=== PATIENT | female | born 1965 | race Caucasian/White ===

== ENCOUNTER → 2017-10-03 | Day surgery (SDC) | payer OTHER ==
[2017-09-27 10:57] VITALS: Ht 180.3 cm; Wt 118.2 kg
[~2017-10-03] VITALS: Ht 180.3 cm; Wt 118.2 kg
[~2017-10-03] MED LIST: ASTN; BUSP15TA70 PO; CALC1TAB9 PO; CHOL100010 PO; CLR10 PO; FERR28TA PO; FLUO40CA8 PO; FLUT0.15; HYDR12.55 PO; KETAMINE HCL INJ 50 MG/ML 10 ML VIAL ONE; LEVO175T PO; LIDOCAINE HCL 2% 2 ML VIAL (20MG/ML) ONE; LORA-741 PO; MTR600X PO; PROPOFOL IV EMULSION 10 MG/ML 20 ML VIAL IV ONE; ROPI0.5T15 PO; SODIUM CHLORIDE 0.9% 500ML 500 ML IV ONE; VITACAP26 PO
--- NOTE | 2017-10-03 11:33 | Endo History and Physical ---
History & Physical Date of Service: Oct 03, 2017. Chief Complaint: Screening Referring Physician: Dr. Holger Alamo History of Present Illness screening Past Medical History Anxiety, Sleep Apnea, Hypertension, Thyroid Disease, Depression Past Surgical History Hx Cardiac Surgery: No Hx Internal Defibrillator: No Hx Pacemaker: No Hx Abdominal Surgery: Yes (LILIBETH) Hx of Implantable Prosthesis: No Hx Post-Op Nausea and Vomiting: No Hx Cancer Surgery: No Hx Thoracic Surgery: No Hx Orthopedic: Yes (RT ACHILLES TENDON,AURELIO TRIGGER THUMBS,RT SHOULDER SCOPE X 2 ,RT RADIAL HEAD ) Hx Urinary Tract Surgery: No Family History None Social History Smoking Status: Never Smoker Hx Substance Use: No Hx Alcohol Use: No Allergies Coded Allergies: Amoxicillin (Verified Allergy, Intermediate, HIVES. ITCHING, 09/27/17) Clavulanic Acid (Verified Allergy, Intermediate, HIVES, ITCHING, 09/27/17) Adhesives (Verified Allergy, Unknown, TAPE-REDNESS, 09/27/17) Celecoxib (Verified Allergy, Unknown, HIVES, 10/03/17) Cetirizine (Verified Allergy, Unknown, PSYCHIATRIC REACTION, 10/03/17) Guaifenesin (Verified Allergy, Unknown, PSYCHIATRIC REACTION, 10/03/17) Hydrocodone (Verified Allergy, Unknown, HIVES, 09/27/17) Lactose (Verified Allergy, Unknown, LACTOSE INTOLERANCE, 09/27/17) Levofloxacin (Verified Allergy, Unknown, HIVES, 10/03/17) Moxifloxacin (Verified Allergy, Unknown, HIVES, 10/03/17) Oxycodone (Verified Allergy, Unknown, HIVES, 10/03/17) Paroxetine (Verified Allergy, Unknown, HIVES, 10/03/17) Penicillins (Verified Allergy, Unknown, ALLERGIC PER TESTING, 09/27/17) Pseudoephedrine (Verified Allergy, Unknown, PSYCHIATRIC REACTION, 10/03/17) Sulfa Antibiotics (Verified Allergy, Unknown, EDEMA,BLISTERS, 09/27/17) Acetaminophen (Verified Adverse Reaction, Unknown, Facial flushing, 10/03/17 ) Patient reports she has tolerated po Tylenol in the past Current Medications Reported Home Medications Medications Dose Route/Sig Max Daily Dose Days Date Category Requip (Ropinirole HCl) 0.5 Mg Tab 1-3 Mg PO HS 09/27/17 Reported Ativan (Lorazepam) 0.5 Mg Tab 0.5 Mg PO TID PRN 09/27/17 Reported Claritin (Loratadine) 10 Mg Tab 10 Mg PO QAM 09/27/17 Reported Astelin Nasal [place] (Azelastine Hcl) 200 Sprays/30 Ml [place] 1-2 Sprays NA BID 09/27/17 Reported Iron (Ferrous Gluconate) 256 Mg Tab 256 Mg PO QPM 09/27/17 Reported Flonase Allergy Relief (Fluticasone Propionate (Nasal)) 50 Mcg/Act Spr 2 Sprays NA BID 09/27/17 Reported Vitamin D (Cholecalciferol) 1,000 Unit Tab 1,000 Units PO QPM 09/27/17 Reported Synthroid (Levothyroxine Sodium) 175 Mcg Tab 175 Mcg PO QAM 09/27/17 Reported Prozac (Fluoxetine HCl) 40 Mg Cap 40 Mg PO QAM 09/27/17 Reported Ibuprofen 600 Mg Tab 600 Mg PO Q6H PRN 06/22/14 Rx Vitamin C (Vitamins C & E) 1 Cap Cap 1 Cap PO DAILY 06/19/14 Reported Citracal + D3 Maximum (Calcium Citrate-Vitamin D) 1 Tab Tab 500 Mg PO DAILY 06/02/14 Reported Buspar (Buspirone Hcl) 15 Mg Tab 15 Mg PO QAM 06/02/14 Reported Hydrochlorothiazide 12.5 Mg Tab 12.5 Mg PO QAM 06/02/14 Reported Vital Signs Weight (Kilograms): 118.18 Height (Feet): 5 Height (Inches): 11 Date Time Temp Pulse Resp B/P (MAP) Pulse Ox O2 Delivery O2 Flow Rate FiO2 10/03/17 11:14 37.2 78 18 148/95 (112) 95 Room Air Physical Exam General Appearance: no apparent distress Respiratory/Chest: Auscultation: breath sounds normal Cardiovascular: Heart Auscultation: RRR Assessment and Plan Screening cscopy
--- NOTE | 2017-10-03 12:31 | Discharge Instructions ---
Endoscopy Patient Instructions Date / Procedure(s) Performed Oct 03, 2017. Colonoscopy Allergy Information Coded Allergies: Amoxicillin (Verified Allergy, Intermediate, HIVES. ITCHING, 09/27/17) Clavulanic Acid (Verified Allergy, Intermediate, HIVES, ITCHING, 09/27/17) Adhesives (Verified Allergy, Unknown, TAPE-REDNESS, 09/27/17) Celecoxib (Verified Allergy, Unknown, HIVES, 10/03/17) Cetirizine (Verified Allergy, Unknown, PSYCHIATRIC REACTION, 10/03/17) Guaifenesin (Verified Allergy, Unknown, PSYCHIATRIC REACTION, 10/03/17) Hydrocodone (Verified Allergy, Unknown, HIVES, 09/27/17) Lactose (Verified Allergy, Unknown, LACTOSE INTOLERANCE, 09/27/17) Levofloxacin (Verified Allergy, Unknown, HIVES, 10/03/17) Moxifloxacin (Verified Allergy, Unknown, HIVES, 10/03/17) Oxycodone (Verified Allergy, Unknown, HIVES, 10/03/17) Paroxetine (Verified Allergy, Unknown, HIVES, 10/03/17) Penicillins (Verified Allergy, Unknown, ALLERGIC PER TESTING, 09/27/17) Pseudoephedrine (Verified Allergy, Unknown, PSYCHIATRIC REACTION, 10/03/17) Sulfa Antibiotics (Verified Allergy, Unknown, EDEMA,BLISTERS, 09/27/17) Acetaminophen (Verified Adverse Reaction, Unknown, Facial flushing, 10/03/17 ) Patient reports she has tolerated po Tylenol in the past Discharge Date / Findings Oct 03, 2017. Diverticulosis, fair prep Provider Instructions Activity Restrictions - No exercising or heavy lifting for 24 hours. - Do not drink alcohol the day of the procedure. - Do not drive a car or operate machinery until the day after the procedure. - Do not make any important decisions or sign important papers in 24 hours after the procedure. Following Day: - Return to full activity which may include returning to work/school. Diet Start your diet with liquids and light foods (jello, soup, juice, toast). Then eat your usual diet if not nauseated. Treatment For Common After Affects For mild abdominal pain, bloating, or excessive gas: - Rest - Eat lightly - Lie on right side Follow-Up Information Follow-up with Dr. Holger Alamo as scheduled Anesthesia Information What You Should Know You have had a procedure that required some medicine to reduce anxiety and discomfort. This treatment is called moderate sedation. After receiving the treatment, you may be sleepy, but you will be able to breathe on your own. The effects of the treatment may last for several hours. Follow these instructions along with Activity/Diet recommendations noted above: * Do NOT do anything where dizziness or clumsiness would be dangerous. * Rest quietly at home today, then you can be up and about tomorrow. * Have a responsible person stay with you the rest of today. * You may have had an I.V. today. If so, you may take the dressing off later today. Recommendations Call your doctor if: * Trouble breathing * Continuous vomiting for more than 24 hours * Temperature above 101 degrees * Severe abdominal pain or bloating * Pain not relieved by pain medicine ordered * There is increased drainage or redness from any incision * A large amount of rectal bleeding greater than 2-3 tablespoons. (If you had a polyp/s removed or have hemorrhoids, a small amount of blood - from the rectum is to be expected.) * You have any unanswered questions or concerns. IN THE EVENT OF A SERIOUS EMERGENCY, GO TO THE NEAREST EMERGENCY ROOM Your discharge instructions were prepared by provider Nerissa Schmidt. Patient Instructions Signature Page Mara Sanchez Patient (or Guardian) Signature/Date: I have read and understand the instructions given to me by my caregivers. Caregiver/RN/Doctor Signature/Date: The above-named patient and/or guardian has received patient instructions on this date. + Original Patient Signature Page (only) stays with chart. Please make copy for patient.
--- NOTE | 2017-10-03 12:33 | GI REPORT ---
Procedure Date: 10/03/2017 11:36 AM Procedure: Colonoscopy Indications: Screening for colorectal malignant neoplasm Medicines: See the Anesthesia note for documentation of the administered medications Complications: No immediate complications. Estimated Blood Loss: Estimated blood loss: none. Procedure: Pre-Anesthesia Assessment: - ASA Grade Assessment: III - A patient with severe systemic disease. After I obtained informed consent, the scope was passed under direct vision. Throughout the procedure, the patient's blood pressure, pulse, and oxygen saturations were monitored continuously. The scope was introduced through the anus and advanced to the cecum, identified by appendiceal orifice and ileocecal valve. The quality of the bowel preparation was fair. The colonoscopy was performed with moderate difficulty due to the patient's poor cooperation. The patient tolerated the procedure. Findings: The perianal and digital rectal examinations were normal. A few small-mouthed diverticula were found in the sigmoid colon. The exam was otherwise without abnormality. Impression: - Diverticulosis in the sigmoid colon. - The examination was otherwise normal. - No specimens collected. Recommendation: - Discharge patient to home. Repeat exam in 3 years due to prep quality. Nerissa Camp M.D. Nerissa Camp MD 10/03/2017 12:33:13 PM This report has been signed electronically. Note Initiated On: 10/03/2017 11:36 AM I attest to the content of the Intraoperative Record and orders documented therein, exceptions below
[2017-10-03 12:51] VITALS: BP 143/99; PULSE 84; O2SAT 96
--- NOTE | 2017-10-03 13:53 | Anesthesiology Progress Note ---
Anesthesia Post Op Note Date & Time Oct 03, 2017 at 13:53 Vital Signs Pain Intensity: 0 Vital Signs Past 12 Hours Date Time Temp Pulse Resp B/P (MAP) Pulse Ox O2 Delivery O2 Flow Rate FiO2 10/03/17 12:51 84 20 143/99 (114) 96 Room Air 10/03/17 12:36 88 20 149/93 (111) 96 Room Air 10/03/17 12:21 36.7 106 16 141/91 (108) 96 Room Air 10/03/17 11:14 37.2 78 18 148/95 (112) 95 Room Air Notes Mental Status: alert / awake / arousable, participated in evaluation Pt Amnestic to Procedure: Yes Nausea / Vomiting: adequately controlled Pain: adequately controlled Airway Patency, RR, SpO2: stable & adequate BP & HR: stable & adequate Hydration State: stable & adequate Anesthetic Complications: no major complications apparent
== END | disposition home or self-care (01) ==
LOC: C.GI 10:41
PROVIDERS: ATTEND Internal Medicine Gastroenterology
DX: Z12.11 Encounter for screening for malignant neoplasm of colon (principal); K57.30 Diverticulosis of large intestine without perforation or abscess without bleeding; F41.9 Anxiety disorder, unspecified; G47.33 Obstructive sleep apnea (adult) (pediatric); E03.9 Hypothyroidism, unspecified; G25.81 Restless legs syndrome; I10 Essential (primary) hypertension; E66.9 Obesity, unspecified; F32.9 Major depressive disorder, single episode, unspecified; Z90.710 Acquired absence of both cervix and uterus; Z88.1 Allergy status to other antibiotic agents; Z88.5 Allergy status to narcotic agent; Z88.0 Allergy status to penicillin; Z88.6 Allergy status to analgesic agent; Z88.2 Allergy status to sulfonamides

== ENCOUNTER 2024-02-03 07:22 | Inpatient (IN) ==
--- OUTSIDE RECORDS SUMMARY | 2024-02-03 07:28 | External Medical Summary | Summary of Care ---
Author Name Unknown Organization [facility] Address [address] [place] [address] Phone [phone] Care Team Providers Care Flexo Press Operator Name Role Phone Yamini Alamo MD Primary Care Provider [phone] Reason for Visit * Reason Comments eRx-Medication Refill Encounter Details Date Type Department Care Team (Late st Contact Info) Description 12/24/2023 Refill General Internal Medicine [facility] [address] [facility] [address] Yamini Alamo MD [address] [place] [address] Allergies Active Allergy Reactions Criticality Noted Date Comments Amoxicillin-Pot Clavulanate Itching Medium 07/16/2014 Mild skin redness on back Pos allergy skin testing 08/08/17 Moxifloxacin Hcl In Nacl Itching 02/04/2010 Skin redness on back Celecoxib Hives 02/04/2010 Guaifenesin Psych complications 02/04/2010 Hydrocodone Rash 03/19/2017 Hydrocodone-Acetaminoph en Hives 02/04/2010 Levofloxacin Itching 02/04/2010 Mild redness on back Moxifloxacin Hives 02/27/2011 Oxycodone Hcl Hives 02/04/2010 Paroxetine Hydrochloride Hives 02/04/2010 Penicillins Other (Please comment) 08/24/2017 Positive on allergy testing Sulfa Antibiotics Rash High 04/07/2014 Edema, mouth blisters Cetirizine Hcl Psych complications 02/04/2010 documented as of this encounter (statuses as of 12/25/2023) Medications Medication Sig Dispensed Refills Start Date End Date Status Potassium 75 MG Oral Tablet Take 1 Tablet by mouth in the morning. As needed for leg cramps . Active Magnesium 100 MG Oral Capsule Take 1 Capsule by mouth in the morning. As needed for leg cramps . Active rOPINIRole HCl 0.5 MG Oral Tablet (Requip)Indication s:RLS (restless legs syndrome) TAKE 1 TABLET AT 5 P.M. AND TAKE 1 TABLET AT 9 P.M. CAN DOSE 1 ADDITIONAL TABLET NEEDED FOR RESTLESS LEG SYNDROME 270 Tablet 3 3 Active Benzonatate 100 MG Oral Capsule (Tessalon Perles)Indications :Acute cough Take 1-2 capsules up to 3 times a day Do not cut, crush, or chew. 50 Capsule 1 3 Active FLUoxetine HCl 20 MG Oral Capsule (PROzac)Indication s:Major depressive disorder, recurrent episode, mild (HCC),Generalized anxiety disorder Take 1 Capsule by mouth in the morning. Take with 40 mg capsule for a total of 60 mg daily.. 90 Capsule 3 3 Active rOPINIRole HCl 0.5 MG Oral Tablet (Requip)Indication s:RLS (restless legs syndrome) TAKE 1 TABLET AT 5 P.M. AND TAKE 1 TABLET AT 9 P.M. CAN DOSE 1 ADDITIONAL TABLET NEEDED FOR RESTLESS LEG SYNDROME 30 Tablet 3 Active Fexofenadine HCl 180 MG Oral Tablet (Anabel Allergy) Take 1 Tablet by mouth in the morning. 90 Tablet 3 3 Active Levothyroxine Sodium 150 MCG Oral Tablet (Synthroid) Take 1 Tablet by mouth in the morning. (at least 30 min prior to breakfast or other meds) brand name Synthroid. 90 Tablet 3 4 Active Montelukast Sodium 10 MG Oral Tablet (Singulair) Take 1 Tablet by mouth in the morning. 90 Tablet 3 4 Active Gabapentin 800 MG Oral Tablet (Neurontin)Indicat ions:RLS (restless legs syndrome) Take 1 tablet by mouth at 5pm for RLS 90 Tablet 4 Active hydroCHLOROthiazid e 12.5 MG Oral Capsule (Hydrodiuril)Indic ations:Essential hypertension with goal blood pressure less than 140/90 TAKE 1 CAPSULE IN THE MORNING 90 Capsule 3 4 Active Atomoxetine HCl 40 MG Oral Capsule (Strattera)Indicat ions:Attention deficit hyperactivity disorder (ADHD), combined type Take 1 Capsule by mouth in the morning. 30 Capsule 4 Active FLUoxetine HCl 40 MG Oral Capsule (PROzac)Indication s:Adjustment disorder with depressed mood TAKE 1 CAPSULE DAILY IN THE MORNING IN ADDITION TO THE 20 MG CAPSULE FOR A TOTAL OF 60 MG 90 Capsule 2 4 Active Fluticasone Propionate 50 MCG/ACT Nasal Suspension (Flonase) USE 2 SPRAYS IN EACH NOSTRIL TWICE A DAY. PLEASE CALL TO SCHEDULE AN APPOINTMENT FOR ALLERGY VISIT. 32 g 5 4 Active Azelastine HCl 0.1 % Nasal Solution (Astelin)Indicatio ns:Dysfunction of both eustachian tubes USE 2 SPRAYS IN EACH NOSTRIL TWICE DAILY 120 mL 3 4 Active Albuterol Sulfate HFA 108 (90 Base) MCG/ACT Inhalation Aerosol Solution Inhale 2 Puffs by mouth every 4 hours as needed for Wheezing. 6.7 g 3 4 Active Omeprazole 20 MG Oral Capsule Delayed Release (PriLOSEC) take One capsule by mouth 30 minutes prior to breakfast. 90 Capsule 3 4 Active Vitamin D3 1.25 MG (82938 UT) Oral CapsuleIndications :Vitamin D deficiency Take 1 Capsule by mouth once a week. 12 Capsule 4 03/16/20 24 Active Calcium 500 MG Oral TabletIndications: Vitamin D deficiency Take 1 Tablet by mouth in the morning and 1 Tablet before bedtime. With food.. 4 Active Vitamin B-12 1000 MCG Oral Tablet (Cyanocobalamin)In dications:Vitamin B12 deficiency Take 1 Tablet by mouth in the morning. 4 Active LORazepam 0.5 MG Oral Tablet (Ativan)Indication s:KAMALA (generalized anxiety disorder) Take 1 Tablet by mouth daily as needed for Anxiety. 20 Tablet 4 Active Lisinopril 5 MG Oral Tablet (Prinivil) TAKE 1 TABLET DAILY 90 Tablet 3 4 Active Lisinopril 5 MG Oral Tablet (Prinivil) TAKE 1 TABLET DAILY 90 Tablet 1 3 12/25/19 24 Discontinued documented as of this encounter (statuses as of 12/25/2023) Active Problems Problem Noted Date Diagnosed Date Major depressive disorder, recurrent episode, mi ld 03/23/2023 Attention deficit hyperactiv ity disorder (ADHD), combined type 03/23/2023 Prediabetes 01/08/2023 Overview: Per Prediabetes protocol Moderate episode of recurrent major depressive d isorder 09/09/2020 KAMALA (generalized anxiety disorder) 08/05/2019 Ganglion cyst of left foot 05/14/2017 Tailor's bunion of left foot 05/14/2017 Chronic nonseasonal allergic rhinitis due to justin jese 02/05/2017 Allergic conjunctivitis of both eyes 02/05/2017 ETD (eustachian tube dysfunction) 02/05/2017 Oral allergy syndrome 02/05/2017 Overview: mouth itching with melons (honeydew/cantalope), pineapple Laryngospasm 02/05/2017 Chronic pansinusitis 11/09/2016 Hypertrophy of both inferior nasal turbinates RLS (restless legs syndrome) 10/23/2014 Sleep related leg cramps 10/23/2014 Moderate obstructive sleep apnea 05/26/2014 Overview: CPAP 7 cwp (based on initial download) 06/2014 PSG -- CPAP 6 cwp PSG 04/2014 -- AHI 19/hr AHP Acquired hypothyroidism Essential hypertension with goal blood pressure less than 140/90 Mixed dyslipidemia documented as of this encounter (statuses as of 12/25/2023) Resolved Problems Problem Noted Date Diagnosed Date Resolved Date Closed fracture of fifth met atarsal bone of left foot, sequela 05/14/2017 05/14/2017 documented as of this encounter (statuses as of 12/25/2023) Immunizations Name Administration Dates Next Due COVID-19 mRNA, LNP-s, No Pre serve, 2-Dose Series (Moderna) 11/01/2020,10/04/2020 COVID-19, MRNA-LNP, 23-24, P F, 30 MCG/0.3 mL, 12 YRS AND ABOVE, IM (Cortexa-Comirnaty) 06/22/2023 COVID-19, mRNA, LNP-s, PF, B ooster, 100mcg/0.5mg (Moderna) 01/16/2022,06/02/2021 Covid-19, Mrna, Lnp-s, Pf, B ivalent, 30 Mcg, IM, 12 yrs and above (Pfizer) 05/05/2022 Hepatitis B, 20+ yrs 05/17/2023,01/02/2023,11/09 Pneumococcal Conjugate Vacci ne, 20-valent ([id number]) 12/17/2023 Seasonal Influenza, PF, 6 M & above, IM , (FluLaval or Fluzone) 05/04/2023,05/05/2022,04/21/2021,2019,04/24/2019,06/03/2018,05/01/2017 Seasonal Influenza, Quadriva lent, No Preserve, IM 07/11/2016,06/01/2015 Seasonal Influenza, Split, I IV3, With Preserve, Inj 04/08/2014,07/14/2013,05/02/2012,2010,06/09/2010 TDAP (age 10 and older)(Boostrix) 06/01/2015 TDAP (age 11 and older)(Adacel) 05/08/2005 Zoster Vaccine Recombinant (Shingrix) 06/03/2020 ,04/01/2020 documented as of this encounter Social History Tobacco Use Types Packs/Day Years Used Date Smoking Tobacco: Never Smokeless Tobacco: Never Alcohol Use Standard Drinks/Week Comments No 0 (1 standard drink = 0.6 oz pur e alcohol) PHQ-2 Answer Date Recorded PHQ Adult Total Score 13 10/06/2021 Hunger Vital Sign Answer Date Recorded Within the past 12 months, y ou worried that your food would run out before you got the money to buy more. Never true 10/07/19 22 Within the past 12 months, t he food you bought just didn't last and you didn't have money to get more. Never true 10/06/2021 Sex and Gender Information Value Date Recorded Sex Assigned at Female 04/28/2019 2:03 PM EDT Gender Identity Female 04/28/2019 2:03 PM EDT Sexual Orientation Straight 04/28/2019 2: 03 PM EDT Job Start Date Occupation Industry Not on file Not on file Not on file documented as of this encounter Miscellaneous Notes * Telephone Encounter - Jakub Patton RPh - 12/25/2023 4:25 PM EDTSigned Prescriptions: Disp Refills Lisinopril 5 MG Oral Tablet (Prinivil) 90 Tab*3 Sig: TAKE 1 TABLET DAILYAuthorizing Provider: Katya ALAMO User: JAKUB PATTON documented in this encounter Plan of Treatment Upcoming Encounters Date Type Department Care Team (Late st Contact Info) Description 06/17/2024 10:30 AM EST Office Visit Allergy/Immunology [facility] [address] [place] [address] Cee Umanzor PA-C [address] [place] [address] 06/24/2024 10:20 AM EST Office Visit General Internal Medicine [facility] [address] [place] [address] Yamini Alamo MD [address] [place] [address] 03/02/2025 10:15 AM EDT Office Visit Ophthalmology, [facility] [address] [address] Oleksandr Price DO [address] [address] Scheduled Procedures Name Priority Associated Diagnoses Date/Ti me COLONOSCOPY FLEXIBLE PROXIMAL DIAGNOSTIC Recall History of colon polyps Health Maintenance Due Date Last Done Comments Cologuard 2010 Sigmoidoscopy 2010 Fecal Occult Blood Test 06/09/2011 06/09/2010 Depression, Most Recent Score >= 10 (will fire each visit until score < 10) 10/07/2021 10/06/2021 Colonoscopy 03/07/2024 03/07/2021, 03/0 01/2018, 12/05/2016, Additional history exists Colorectal Cancer Screening 03/07/2024 Mammogram 05/29/2024 05/29/2023, 100 10/2021, 04/25/2021, Additional history exists GFR 12/10/2024 12/11/2023, 06/0 12/2022, 06/08/2022, Additional history exists HbA1c 12/10/2024 12/11/2023, 06/0 12/2022, 06/02/2015 TSH 12/10/2024 12/11/2023, 06/0 12/2022, 06/08/2022, Additional history exists DTaP,Tdap,and Td Vaccines (3 - Td or Tdap) 06/01/2025 06/01/2015, 05/08/2005 Albumin/Creatinine Ratio 01/02/2026 01/02/2023 Lipid Panel 12/10/2028 12/11/2023, 06/0 12/2022, 06/08/2022, Additional history exists Zoster Vaccines Completed 06/03/2020, 04/01/2020 Influenza Vaccine (FLU shot) Completed 12/2022, 05/05/2022, 04/21/2021, Additional history exists Hepatitis B Completed 05/17/2023, 06/0 12/2022, 11/09/2022 COVID-19 Vaccine Completed 06/22/2023, 01/2022, 01/16/2022, Additional history exists Pneumococcal Vaccine: Pediatrics (0 to 5 Years) and At-Risk Patients (6 to 64 Years) Completed 12/17/2023 GARDASIL-HPV IMMUNIZATION SERIES Aged Out No longer eligible based on patient's age to complete this topic MENINGOCOCCAL (MENACTRA/MENVEO) Aged Out No longer eligible based on patient's age to complete this topic documented as of this encounter Medical Devices Not on filedocumented as of this encounter Care Teams Flexo Press Operator Relationship Specialty Start Date End Date Yamini Alamo MD [address] [facility] [place], [place] [address] PCP - General 02/04/10 documented as of this encounter
--- OUTSIDE RECORDS SUMMARY | 2024-02-03 07:28 | External Medical Summary | Summary of Care ---
Author Name Unknown Organization [facility] Address [address] [place] [address] Phone [phone] Care Team Providers Care Grain Operations Manager Name Role Phone Yamini Alamo MD Primary Care Provider [phone] Reason for Visit * Reason Onset Date Comments Health Maintenance 01/16/2024 Encounter Details Date Type Department Care Team (Late st Contact Info) Description 01/16/2024 Telephone General Internal Medicine [facility] [place] [facility] [address] Yamini [facility]amo MD 200 [facility] [place] [address] Health Maintenance Allergies Active Allergy Reactions Criticality Noted Date [...] as of this encounter (statuses as of 01/16/2024) Medications Medication Sig Dispensed Refills Start Date End Date Status Potassium 75 MG Oral Tablet Take 1 Tablet by mouth in the morning. As needed for leg cramps . Active Magnesium 100 MG Oral Capsule Take 1 Capsule by mouth in the morning. As needed for leg cramps . Active Benzonatate 100 MG Oral Capsule (Tessaltati Perlned)Indications: Acute cough Take 1-2 capsules up to 3 times a day Do not cut, crush, or chew. 50 Capsule 1 03/15/2023 Active FLUoxetine HCl 20 MG Oral Capsule (PROzac)Indications :Major depressive disorder, recurrent episode, mild (HCC),Generalized anxiety disorder Take 1 Capsule by mouth in the morning. Take with 40 mg capsule for a total of 60 mg daily.. 90 Capsule 3 03/23/2023 Active Fexofenadine HCl 180 MG Oral Tablet (Anabel Allergy) Take 1 Tablet by mouth in the morning. 90 Tablet 3 06/12/2023 Active Levothyroxine Sodium 150 MCG Oral Tablet (Synthroid) Take 1 Tablet by mouth in the morning. (at least 30 min prior to breakfast or other meds) brand name Synthroid. 90 Tablet 3 08/14/2023 Active Montelukast Sodium 10 MG Oral Tablet (Singulair) Take 1 Tablet by mouth in the morning. 90 Tablet 3 08/14/2023 Active Gabapentin 800 MG Oral Tablet (Neurontin)Indicati ons:RLS (restless legs syndrome) Take 1 tablet by mouth at 5pm for RLS 90 Tablet 08/17/2023 Active hydroCHLOROthiazide 12.5 MG Oral Capsule (Hydrodiuril)Indica tions:Essential hypertension with goal blood pressure less than 140/90 TAKE 1 CAPSULE IN THE MORNING 90 Capsule 3 09/24/2023 Active Atomoxetine HCl 40 MG Oral Capsule (Strattera)Indicati ons:Attention deficit hyperactivity disorder (ADHD), combined type Take 1 Capsule by mouth in the morning. 30 Capsule 09/26/2023 Active FLUoxetine HCl 40 MG Oral Capsule (PROzac)Indications :Adjustment disorder with depressed mood TAKE 1 CAPSULE DAILY IN THE MORNING IN ADDITION TO THE 20 MG CAPSULE FOR A TOTAL OF 60 MG 90 Capsule 2 10/18/2023 Active Fluticasone Propionate 50 MCG/ACT Nasal Suspension (Flonase) USE 2 SPRAYS IN EACH NOSTRIL TWICE A DAY. PLEASE CALL TO SCHEDULE AN APPOINTMENT FOR ALLERGY VISIT. 32 g 5 12/11/2023 Active Azelastine HCl 0.1 % Nasal Solution (Astelin)Indication s:Dysfunction of both eustachian tubes USE 2 SPRAYS IN EACH NOSTRIL TWICE DAILY 120 mL 3 12/11/2023 Active Albuterol Sulfate HFA 108 (90 Base) MCG/ACT Inhalation Aerosol Solution Inhale 2 Puffs by mouth every 4 hours as needed for Wheezing. 6.7 g 3 12/11/2023 Active Omeprazole 20 MG Oral Capsule Delayed Release (PriLOSEC) take One capsule by mouth 30 minutes prior to breakfast. 90 Capsule 3 12/11/2023 Active Vitamin D3 1.25 MG (30843 UT) Oral CapsuleIndications: Vitamin D deficiency Take 1 Capsule by mouth once a week. 12 Capsule 12/17/2023 03/16/2024 Active Calcium 500 MG Oral TabletIndications:V itamin D deficiency Take 1 Tablet by mouth in the morning and 1 Tablet before bedtime. With food.. 12/17/2023 Active Vitamin B-12 1000 MCG Oral Tablet (Cyanocobalamin)Ind ications:Vitamin B12 deficiency Take 1 Tablet by mouth in the morning. 12/17/2023 Active LORazepam 0.5 MG Oral Tablet (Ativan)Indications :KAMALA (generalized anxiety disorder) Take 1 Tablet by mouth daily as needed for Anxiety. 20 Tablet 12/17/2023 Active Lisinopril 5 MG Oral Tablet (Prinivil) TAKE 1 TABLET DAILY 90 Tablet 3 12/25/2023 Active rOPINIRole HCl 0.5 MG Oral Tablet (Requip)Indications :RLS (restless legs syndrome) TAKE 1 TABLET AT 5 P.M. AND TAKE 1 TABLET AT 9 P.M. CAN DOSE 1 ADDITIONAL TABLET NEEDED FOR RESTLESS LEG SYNDROME 270 Tablet 3 12/26/2023 Active documented as of this encounter (statuses as of 01/16/2024) Active Problems Problem Noted Date Diagnosed Date [...] as of this encounter (statuses as of 01/16/2024) Resolved Problems Problem Noted Date Diagnosed Date Resolved Date Closed fracture of fifth met atarsal bone of left foot, sequela 05/14/2017 05/14/2017 documented as of this encounter (statuses as of 01/16/2024) Immunizations Name Administration Dates Next Due COVID-19 mRNA, LNP-s, No Pre serve, 2-Dose Series (Moderna) 11/01/2020,10/04/2020 COVID-19, MRNA-LNP, 23-24, P F, 30 MCG/0.3 mL, 12 YRS AND ABOVE, IM (PFIZER-Comirnaty) 06/22/2023 COVID-19, mRNA, LNP-s, PF, B ooster, 100mcg/0.5mg (Moderna) 01/16/2022,06/02/2021 Covid-19, Mrna, Lnp-s, Pf, B ivalent, 30 Mcg, IM, 12 yrs and above (Pfizer) 05/05/2022 Hepatitis B, 20+ yrs 05/17/2023,01/02/2023,11/09 Pneumococcal Conjugate Vacci ne, 20-valent ([id number]) 12/17/2023 Seasonal Influenza, PF, 6 M & above, IM , (FluLaval or Fluzone) 05/04/2023,05/05/2022,04/21/2021,2019,04/24/2019,06/03/2018,05/01/2017 Seasonal Influenza, Quadriva lent, No Preserve, IM 07/11/2016,06/01/2015 Seasonal Influenza, Split, I IV3, With Preserve, Inj 04/08/2014,07/14/2013,05/02/2012,2010,06/09/2010 TDAP (age 10 and older)(Boostrix) 06/01/2015 TDAP, Age 7 and older, IM (Adacel) 05/08/2005 Zoster Vaccine Recombinant (Shingrix) 06/03/2020 ,04/01/2020 [...] encounter Miscellaneous Notes * Telephone Encounter - Belle StrattonSHANNEN - 01/16/2024 10:19 AM EDT Care Gaps Comprehensive Care Outreach Last Office/Telemedicine Visit: 12/17/2023 (in office), 07/11/2021 (telemedicine) Next Office Visit: 06/24/2024 Hemoglobin AIC Results: Lab Results Component Value Date/Time HEMOGLOBIN A1C - [facility] 5.6 12/11/2023 10:02 AM HEMOGLOBIN A1C - [facility] 5.9 (H) 01/02/2023 11:38 AM HEMOGLOBIN A1C - [facility] 5.4 06/02/2015 09:43 AM BP Readings from Last 1 Encounters: 12/17/23 124/80 Reviewed Health Maintenance below: Health Maintenance Topic Date Due Depression Monitoring 10/06/2022 Colorectal Cancer Screening 03/07/2024 Mammogram 05/29/2024 Colon aug already scheduled Mamm may 29 Care Gap Outreach Action Taken: Left message documented in this encounter Plan of Treatment Upcoming Encounters Date Type Department Care Team (Late st Contact Info) Description 06/17/2024 10:30 AM EST Office Visit Allergy/Immunology [employer] [address] [facility] [place] [address] Cee Umanzor PA-C 200 [facility] [place] [address] 06/17/2024 1:30 PM EST Hospital Encounter ENDO [facility], Endoscopy Room [facility] [address] [place] [phone] Nerissa Camp MD [address] [place] [address] 06/17/2024 1:30 PM EST - 06/17/2024 2:00 PM EST Surgery ENDO [facility], Endoscopy Room [facility] [address] [place] [address] [phone] Nerissa Camp MD [address] [place] [address] COLONOSCOPY FLEXIBLE PROXIMAL DIAGNOSTIC 06/24/2024 10:20 AM EST Office Visit General Internal [place] [facility] [address] [place] [address] Yamini Alamo MD [address] [place] [address] 03/02/2025 10:15 AM EDT [facility] [place] [address] [place] [address] Oleksandr Price, DO [address] [place] [address] Scheduled Procedures Name Priority Associated Diagnoses Date/Ti me COLONOSCOPY FLEXIBLE PROXIMAL DIAGNOSTIC Recall History of colon polyps 06/17/2024 1:30 PM EST Health Maintenance Due Date Last Done Comments Cologuard 2010 Sigmoidoscopy 2010 Fecal Occult Blood Test 06/09/2011 06/09/2010 Depression Monitoring 10/06/2022 10/06/2021 Colonoscopy 03/07/2024 03/07/2021, 0 01/2018, 12/05/2016, Additional history exists Colorectal Cancer Screening 03/07/2024 Mammogram 05/29/2024 05/29/2023, 0 10/2021, 04/25/2021, Additional history exists GFR 12/10/2024 12/11/2023, 060 12/2022, 06/08/2022, Additional history exists HbA1c 12/10/2024 [...] filedocumented as of this encounter Care Teams Grain Operations Manager Relationship Specialty Start Date End Date Yamini Alamo MD [address] [place] [address] PCP - General 02/04/10 documented as of this encounter
--- OUTSIDE RECORDS SUMMARY | 2024-02-03 07:28 | External Medical Summary | Summary of Care ---
Author Name Unknown Organization [facility] Address [address] [place] [address] Phone [phone] Care Team Providers Care Engraver Steel Plate Name Role Phone Yamini Alamo MD Primary Care Provider [phone] Reason for Visit * Reason Comments Allergy Return Encounter Details Date Type Department Care Team (Latest Contact Info) Description 12/11/2023 9:00 AM EDT Office Visit Allergy/Immunology [facility] [place] [address] [facility] [place] [address] Cee Umanzor PA-C [address] [facility] [place] [address] Seasonal allergic rhinitis due to pollen*; Dysfunction of both eustachian tubes; Allergic rhinitis due to dust mite; Pollen-food allergy, initial encounter; Intermittent asthma with reliever use up to twice per week, uncomplicated Allergies Active Allergy Reactions Criticality Noted Date [...] as of this encounter (statuses as of 12/11/2023) Medications Medication Sig Dispensed Refills Start Date End Date Status Potassium 75 MG Oral Tablet Take 1 Tablet by mouth in the morning. As needed for leg cramps . 0 Active Magnesium 100 MG Oral Capsule Take 1 Capsule by mouth in the morning. As needed for leg cramps . 0 Active rOPINIRole HCl 0.5 MG Oral Tablet (Requip)Indicatio ns:RLS (restless legs syndrome) TAKE 1 TABLET AT 5 P.M. AND TAKE 1 TABLET AT 9 P.M. CAN DOSE 1 ADDITIONAL TABLET NEEDED FOR RESTLESS LEG SYNDROME 270 Tablet 3 3 Active LORazepam 0.5 MG Oral Tablet (Ativan) Take 1 Tablet by mouth daily as needed for Anxiety. 20 Tablet 0 3 Active Benzonatate 100 MG Oral Capsule (Tessalon Perles)Indication s:Acute cough Take 1-2 capsules up to 3 times a day Do not cut, crush, or chew. 50 Capsule 1 3 Active FLUoxetine HCl 20 MG Oral Capsule (PROzac)Indicatio ns:Major depressive disorder, recurrent episode, mild (HCC),Generalized anxiety disorder Take 1 Capsule by mouth in the morning. Take with 40 mg capsule for a total of 60 mg daily.. 90 Capsule 3 3 Active rOPINIRole HCl 0.5 MG Oral Tablet (Requip)Indicatio ns:RLS (restless legs syndrome) TAKE 1 TABLET AT 5 P.M. AND TAKE 1 TABLET AT 9 P.M. CAN DOSE 1 ADDITIONAL TABLET NEEDED FOR RESTLESS LEG SYNDROME 30 Tablet 0 3 Active Fexofenadine HCl 180 MG Oral Tablet (Anabel Allergy) Take 1 Tablet by mouth in the morning. 90 Tablet 3 3 Active Lisinopril 5 MG Oral Tablet (Prinivil) TAKE 1 TABLET DAILY 90 Tablet 1 3 Active Levothyroxine Sodium 150 MCG Oral Tablet (Synthroid) Take 1 Tablet by mouth in the morning. (at least 30 min prior to breakfast or other meds) brand name Synthroid. 90 Tablet 3 4 Active Montelukast Sodium 10 MG Oral Tablet (Singulair) Take 1 Tablet by mouth in the morning. 90 Tablet 3 4 Active Gabapentin 800 MG Oral Tablet (Neurontin)Indica tions:RLS (restless legs syndrome) Take 1 tablet by mouth at 5pm for RLS 90 Tablet 0 4 Active hydroCHLOROthiazi de 12.5 MG Oral Capsule (Hydrodiuril)Marla cations:Essential hypertension with goal blood pressure less than 140/90 TAKE 1 CAPSULE IN THE MORNING 90 Capsule 3 4 Active Atomoxetine HCl 40 MG Oral Capsule (Strattera)Indica tions:Attention deficit hyperactivity disorder (ADHD), combined type Take 1 Capsule by mouth in the morning. 30 Capsule 0 4 Active FLUoxetine HCl 40 MG Oral Capsule (PROzac)Indicatio ns:Adjustment disorder with depressed mood TAKE 1 CAPSULE [...] Active Azelastine HCl 0.1 % Nasal Solution (Astelin)Indicati ons:Dysfunction of both eustachian tubes USE 2 SPRAYS [...] to breakfast. 90 Capsule 3 4 Active Fluticasone Propionate 50 MCG/ACT Nasal Suspension (FLONASE)Indicati ons:Acute recurrent sinusitis, unspecified location USE 2 SPRAYS IN EACH NOSTRIL TWICE A DAY. PLEASE CALL TO SCHEDULE AN APPOINTMENT FOR ALLERGY VISIT. 32 g 5 0 12/11/19 24 Discontinued(Re fill) Azelastine HCl 0.1 % Nasal Solution (Astelin)Indicati ons:Dysfunction of both eustachian tubes USE 2 SPRAYS IN EACH NOSTRIL TWICE DAILY 120 mL 3 2 12/11/19 24 Discontinued(Re fill) Albuterol Sulfate HFA 108 (90 Base) MCG/ACT Inhalation Aerosol SolutionIndicatio ns:Bronchitis, complicated Inhale 2 Puffs by mouth every 4 hours as needed for Wheezing. 54 g 1 3 12/11/19 24 Discontinued(Re fill) Omeprazole 20 MG Oral Capsule Delayed Release (PriLOSEC) take One capsule by mouth 30 minutes prior to breakfast. 90 Capsule 3 3 12/11/19 24 Discontinued documented as of this encounter (statuses as of 12/11/2023) Active Problems Problem Noted Date Diagnosed Date [...] as of this encounter (statuses as of 12/11/2023) Resolved Problems Problem Noted Date Diagnosed Date Resolved Date Closed fracture of fifth met atarsal bone of left foot, sequela 05/14/2017 05/14/2017 documented as of this encounter (statuses as of 12/11/2023) Immunizations Name Administration Dates Next Due COVID-19 mRNA, LNP-s, No Pre serve, 2-Dose Series (Moderna) 11/01/2020,10/04/2020 COVID-19, MRNA-LNP, 23-24, P F, 30 MCG/0.3 mL, 12 YRS AND ABOVE, IM ([facility]) 06/22/2023 COVID-19, mRNA, LNP-s, PF, B ooster, 100mcg/0.5mg (Moderna) 01/16/2022,06/02/2021 Covid-19, Mrna, Lnp-s, Pf, B ivalent, 30 Mcg, IM, 12 yrs and above (NGI) 05/05/2022 Hepatitis B, 20+ yrs 05/17/2023,01/02/2023,11/09 Seasonal Influenza, PF, 6 M & above, [...] Date Smoking Tobacco: Never Smokeless Tobacco: Never Tobacco Cessation:Counseling Given: Not Answered Alcohol Use Standard Drinks/Week Comments No 0 [...] on file documented as of this encounter Last Filed Vital Signs Vital Sign Reading Time Taken Comments Blood Pressure 120/70 12/11/2023 9:16 AM EDT Pulse 73 12/11/2023 9:16 AM EDT Temperature 36.7 C (98.1 F) 12/11/2023 9:16 AM ED T Respiratory Rate 16 12/11/2023 9:16 AM EDT Oxygen Saturation - - Inhaled Oxygen Concentration - - Weight - - Height - - Body Mass Index - - documented in this encounter Progress Notes * Zheng Frost MD - 12/11/2023 10:34 AM EDT I have reviewed the advanced practitioner's documentation on the date of service referenced in note, and I agree with, and take responsibility for the plan of care. Zheng Frost MD * Cee Umanzor PA-C - 12/11/2023 9:19 AM EDT REASON FOR VISIT: Chief Complaint Patient presents with Allergy Return HPI: Dyana is a pleasant 58-year-old female who presents to our office for follow up of asthma, chronic allergic rhinitis, and oral allergy syndrome. Overall she's doing well. After her last office visit 6 months ago, she started taking Anabel 180 mg once daily which has been helpful at controlling her allergic rhinitis symptoms. She did state using Flonase and Astelin daily, however she got a sinus infection in September and discontinued them secondary to nasal irritation. She has not restarted them yet. She endorses more aural fullness and itching/pressure since stopping the sprays. Her asthma is well controlled. She notes cold temperatures and URI's are triggers. She denies current nocturnal symptoms. Last albuterol use was in September when she was sick. Albuterol does help symptoms. She denies recent ER or Urgent Care visits from an asthma standpoint. She denies coughing, wheezing or shortness of breath. Reflux symptoms are controlled with omeprazole 20 mg once daily. The patient does have a history of oral allergy syndrome primarily to pineapples. She was able to pineapples in the cooked form. With oral allergy syndrome she feels numbness and tingling of her lipsand inside her mouth. She tends to avoid pineapples in the fresh form. She can tolerate all other fruits and vegetables without any adverse reaction. She did have issues with melons in the past. 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 HAND/FINGER SURGERY NEC 2007, trigger HYSTEROSCOPY W/BIOPSY AND/OR POLYPECTOMY W/WO D&C 11/2010 polypectomy, d/c, ablation NASAL ENDOSCOPY, PARTIAL ETHMOIDECTOMY 2002; nasal turbinate reduction surgery OTHER (INFORMATION) ACT 112 SIGNED ,DR. PRICE (09-21-21) PARTIAL HYSTERECTOMY 2014 ovaries intact PARTIAL RADIAL HEAD/NECK REMOVAL 2001 PLANTER FASCITIS EDU. 12/2015 PUNCTURE DRAINAGE BREAST CYST Left 03/31/2010 REPAIR OF NASAL SEPTUM 2002 REPAIR RUPTURED ACHILLES TENDON 1976 REPAIR RUPTURED ROTATOR CUFF, ACUTE 04/09, 08/[address] Gonsalves RETINA TREATMENT, PHOTOCOAGULATION Left 09/13/2022 Laser treatment OS, Dr. Price Current Outpatient Medications Medication Sig Dispense Refill Potassium 75 MG Oral Tablet Take 1 Tablet by mouth in the morning. As needed for leg cramps . Magnesium 100 MG Oral Capsule Take 1 Capsule by mouth in the morning. As needed for leg cramps . rOPINIRole HCl 0.5 MG Oral Tablet (Requip) TAKE 1 TABLET AT 5 P.M. AND TAKE 1 TABLET AT 9 P.M. CAN DOSE 1 ADDITIONAL TABLET NEEDED FOR RESTLESS LEG SYNDROME 270 Tablet 3 LORazepam 0.5 MG Oral Tablet (Ativan) Take 1 Tablet by mouth daily as needed for Anxiety. 20 Tablet0 Benzonatate 100 MG Oral Capsule (Tessalon Perles) Take 1-2 capsules up to 3 times a day Do not cut,crush, or chew. 50 Capsule 1 FLUoxetine HCl 20 MG Oral Capsule (PROzac) Take 1 Capsule by mouth in the morning. Take with 40 mg capsule for a total of 60 mg daily.. 90 Capsule 3 Fexofenadine HCl 180 MG Oral Tablet (Anabel Allergy) Take 1 Tablet by mouth in the morning. 90 Tablet 3 Lisinopril 5 MG Oral Tablet (Prinivil) TAKE 1 TABLET DAILY 90 Tablet 1 Levothyroxine Sodium 150 MCG Oral Tablet (Synthroid) Take 1 Tablet by mouth in the morning. (at least 30 min prior to breakfast or other meds) brand name Synthroid. 90 Tablet 3 Montelukast Sodium 10 MG Oral Tablet (Singulair) Take 1 Tablet by mouth in the morning. 90 Tablet 3 Gabapentin 800 MG Oral Tablet (Neurontin) Take 1 tablet by mouth at 5pm for RLS 90 Tablet 0 hydroCHLOROthiazide 12.5 MG Oral Capsule (Hydrodiuril) TAKE 1 CAPSULE IN THE MORNING 90 Capsule 3 Atomoxetine HCl 40 MG Oral Capsule (Strattera) Take 1 Capsule by mouth in the morning. 30 Capsule 0 FLUoxetine HCl 40 MG Oral Capsule (PROzac) TAKE 1 CAPSULE DAILY IN THE MORNING IN ADDITION TO THE 20 MG CAPSULE FOR A TOTAL OF 60 MG 90 Capsule 2 Fluticasone Propionate 50 MCG/ACT Nasal Suspension (Flonase) USE 2 SPRAYS IN EACH NOSTRIL TWICE A DAY. PLEASE CALL TO SCHEDULE AN APPOINTMENT FOR ALLERGY VISIT. 32 g 5 Azelastine HCl 0.1 % Nasal Solution (Astelin) USE 2 SPRAYS IN EACH NOSTRIL TWICE DAILY 120 mL 3 Albuterol Sulfate HFA 108 (90 Base) MCG/ACT Inhalation Aerosol Solution Inhale 2 Puffs by mouth every 4 hours as needed for Wheezing. 6.7 g 3 Omeprazole 20 MG Oral Capsule Delayed Release (PriLOSEC) take One capsule by mouth 30 minutes priorto breakfast. 90 Capsule 3 rOPINIRole HCl 0.5 MG Oral Tablet (Requip) TAKE 1 TABLET AT 5 P.M. AND TAKE 1 TABLET AT 9 P.M. CAN DOSE 1 ADDITIONAL TABLET NEEDED FOR RESTLESS LEG SYNDROME 30 Tablet 0 COVID-19 mRNA Vaccine 12 years and above Pfizer 30 MCG/0.3 ML IM SUSP Inject into a large muscle. 0.3 mL 0 No current facility-administered medications for this visit. Allergies as of 12/11/2023 - Reviewed 12/11/2023 Allergen Reaction Noted Sulfa antibiotics Rash 04/07/2014 Augmentin [amoxicillin-pot clavulanate] Itching 07/16/2014 Avelox [moxifloxacin hcl in nacl] Itching 02/04/2010 Celebrex [celecoxib] Hives 02/04/2010 Guaifenesin Psych complications 02/04/2010 Hydrocodone Rash 03/19/2017 Hydrocodone-acetaminophen Hives 02/04/2010 Levofloxacin Itching 02/04/2010 Moxifloxacin Hives 02/27/2011 Oxycodone hcl [oxycodone hcl] Hives 02/04/2010 Paxil [paroxetine hydrochloride] Hives 02/04/2010 Penicillins Other (Please comment) 08/24/2017 Zyrtec [cetirizine hcl] Psych complications 02/04/2010 Family History Adopted: Yes Problem Relation Age of Onset Breast Cancer No significant family history Social History Socioeconomic History Marital status: Single Spouse name: Not on file Number of children: Not on file Years of education: Not on file Highest education level: Not on file Occupational History 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 [employer], History Social Determinants of Health Financial Resource Strain: Not on file Food Insecurity: No Food Insecurity (10/06/2021) Hunger Vital Sign Worried About Running Out of Food in the Last Year: Never true Ran Out of Food in the Last Year: Never true Transportation Needs: Not on file Physical Activity: Not on file Stress: Not on file Social Connections: Not on file Intimate Partner Violence: Not on file Housing Stability: Not on file Social history: The patient currently lives in a two-story home that has an electric and forced airheating system in addition to central air conditioning. The home has a basement that is unfinished.The home has no issues with cockroaches. She does not use any scented products in the home. There are no pets within the home. 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 BP 120/70 | Pulse 73 | Temp 36.7 C (98.1 F) | Resp 16 PHYSICAL EXAM: GENERAL: No acute distress. EYES: Conjunctiva- normal; Eyelids - normal EARS: TM's - clear NOSE:Pale mucosa; moderate Inferior turbinate edema; no nasal polyps or mucopus; Septum - normal OROPHARYNX: Teeth and gums - normal; Mild erythema, mild cobblestoning; No lesions, exudates NECK: Supple; No thyroid enlargment or cervical adenopathy RESPIRATORY: Clear to A and P; No wheezes; Good air movement bilaterally; No intercostal retractions or accessory muscle use CARDIOVASCULAR: RRR; No gallops, rubs, clicks, or murmurs. LYMPHATIC: No significant adenopathy noted SKIN: No significant rashes or lesions seen, no urticarial, vesicular or eczematous lesions noted OBJECTIVE DATA: 01/09/2023: Formal spirometry: SPIROGRAM: Shows pre bronchodilator FEV1 to be 99% of predicted, FVC is 97% of predicted. FEV1/FVC ratio is Normal. Post bronchodilator FEV1 is normal. There is no bronchodilator responseSMALL AIRWAYS: The flow of air at 25 - 75% of vital capacity is normalLUNG VOLUMES: Lung volumes when measured by body plethysmography shows the TLC, FRC and SVC are within normal limits, the RV is increased.DIFFUSION CAPACITY: The diffusing capacity is normal. RESISTANCE: The airway resistance is normal. CONCLUSION: The results are within normal limits. Skin prick and ID testing on 08/08/2017 to Pre-Pen, Penicillin G and Ampicillin were positive. Allergy skin testing 02/05/17 revealed significant positive reactions to tree, grass, ragweed and mixed weed pollens, and dust mites. Food skin test to cantaloupe and pineapple were negative. ASSESSMENT AND PLAN: ICD-10-CM 1. Seasonal allergic rhinitis due to pollen J30.1 2. Dysfunction of both eustachian tubes H69.93 3. Allergic rhinitis due to dust mite J30.89 4. Pollen-food allergy, initial encounter T78.1XXA 5. Intermittent asthma with reliever use up to twice per week, uncomplicated J45.20 In summary, Dyana carries a diagnosis of chronic allergic rhinitis with primary triggers of pollen,dust mites, and possibly animal dander in addition to mild intermittent asthma and oral allergy syndrome. Pollen avoidance measures and dust mite avoidance measures were reviewed with her today. In regards to her chronic allergic rhinitis, we do recommend that she restart her Flonase 2 sprays each nostril daily and be consistent with her Astelin 2 sprays each nostril twice daily. Proper technique of a nasal spray which shown to her today. In addition we do recommend that she continue Anabel/fexofenadine 180 mg on a daily basis. In the past she has tried normal saline sinus rinses but did not tolerate them. Should there be any dryness or irritation from use of Flonase, she may add on anormal saline nasal spray. 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 Hence we will hold off on allergen immunotherapy in his patient. In regards to the patient's mild intermittent asthma, this appears to be fairly well-controlled typically. Generally, her primary trigger tends to be upper respiratory infections. At the earliest onset of an upper respiratory infection, she will then utilize her albuterol more frequently every 4-6 hours as needed for any cough, wheezing, or shortness of breath. Consideration towards an inhaled corticosteroid temporarily may also be necessary with an upper respiratory infection and she will contact us if she feels that this is necessary. Should there be increased frequency of albuterol use, she will contact our office for further measures. Finally Kourtney has a history of oral allergy syndrome primarily to pineapples. This is due to the resemblance of the proteins in some fresh fruits, vegetables, and nuts with tree/weed pollens to whichcaleb is highly allergic. Symptoms are almost always localized to the mouth and throat area and rarely become systemic. These foods should be avoided in their fresh/raw state, but are often tolerated cooked or processed. Treatment of choice is oral benadryl at onset of the mouth/throat itching. For now she plans to avoid pineapples in the raw form. Cee Umanzor PA-C Allergy and Immunology [facility] Supervising Physician: Zheng Frost MD Type of Supervision: Direct I spent a total of 30-39 minutes (exact time 30 mins) on the date of service in preparation, delivery, and documentation of the care provided to Mara Sanchez excluding any time spent in the performance of separately billed services. (This note was completed using the dictation program Fluency Direct. As such, there may be misspellings, word substitutions, or other variations that should not change the essence of the clinical content of this encounter note.If there is need for further clarification, please direct questions to the provider listed above.) PCP: [place] [address] [phone] documented in this encounter Nursing Notes * Mónica Rothman LPN - 12/11/2023 9:16 AM EDT The pt has been properly identified by confirmation of name and date of . Pt presents for allergy return. Pt denies any problems at this time. documented in this encounter Plan of Treatment Upcoming Encounters Date Type Department Care Team (Late st Contact Info) Description 12/17/2023 10:20 AM EDT Office Visit General Internal Medicine [facility] [address] [facility] [place] [address] Yamini Alamo MD [address] [facility] [place] [address] 12/19/2023 10:30 AM EDT Office Visit Ophthalmology, [facility] [address] [place] [address] Oleksandr Price DO [address] [place] [address] 06/17/2024 10:30 AM EST Office Visit Allergy/Immunology [facility] [place] [address] [facility] [place] [address] Cee Umanzor PA-C [address] [facility] [place] [address] Scheduled Procedures Name Priority Associated Diagnoses Date/Ti me COLONOSCOPY FLEXIBLE PROXIMAL DIAGNOSTIC Recall History of colon polyps Health Maintenance Due Date Last Done Comments Pneumococcal Vaccine: Pediatrics (0 to 5 Years) and At-Risk Patients (6 to 64 Years) (1 of 2 - PCV) 10/03/1971 Cologuard 2010 Sigmoidoscopy 2010 Fecal Occult Blood Test 06/09/2011 06/09/2010 Depression, Most Recent Score >= 10 (will fire each visit until score < 10) 10/07/2021 10/06/2021 GFR 01/03/2024 01/02/2023, 05/30, 11/25/2021, Additional history exists HbA1c 01/03/2024 01/02/2023, 06/02/2015 TSH 01/03/2024 01/02/2023, 05/30, 11/25/2021, Additional history exists Colonoscopy 03/07/2024 03/07/2021, 01/2018, 12/05/2016, Additional history exists Colorectal Cancer Screening 03/07/2024 Mammogram 05/29/2024 05/29/2023, 10/2021, 04/25/2021, Additional history exists DTaP,Tdap,and Td Vaccines (3 - Td or Tdap) 06/01/2025 06/01/2015, 05/08/2005 Albumin/Creatinine Ratio 01/02/2026 01/02/2023 Lipid Panel 01/03/2028 01/02/2023, 05/30, 02/21/2021, Additional history exists Zoster Vaccines Completed 06/03/2020, 04/01/2020 Influenza Vaccine (FLU shot) Completed 12/2022, 05/05/2022, 04/21/2021, Additional history exists Hepatitis B Completed 05/17/2023, 12/2022, 11/09/2022 COVID-19 Vaccine Completed 06/22/2023, 01/2022, 01/16/2022, Additional history exists GARDASIL-HPV IMMUNIZATION SERIES Aged Out No longer eligible based on patient's age to complete this topic MENINGOCOCCAL (MENACTRA/MENVEO) Aged Out No longer eligible based on patient's age to complete this topic documented as of this encounter Medical Devices Not on filedocumented as of this encounter Visit Diagnoses Diagnosis Seasonal allergic rhinitis due to pollen- Primary Dysfunction of both eustachian tubes Dysfunction of Eustachian tube Allergic rhinitis due to dust mite Pollen-food allergy, initial encounter Intermittent asthma with reliever use up to twice per week, uncomplicated documented in this encounter Care Teams Engraver Steel Plate Relationship Specialty Start Date End Date Yamini Alamo MD [address] [place] [address] PCP - General 02/04/10 documented as of this encounter"
--- OUTSIDE RECORDS SUMMARY | 2024-02-03 07:28 | External Medical Summary | Summary of Care ---
Author Name Unknown Organization [facility] Address [address] [place] [address] Phone [phone] Care Team Providers Care Timber Incisor Operator Name Role Phone Yamini Alamo MD Primary Care Provider [phone] Reason for Visit * Reason Comments Follow Up Encounter Details Date Type Department Care Team (Late st Contact Info) Description 12/19/2023 10:30 AM EDT Office Visit Ophthalmology, [facility] [address] [facility] [place] [address] Oleksandr Price, [address] [place] [address] Bilateral retinal lattice degeneration*; Right retinal detachment Allergies Active Allergy Reactions Criticality Noted Date [...] as of this encounter (statuses as of 12/19/2023) Medications Medication Sig Dispensed Refills Start Date [...] FOR RESTLESS LEG SYNDROME 270 Tablet 3 12/28/2022 Active Benzonatate 100 MG Oral Capsule (Tessalon Perles)Indications: Acute cough Take 1-2 capsules up to 3 times a day Do not cut, crush, or chew. 50 Capsule 1 03/15/2023 Active FLUoxetine HCl 20 MG Oral Capsule (PROzac)Indications :Major depressive disorder, recurrent episode, mild (HCC),Generalized anxiety disorder Take 1 Capsule by mouth in the morning. Take with 40 mg capsule for a total of 60 mg daily.. 90 Capsule 3 03/23/2023 Active rOPINIRole HCl 0.5 MG Oral Tablet (Requip)Indications :RLS (restless legs syndrome) TAKE 1 TABLET AT 5 P.M. AND TAKE 1 TABLET AT 9 P.M. CAN DOSE 1 ADDITIONAL TABLET NEEDED FOR RESTLESS LEG SYNDROME 30 Tablet 04/04/2023 Active Fexofenadine HCl 180 MG Oral Tablet (Anabel Allergy) Take 1 Tablet by mouth in the morning. 90 Tablet 3 06/12/2023 Active Lisinopril 5 MG Oral Tablet (Prinivil) TAKE 1 TABLET DAILY 90 Tablet 1 06/26/2023 Active Levothyroxine Sodium 150 MCG Oral Tablet [...] 3 12/11/2023 Active Vitamin D3 1.25 MG (87516 UT) Oral CapsuleIndications: Vitamin D deficiency Take [...] needed for Anxiety. 20 Tablet 12/17/2023 Active documented as of this encounter (statuses as of 12/19/2023) Active Problems Problem Noted Date Diagnosed Date [...] as of this encounter (statuses as of 12/19/2023) Resolved Problems Problem Noted Date Diagnosed Date Resolved Date Closed fracture of fifth met atarsal bone of left foot, sequela 05/14/2017 05/14/2017 documented as of this encounter (statuses as of 12/19/2023) Immunizations Name Administration Dates Next Due COVID-19 mRNA, LNP-s, No Pre serve, 2-Dose Series (Moderna) 11/01/2020,10/04/2020 COVID-19, MRNA-LNP, 23-24, P F, 30 MCG/0.3 mL, 12 YRS AND ABOVE, IM [facility] 06/22/2023 COVID-19, mRNA, LNP-s, PF, B ooster, 100mcg/0.5mg (Moderna) 01/16/2022,06/02/2021 Covid-19, Mrna, Lnp-s, Pf, B ivalent, 30 Mcg, IM, 12 yrs and above (Pfizer) 05/05/2022 Hepatitis B, 20+ yrs 05/17/2023,01/02/2023,11/09 Pneumococcal Conjugate Vacci ne, 20-valent ([id number]) 12/17/2023 Seasonal Influenza, PF, 6 M & [...] on file documented as of this encounter Progress Notes * Oleksandr Price DO - 12/19/2023 10:30 AM EDT [facility] [place] Nursing notes reviewed. Eye vitals reviewed. Mood and Affect: normal HPI: Mara Sanchez is a 58 year old female who presents for evaluation of retinas No other eye complaints. Denies significant pain. Base Eye Exam Visual Acuity (Snellen - Linear) Right Left Dist cc 20/20 -1 20/20 Tonometry (Tonopen, 10:40 AM) Right Left Pressure 13 15 Pupils Pupils APD Right PERRL None Left PERRL Visual Dubois (Counting fingers) Right Left Full Full Extraocular Movement Right Left Full, Ortho Full, Ortho Neuro/Psych Oriented x3: Yes Dilation Both eyes: 0.5% Proparacaine @ 10:39 AM Dilation #2 Both eyes: 1.0% Mydriacyl, 2.5% Phenylephrine @ 10:39 AM Dilation #3 Both eyes: 1.0% Mydriacyl, 2.5% Phenylephrine @ 10:41 AM Dilation Comments Patient cautioned that effects of dilation may last 2-7 hours dependant upon individual reaction. It was discussed that driving while dilated is not recommended. EXTERNAL: The ocular adnexae are unremarkable. SLE: Lids/Lashes: wnl OU Conjunctiva/Sclera: quiet OU Cornea: clear OU Anterior Chamber: deep and quiet OU Iris: normal OU; no NVI OU Lens: trace NSC OU Dilated fundus exam OD: 06/01/22 vitreous: clear optic nerve: 0.1, no edema/pallor/NVD macula: wnl vessels: wnl Periphery: scattered lattice, +medium hole in lattice w/ srfluid (subclinical RD) extending 10-12 o'clock w/ good laser barrier; lattice 1 o'clock w/ traction w/ good laser barrier, does not extend posterior past equator, no RT/RD Dilated fundus exam OS: 09/21/21 vitreous: clear optic nerve: 0.1, no edema/pallor/NVD macula: wnl vessels: wnl periphery: scattered lattice w/ small round holes, no RT/RD OCT Interpretation: OD: wnl, no cme/srfluid , no pvd--stable OS: wnl, no cme/srfluid , no pvd--stable A/P: 1. Lattice w/ hole and subclinical retinal detachment OD lattice w/ hole and significant srfluid, no pvd, high myopia, unknown family h/o as pt adopted laser 09/30/21 stable 2. Lattice OS w/ small round holes w/ fluid OS, no pvd given asymptomatic subclinical RD OD pt wanted to proceed w/ prophylactic laser laser OS 09/13/22 stable 3. High myopia OU (-6D) no retinopathy F/u w/ me 12 months, dilate OU x 2; OCT OU Oleksandr Price DO CC: Peace Bates, RADHA documented in this encounter Nursing Notes * Justina Atkinson LPN - 12/19/2023 10:28 AM EDT Mara Sanchez is a 58 year old year old female who presents for lattice with hole and subclinical RD OD. Last Office Visit: 10/31/2022 (in office), Visit date not found (telemedicine) Patient currently states no change in vision. Are you diabetic? No Do you drive? yes OCT image(s) of both eyes acquired and filed/scanned into chart. documented in this encounter Plan of Treatment Upcoming Encounters Date Type Department Care Team (Late st Contact Info) Description 06/17/2024 10:30 AM EST Office Visit Allergy/Immunology [facility] [address] [facility] [place] [address] Cee Umanzor PA-C [address] [facility] [place] [address] 06/24/2024 10:20 AM EST Office Visit General Internal Medicine [facility] [address] [facility] [place] [address] Yamini Alamo MD [address] [facility] [place] [address] 03/02/2025 10:15 AM EDT Office Visit Ophthalmology, [facility] [address] [facility] [place] [address] Oleksandr Price DO [address] [place] [address] Scheduled Orders Name Type Priority Associated Diagnoses Orde r Schedule RETINA SCAN DIAGNOSTIC IMAGE, POSTERIOR Procedures Routine Bilateral retinal lattice degeneration Ordered: 12/19/2023 Scheduled Procedures Name Priority Associated Diagnoses Date/Ti me COLONOSCOPY FLEXIBLE PROXIMAL DIAGNOSTIC Recall History of colon polyps Health Maintenance Due Date Last Done Comments Cologuard 2010 Sigmoidoscopy 2010 Fecal Occult Blood Test 06/09/2011 06/09/2010 Depression, Most Recent Score >= 10 (will fire each visit until score < 10) 10/07/2021 10/06/2021 Colonoscopy 03/07/2024 03/07/2021, 01/2018, 12/05/2016, Additional history exists Colorectal Cancer Screening 03/07/2024 Mammogram 05/29/2024 05/29/2023, 10/2021, 04/25/2021, Additional history exists GFR 12/10/2024 [...] as of this encounter Visit Diagnoses Diagnosis Bilateral retinal lattice degeneration- Primary Lattice degeneration of peripheral retina Right retinal detachment Unspecified retinal detachment documented in this encounter Care Teams Timber Incisor Operator Relationship Specialty Start Date End Date Yamini Alamo MD [address] [place] [address], [place] [address] PCP - General 02/04/10 documented as of this encounter
--- OUTSIDE RECORDS SUMMARY | 2024-02-03 07:28 | External Medical Summary | Summary of Care ---
Author Name Unknown Organization [facility] Address [address] [place] [address] Phone [phone] Care Team Providers Care Music Composer Name Role Phone Yamini Alamo MD Primary Care Provider Reason for Referral * Ancillary Services (Within 30 days (routine)) - Pending Review Specialty Diagnoses / Procedures Referred By Katie ognzalez Referred To Contact Gastroenterology Diagnoses Adenomatous polyp of colon, unspecified part of colon Yamini Alamo MD [address] [place] [address] Referral ID Status Reason Start Date Expiration Date Visits Requested Visits Authorized [id number] Pending Review Ancillary Services Required 12/17/[phone] Question Answer Referral Priority Within 30 days (routine) Where should this appointment be scheduled? [facility] Comments ALERT: Do not order for pediatric patients (18 years or younger). Cancel off screen and order PEDS GASTROENTEROLOGY CONSULT (Type: 1 visit only-Evaluate and Treat) The following Pt. Instructions are available: - Gastro Colonoscopy Prep Instructions [[id number]] - Gastro Colonoscopy Prep Instructions (Icelandic Version) [[id number]] Go to the Pt. Instructions section within the Visit Navigator to access. Colonoscopy ASGE Guidelines: Postadenoma resection: 3-10 adenomas or adenoma with villous features, greater than or equal 1 cm, or with high-grade dysplasia (3 yr intervals) ADDITIONAL INFORMATION 1. Is the patient on Coumadin? No 2. Is the patient on Pradaxa? No * Medication Prior Authorization - Pending Review Specialty Diagnoses / Procedures Referred By Katie gonzalez Referred To Contact Diagnoses Vitamin D deficiency Yamini Alamo MD [address] [place] [address] Referral ID Status Reason Start Date Expiration Date V isits Requested Visits Authorized [id number] Pending Review [phone] Reason for Visit * Reason Comments Follow Up Encounter Details Date Type Department Care Team (Latest Contact Info) Description 12/17/2023 10:20 AM EDT Office Visit General Internal Medicine [facility] [address] [place] [address] Yamini Alamo MD [address] [place] [address] Need for pneumococcal vaccination*; KAMALA (generalized anxiety disorder); Ganglion cyst of left foot; Major depressive disorder, recurrent episode, mild (HCC); Laryngospasm; Hypertrophy of both inferior nasal turbinates; Moderate episode of recurrent major depressive disorder (HCC); Pollen-food allergy, sequela; Acquired hypothyroidism; Moderate obstructive sleep apnea; Prediabetes; RLS (restless legs syndrome); Sleep related leg cramps; Mixed dyslipidemia; Dysfunction of both eustachian tubes; Essential hypertension with goal blood pressure less than 140/90; Chronic pansinusitis; Chronic nonseasonal allergic rhinitis due to pollen; Attention deficit hyperactivity disorder (ADHD), combined type; Allergic conjunctivitis of both eyes; Vitamin D deficiency; Vitamin B12 deficiency; Adenomatous polyp of colon, unspecified part of colon Allergies Active Allergy Reactions Criticality Noted Date [...] as of this encounter (statuses as of 12/17/2023) Medications Medication Sig Dispensed Refills Start Date [...] 12/28/2022 Active Benzonatate 100 MG Oral Capsule (Tesmónica Perlned)Indications :Acute cough Take 1-2 capsules up to [...] 08/14/2023 Active Gabapentin 800 MG Oral Tablet (Neurontin)Indicat ions:RLS (restless legs syndrome) Take 1 tablet by mouth at 5pm for RLS 90 Tablet 08/17/2023 Active hydroCHLOROthiazid e 12.5 MG Oral Capsule [...] 3 12/11/2023 Active Vitamin D3 1.25 MG (12446 UT) Oral CapsuleIndications :Vitamin D deficiency Take 1 Capsule by mouth once a week. 12 Capsule 12/17/2023 Active Calcium 500 MG Oral TabletIndications: Vitamin D deficiency Take 1 Tablet by mouth in the morning and 1 Tablet before bedtime. With food.. 12/17/2023 Active Vitamin B-12 1000 MCG Oral Tablet (Cyanocobalamin)In dications:Vitamin B12 deficiency Take 1 Tablet by mouth in the morning. 12/17/2023 Active LORazepam 0.5 MG Oral Tablet (Ativan)Indication s:KAMALA (generalized anxiety disorder) Take 1 Tablet by mouth daily as needed for Anxiety. 20 Tablet 12/17/2023 Active LORazepam 0.5 MG Oral Tablet (Ativan) Take 1 Tablet by mouth daily as needed for Anxiety. 20 Tablet 01/19/2023 Discontinue d(Refill) documented as of this encounter (statuses as of 12/17/2023) Active Problems Problem Noted Date Diagnosed Date [...] as of this encounter (statuses as of 12/17/2023) Resolved Problems Problem Noted Date Diagnosed Date Resolved Date Closed fracture of fifth met atarsal bone of left foot, sequela 05/14/2017 05/14/2017 documented as of this encounter (statuses as of 12/17/2023) Immunizations Name Administration Dates Next Due COVID-19 [...] yrs 05/17/2023,01/02/2023,11/09 Pneumococcal Conjugate Vacci ne, 20-valent ([id number]) 12/17/2023 Seasonal Influenza, PF, 6 M & [...] Sign Reading Time Taken Comments Blood Pressure 124/80 12/17/2023 10:27 AM EDT Pulse 89 12/17/2023 10:27 AM EDT Temperature 36.3 C (97.3 F) 12/17/2023 10:27 AM E DT Respiratory Rate 16 12/17/2023 10:27 AM EDT Oxygen Saturation 99% 12/17/2023 10:27 AM EDT Inhaled Oxygen Concentration - - Weight - - Height - - Body Mass Index - - documented in this encounter Patient Instructions * Patient Instructions* Sharda Kim LPN - 12/17/2023 10:53 AM EDT ~~PATIENT INSTRUCTIONS FOR PNEUMOCOCCAL VACCINE~~ Possible side effects of pneumococcal vaccine, (pneumonia shot), are usually mild and can include: 1. Soreness or redness at injection site 2. Low grade fever 3. Body aches You may use Tylenol/Acetaminophen as needed for these symptoms. LET YOUR DOCTOR KNOW IMMEDIATELY IF YOU HAVE DIFFICULTY BREATHING OR SWALLOWING, EXPERIENCE ITCHINGOF FEET OR HANDS, HAVE SWELLING OF EYES, FACE OR INSIDE OF NOSE. documented in this encounter Progress Notes * Sharda Kim LPN - 12/17/2023 10:53 AM EDT Immunization Administration Documentation Time Out Procedure Performed: Yes Patient Identified (Ask Name/Date of ): Yes Does the patient have a fever greater than 101 degrees today? No Patient allergic to latex? No VFC Stock: No Immunization(s) verified: Yes, Immunization Name: Prevnar 20 (PCV20), VIS Sheet(s) given: Yes Verified Side and Site: Yes Verified Shot(s) with Parent(s)/Patient: Yes * Yamini Alamo MD - 12/17/2023 10:31 AM EDT Images from the original note were not included. History of Present Illness Dyana Sanchez is a 58 year old female that presents for Follow Up 58 YO adopted female with PMH of HTN, Hyperlipidemia, depression w/anxiety, hypothyroidism presentshere for recheck. Acute concern :- -She wanted to go over her blood work and see if any medications need to be changed. -She also would like to get a prescription for lorazepam. Under stress as her best friend been diagnosed with cancer and mom is in the hospital with a working diagnosis of lymphoma /leukemia Interimmedical history : seen by Sleep Medicine, psychiatrist and doing well with Strattera Watching diet and exercise : good except lately Routine labs : Labs reviewed with patient. Cholesterol much better and rest stable except low vitamin-D. Vitamin B12 is in the low side of normal Routine HM : agreeable to catch up Chronic medical problem: reviewed and stable Physical Exam Vitals: 12/17/23 1027 Temp: 36.3 C (97.3 F) Pulse: 89 Resp: 16 SpO2: 99% BP: 124/80 Physical Exam Vitals and nursing note reviewed. Constitutional: General: She is not in acute distress. Appearance: She is obese. HENT: Head: Normocephalic. Cardiovascular: Rate and Rhythm: Normal rate and regular rhythm. Pulmonary: Effort: Pulmonary effort is normal. No respiratory distress. Breath sounds: No wheezing. Abdominal: General: Bowel sounds are normal. There is no distension. Palpations: Abdomen is soft. There is no mass. Musculoskeletal: General: No swelling, tenderness or signs of injury. Cervical back: Neck supple. No rigidity. Skin: General: Skin is warm. Findings: No lesion or rash. Neurological: Mental Status: She is alert. Psychiatric: Mood and Affect: Mood normal. I have reviewed the following results: CMP, Lipid Panel, Hemoglobin A1C, TSH, CBC, B12, and 25-Hydroxy Vit D Assessment and Plan Need for pneumococcal vaccination - PNEUMOCOCCAL VACC, PCV20, IM ([id number]) KAMALA (generalized anxiety disorder) I have reviewed the patients controlled substance dispensing history in the Prescription Drug Monitoring Program in compliance with the [facility] regulations before prescribing a controlled substance. - LORazepam 0.5 MG Oral Tablet (Ativan); Take 1 Tablet by mouth daily as needed for Anxiety. Ganglion cyst of left foot Major depressive disorder, recurrent episode, mild (HCC) Stable Continue current treatment as directed Laryngospasm Hypertrophy of both inferior nasal turbinates Moderate episode of recurrent major depressive disorder (HCC) Pollen-food allergy, sequela Acquired hypothyroidism Stable Continue current treatment as directed - TSH; Future Moderate obstructive sleep apnea Tolerating and using c-pap Prediabetes - HEMOGLOBIN A1C; Future RLS (restless legs syndrome) Sleep related leg cramps Mixed dyslipidemia Dysfunction of both eustachian tubes Essential hypertension with goal blood pressure less than 140/90 Stable Continue current treatment as directed - BASIC METABOLIC PANEL; Future - COMPREHENSIVE METABOLIC PANEL; Future Chronic pansinusitis Chronic nonseasonal allergic rhinitis due to pollen Attention deficit hyperactivity disorder (ADHD), combined type Allergic conjunctivitis of both eyes Vitamin D deficiency - Vitamin D3 1.25 MG (71395 UT) Oral Capsule; Take 1 Capsule by mouth once a week. - 25-HYDROXY VITAMIN D; Future Vitamin B12 deficiency - VITAMIN B12; Future Adenomatous polyp of colon, unspecified part of colon - COLONOSCOPY, GI REFERRAL OP Wrap-Up Time: I spent a total of 40-54 minutes (exact time 44 mins) on the date of service in preparation, delivery, and documentation of the care provided to Mara Sanchez excluding any time spent in the performance of separately billed services. documented in this encounter Nursing Notes * Sharda Kim LPN - 12/17/2023 10:26 AM EDT Patient presents today for a follow up. She wanted to go over her blood work and see if any medications need to be changed. She also would like to get a prescription for lorazepam. documented in this encounter Plan of Treatment Upcoming Encounters Date Type Department Care Team (Late st Contact Info) Description 12/19/2023 10:30 AM EDT Office Visit Ophthalmology, [facility] [address] [place] [address] Oleksandr Price DO [address] [place] [address] 06/17/2024 10:30 AM EST Office Visit Allergy/Immunology [facility] [address] [facility] [place] [address] Cee Umanzor PA-C [address] [facility] [place] [address] 06/24/2024 10:20 AM EST Office Visit General Internal Medicine [facility] [address] [facility] [place] [address] Yamini Alamo MD [address] [facility] [place] [address] Scheduled Orders Name Type Priority Associated Diagnoses Orde r Schedule 25-HYDROXY VITAMIN D Lab Routine Vitamin D deficiency Expected: 03/18/2024, Expires: 12/16/2024 BASIC METABOLIC PANEL Lab Routine Essential hypertension with goal blood pressure less than 140/90 Expected: 03/18/2024, Expires: 12/16/2024 VITAMIN B12 Lab Routine Vitamin B12 deficiency Expected: 03/18/2024 (Approximate), Expires: 12/16/2024 COMPREHENSIVE METABOLIC PANEL Lab Routine Essential hypertension with goal blood pressure less than 140/90 Expected: 06/18/2024, Expires: 12/16/2024 HEMOGLOBIN A1C Lab Routine Prediabetes Expected: 06/18/2024, Expires: 12/16/2024 TSH Lab Routine Acquired hypothyroidism Expected: 06/18/2024, Expires: 12/16/2024 Scheduled Procedures Name Priority Associated Diagnoses Date/Ti me COLONOSCOPY FLEXIBLE PROXIMAL DIAGNOSTIC Recall History of colon polyps Scheduled Referrals Name Type Priority Associated Diagnoses Orde r Schedule COLONOSCOPY, GI REFERRAL OP Referral Within 30 days (routine) Adenomatous polyp of colon, unspecified part of colon Ordered: 12/17/2023 Health Maintenance Due Date Last Done Comments [...] 06/08/2022, Additional history exists HbA1c 12/10/2024 12/11/2023, 060 12/2022, 06/02/2015 TSH 12/10/2024 12/11/2023, 060 12/2022, 06/08/2022, Additional history exists DTaP,Tdap,and Td Vaccines (3 - Td or Tdap) 06/01/2025 06/01/2015, 05/08/2005 Albumin/Creatinine Ratio 01/02/2026 01/02/2023 Lipid Panel 12/10/2028 12/11/2023, 06/0 12/2022, 06/08/2022, Additional history exists Zoster Vaccines Completed 06/03/2020, 04/01/2020 Influenza Vaccine (FLU shot) Completed 12/2022, 05/05/2022, 04/21/2021, Additional history exists Hepatitis B Completed 05/17/2023, 0 12/2022, 11/09/2022 COVID-19 Vaccine Completed 06/22/2023, 01/2022, [...] as of this encounter Visit Diagnoses Diagnosis Need for pneumococcal vaccination- Primary Need for prophylactic vaccination against streptococcus pneumoniae (pneumococcus) KAMALA (generalized anxiety disorder) Generalized anxiety disorder Ganglion cyst of left foot Major depressive disorder, recurrent episode, mild (HCC) Major depressive disorder, recurrent episode, mild Laryngospasm Laryngeal spasm Hypertrophy of both inferior nasal turbinates Hypertrophy of nasal turbinates Moderate episode of recurrent major depressive disorder (HCC) Pollen-food allergy, sequela Acquired hypothyroidism Unspecified hypothyroidism Moderate obstructive sleep apnea Obstructive sleep apnea (adult) (pediatric) Prediabetes Other abnormal glucose RLS (restless legs syndrome) Restless legs syndrome (RLS) Sleep related leg cramps Mixed dyslipidemia Mixed hyperlipidemia Dysfunction of both eustachian tubes Dysfunction of Eustachian tube Essential hypertension with goal blood pressure less than 140/90 Chronic pansinusitis Other chronic sinusitis Chronic nonseasonal allergic rhinitis due to pollen Attention deficit hyperactivity disorder (ADHD), combined type Allergic conjunctivitis of both eyes Other chronic allergic conjunctivitis Vitamin D deficiency Unspecified vitamin D deficiency Vitamin B12 deficiency Other B-complex deficiencies Adenomatous polyp of colon, unspecified part of colon documented in this encounter Care Teams Music Composer Relationship Specialty Start Date End Date Yamini Alamo MD [address] [place] [address] [place] [address] PCP - General 02/04/10 documented as of this encounter
--- OUTSIDE RECORDS SUMMARY | 2024-02-03 07:28 | External Medical Summary | Summary of Care ---
Author Name Unknown Organization [facility] Address [address] [place] [address] Phone [phone] Care Team Providers Care Christian Counselor Name Role Phone Yamini Alamo MD Primary Care Provider [phone] Reason for Visit * Reason Comments Outpatient Testing Encounter Details Date Type Department Care Team (Late st Contact Info) Description 12/11/2023 10:00 AM EDT Laboratory Laboratory [facility] [place] [address] [place] [phone] [facility] Scen[facility] 200 [facility] [place] [address] Essential hypertension with goal blood pressure less than 140/90; Prediabetes; Acquired hypothyroidism; RLS (restless legs syndrome); Encounter for long-term (current) use of medications; Vitamin D deficiency; Hyperlipidemia with target LDL less than 100 Allergies Active Allergy Reactions Criticality Noted Date [...] Active rOPINIRole HCl 0.5 MG Oral Tablet (Requip)Indications: RLS (restless legs syndrome) TAKE 1 TABLET AT 5 P.M. AND TAKE 1 TABLET AT 9 P.M. CAN DOSE 1 ADDITIONAL TABLET NEEDED FOR RESTLESS LEG SYNDROME 270 Tablet 3 12/28/2022 Active LORazepam 0.5 MG Oral Tablet (Ativan) Take 1 Tablet by mouth daily as needed for Anxiety. 20 Tablet 0 01/19/2023 Active Benzonatate 100 MG Oral Capsule (Tessalon Perles)Indications:A cute cough Take 1-2 capsules up to 3 times a day Do not cut, crush, or chew. 50 Capsule 1 03/15/2023 Active FLUoxetine HCl 20 MG Oral Capsule (PROzac)Indications: Major depressive disorder, recurrent episode, mild (HCC),Generalized anxiety disorder Take 1 Capsule by mouth in the morning. Take with 40 mg capsule for a total of 60 mg daily.. 90 Capsule 3 03/23/2023 Active rOPINIRole HCl 0.5 MG Oral Tablet (Requip)Indications: RLS (restless legs syndrome) TAKE 1 TABLET AT 5 P.M. AND TAKE 1 TABLET AT 9 P.M. CAN DOSE 1 ADDITIONAL TABLET NEEDED FOR RESTLESS LEG SYNDROME 30 Tablet 0 04/04/2023 Active Fexofenadine HCl 180 MG Oral [...] 08/14/2023 Active Gabapentin 800 MG Oral Tablet (Neurontin)Indicatio ns:RLS (restless legs syndrome) Take 1 tablet by mouth at 5pm for RLS 90 Tablet 0 08/17/2023 Active hydroCHLOROthiazide 12.5 MG Oral Capsule (Hydrodiuril)Indicat ions:Essential hypertension with goal blood pressure less than 140/90 TAKE 1 CAPSULE IN THE MORNING 90 Capsule 3 09/24/2023 Active Atomoxetine HCl 40 MG Oral Capsule (Strattera)Indicatio ns:Attention deficit hyperactivity disorder (ADHD), combined type Take 1 Capsule by mouth in the morning. 30 Capsule 0 09/26/2023 Active FLUoxetine HCl 40 MG Oral Capsule (PROzac)Indications: Adjustment disorder with depressed mood TAKE 1 CAPSULE [...] Active Azelastine HCl 0.1 % Nasal Solution (Astelin)Indications :Dysfunction of both eustachian tubes USE 2 SPRAYS [...] to breakfast. 90 Capsule 3 12/11/2023 Active documented as of this encounter (statuses [...] (Pfizer) 05/05/2022 Hepatitis B, 20+ yrs 05/17/2023,01/02/2023,11/09 Seasonal [...] on file documented as of this encounter Plan of Treatment Upcoming Encounters Date Type Department Care Team (Late st Contact Info) Description 12/17/2023 10:20 AM EDT Office Visit General Internal Medicine [facility] [address] [place] [address] Yamini Alamo MD [address] [place] [address] [address] 12/19/2023 10:30 AM EDT Office Visit Ophthalmology, [facility] [address] [place] [address] Oleksandr Price DO [address] [place] [address] 06/17/2024 10:30 AM EST Office Visit Allergy/Immunology [facility] [place] [address] [place] [address] Cee Umanzor PA-C [address] [place] [address] Pending Results Name Type Priority Associated Diagnoses Date /Time COMPREHENSIVE METABOLIC PANEL Lab Routine Essential hypertension with goal blood pressure less than 140/90 12/11/2023 10:02 AM EDT HEMOGLOBIN A1C Lab Routine Prediabetes 12/11/2023 10:02 AM EDT TSH Lab Routine Acquired hypothyroidism 12/11/2023 10:02 AM EDT IRON SCREEN, INCLUDING TIBC Lab Routine RLS (restless legs syndrome) 12/11/2023 10:02 AM EDT FERRITIN Lab Routine RLS (restless legs syndrome) 12/11/2023 10:02 AM EDT VITAMIN B12 Lab Routine Encounter for long-term (current) use of medications 12/11/2023 10:02 AM EDT 25-HYDROXY VITAMIN D Lab Routine Vitamin D deficiency 12/11/2023 10:02 AM EDT LIPID PANEL WITH DIRECT LDL IF TG IS HIGH Lab Routine Hyperlipidemia with target LDL less than 100 12/11/2023 10:02 AM EDT Scheduled Procedures Name Priority Associated Diagnoses Date/Ti [...] as of this encounter Visit Diagnoses Diagnosis Essential hypertension with goal blood pressure less than 140/90 Prediabetes Other abnormal glucose Acquired hypothyroidism Unspecified hypothyroidism RLS (restless legs syndrome) Restless legs syndrome (RLS) Encounter for long-term (current) use of medications Encounter for long-term (current) use of other medications Vitamin D deficiency Unspecified vitamin D deficiency Hyperlipidemia with target LDL less than 100 Other and unspecified hyperlipidemia documented in this encounter Care Teams Christian Counselor Relationship Specialty Start Date End Date Yamini Alamo MD 200 [facility] [place] [address] PCP - General 02/04/10 documented as of this encounter
--- OUTSIDE RECORDS SUMMARY | 2024-02-03 07:28 | External Medical Summary | Summary of Care ---
Author Name Unknown Organization [facility] Address [address] [place] [address] Phone [phone] Care Team Providers Care Personal Care Worker Name Role Phone Yamini Alamo MD Primary Care Provider [phone] Reason for Visit * Reason Onset Date Comments Appointment 12/17/2023 Encounter Details Date Type Department Care Team (Late st Contact Info) Description 12/17/2023 Telephone General Internal Medicine [facility] [address] [facility] [place] [address] Yamini Alamo MD [address] [place] [address] Appointment Allergies Active Allergy Reactions Criticality Noted Date [...] 3 12/11/2023 Active Vitamin D3 1.25 MG (71393 UT) Oral CapsuleIndications: Vitamin D deficiency Take [...] Chronic nonseasonal allergic rhinitis due to justin ejse 02/05/2017 Allergic conjunctivitis of both eyes 02/05/2017 [...] MCG/0.3 mL, 12 YRS AND ABOVE, IM ([facility]) 06/22/2023 COVID-19, mRNA, LNP-s, PF, B [...] encounter Miscellaneous Notes * Telephone Encounter - Gurdeep Grimaldo OSA - 12/17/2023 12:10 PM EDT Pt needs to be scheduled for COLONOSCOPY Associated Diagnoses Adenomatous polyp of colon, unspecified part of colon [D12.6] Please contact patient to schedule appointment. Thanks documented in this encounter Plan of Treatment Upcoming Encounters Date Type Department Care Team (Late st Contact Info) Description 12/19/2023 10:30 AM EDT Office Visit Ophthalmology, [facility] [address] [place] [address] Oleksandr Price DO [address] [place] [address] 06/17/2024 10:30 AM EST Office Visit Allergy/Immunology [facility] [place] 200 [facility] [place] [address] Cee Umanzor PA-C 200 [facility] [place] [address] 06/24/2024 10:20 AM EST Office Visit General Internal Medicine [facility] [place] 200 [facility] [place] [address] Yamini Alamo MD 200 [facility] [place] [address] Scheduled Procedures Name Priority Associated Diagnoses Date/Ti [...] < 10) 10/07/2021 10/06/2021 Colonoscopy 03/07/2024 03/07/2021, 03/01/2018, 12/05/2016, Additional history exists Colorectal Cancer Screening 03/07/2024 Mammogram 05/29/2024 05/29/2023, 100 10/2021, 04/25/2021, Additional history exists GFR 12/10/2024 12/11/2023, 060 12/2022, 06/08/2022, Additional history exists HbA1c 12/10/2024 12/11/2023, 06/0 12/2022, 06/02/2015 TSH 12/10/2024 12/11/2023, 06/0 12/2022, 06/08/2022, Additional history exists DTaP,Tdap,and Td Vaccines (3 - Td or Tdap) 06/01/2025 06/01/2015, 05/08/2005 Albumin/Creatinine Ratio 01/02/2026 01/02/2023 Lipid Panel 12/10/2028 12/11/2023, 060 12/2022, 06/08/2022, Additional history exists Zoster Vaccines [...] filedocumented as of this encounter Care Teams Personal Care Worker Relationship Specialty Start Date End Date Yamini Alamo MD 200 [place] [address] PCP - General 02/04/10 documented as of this encounter
--- OUTSIDE RECORDS SUMMARY | 2024-02-03 07:28 | External Medical Summary | Summary of Care ---
Author Name Unknown Organization [facility] Address [address] [place] [address] Phone [phone] Care Team Providers Care Software Security Architect Name Role Phone Yamini Alamo MD Primary Care Provider [phone] Reason for Visit * Reason Comments eRx-Medication Refill Encounter Details Date Type Department Care Team (Late st Contact Info) Description 01/22/2024 Refill Pulmonary Medicine, [facility] [address] [facility] [place] [address] Domo Allen CRNP [facility] [address] RLS (restless legs syndrome) Allergies Active Allergy Reactions Criticality Noted Date [...] as of this encounter (statuses as of 01/23/2024) Medications Medication Sig Dispensed Refills Start Date End Date Status Potassium 75 MG Oral Tablet Take 1 Tablet by mouth in the morning. As needed for leg cramps . Active Magnesium 100 MG Oral Capsule Take 1 Capsule by mouth in the morning. As needed for leg cramps . Active Benzonatate 100 MG Oral Capsule (Tessalon Perlned)Indications :Acute cough Take 1-2 capsules up [...] mg daily.. 90 Capsule 3 3 Active Fexofenadine HCl 180 MG Oral [...] the morning. 90 Tablet 3 4 Active hydroCHLOROthiazid e 12.5 MG Oral [...] 3 4 Active Vitamin D3 1.25 MG (40593 UT) Oral CapsuleIndications :Vitamin D deficiency Take 1 Capsule by mouth once a week. 12 Capsule 4 04/14/20 24 Active Calcium 500 MG Oral TabletIndications: [...] TABLET DAILY 90 Tablet 3 4 Active rOPINIRole HCl 0.5 MG Oral Tablet (Requip)Indication s:RLS (restless legs syndrome) TAKE 1 TABLET AT 5 P.M. AND TAKE 1 TABLET AT 9 P.M. CAN DOSE 1 ADDITIONAL TABLET NEEDED FOR RESTLESS LEG SYNDROME 270 Tablet 3 4 Active Gabapentin 800 MG Oral Tablet (Neurontin)Indicat ions:RLS (restless legs syndrome) TAKE 1 TABLET AT 5 P.M. FOR RESTLESS LEG SYNDROME 90 Tablet 3 4 Active Gabapentin 800 MG Oral Tablet (Neurontin)Indicat ions:RLS (restless legs syndrome) Take 1 tablet by mouth at 5pm for RLS 90 Tablet 4 01/23/20 24 Discontinued documented as of this encounter (statuses as of 01/23/2024) Active Problems Problem Noted Date Diagnosed Date [...] as of this encounter (statuses as of 01/23/2024) Resolved Problems Problem Noted Date Diagnosed Date Resolved Date Closed fracture of fifth met atarsal bone of left foot, sequela 05/14/2017 05/14/2017 documented as of this encounter (statuses as of 01/23/2024) Immunizations Name Administration Dates Next Due COVID-19 mRNA, LNP-s, No Pre serve, 2-Dose Series (Moderna) 11/01/2020,10/04/2020 COVID-19, MRNA-LNP, 23-24, P F, 30 MCG/0.3 mL, 12 YRS AND ABOVE, IM [facility] 06/22/2023 COVID-19, mRNA, LNP-s, PF, B ooster, 100mcg/0.5mg (Moderna) 01/16/2022,06/02/2021 Covid-19, Mrna, Lnp-s, Pf, B ivalent, 30 Mcg, IM, 12 yrs and above (Pfizer) 05/05/2022 Hepatitis B, 20+ yrs 05/17/2023,01/02/2023,11/09 Pneumococcal Conjugate Vacci ne, 20-valent ([id number]) 12/17/2023 Seasonal Influenza, PF, 6 M & [...] encounter Miscellaneous Notes * Telephone Encounter - Domo Allen CRNP - 01/23/2024 4:50 PM EDT Signed Prescriptions: Disp Refills Gabapentin 800 MG Oral Tablet (Neurontin) 90 Tab*3 Sig: TAKE 1 TABLET AT 5 P.M. FOR RESTLESS LEG SYNDROME Authorizing Provider: DOMO ALLEN * Telephone Encounter - Josee Morocho LPN - 01/22/2024 10:20 AM EDTPending Prescriptions: Disp Refills Gabapentin 800 MG Oral Tablet [Pharmacy Me*90 Tab*3 Sig: TAKE 1TABLET AT 5 P.M. FOR RESTLESS LEG SYNDROME documented in this encounter Plan of Treatment Upcoming Encounters Date Type Department Care Team (Late st Contact Info) Description 06/17/2024 10:30 AM EST Office Visit Allergy/Immunology [facility] [place] [address] [place] [address] Cee Umanzor PA-C [address] [place] [address] 06/17/2024 1:30 PM EST Hospital Encounter ENDO [facility], Endoscopy Room [facility] [address] [phone] Nerissa Camp MD [address] [place] [address] 06/17/2024 1:30 PM EST - 06/17/2024 2:00 PM EST Surgery ENDO [facility], Endoscopy Room [facility] [address] [place] [phone] Nerissa Camp MD [address] [place] [address] COLONOSCOPY FLEXIBLE PROXIMAL DIAGNOSTIC 06/24/2024 10:20 AM EST Office Visit General Internal Medicine [facility] [address] [place] [address] Yamini Alamo MD 200 [facility] [place] [address] 03/02/2025 10:15 AM EDT Office Visit Ophthalmology, [facility] [address] [place] [address] Oleksandr Price DO [address] [place] [address] Scheduled Procedures Name Priority Associated Diagnoses Date/Ti me COLONOSCOPY FLEXIBLE PROXIMAL DIAGNOSTIC Recall History of colon polyps 06/17/2024 1:30 PM EST Health Maintenance Due Date Last Done Comments Cologuard 2010 Sigmoidoscopy 2010 Fecal Occult Blood Test 06/09/2011 06/09/2010 Depression Monitoring 10/06/2022 10/06/2021 Colonoscopy 03/07/2024 03/07/2021, 01/2018, 12/05/2016, Additional history exists Colorectal Cancer Screening 03/07/2024 Mammogram 05/29/2024 05/29/2023, 10/2021, 04/25/2021, Additional history exists GFR 12/10/2024 12/11/2023, 0 12/2022, 06/08/2022, Additional history exists HbA1c 12/10/2024 12/11/2023, 0 12/2022, 06/02/2015 TSH 12/10/2024 12/11/2023, 12/2022, 06/08/2022, Additional history exists DTaP,Tdap,and Td Vaccines (3 - Td or Tdap) 06/01/2025 06/01/2015, 05/08/2005 Albumin/Creatinine Ratio 01/02/2026 01/02/2023 Lipid Panel 12/10/2028 12/11/2023, 12/2022, 06/08/2022, Additional history exists Zoster Vaccines [...] as of this encounter Visit Diagnoses Diagnosis RLS (restless legs syndrome) Restless legs syndrome (RLS) History of colon polyps Personal history of colonic polyps documented in this encounter Care Teams Software Security Architect Relationship Specialty Start Date End Date Yamini Alamo MD [address] [place] [address] PCP - General 02/04/10 documented as of this encounter
--- OUTSIDE RECORDS SUMMARY | 2024-02-03 07:28 | External Medical Summary | Summary of Care ---
Author Name Unknown Organization [facility] Address [address] [place] [address] Phone [phone] Care Team Providers Care Tong Carrier Name Role Phone Yamini Alamo MD Primary Care Provider Reason for Visit * Reason Comments Acute Encounter Details Date Type Department Care Team (Late st Contact Info) Description 02/02/2024 11:00 AM EDT Office Visit Family Practice [facility] 132 [facility] [place] [address] Jones Ramirez [address] [place] [address] RUQ pain* Allergies Active Allergy Reactions Criticality Noted Date [...] as of this encounter (statuses as of 02/02/2024) Medications Medication Sig Dispensed Refills Start Date End Date Status Potassium 75 MG Oral Tablet Take 1 Tablet by mouth in the morning. As needed for leg cramps . Active Magnesium 100 MG Oral Capsule Take 1 Capsule by mouth in the morning. As needed for leg cramps . Active FLUoxetine HCl 20 MG Oral Capsule [...] the morning. 90 Tablet 3 08/14/2023 Active hydroCHLOROthiazid e 12.5 MG Oral Capsule [...] 3 12/11/2023 Active Vitamin D3 1.25 MG (07071 UT) Oral CapsuleIndications :Vitamin D deficiency Take [...] LEG SYNDROME 270 Tablet 3 12/26/2023 Active Gabapentin 800 MG Oral Tablet (Neurontin)Indicat ions:RLS (restless legs syndrome) TAKE 1 TABLET AT 5 P.M. FOR RESTLESS LEG SYNDROME 90 Tablet 3 01/23/2024 Active Benzonatate 100 MG Oral Capsule (Tessalon Perles)Indications :Acute cough Take 1-2 capsules up to 3 times a day Do not cut, crush, or chew. 50 Capsule 1 03/15/2023 4 Discontinue d(Patient preference/ discontinua tion) documented as of this encounter (statuses as of 02/02/2024) Active Problems Problem Noted Date Diagnosed Date [...] as of this encounter (statuses as of 02/02/2024) Resolved Problems Problem Noted Date Diagnosed Date Resolved Date Closed fracture of fifth met atarsal bone of left foot, sequela 05/14/2017 05/14/2017 documented as of this encounter (statuses as of 02/02/2024) Immunizations Name Administration Dates Next Due COVID-19 mRNA, LNP-s, No Pre serve, 2-Dose Series (Moderna) 11/01/2020,10/04/2020 COVID-19, MRNA-LNP, 23-24, P F, 30 MCG/0.3 mL, 12 YRS AND ABOVE, IM ([facility]) 06/22/2023 COVID-19, mRNA, LNP-s, PF, B ooster, 100mcg/0.5mg (Moderna) 01/16/2022,06/02/2021 Covid-19, Mrna, Lnp-s, Pf, B ivalent, 30 Mcg, IM, 12 yrs and above (Pfizer) 05/05/2022 Hepatitis B, 20+ yrs 05/17/2023,01/02/2023,11/09 Pneumococcal Conjugate Vacci ne, 20-valent ([id number]) 12/17/2023 Seasonal Influenza, PF, 6 M & [...] file Not on file Not on file Travel History Travel Start Travel End [place] 01/20/2024 01/30/2024 [place] 01/07/2024 01/20/2024 documented as of this encounter Last Filed Vital Signs Vital Sign Reading Time Taken Comments Blood Pressure 134/78 02/02/2024 10:55 AM EDT Pulse 71 02/02/2024 10:55 AM EDT Temperature 37.3 C (99.2 F) 02/02/2024 10:55 AM E DT Respiratory Rate 16 02/02/2024 10:55 AM EDT Oxygen Saturation 97% 02/02/2024 10:55 AM EDT Inhaled Oxygen Concentration - - Weight 116.1 kg (256 lb) 02/02/2024 10:55 AM EDT Height - - Body Mass Index 35.7 08/21/2023 3:34 PM EST documented in this encounter Nursing Notes * Randi Cline RN - 02/02/2024 11:00 AM EDT [place] was in [place] got back on Sun. Pt went to [place] to visit a sick friend, she got a severe pain in upper abdomen, she stayed in hotel for 24 hours, she had dry heaves, but no vomiting. Pt is lactose intolerant, and did have something with lactose, she took lactade. She said the pain lasted about 2-3 days. She got another attack last night, concerned it may be gallbladder documented in this encounter Plan of Treatment Upcoming Encounters Date Type Department Care Team (Late st Contact Info) Description 02/04/2024 8:15 AM EDT Imaging Radiology [facility] [address] [place] [address] 06/17/2024 10:30 AM EST Office Visit Allergy/Immunology [facility] [place] [address] [place] [address] Cee Umanzor PA-C [address] [place] [address] 06/17/2024 1:30 PM EST Hospital Encounter ENDO [facility], Endoscopy Room [facility] [address] [address] [phone] Nerissa Camp MD [address] [place] [address] 06/17/2024 1:30 PM EST - 06/17/2024 2:00 PM EST Surgery ENDO [facility], Endoscopy Room [facility] [address] [place] [phone] Nerissa Camp MD [address] [place] [address] COLONOSCOPY FLEXIBLE PROXIMAL DIAGNOSTIC 06/24/2024 10:20 AM EST Office Visit General Internal Medicine [facility] 200 [facility] [place] [address] Yamini Alamo MD [address] [place] [address] 03/02/2025 10:15 AM EDT Office Visit Ophthalmology, [facility] [address] [place] [address] Oleksandr Price DO [address] [place] [address] Scheduled Orders Name Type Priority Associated Diagnoses Orde r Schedule US ABDOMEN LIMITED Medical Imaging STAT RUQ pain Ordered: 02/02/2024 CBC WITH WBC DIFFERENTIAL Lab Routine RUQ pain Expected: 02/02/2024 (Approximate), Expires: 02/01/2025 COMPREHENSIVE METABOLIC PANEL Lab Routine RUQ pain Expected: 02/02/2024 (Approximate), Expires: 02/01/2025 Scheduled Procedures Name Priority Associated Diagnoses Date/Ti me COLONOSCOPY FLEXIBLE PROXIMAL DIAGNOSTIC Recall History of colon polyps 06/17/2024 1:30 PM EST Health Maintenance Due Date Last Done Comments Cologuard 2010 Sigmoidoscopy 2010 Fecal Occult Blood Test 06/09/2011 06/09/2010 Depression Monitoring 10/06/2022 10/06/2021 Colonoscopy 03/07/2024 03/07/2021, 03/0 01/2018, 12/05/2016, Additional history exists Colorectal Cancer Screening 03/07/2024 Influenza Vaccine (FLU shot) (#1) 2024 05/04/2023, 05/05/2022, 04/21/2021, Additional history exists Mammogram 05/29/2024 05/29/2023, 100 10/2021, 04/25/2021, Additional history exists GFR 12/10/2024 12/11/2023, 06/0 12/2022, 06/08/2022, Additional history exists HbA1c 12/10/2024 12/11/2023, 06/0 12/2022, 06/02/2015 TSH 12/10/2024 12/11/2023, 06/0 12/2022, 06/08/2022, Additional history exists DTaP,Tdap,and Td Vaccines (3 - Td or Tdap) 06/01/2025 06/01/2015, 05/08/2005 Albumin/Creatinine Ratio 01/02/2026 01/02/2023 Lipid Panel 12/10/2028 12/11/2023, 06/0 12/2022, 06/08/2022, Additional history exists Zoster Vaccines Completed 06/03/2020, 04/01/2020 Hepatitis B Vaccine Completed 05/17/2023, 01/02/2023, 11/09/2022 COVID-19 Vaccine Completed 06/22/2023, 01/2022, 01/16/2022, Additional history exists Pneumococcal Vaccine: Pediatrics (0 to 5 Years) and At-Risk Patients (6 to 64 Years) Completed 12/17/2023 HPV (Gardasil) Vaccine Aged Out No lo nger eligible based on patient's age to complete this topic MENINGOCOCCAL (MENACTRA/MENVEO) Aged Out No longer eligible based on patient's age to complete this topic documented as of this encounter Medical Devices Not on filedocumented as of this encounter Visit Diagnoses Diagnosis RUQ pain- Primary Abdominal pain, right upper quadrant History of colon polyps Personal history of colonic polyps documented in this encounter Care Teams Tong Carrier Relationship Specialty Start Date End Date Yamini Alamo MD 200 [place] [address] PCP - General 02/04/10 documented as of this encounter
--- OUTSIDE RECORDS SUMMARY | 2024-02-03 07:28 | External Medical Summary | Summary of Care ---
Author Name Unknown Organization [facility] Address [address] [place] [address] Phone [phone] Care Team Providers Care Chief Passenger Ship Steward/Stewardess Name Role Phone Yamini Alamo MD Primary Care Provider [phone] Reason for Visit * Reason Onset Date Comments Appointment 12/17/2023 Encounter Details Date Type Department Care Team (Late st Contact Info) Description 12/17/2023 Telephone General Internal Medicine [facility] [address] [facility] [place] [address] Yamini Alamo MD [address] [place] [address] Appointment Allergies Active Allergy Reactions Criticality Noted [...] 3 12/11/2023 Active Vitamin D3 1.25 MG (89112 UT) Oral CapsuleIndications: Vitamin D deficiency Take [...] MCG/0.3 mL, 12 YRS AND ABOVE, [facility] 06/22/2023 COVID-19, mRNA, LNP-s, PF, [...] encounter Miscellaneous Notes * Telephone Encounter - Brooke Fischer OSA - 12/17/2023 1:24 PM EDT Spoke to pt, states she is going to go outside of [facility] as she wants procedure at [facility]. * Telephone Encounter - Gurdeep Grimaldo OSA - 12/17/2023 12:10 PM EDT Pt needs to be scheduled for COLONOSCOPY Associated Diagnoses Adenomatous polyp of colon, unspecified part of colon [D12.6] Please contact patient to schedule appointment. Thanks documented in this encounter Plan of Treatment Upcoming Encounters Date Type Department Care Team (Late st Contact Info) Description 12/19/2023 10:30 AM EDT Office Visit Ophthalmology, [facility] [address] [place] [address] Oleksandr Price DO [address] [place] [address] 06/17/2024 10:30 AM EST Office Visit Allergy/Immunology [facility] [address] [place] [place] [address] Cee Umanzor PA-C [address] [place] [address] [place] [address] 06/24/2024 10:20 AM EST Office Visit General Internal Medicine [facility] [place] 200 [facility] [place] [address] Yamini Alamo MD 200 [facility] [place] [address] Scheduled Procedures Name Priority Associated Diagnoses Date/Ti [...] < 10) 10/07/2021 10/06/2021 Colonoscopy 03/07/2024 03/07/2021, 0 01/2018, 12/05/2016, [...] filedocumented as of this encounter Care Teams Chief Passenger Ship Steward/Stewardess Relationship Specialty Start Date End Date Yamini Alamo MD [address] [place] [address], [place] [address] PCP - General 02/04/10 documented as of this encounter
--- OUTSIDE RECORDS SUMMARY | 2024-02-03 07:29 | External Medical Summary ---
Author Name Unknown Address Unknown Organization K01:LABORATORY [facility] - [address] [place] [address] Laboratory Report Ordering Provider Test Date Status EDUARDO NUNN 12/11/2023 10:02:26 Final Observation Date Value Abnormality Reference (Units ) Status Iron 12/11/2023 10:02:26 85 33-151 (ug /dL) Final Iron-binding capacity 12/11/2023 10:02:26 287 250-425 (ug/dL) Final Transferrin Sat % 12/11/2023 10:02:26 30 15 -55 (%) Final Performing Location LABORATORY C - [address] [place] [address]
--- OUTSIDE RECORDS SUMMARY | 2024-02-03 07:29 | External Medical Summary | Summary of Care ---
Author Name Unknown Organization [facility] Address [address] [place] [address] Phone [phone] Care Team Providers Care Sr. Social Media & Mobile Manager Name Role Phone Yamini Clark MD Primary Care Provider [phone] Reason for Visit * Reason Comments Allergy Return Encounter Details Date Type Department Care Team (Latest Contact Info) Description 12/11/2023 9:00 AM EDT Office Visit Allergy/Immunology [facility] [place] 200 [facility] [place] [address] Cee Umanzor PA-C 200 [facility] [place] [address] Seasonal allergic rhinitis due to pollen*; Dysfunction [...] MCG/0.3 mL, 12 YRS AND ABOVE, IM ([email or web address]) 06/22/2023 COVID-19, mRNA, LNP-s, PF, B ooster, 100mcg/0.5mg (Moderna) 01/16/2022,06/02/2021 Covid-19, Mrna, Lnp-s, Pf, B ivalent, 30 Mcg, IM, 12 yrs and above ([employer]) 05/05/2022 Hepatitis B, 20+ yrs 05/17/2023,01/02/2023,11/09 Seasonal [...] documented in this encounter Progress Notes * Cee Umanzor PA-C - 12/11/2023 9:19 [...] performed by Hector Hardy MD at ENDOSCOPY [facility] COLONOSCOPY, DIAGNOSTIC (RECTUM) 10/03/2017 diverticulosis, fair prep, repeat 3 yrs/[facility] DENTAL SURGERY PROCEDURE NEC 1986 GASTROCNEMIUS RECESSION Right 06/14/2018 GASTROCNEMIUS RECESSION performed by Vangie Roman DPM at OR [facility] HAND/FINGER SURGERY NEC 2007, trigger HYSTEROSCOPY W/BIOPSY [...] on file 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 BP 120/70 | Pulse 73 | Temp [...] and Ampicillin were positive. 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 Symptoms are almost always localized to the mouth and throat area and rarely become systemic. These foods should be avoided in their fresh/raw state, but are often tolerated cooked or processed. Treatment of choice is oral benadryl at onset of the mouth/throat itching. For now she plans to avoid pineapples in the raw form. Cee Umanzor PA-C Allergy and Immunology [facility] Supervising Physician: Zheng Frost MD Type [...] to the provider listed above.) PCP: YAMINI CLARK [address] [place] [address] [address] [address] [phone] documented in this encounter Nursing Notes * [...] AM EDT Office Visit General Internal Medicine [facility] [place] [address] [place] [address] Yamini Clark MD 200 [facility] [place] [address] 12/19/2023 10:30 AM EDT Office Visit Ophthalmology, [facility] [address] [place] [address] Oleksandr Price DO [address] [place] [address] 06/17/2024 10:30 AM EST Office Visit Allergy/Immunology [facility] [place] 200 [facility] [place] [address] Cee Umanzor PA-C 200 [facility] [place] [address] Scheduled Procedures Name Priority Associated Diagnoses Date/Ti [...] uncomplicated documented in this encounter Care Teams Sr. Social Media & Mobile Manager Relationship Specialty Start Date End Date Yamini Clark MD [address] [place] [address] PCP - General 02/04/10 documented as of this encounter"
--- OUTSIDE RECORDS SUMMARY | 2024-02-03 07:29 | External Medical Summary | Summary of Care ---
Author Name Unknown Organization [facility] Address [address] [place] [address] Phone [phone] Care Team Providers Care Supervisor Production Name Role Phone Yamini Alamo MD Primary Care Provider Reason for Visit * Reason Comments eRx-Medication Refill Encounter Details Date Type Department Care Team (Late st Contact Info) Description 10/17/2023 Refill General Internal Medicine [facility] 200 [place] [address] Yamini Alamo MD 200 [facility] [place] [address] Adjustment disorder with depressed mood Allergies Active Allergy Reactions Criticality Noted Date [...] as of this encounter (statuses as of 10/18/2023) Medications Medication Sig Dispensed Refills Start Date End Date Status Fluticasone Propionate 50 MCG/ACT Nasal Suspension (FLONASE)Indicatio ns:Acute recurrent sinusitis, unspecified location USE 2 SPRAYS IN EACH NOSTRIL TWICE A DAY. PLEASE CALL TO SCHEDULE AN APPOINTMENT FOR ALLERGY VISIT. 32 g 5 0 Active Potassium 75 MG Oral Tablet Take 1 Tablet by mouth in the morning. As needed for leg cramps . 0 Active Magnesium 100 MG Oral Capsule Take 1 Capsule by mouth in the morning. As needed for leg cramps . 0 Active Azelastine HCl 0.1 % Nasal Solution (Astelin)Indicatio ns:Dysfunction of both eustachian tubes USE 2 SPRAYS IN EACH NOSTRIL TWICE DAILY 120 mL 3 2 Active Albuterol Sulfate HFA 108 (90 Base) MCG/ACT Inhalation Aerosol SolutionIndication s:Bronchitis, complicated Inhale 2 Puffs by mouth every 4 hours as needed for Wheezing. 54 g 1 3 Active rOPINIRole HCl 0.5 MG Oral [...] LEG SYNDROME 30 Tablet 0 3 Active Omeprazole 20 MG Oral Capsule Delayed Release (PriLOSEC) take One capsule by mouth 30 minutes prior to breakfast. 90 Capsule 3 3 Active Fexofenadine HCl [...] for RLS 90 Tablet 0 4 Active hydroCHLOROthiazid e 12.5 MG Oral [...] 60 MG 90 Capsule 2 4 Active FLUoxetine HCl 40 MG Oral Capsule (PROzac)Indication s:Adjustment disorder with depressed mood TAKE 1 CAPSULE DAILY IN THEMORNING IN ADDITION TO THE 20MG CAPSULE FOR A TOTAL OF60MG 90 Capsule 3 3 10/18/19 24 Discontinued Hospital, Clinic, or Other Facility Administered Medication Ordered Dose Route Frequency Start Date End Date Status Albuterol Sulfate (Proventil) (2.5 MG/3ML) 0.083% inhalation solution 2.5 mgIndications:Wheezing 2.5 mg NEBULIZER PRN 11/09/2022 11/09/2023 Ac tive albuterol (VENTOLIN HFA/PROVENTIL HFA) inhalerIndications:Whee zing 3 Puff IN PRN 11/09/2022 11/09/2023 Active documented as of this encounter (statuses as of 10/18/2023) Active Problems Problem Noted Date Diagnosed Date [...] as of this encounter (statuses as of 10/18/2023) Resolved Problems Problem Noted Date Diagnosed Date Resolved Date Closed fracture of fifth met atarsal bone of left foot, sequela 05/14/2017 05/14/2017 documented as of this encounter (statuses as of 10/18/2023) Immunizations Name Administration Dates Next Due COVID-19 [...] encounter Miscellaneous Notes * Telephone Encounter - Taurus Lindo alyssa - 10/18/2023 11:15 AM EDT Signed Prescriptions: Disp Refills FLUoxetine HCl 40 MG Oral Capsule (PROzac) 90 Cap*2 Sig: TAKE 1 CAPSULE DAILY IN THE MORNING IN ADDITION TO THE 20 MG CAPSULE FOR A TOTAL OF 60 MGAuthorizing Provider: Katya ALAMO User: TAURUS LINDO documented in this encounter Plan of Treatment Upcoming Encounters Date Type Department Care Team (Late st Contact Info) Description 11/19/2023 11:45 AM EDT Office Visit Ophthalmology, [facility] 132 [facility] [place] [address] Oleksandr Price DO [address] [place] [address] 12/11/2023 9:00 AM EDT Office Visit Allergy/Immunology [facility] [address] [place] [address] Cee Umanzor PA-C [address] [place] [address] 01/16/2024 9:20 AM EDT Office Visit General Internal Medicine [facility] [address] [place] [address] Yamini Alamo MD [address] [facility] [place] [address] 02/13/2024 10:20 AM EDT Office Visit Nutrition & Weight Management, [facility] [address] [place] [address] Mirella Wright PA-C [address] [place] [address] Scheduled Procedures Name Priority Associated Diagnoses Date/Ti me COLONOSCOPY FLEXIBLE PROXIMAL DIAGNOSTIC Recall History of colon polyps Health Maintenance Due Date Last Done Comments Pneumococcal Vaccine: Pediatrics (0 to 5 Years) and At-Risk Patients (6 to 64 Years) (1 of 2 - PCV) 10/03/1971 Depression, Most Recent Score >= 10 (will fire each visit until score < 10) 10/07/2021 10/06/2021 GFR 01/03/2024 01/02/2023, 05/30, 11/25/2021, Additional history exists HbA1c 01/03/2024 01/02/2023, 06/02/2015 TSH 01/03/2024 01/02/2023, 05/30, 11/25/2021, Additional history exists COLONOSCOPY-EVERY 3 YRS AGES 18-100 03/07/2024 03/07/2021, 10/03/2017, 12/05/2016, Additional history exists Mammogram 05/29/2024 05/29/2023, 10/2021, 04/25/2021, Additional history [...] as of this encounter Visit Diagnoses Diagnosis Adjustment disorder with depressed mood documented in this encounter Care Teams Supervisor Production Relationship Specialty Start Date End Date Yamini Alamo MD 200 [facility] [place] [address] PCP - General 02/04/10 documented as of this encounter
--- OUTSIDE RECORDS SUMMARY | 2024-02-03 07:29 | External Medical Summary ---
Author Name Unknown Address Unknown Organization K01:LABORATORY [facility] - [address] [place] [address] Laboratory Report Ordering Provider Test Date Status EDOUARDSHELBIELYNN 12/11/2023 10:02:26 Final Deficient: <20 ng/mL
Ins ufficient: 20-29 ng/mL
Recommended/Optimum:30-50 ng/mL

Vitamin D intoxication is rare. If suspicious of Vitamin D toxicity, evaluation of serum Calcium and PTH is recommended. Observation Date Value Abnormality Reference (Units ) Status 25-OH Vitamin D total 12/11/2023 10:02:26 11 Below low normal >19 (ng/mL) Final Performing Location LABORATORY C - [address] [place] [address]
--- OUTSIDE RECORDS SUMMARY | 2024-02-03 07:29 | External Medical Summary | Summary of Care ---
Author Name Unknown Organization [facility] Address [address] [place] [address] Phone [phone] Care Team Providers Care Weir Fisherman Name Role Phone Yamini Alamo MD Primary Care Provider [phone] Reason for Visit * Reason Onset Date Comments Medication Refill 08/13/2023 Encounter Details Date Type Department Care Team (Late st Contact Info) Description 08/13/2023 Refill General Internal Medicine [facility] [address] Yamini Alamo MD 200 [facility] [place] [address] Allergies Active Allergy Reactions Criticality Noted Date [...] as of this encounter (statuses as of 08/14/2023) Medications Medication Sig Dispensed Refills Start Date End Date Status Fluticasone Propionate 50 MCG/ACT Nasal Suspension (FLONASE)Indicatio ns:Acute recurrent sinusitis, unspecified location USE 2 SPRAYS IN EACH NOSTRIL TWICE A DAY. PLEASE CALL TO SCHEDULE AN APPOINTMENT FOR ALLERGY VISIT. 32 g 5 07/29/2020 Active Potassium 75 MG Oral Tablet Take [...] EACH NOSTRIL TWICE DAILY 120 mL 3 07/14/2022 Active Albuterol Sulfate HFA 108 (90 Base) MCG/ACT Inhalation Aerosol SolutionIndication s:Bronchitis, complicated Inhale 2 Puffs by mouth every 4 hours as needed for Wheezing. 54 g 1 10/10/2022 Active FLUoxetine HCl 40 MG Oral Capsule (PROzac)Indication s:Adjustment disorder with depressed mood TAKE 1 CAPSULE DAILY IN THEMORNING IN ADDITION TO THE 20MG CAPSULE FOR A TOTAL OF60MG 90 Capsule 3 10/19/2022 Active hydroCHLOROthiazid e 12.5 MG Oral Capsule (Hydrodiuril)Indic ations:Essential hypertension with goal blood pressure less than 140/90 Take 1 Capsule by mouth in the morning. 90 Capsule 3 10/19/2022 Active rOPINIRole HCl 0.5 MG Oral Tablet [...] LEG SYNDROME 30 Tablet 0 04/04/2023 Active Gabapentin 800 MG Oral Tablet (Neurontin)Indicat ions:RLS (restless legs syndrome) Take 1 tablet by mouth at 5pm for RLS 10 Tablet 0 04/05/2023 Active Omeprazole 20 MG Oral Capsule Delayed Release (PriLOSEC) take One capsule by mouth 30 minutes prior to breakfast. 90 Capsule 3 04/24/2023 Active Fexofenadine HCl 180 MG Oral Tablet (Anabel Allergy) Take 1 Tablet by mouth in the morning. 90 Tablet 3 06/12/2023 Active Atomoxetine HCl 40 MG Oral Capsule (Strattera)Indicat ions:Attention deficit hyperactivity disorder (ADHD), combined type Take 1 Capsule by mouth in the morning. 30 Capsule 2 06/18/2023 Active Lisinopril 5 MG Oral Tablet (Prinivil) [...] the morning. 90 Tablet 3 08/14/2023 Active Montelukast Sodium 10 MG Oral Tablet (Singulair) TAKE 1 TABLET DAILY 90 Tablet 3 05/03/2023 Discontinue d(Refill) Hospital, Clinic, or Other Facility Administered Medication Ordered Dose Route Frequency Start Date End Date Status Albuterol Sulfate (Proventil) (2.5 MG/3ML) 0.083% inhalation solution 2.5 mgIndications:Wheezing 2.5 mg NEBULIZER PRN 11/09/2022 11/09/2023 Ac tive albuterol (VENTOLIN HFA/PROVENTIL HFA) inhalerIndications:Whee zing 3 Puff IN PRN 11/09/2022 11/09/2023 Active documented as of this encounter (statuses as of 08/14/2023) Active Problems Problem Noted Date Diagnosed Date [...] as of this encounter (statuses as of 08/14/2023) Resolved Problems Problem Noted Date Diagnosed Date Resolved Date Closed fracture of fifth met atarsal bone of left foot, sequela 05/14/2017 05/14/2017 documented as of this encounter (statuses as of 08/14/2023) Immunizations Name Administration Dates Next Due COVID-19 [...] encounter Miscellaneous Notes * Telephone Encounter - Wayne Amos [facility] - 08/14/2023 9:53 PM EST Signed Prescriptions: Disp Refills Montelukast Sodium 10 MG Oral Tablet (Sing*90 Tab*3 Sig: Take 1 Tablet by mouth in the morning.Authorizing Provider: Katya ALAMO User: WAYNE AMOS documented in this encounter Plan of Treatment Upcoming Encounters Date Type Department Care Team (Late st Contact Info) Description 10/11/2023 10:00 AM EDT Office Visit Nutrition & Weight Management, [facility] [address] [place] [address] Mirella Wright PA-C [address] [place] [address] 12/11/2023 9:00 AM EDT Office Visit Allergy/Immunology [facility] [address] [place] [address] Cee Umanzor PA-C [address] [place] [address] 01/16/2024 9:20 AM EDT Office Visit General Internal Medicine [facility] [address] [place] [address] Yamini Alamo MD [address] [place] [address] Scheduled Procedures Name Priority Associated Diagnoses Date/Ti me COLONOSCOPY FLEXIBLE PROXIMAL DIAGNOSTIC Recall History of colon polyps Health Maintenance Due Date Last Done Comments Pneumococcal Vaccine: Pediatrics (0 to 5 Years) and At-Risk Patients (6 to 64 Years) (1 - PCV) 10/03/1971 Depression, Most Recent Score [...] filedocumented as of this encounter Care Teams Weir Fisherman Relationship Specialty Start Date End Date Yamini Alamo MD 200 [facility] [address] PCP - General 02/04/10 documented as of this encounter
--- OUTSIDE RECORDS SUMMARY | 2024-02-03 07:29 | External Medical Summary | Summary of Care ---
Author Name Unknown Organization [facility] Address [address] [place] [address] Phone [phone] Care Team Providers Care Runner Man Name Role Phone Yamini Alamo MD Primary Care Provider [phone] Reason for Visit * Reason Onset Date Comments Medication Refill 08/13/2023 Encounter Details Date Type Department Care Team (Late st Contact Info) Description 08/13/2023 Refill General Internal Medicine [facility] [address] Yamini Alamo MD 200 [place] [address] Allergies Active Allergy Reactions Criticality Noted Date [...] 1 TABLET DAILY 90 Tablet 3 05/03/2023 4 Discontinue d(Refill) Levothyroxine Sodium 150 MCG Oral Tablet (Synthroid) Take 1 Tablet by mouth in the morning. (at least 30 min prior to breakfast or other meds) brand name Synthroid. 90 Tablet 0 05/17/2023 4 Discontinue d(Refill) Hospital, Clinic, or Other Facility [...] Notes * Telephone Encounter - Wayne Amos [facility] - 08/14/2023 9:53 PM EST Signed Prescriptions: Disp Refills Levothyroxine Sodium 150 MCG Oral Tablet (*90 Tab*3 Sig: Take 1Tablet by mouth in the morning. (at least 30 min prior to breakfast or other meds) brand name Synthroid.Authorizing Provider: Katya ALAMO User: WAYNE AMOS documented in this encounter Plan of Treatment Upcoming Encounters Date Type Department Care Team (Late st Contact Info) Description 10/11/2023 10:00 AM EDT Office Visit Nutrition & Weight Management, [facility] 132 [facility] [place] [address] Mirella Wright PA-C [address] [place] [address] 12/11/2023 9:00 AM EDT Office Visit Allergy/Immunology [facility] [address] [place] [address] Cee Umanzor PA-C [address] [place] [address] 01/16/2024 9:20 AM EDT Office Visit General Internal Medicine [facility] [address] [place] [address] Yamini Alamo MD 200 [facility] [place] [address] Scheduled Procedures Name Priority Associated Diagnoses Date/Ti [...] filedocumented as of this encounter Care Teams Runner Man Relationship Specialty Start Date End Date Yamini Alamo MD 200 [place] [address] PCP - General 02/04/10 documented as of this encounter
--- OUTSIDE RECORDS SUMMARY | 2024-02-03 07:29 | External Medical Summary ---
Author Name Unknown Address Unknown Organization K01:LABORATORY [facility] - [address] [place] [address] Laboratory Report Ordering Provider Test Date Status EDUARDO NUNN 12/11/2023 10:02:26 Final Observation Date Value Abnormality Reference (Units ) Status TSH 12/11/2023 10:02:26 0.97 0.27-4.20 (uIU/mL) Final Performing Location LABORATORY [facility] - [address] [place] [address]
--- OUTSIDE RECORDS SUMMARY | 2024-02-03 07:29 | External Medical Summary | Summary of Care ---
Author Name Unknown Organization [facility] Address [address] [place] [address] Phone [phone] Care Team Providers Care Toll Ticket Clerk Name Role Phone Yamini Alamo MD Primary Care Provider Reason for Visit * Reason Comments eRx-Medication Refill Encounter Details Date Type Department Care Team (Late st Contact Info) Description 09/24/2023 Refill General Internal Medicine [facility] [address] [place] [address] Yamini Alamo MD [address] [place] [address] Essential hypertension with goal blood pressure less than 140/90 Allergies Active Allergy Reactions Criticality Noted Date [...] as of this encounter (statuses as of 09/24/2023) Medications Medication Sig Dispensed Refills Start Date [...] for Wheezing. 54 g 1 3 Active FLUoxetine HCl 40 MG Oral Capsule (PROzac)Indication s:Adjustment disorder with depressed mood TAKE 1 CAPSULE DAILY IN THEMORNING IN ADDITION TO THE 20MG CAPSULE FOR A TOTAL OF60MG 90 Capsule 3 3 Active rOPINIRole HCl [...] for RLS 90 Tablet 0 4 Active Atomoxetine HCl 40 MG Oral Capsule (Strattera)Indicat ions:Attention deficit hyperactivity disorder (ADHD), combined type Take 1 Capsule by mouth in the morning. 90 Capsule 1 4 Active hydroCHLOROthiazid e 12.5 MG Oral Capsule (Hydrodiuril)Indic ations:Essential hypertension with goal blood pressure less than 140/90 TAKE 1 CAPSULE IN THE MORNING 90 Capsule 3 4 Active hydroCHLOROthiazid e 12.5 MG Oral Capsule (Hydrodiuril)Indic ations:Essential hypertension with goal blood pressure less than 140/90 Take 1 Capsule by mouth in the morning. 90 Capsule 3 3 09/24/19 24 Discontinued Hospital, Clinic, or Other Facility Administered Medication Ordered Dose Route Frequency Start Date End Date Status Albuterol Sulfate (Proventil) (2.5 MG/3ML) 0.083% inhalation solution 2.5 mgIndications:Wheezing 2.5 mg NEBULIZER PRN 11/09/2022 11/09/2023 Ac tive albuterol (VENTOLIN HFA/PROVENTIL HFA) inhalerIndications:Whee zing 3 Puff IN PRN 11/09/2022 11/09/2023 Active documented as of this encounter (statuses as of 09/24/2023) Active Problems Problem Noted Date Diagnosed Date [...] as of this encounter (statuses as of 09/24/2023) Resolved Problems Problem Noted Date Diagnosed Date Resolved Date Closed fracture of fifth met atarsal bone of left foot, sequela 05/14/2017 05/14/2017 documented as of this encounter (statuses as of 09/24/2023) Immunizations Name Administration Dates Next Due COVID-19 [...] encounter Miscellaneous Notes * Telephone Encounter - Oleksandr Amos [facility] - 09/24/2023 4:33 PM EST Signed Prescriptions: Disp Refills hydroCHLOROthiazide 12.5 MG Oral Capsule (*90 Cap*3 Sig: TAKE 1 CAPSULE IN THE MORNINGAuthorizing Provider: Katya ALAMO User: OLEKSANDR AMOS-- documented in this encounter Plan of Treatment Upcoming Encounters Date Type Department Care Team (Late st Contact Info) Description 12/11/2023 9:00 AM EDT Office Visit Allergy/Immunology [facility] [address] [place] [address] Cee Umanzor PA-C [address] [place] [address] 01/16/2024 9:20 AM EDT Office Visit General Internal Medicine [facility] [address] [place] [address] Yamini Alamo MD [address] [place] [address] 02/13/2024 10:20 AM EDT Office Visit Nutrition & Weight Management, [facility] [address] [place] [address] Mirella Wright PA-C [address] [place] [address] Scheduled Procedures Name Priority Associated Diagnoses Date/Ti [...] with goal blood pressure less than 140/90 documented in this encounter Care Teams Toll Ticket Clerk Relationship Specialty Start Date End Date Yamini Alamo MD [address] [place] [address] PCP - General 02/04/10 documented as of this encounter
--- OUTSIDE RECORDS SUMMARY | 2024-02-03 07:29 | External Medical Summary ---
Author Name Unknown Address Unknown Organization [id number]:[facility] [place] [facility] [place] [address] [facility] [address] Laboratory Report Ordering Provider Test Date Status EDUARDO NUNN 12/11/2023 10:02:26 Final Observation Date Value Abnormality Reference (Units ) Status HbA1C 12/11/2023 10:02:26 5.6 4.0-5.6 (% ) Final The use of HbA1c to monitor glycemic status is based on normal hemoglobin and HbA composition. This test should not be used in patients with abnormal hemoglobin that affects the half life of the red blood cell or the in vivo glycation rates. Glucose, estimated average 12/11/2023 10:02:26 114 <126 (mg/dL) Final Performing Location [facility] [place] [address] [facility] [address]
--- OUTSIDE RECORDS SUMMARY | 2024-02-03 07:29 | External Medical Summary ---
Author Name Unknown Address Unknown Organization [id number]:[facility] - [address] [place] [address] Laboratory Report Ordering Provider Test Date Status EDUARDO NUNN 12/11/2023 10:02:26 Final Observation Date Value Abnormality Reference (Units ) Status BUN 12/11/2023 10:02:26 12 6-20 (mg/dL) Final Creatinine 12/11/2023 10:02:26 1.1 Above high normal 0.5-1.0 (mg/dL) Final Glomerular filtration rate/1.73 sq M.predicted [Volume Rate/Area] in Serum, Plasma or Blood by Creatinine-based formula (CKD-EPI) 12/11/2023 10:02:26 60 >=60 (mL/min) Final eGFR is calculated based on the CKD-EPI 2020 equation Sodium 12/11/2023 10:02:26 141 135-146 (m mol/L) Final Potassium 12/11/2023 10:02:26 3.9 3.5-5.1 (m mol/L) Final Cl 12/11/2023 10:02:26 102 98-107 (mm ol/L) Final CO2 12/11/2023 10:02:26 27 22-32 (mmo l/L) Final Anion gap 12/11/2023 10:02:26 12 7-15 (mmol /L) Final Glucose 12/11/2023 10:02:26 109 70-120 (mg /dL) Final Albumin 12/11/2023 10:02:26 4.2 3.8-5.0 (g /dL) Final AST (Aspartate aminotransferase) 12/11/2023 10:02:26 18 10-35 (U/L) Final Alk Phos 12/11/2023 10:02:26 82 35-130 (U/ L) Final Bilirubin, Total 12/11/2023 10:02:26 0.5 <=1 .2 (mg/dL) Final Calcium 12/11/2023 10:02:26 9.8 8.4-10.2 ( mg/dL) Final Protein 12/11/2023 10:02:26 6.9 6.0-8.3 (g /dL) Final ALT (Alanine aminotransferase) 12/11/2023 10:02:26 23 10-35 (U/L) Final Performing Location [facility] [address] [place] [address]
--- OUTSIDE RECORDS SUMMARY | 2024-02-03 07:29 | External Medical Summary | Summary of Care ---
Author Name Unknown Organization [facility] Address [address] [place] [address] Phone [phone] Care Team Providers Care Licensed Staff Mft Name Role Phone Yamini Alamo MD Primary Care Provider [phone] Encounter Details Date Type Department Care Team (Late st Contact Info) Description 08/22/2023 Telephone Pulmonary Medicine, [facility] [address] [facility] [place] [address] Marlena Sue DO [address] [facility] [place] [address] Allergies Active Allergy Reactions Criticality Noted Date [...] as of this encounter (statuses as of 08/22/2023) Medications Medication Sig Dispensed Refills Start Date End Date Status Fluticasone Propionate 50 MCG/ACT Nasal Suspension (FLONASE)Indications :Acute recurrent sinusitis, unspecified location USE 2 SPRAYS [...] HFA 108 (90 Base) MCG/ACT Inhalation Aerosol SolutionIndications: Bronchitis, complicated Inhale 2 Puffs by mouth every 4 hours as needed for Wheezing. 54 g 1 10/10/2022 Active FLUoxetine HCl 40 MG Oral Capsule (PROzac)Indications: Adjustment disorder with depressed mood TAKE 1 CAPSULE DAILY IN THEMORNING IN ADDITION TO THE 20MG CAPSULE FOR A TOTAL OF60MG 90 Capsule 3 10/19/2022 Active hydroCHLOROthiazide 12.5 MG Oral Capsule (Hydrodiuril)Indicat [...] LEG SYNDROME 30 Tablet 0 04/04/2023 Active Omeprazole 20 MG Oral Capsule Delayed [...] for RLS 90 Tablet 0 08/17/2023 Active Hospital, Clinic, or Other Facility Administered Medication Ordered Dose Route Frequency Start Date End Date Status Albuterol Sulfate (Proventil) (2.5 MG/3ML) 0.083% inhalation solution 2.5 mgIndications:Wheezing 2.5 mg NEBULIZER PRN 11/09/2022 11/09/2023 Ac tive albuterol (VENTOLIN HFA/PROVENTIL HFA) inhalerIndications:Whee zing 3 Puff IN PRN 11/09/2022 11/09/2023 Active documented as of this encounter (statuses as of 08/22/2023) Active Problems Problem Noted Date Diagnosed Date [...] as of this encounter (statuses as of 08/22/2023) Resolved Problems Problem Noted Date Diagnosed Date Resolved Date Closed fracture of fifth met atarsal bone of left foot, sequela 05/14/2017 05/14/2017 documented as of this encounter (statuses as of 08/22/2023) Immunizations Name Administration Dates Next Due COVID-19 mRNA, LNP-s, No Pre serve, 2-Dose Series (Moderna) 11/01/2020,10/04/2020 COVID-19, MRNA-LNP, 23-24, P F, 30 MCG/0.3 mL, 12 YRS AND ABOVE, [facility] 06/22/2023 COVID-19, mRNA, LNP-s, PF, B ooster, [...] encounter Miscellaneous Notes * Telephone Encounter - Joaquin Hernandez, [facility] - 08/22/2023 8:39 AM EST Orders in 08/22 [employer] supplies documented in this encounter Plan of Treatment Upcoming Encounters Date Type Department Care Team (Late st Contact Info) Description 10/11/2023 10:00 AM EDT Office Visit Nutrition & Weight Management, [facility] [address] [place] [address] Mirella Wright PA-C [address] [place] [address] 12/11/2023 9:00 AM EDT Office Visit Allergy/Immunology [facility] [address] [facility] [place] [address] Cee Umanzor PA-C [address] [facility] [place] [address] 01/16/2024 9:20 AM EDT Office Visit General Internal Medicine [facility] [address] [facility] [place] [address] Yamini Alamo MD [address] [facility] [place] [address] Scheduled Procedures Name Priority Associated Diagnoses Date/Ti [...] filedocumented as of this encounter Care Teams Licensed Staff Mft Relationship Specialty Start Date End Date Yamini Alamo MD [address] [facility] [place] [place] [address] PCP - General 02/04/10 documented as of this encounter
--- OUTSIDE RECORDS SUMMARY | 2024-02-03 07:29 | External Medical Summary | Summary of Care ---
Author Name Unknown Organization [facility] Address [address] [place] [address] Phone [phone] Care Team Providers Care Tin Tie Machine Operator Automatic Name Role Phone Yamini Alamo MD Primary Care Provider [phone] Reason for Visit * Reason Comments Follow Up Here return. FARHANA. CP AP. No complaints. Encounter Details Date Type Department Care Team (Late st Contact Info) Description 08/21/2023 3:20 PM EST Office Visit [facility] [address] [phone] Marlena Sue DO [address] [facility] [place] [address] Obstructive sleep apnea*; Restless legs syndrome (RLS) Allergies Active Allergy Reactions Criticality Noted Date [...] as of this encounter (statuses as of 08/21/2023) Medications Medication Sig Dispensed Refills Start Date [...] as of this encounter (statuses as of 08/21/2023) Active Problems Problem Noted Date Diagnosed Date [...] as of this encounter (statuses as of 08/21/2023) Resolved Problems Problem Noted Date Diagnosed Date Resolved Date Closed fracture of fifth met atarsal bone of left foot, sequela 05/14/2017 05/14/2017 documented as of this encounter (statuses as of 08/21/2023) Immunizations Name Administration Dates Next Due COVID-19 [...] Sign Reading Time Taken Comments Blood Pressure 120/80 08/21/2023 3:34 PM EST Pulse 82 08/21/2023 3:34 PM EST Temperature 36.9 C (98.4 F) 08/21/2023 3:34 PM ES T Respiratory Rate 16 08/21/2023 3:34 PM EST Oxygen Saturation 99% 08/21/2023 3:34 PM EST Inhaled Oxygen Concentration - - Weight 120.2 kg (265 lb) 08/21/2023 3:34 PM EST Height 180.3 cm (5' 11") 08/21/2023 3:34 PM EST Body Mass Index 36.96 08/21/2023 3:34 PM EST documented in this encounter Progress Notes * Marlena Suearet, DO - 08/21/2023 3:51 PM EST Sleep Medicine Follow-Up HISTORY: Mara Sanchez is a 57 year old female for follow up of FARHANA and RLS. Per Dary's last note: "Sleep History/Testing: - PSG 04/2014 (wt 254): AHI 19.5, 40 min <89%, lorene 84%, PLMI 48 - Titration 06/2014: CPAP 6, PLMI 27.5 - Noct Ox CPAP 7 cwp/RA 11/12/14: no desats - Ferritin 08/17: 380 - Poor tolerance with APAP 8-12 - FFM tried, doesn't breathe through mouth" Replacement CPAP was ordered at last appt with Dary. DME may be [facility], unsure. [employer]Med device. [id number] I was able to link in [employer] to view her updated data. Overall doing well with the new CPAP. 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 She had ongoing chest congestion for a while which limited use; able to use again for about 5 months. Subjective PAP adherence: variable -- sometimes she falls asleep reading before getting the CPAP on, then only has it on for the later part of the night after she awakens part-way through the night. Sleep refreshing on PAP: yes, better with using CPAP for the full night. Snoring on PAP: unsure (lives alone) Daytime sleepiness: sometimes Daytime napping: rare currently Drowsy driving: none Interface: nasal Mask leak: occasional, not usually bothersome (though sometimes the CPAP reports poor seal). Dry nose or dry mouth: not more than usual Use humidifier? No, but debating trying. Rash from mask: no Aerophagia: no (has bloating from IBS) Nasal allergies: yes, always congested due to allergies. Morning headaches: yes, seems sinus-related. 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 RLS: Medication for RLS: ropinirole 0.5 mg 5 pm, 0.5 mg closer to bedtime, can take a 3rd tablet as needed, and gabapentin 800 mg at 5 pm. She is often needing the third dose of the ropinirole, especially if she does not remember to take the first dose on time (better if she takes it around 4 PM). She often does not remember to take it at that time. Has considered but has not tried setting an alarm to remind her of time to take medication. RLS were worse when she ran out of gabapentin. Taking 800 mg. Overall the RLS are pretty well controlled as long as she remembers to take the medication at the right time. Baths at night do help a lot as well. Blackstone Sleepiness Scale: 13 RLS rating scale 26 Blackstone Sleepiness Scale Question 08/20/2023 4:09 PM EST - Filed by Patient What is the chance you will doze off in the following situation? Sitting and reading High chance of dozing Watching TV High chance of dozing Sitting inactive in a public place, such as a theater or meeting Slight chance of dozing As a passenger in a car for an hour without a break Moderate chance of dozing Lying down to rest in the afternoon when circumstances permit High chance of dozing When sitting and talking to someone No chance of dozing When sitting quietly after lunch without alcohol Slight chance of dozing In a car, while stopped for a few minutes in traffic No chance of dozing Score (range: 0 - 24) 13 Restless Leg Syndrome Rating Scale Question 08/20/2023 4:11 PM EST - Filed by Patient Please complete the following questions. In the past week... Overall, how would you rate the RLS discomfort in your legs or arms? Severe Overall, how would you rate the need to move around because of your RLS symptoms? Severe How severe was your sleep disturbance due to your RLS symptoms? Moderate How severe was your tiredness or sleepiness during the day due to your RLS symptoms? Moderate How severe was your RLS as a whole? Moderate Overall, how severe was the impact of your RLS symptoms on your ability to carry out your daily affairs, for example, carrying out a satisfactory family, home, social, school, or work? Moderate How severe was your mood disturbance due to your RLS symptoms, for example, angry, depressed, sad, anxious, or irritable? Moderate In the past week, Overall, how much relief of your RLS arm or leg discomfort did you get from moving around? Mild relief How often did you get RLS symptoms? Very often (6 to 7 days in 1 week) When you had RLS symptoms, how severe were they on average? Severe (3 to 8 hours per 24 hours) Score (range: 1 - 40) 26 (Severe) Travel Screening Question 08/21/2023 3:22 PM EST - Filed by Patient Do you have any of the following new or worsening symptoms? None of these Have you recently been in contact with someone who was sick? No / Unsure CPAP Compliance: Report date: 05/23/23 to 08/20/23 % total days used: 52% % days used > 4 hours: 28% Average hours per day used: 3h 59m Large leak: occasional AHI: 1.0 /hr Median pressure: 7.4 cmH2O 95%ile pressure: 9.9 cmH2O Pressure settin-15 cmH2O Equipment: DME Provider is Alexia Uses a [employer] 11. 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 Recently got hearing aides. Patient Active Problem List Diagnosis Code Acquired hypothyroidism E03.9 Essential hypertension with goal blood pressure less than 140/90 I10 Mixed dyslipidemia E78.2 Moderate obstructive sleep apnea G47.33 RLS (restless legs syndrome) G25.81 Sleep related leg cramps G47.62 Chronic pansinusitis J32.4 Hypertrophy of both inferior nasal turbinates J34.3 Chronic nonseasonal allergic rhinitis due to pollen J30.89 Allergic conjunctivitis of both eyes H10.13 ETD (eustachian tube dysfunction) H69.90 Oral allergy syndrome T78.1XXA Laryngospasm J38.5 Ganglion cyst of left foot M67.472 Tailor's bunion of left foot M21.622 KAMALA (generalized anxiety disorder) F41.1 Moderate episode of recurrent major depressive disorder (HCC) F33.1 Prediabetes R73.03 Major depressive disorder, recurrent episode, mild (HCC) F33.0 Attention deficit hyperactivity disorder (ADHD), combined type F90.2 Outpatient Medications Marked as Taking for the 08/21/23 encounter (Office Visit) with Marlena Sue, DO Medication Sig Gabapentin 800 MG Oral Tablet (Neurontin) Take 1 tablet by mouth at 5pm for RLS Levothyroxine Sodium 150 MCG Oral Tablet (Synthroid) Take 1 Tablet by mouth in the morning. (at least 30 min prior to breakfast or other meds) brand name Synthroid. Montelukast Sodium 10 MG Oral Tablet (Singulair) Take 1 Tablet by mouth in the morning. Lisinopril 5 MG Oral Tablet (Prinivil) TAKE 1 TABLET DAILY COVID-19 mRNA Vaccine 12 years and above [employer] 30 MCG/0.3 ML IM SUSP Inject into a large muscle. Atomoxetine HCl 40 MG Oral Capsule (Strattera) Take 1 Capsule by mouth in the morning. Fexofenadine HCl 180 MG Oral Tablet (Anabel Allergy) Take 1 Tablet by mouth in the morning. Omeprazole 20 MG Oral Capsule Delayed Release (PriLOSEC) take One capsule by mouth 30 minutes priorto breakfast. rOPINIRole HCl 0.5 MG Oral Tablet (Requip) TAKE 1 TABLET AT 5 P.M. AND TAKE 1 TABLET AT 9 P.M. CAN DOSE 1 ADDITIONAL TABLET NEEDED FOR RESTLESS LEG SYNDROME FLUoxetine HCl 20 MG Oral Capsule (PROzac) Take 1 Capsule by mouth in the morning. Take with 40 mg capsule for a total of 60 mg daily.. Benzonatate 100 MG Oral Capsule (Tessalon Perles) Take 1-2 capsules up to 3 times a day Do not cut,crush, or chew. LORazepam 0.5 MG Oral Tablet (Ativan) Take 1 Tablet by mouth daily as needed for Anxiety. rOPINIRole HCl 0.5 MG Oral Tablet (Requip) TAKE 1 TABLET AT 5 P.M. AND TAKE 1 TABLET AT 9 P.M. CAN DOSE 1 ADDITIONAL TABLET NEEDED FOR RESTLESS LEG SYNDROME FLUoxetine HCl 40 MG Oral Capsule (PROzac) TAKE 1 CAPSULE DAILY IN THEMORNING IN ADDITION TO THE 20MG CAPSULE FOR A TOTAL OF60MG hydroCHLOROthiazide 12.5 MG Oral Capsule (Hydrodiuril) Take 1 Capsule by mouth in the morning. Albuterol Sulfate HFA 108 (90 Base) MCG/ACT Inhalation Aerosol Solution Inhale 2 Puffs by mouth every 4 hours as needed for Wheezing. Azelastine HCl 0.1 % Nasal Solution (Astelin) USE 2 SPRAYS IN EACH NOSTRIL TWICE DAILY Magnesium 100 MG Oral Capsule Take 1 Capsule by mouth in the morning. As needed for leg cramps . Potassium 75 MG Oral Tablet Take 1 Tablet by mouth in the morning. As needed for leg cramps . Fluticasone Propionate 50 MCG/ACT Nasal Suspension (FLONASE) USE 2 SPRAYS IN EACH NOSTRIL TWICE A DAY. PLEASE CALL TO SCHEDULE AN APPOINTMENT FOR ALLERGY VISIT. Current Facility-Administered Medications for the 08/21/23 encounter (Office Visit) with Marlena Sue, DO Medication albuterol (VENTOLIN HFA/PROVENTIL HFA) inhaler Albuterol Sulfate (Proventil) (2.5 MG/3ML) 0.083% inhalation solution 2.5 mg PHYSICAL EXAM: Filed Vitals: 08/21/23 1534 BP: 120/80 Pulse: 82 Resp: 16 Temp: 36.9 C (98.4 F) TempSrc: Tympanic SpO2: 99% Weight: 120.2 kg (265 lb) Height: 1.803 m (5' 11") Body mass index is 36.96 kg/m. General: alert, no acute distress Head: NC/AT Lungs: normal respiratory effort Neuro: speech clear and appropriate ASSESSMENT/PLAN: Obstructive sleep apnea - suboptimal adherence; encourage increased use of CPAP with all sleep. Discussed strategies to improve usage. As she may fall asleep reading before getting CPAP on -- consider reading upright and only laying down when putting CPAP on at night, consider a nighttime alarm to let her know it is time to get CPAP on and go to sleep (to awaken her sooner if she has fallen asleep before getting CPAP on) - good efficacy of therapy; continue PAP at current setting 5-15 cmH2O - she is considering a travel CPAP; if this is feasible for her, let me know so we can send her a prescription to use to order. - adjust humidity setting to comfort - DME: [employer] - Routine cleaning and change of supplies as needed. - Continue to avoid driving when feeling sleepy/drowsy. RLS - generally controlled with current medications. Continue ropinirole 0.5 mg 2-3 times per day and gabapentin 800 mg every evening. Consider setting alarm for 4 pm dosing time as a reminder for when to take medication for best effect. - continue non-pharmacologic measures, including evening bath, leg stretching. Discussed regular physical activity. Avoid sedating antihistamines (as able), as these often worsen RLS sxs. Regular tx of sleep apnea as discussed above. Follow-up with Sleep Medicine in 1 year. Approximately 45-50 minutes dedicated to today's appointment, over half [id number], plus chart review and documentation. Marlena Sue DO documented in this encounter Nursing Notes * Fe Elizondo LPN - 08/21/2023 3:35 PM EST Chief Complaint Patient presents with Follow Up Here return. FARHANA. CPAP. No complaints. DME:: patient unsure. Blackstone Sleepiness Scale Question 08/20/2023 4:09 PM EST - Filed by Patient What is the chance you will doze off in the following situation? Sitting and reading High chance of dozing Watching TV High chance of dozing Sitting inactive in a public place, such as a theater or meeting Slight chance of dozing As a passenger in a car for an hour without a break Moderate chance of dozing Lying down to rest in the afternoon when circumstances permit High chance of dozing When sitting and talking to someone No chance of dozing When sitting quietly after lunch without alcohol Slight chance of dozing In a car, while stopped for a few minutes in traffic No chance of dozing Score (range: 0 - 24) 13 Restless Leg Syndrome Rating Scale Question 08/20/2023 4:11 PM EST - Filed by Patient Please complete the following questions. In the past week... Overall, how would you rate the RLS discomfort in your legs or arms? Severe Overall, how would you rate the need to move around because of your RLS symptoms? Severe How severe was your sleep disturbance due to your RLS symptoms? Moderate How severe was your tiredness or sleepiness during the day due to your RLS symptoms? Moderate How severe was your RLS as a whole? Moderate Overall, how severe was the impact of your RLS symptoms on your ability to carry out your daily affairs, for example, carrying out a satisfactory family, home, social, school, or work? Moderate How severe was your mood disturbance due to your RLS symptoms, for example, angry, depressed, sad, anxious, or irritable? Moderate In the past week, Overall, how much relief of your RLS arm or leg discomfort did you get from moving around? Mild relief How often did you get RLS symptoms? Very often (6 to 7 days in 1 week) When you had RLS symptoms, how severe were they on average? Severe (3 to 8 hours per 24 hours) Score (range: 1 - 40) 26 (Severe) Travel Screening Question 08/21/2023 3:22 PM EST - Filed by Patient Do you have any of the following new or worsening symptoms? None of these Have you recently been in contact with someone who was sick? No / Unsure documented in this encounter Plan of Treatment Upcoming Encounters Date Type Department Care Team (Late st Contact Info) Description 10/11/2023 10:00 AM EDT Office Visit Nutrition & Weight Management, [facility] [address] [place] [address] Mirella Wright PA-C [address] [place] [address] 12/11/2023 9:00 AM EDT Office Visit Allergy/Immunology [facility] [address] [place] [address] Cee Umanzor PA-C [address] [place] [address] [address] 01/16/2024 9:20 AM EDT Office Visit General Internal Medicine [facility] [address] [place] [address] [address] Yamini Alamo MD [address] [place] [address] Scheduled Procedures Name Priority Associated Diagnoses Date/Ti [...] as of this encounter Visit Diagnoses Diagnosis Obstructive sleep apnea- Primary Obstructive sleep apnea (adult) (pediatric) Restless legs syndrome (RLS) documented in this encounter Care Teams Tin Tie Machine Operator Automatic Relationship Specialty Start Date End Date Yamini Alamo MD [address] [place] [address] PCP - General 02/04/10 documented as of this encounter
--- OUTSIDE RECORDS SUMMARY | 2024-02-03 07:29 | External Medical Summary | Summary of Care ---
Author Name Unknown Organization [facility] Address [address] [place] [address] Phone [phone] Care Team Providers Care Disposal Operator Name Role Phone Yamini Alamo MD Primary Care Provider [phone] Reason for Visit * Reason Onset Date Comments Medication Refill 08/13/2023 Encounter Details Date Type Department Care Team (Late st Contact Info) Description 08/13/2023 Refill General Internal Medicine [facility] [address] [facility] [address] Yamini Alamo MD 200 [place] [address] Allergies Active Allergy Reactions Criticality Noted Date [...] as of this encounter (statuses as of 08/15/2023) Medications Medication Sig Dispensed Refills Start Date [...] 04/04/2023 Active Gabapentin 800 MG Oral Tablet (Neurontin)Indicatio [...] the morning. 90 Tablet 3 08/14/2023 Active Hospital, Clinic, or Other Facility Administered Medication Ordered Dose Route Frequency Start Date End Date Status Albuterol Sulfate (Proventil) (2.5 MG/3ML) 0.083% inhalation solution 2.5 mgIndications:Wheezing 2.5 mg NEBULIZER PRN 11/09/2022 11/09/2023 Ac tive albuterol (VENTOLIN HFA/PROVENTIL HFA) inhalerIndications:Whee zing 3 Puff IN PRN 11/09/2022 11/09/2023 Active documented as of this encounter (statuses as of 08/15/2023) Active Problems Problem Noted Date Diagnosed Date [...] as of this encounter (statuses as of 08/15/2023) Resolved Problems Problem Noted Date Diagnosed Date Resolved Date Closed fracture of fifth met atarsal bone of left foot, sequela 05/14/2017 05/14/2017 documented as of this encounter (statuses as of 08/15/2023) Immunizations Name Administration Dates Next Due COVID-19 mRNA, LNP-s, No Pre serve, 2-Dose Series (Moderna) 11/01/2020,10/04/2020 COVID-19, MRNA-LNP, 23-24, P F, 30 MCG/0.3 mL, 12 YRS AND ABOVE, IM [facility] 06/22/2023 COVID-19, mRNA, LNP-s, PF, B [...] encounter Miscellaneous Notes * Telephone Encounter - Luisa Jefferson [facility] - 08/15/2023 8:42 AM ESTRefused Prescriptions: Disp Refills Lisinopril 5 MG Oral Tablet (Prinivil) 90 Tab*1 Sig: Take 1 Tablet by mouth in the morning.Refused By: LUISA JEFFERSON MReason for Refusal: Too soon documented in this encounter Plan of Treatment Upcoming Encounters Date Type Department Care Team (Late st Contact Info) Description 10/11/2023 10:00 AM EDT Office Visit Nutrition & Weight Management, [facility] [address] [place] [address] Mirella Wright PA-C [address] [place] [address] 12/11/2023 9:00 AM EDT Office Visit Allergy/Immunology [facility] [address] [place] [address] Cee Umanzor PA-C 200 [facility] [place] [address] 01/16/2024 9:20 AM EDT Office Visit General Internal Medicine [facility] [address] [place] [address] Yamini Alamo MD [address] [place] [address] Scheduled Procedures Name Priority Associated Diagnoses Date/Ti [...] filedocumented as of this encounter Care Teams Disposal Operator Relationship Specialty Start Date End Date Yamini Alamo MD [address] [place] [address] PCP - General 02/04/10 documented as of this encounter
--- OUTSIDE RECORDS SUMMARY | 2024-02-03 07:29 | External Medical Summary | Summary of Care ---
Author Name Unknown Organization [facility] Address [address] [place] [address] Phone [phone] Care Team Providers Care Gift Shop Manager Name Role Phone Yamini Alamo MD Primary Care Provider [phone] Reason for Visit * Reason Comments Medication Refill Encounter Details Date Type Department Care Team (Late st Contact Info) Description 09/17/2023 [facility] [place] [address] [facility] [place] [address] Genet Roberson CRNP 200 [facility] [place] [address] Attention deficit hyperactivity disorder (ADHD), combined type Allergies Active Allergy Reactions Criticality Noted Date [...] as of this encounter (statuses as of 09/18/2023) Medications Medication Sig Dispensed Refills Start Date [...] for RLS 90 Tablet 0 08/17/2023 Active Atomoxetine HCl 40 MG Oral Capsule (Strattera)Indicat ions:Attention deficit hyperactivity disorder (ADHD), combined type Take 1 Capsule by mouth in the morning. 90 Capsule 1 09/18/2023 Active Atomoxetine HCl 40 MG Oral Capsule (Strattera)Indicat ions:Attention deficit hyperactivity disorder (ADHD), combined type Take 1 Capsule by mouth in the morning. 30 Capsule 2 06/18/2023 4 Discontinue d(Refill) Atomoxetine HCl 40 MG Oral Capsule (Strattera)Indicat ions:Attention deficit hyperactivity disorder (ADHD), combined type Take 1 Capsule by mouth in the morning. 30 Capsule 0 09/18/2023 4 Discontinue d(Refill) Hospital, Clinic, or Other Facility Administered Medication Ordered Dose Route Frequency Start Date End Date Status Albuterol Sulfate (Proventil) (2.5 MG/3ML) 0.083% inhalation solution 2.5 mgIndications:Wheezing 2.5 mg NEBULIZER PRN 11/09/2022 11/09/2023 Ac tive albuterol (VENTOLIN HFA/PROVENTIL HFA) inhalerIndications:Whee zing 3 Puff IN PRN 11/09/2022 11/09/2023 Active documented as of this encounter (statuses as of 09/18/2023) Active Problems Problem Noted Date Diagnosed Date [...] as of this encounter (statuses as of 09/18/2023) Resolved Problems Problem Noted Date Diagnosed Date Resolved Date Closed fracture of fifth met atarsal bone of left foot, sequela 05/14/2017 05/14/2017 documented as of this encounter (statuses as of 09/18/2023) Immunizations Name Administration Dates Next Due COVID-19 [...] encounter Miscellaneous Notes * Telephone Encounter - Genet Roberson CRNP - 09/18/2023 9:21 AM ESTSigned Prescriptions: Disp Refills Atomoxetine HCl 40 MG Oral Capsule (Stratt*30 Cap*0 Sig: Take 1 Capsule by mouth in the morning.Authorizing Provider: GENET ROBERSON documented in this encounter Plan of Treatment Upcoming Encounters Date Type Department Care Team (Late st Contact Info) Description 10/11/2023 10:00 AM EDT Office Visit Nutrition & Weight Management, [facility] [address] [address] Mirella Wright PA-C [address] [place] [address] 12/11/2023 9:00 AM EDT Office Visit Allergy/Immunology [facility] [place] [address] [place] [address] Cee Umanzor PA-C [address] [place] [address] 01/16/2024 9:20 AM EDT Office Visit General Internal Medicine [facility] [address] [place] [address] [address] Yamini Alamo MD 200 [facility] [place] [address] Scheduled Procedures Name Priority Associated Diagnoses Date/Ti [...] as of this encounter Visit Diagnoses Diagnosis Attention deficit hyperactivity disorder (ADHD), combined type documented in this encounter Care Teams Gift Shop Manager Relationship Specialty Start Date End Date Yamini Alamo MD 200 [facility] [place] [address] PCP - General 02/04/10 documented as of this encounter
--- OUTSIDE RECORDS SUMMARY | 2024-02-03 07:29 | External Medical Summary | Summary of Care ---
Author Name Unknown Organization [facility] Address [address] [place] [address] Phone [phone] Care Team Providers Care Catalog Specialist Name Role Phone Yamini Alamo MD Primary Care Provider [phone] Reason for Visit * Reason Onset Date Comments Medication Refill 08/13/2023 Encounter Details Date Type Department Care Team (Late st Contact Info) Description 08/13/2023 Refill Pulmonary Medicine, [facility] [address] [place] [address] Domo Allen CRNP [address] [place] [address] RLS (restless legs syndrome) Allergies Active Allergy [...] as of this encounter (statuses as of 08/17/2023) Medications Medication Sig Dispensed Refills Start Date [...] for RLS 90 Tablet 0 08/17/2023 Active Gabapentin 800 MG Oral Tablet (Neurontin)Indicat ions:RLS (restless legs syndrome) Take 1 tablet by mouth at 5pm for RLS 10 Tablet 0 04/05/2023 4 Discontinue d(Refill) Hospital, Clinic, or Other Facility Administered Medication Ordered Dose Route Frequency Start Date End Date Status Albuterol Sulfate (Proventil) (2.5 MG/3ML) 0.083% inhalation solution 2.5 mgIndications:Wheezing 2.5 mg NEBULIZER PRN 11/09/2022 11/09/2023 Ac tive albuterol (VENTOLIN HFA/PROVENTIL HFA) inhalerIndications:Whee zing 3 Puff IN PRN 11/09/2022 11/09/2023 Active documented as of this encounter (statuses as of 08/17/2023) Active Problems Problem Noted Date Diagnosed Date [...] as of this encounter (statuses as of 08/17/2023) Resolved Problems Problem Noted Date Diagnosed Date Resolved Date Closed fracture of fifth met atarsal bone of left foot, sequela 05/14/2017 05/14/2017 documented as of this encounter (statuses as of 08/17/2023) Immunizations Name Administration Dates Next Due COVID-19 [...] Telephone Encounter - Domo Allen CRNP - 08/17/2023 5:54 PM EST Signed Prescriptions: Disp Refills Gabapentin 800 MG Oral Tablet (Neurontin) 90 Tab*0 Sig: Take 1 tablet by mouth at 5pm for RLSAuthorizing Provider: DOMO ALLEN * Telephone Encounter - Chelsy Moody OSA - 08/16/2023 9:44 AM EST Letter sent * Telephone Encounter - Chelsy Moody OSA - 08/16/2023 9:41 AM EST LMOM x2 * Telephone Encounter - Chelsy Moody OSA - 08/14/2023 9:56 AM EST Lmom to schedule. Myg was sent on 05/21 to schedule appt. Myg was unread. * Telephone Encounter - Josee Valdez LPN - 08/14/2023 9:01 AM ESTPending Prescriptions: Disp Refills Gabapentin 800 MG Oral Tablet (Neurontin) 10 Tab*0 Sig: Take 1 tablet by mouth at 5pm for RLS * Telephone Encounter - Josee Valdez LPN - 08/14/2023 9:01 AM EST Pt will need an appt. Last office visit was 05/18/22 documented in this encounter Plan of Treatment Upcoming Encounters Date Type Department Care Team (Late st Contact Info) Description 08/21/2023 3:20 PM EST Office Visit Sleep Disorders [facility] [address] [place] [id number] Marlena Sue DO [address] [place] [address] 10/11/2023 10:00 AM EDT Office Visit Nutrition & Weight Management, [facility] [address] [place] [address] Mirella Wright PA-C [address] [place] [address] 12/11/2023 9:00 AM EDT Office Visit Allergy/Immunology [facility] [place] [address] [place] [address] Cee Umanzor PA-C [address] [place] [address] 01/16/2024 9:20 AM EDT Office Visit General Internal Medicine [facility] [address] [place] [address] Yamini Alamo MD [address] [place] [address] Scheduled Procedures Name Priority Associated Diagnoses Date/Ti [...] (restless legs syndrome) Restless legs syndrome (RLS) documented in this encounter Care Teams Catalog Specialist Relationship Specialty Start Date End Date Yamini Alamo MD [address] [facility] [place] [address] PCP - General 02/04/10 documented as of this encounter
--- OUTSIDE RECORDS SUMMARY | 2024-02-03 07:29 | External Medical Summary | Summary of Care ---
Author Name Unknown Organization [facility] Address [address] [place] [address] Phone [phone] Care Team Providers Care Director Of Premium [employer] Name Role Phone Yamini Alamo MD Primary Care Provider [phone] Reason for Visit * Reason Onset Date Comments Order Request 05/08/2023 Encounter Details Date Type Department Care Team (Late st Contact Info) Description 05/08/2023 Telephone General Internal Medicine [facility] [address] [place] [address] Yamini Alamo MD [address] [place] [address] Order Request Allergies Active Allergy Reactions Criticality Noted Date [...] as of this encounter (statuses as of 08/07/2023) Medications Medication Sig Dispensed Refills Start Date End Date Status Fluticasone Propionate 50 MCG/ACT Nasal Suspension (FLONASE)Indicati [...] TOTAL OF60MG 90 Capsule 3 3 Active hydroCHLOROthiazi de 12.5 MG Oral Capsule (Hydrodiuril)Marla cations:Essential hypertension with goal blood pressure less than 140/90 Take 1 Capsule by mouth in the morning. 90 Capsule 3 3 Active rOPINIRole HCl [...] Active Benzonatate 100 MG Oral Capsule (Tessalon Britton)Indication s:Acute cough Take 1-2 capsules up to [...] LEG SYNDROME 30 Tablet 0 3 Active Gabapentin 800 MG Oral Tablet (Neurontin)Indica tions:RLS (restless legs syndrome) Take 1 tablet by mouth at 5pm for RLS 10 Tablet 0 3 Active Omeprazole 20 MG Oral Capsule Delayed Release (PriLOSEC) take One capsule by mouth 30 minutes prior to breakfast. 90 Capsule 3 3 Active Montelukast Sodium 10 MG Oral Tablet (Singulair) TAKE 1 TABLET DAILY 90 Tablet 3 3 Active Lisinopril 5 MG Oral Tablet (Prinivil) TAKE 1 TABLET DAILY 90 Tablet 1 3 06/26/20 23 Discontinued Synthroid 175 MCG Oral Tablet TAKE 1 TABLET DAILY 6 DAYS A WEEK AT LEAST 30 MINUTES PRIOR TO BREAKFAST OR OTHER MEDS. 90 Tablet 3 3 05/17/20 23 Discontinued(Me dication/Dose Changed) Atomoxetine HCl 25 MG Oral Capsule (Strattera)Indica tions:Attention deficit hyperactivity disorder (ADHD), combined type Take 1 Capsule by mouth in the morning. 90 Capsule 2 3 06/18/20 23 Discontinued(Me dication/Dose Changed) Hospital, Clinic, or Other Facility Administered Medication Ordered Dose Route Frequency Start Date End Date Status Albuterol Sulfate (Proventil) (2.5 MG/3ML) 0.083% inhalation solution 2.5 mgIndications:Wheezing 2.5 mg NEBULIZER PRN 11/09/2022 11/09/2023 Ac tive albuterol (VENTOLIN HFA/PROVENTIL HFA) inhalerIndications:Whee zing 3 Puff IN PRN 11/09/2022 11/09/2023 Active documented as of this encounter (statuses as of 08/07/2023) Active Problems Problem Noted Date Diagnosed Date [...] as of this encounter (statuses as of 08/07/2023) Resolved Problems Problem Noted Date Diagnosed Date Resolved Date Closed fracture of fifth met atarsal bone of left foot, sequela 05/14/2017 05/14/2017 documented as of this encounter (statuses as of 08/07/2023) Immunizations Name Administration Dates Next Due COVID-19 mRNA, LNP-s, No Pre serve, 2-Dose Series (Moderna) 11/01/2020,10/04/2020 COVID-19, mRNA, LNP-s, PF, B ooster, 100mcg/0.5mg (Moderna) 01/16/2022,06/02/2021 Covid-19, Mrna, Lnp-s, Pf, B ivalent, 30 Mcg, IM, 12 yrs and above (Pfizer) 05/05/2022 Hepatitis B, 20+ yrs 01/02/2023,11/09/2022 Seasonal Influenza, PF, 6 M & above, [...] encounter Miscellaneous Notes * Telephone Encounter - Yamini Alamo MD - 05/09/2023 9:49 AM EDT Done * Telephone Encounter - Mica Tyler OSA - 05/08/2023 4:59 PM EDT May we please have an order placed for a screening mammogram at your earliest convenience. Pt reports no issues. Thank you documented in this encounter Plan of Treatment Upcoming Encounters Date Type Department Care Team (Late st Contact Info) Description 08/20/2023 10:00 AM EST Office Visit Psychiatry, [facility] [address] [place] [address] Genet Roberson CRNP [address] [place] [address] [address] 10/11/2023 10:00 AM EDT Office Visit Nutrition & Weight Management, [facility] [address] [place] [address] Mirella Wright PA-C [address] [place] [address] 12/11/2023 9:00 AM EDT Office Visit Allergy/Immunology [facility] [address] [place] [address] [address] Cee Umanzor PA-C 200 [facility] [place] [address] 01/16/2024 9:20 AM EDT Office Visit General Internal Medicine [facility] [address] [place] [address] [address] Yamini Alamo MD [address] [place] [address] [address] Scheduled Procedures Name Priority Associated Diagnoses Date/Ti [...] Not on filedocumented as of this encounter Results * MAMMOGRAM SCREENING BELLA BILATERAL (05/29/2023 8:21 AM EDT) Anatomical Region Laterality Modality Breast Bilateral Mammography Narrative 05/30/2023 5:48 PM EDT Result MAMMOGRAM SCREENING BELLA BILATERAL History Encounter for screening mammogram for breast cancer The patient has no documented relevant family history. Films Compared 05/02/2022 MAMMOGRAM SCREENING BELLA BILATERAL, 04/25/2021 MAMMOGRAM SCREENING BELLA BILATERAL, 04/22/2020 MAMMOGRAM SCREENING BELLA BILATERAL, 11/01/2018 MAMMOGRAM DIAGNOSTIC BELLA LEFT, and 10/28/2018 MAMMOGRAM SCREENING BELLA BILATERAL Findings The breasts are heterogeneously dense, which may obscure small masses. There is no evidence of suspicious masses, calcifications, or other abnormal findings. Impression Bilateral No mammographic evidence of malignancy. BI-RADS Category: 1 - Negative. Recommendation Screening mammogram in 1 year is recommended for both breasts. Digital breast tomosynthesis was performed. This digital mammogram has been analyzed with the computer aided detection system. This notice contains the results of your recent mammogram, including information about breast density. If your mammogram shows that your breast tissue is dense, you should know that dense breast tissue is a common finding and is not abnormal. Statistics show many women could have dense or highly dense breasts. Dense breast tissue can make it harder to find cancer on a mammogram and may be associated with an increased risk of cancer. This information about the result of your mammogram is given to you to raise your awareness and to inform your conversations with your physician. Together, you can decide which screening options are right for you, based on your mammogram results, individual risk factors or physical examination. A report of your results was sent to your physician. Your mammographic breast density on today's study is described above. There are four categories of breast density on mammography. Fatty breasts and those with scattered fibroglandular tissue are not considered dense. Heterogeneously dense or extremely dense tissue is considered "dense". Please understand that assessment of breast density may vary from year to year. This examination was performed at [facility], [address] [place] [id number]. Yamini Alamo MD RAD MAMMOGRAPHY documented in this encounter Visit Diagnoses Diagnosis Encounter for screening mammogram for breast cancer- Primary Encounter for screening mammogram for breast cancer documented in this encounter Care Teams Director Of Premium Seat Sales Relationship Specialty Start Date End Date Yamini Alamo MD [address] [place] [address], [place] [address] PCP - General 02/04/10 documented as of this encounter
--- OUTSIDE RECORDS SUMMARY | 2024-02-03 07:29 | External Medical Summary ---
Author Name Unknown Address Unknown Organization [id number]:[facility] [place] [address] [place] [address] Laboratory Report Ordering Provider Test Date Status EDUARDO NUNN 12/11/2023 10:02:26 Final Observation Date Value Abnormality Reference (Units ) Status Ferritin 12/11/2023 10:02:26 284 Above high normal 13 -150 (ng/mL) Final Postmenopausal women have hi gher ferritin levels than pre-menopausal women. The above reference interval is based on pre-menopausal women. Performing Location [facility] - [address] [place] [address]
[2024-02-03 08:18] LABS: Basophils # (auto) 0.05 K/uL (0.00-0.20); Basophils % (auto) 0.6 %; Eosinophils # (auto) 0.57 K/uL (0.00-0.50); Eosinophils % (auto) 6.6 %; Hematocrit (blood only) 39.2 % (37.0-47.0); Hemoglobin 13.2 g/dl (12.0-16.0); Immature Granulocytes # (auto) 0.04 K/uL (0.01-0.20); Immature Granulocytes % (auto) 0.5 %; Lymphocytes # (auto) 1.56 K/uL (1.20-3.40); Lymphocytes % (auto) 18.2 %; Mean Corpuscular Hemoglobin 30.2 pg (25.0-34.0); Mean Corpuscular Hgb Conc 33.7 g/dL (32.0-36.0); Mean Corpuscular Volume 89.7 fL (80.0-100.0); Monocytes % (auto) 8.1 %; Neutrophils # (auto) 5.67 K/uL (1.40-6.50); Platelet Count 267 K/uL (130-400); RDW Coefficient of Variation 11.4 % (11.5-14.5); RDW Standard Deviation 37.4 fL (36.4-46.3); Red Blood Count 4.37 M/uL (4.20-5.40); White Blood Count 8.59 K/ul (4.8-10.8)
[2024-02-03] MEDS: KETOROLAC TROMETHAMINE 15 MG/ML VIAL IV ONE (08:25)
--- NOTE | 2024-02-03 08:26 | Emergency Department Note ---
History of Present Illness General Chief complaint: Abdominal Pain Stated complaint: ABD PAIN INTO BACK Time Seen by Provider: 02/03/24 07:31 History of Present Illness Maximum Pain Intensity: 7 this 58-year-old female presents today for evaluation of right upper abdominal and back pain that has been present for 6 days. The patient states her symptoms initially began while visiting a friend in [place]. She had a meal with high cream and fat content. That evening she developed severe right upper quadrant abdominal pain. She did not seek treatment in [place]. The patient states she has altered her diet and has been eating significantly less over the last 6 days. Her symptoms have persisted but become more intermittent. She saw her PCP yesterday and an ultrasound is ordered for tomorrow. She was instructed to come to the ED if her symptoms became worse. She had significant difficulty sleeping last evening secondary to right upper quadrant abdominal pain and pain around her right shoulder blade. She denies any nausea or vomiting. No other areas of discomfort in her abdomen. She denies any shortness of breath. No prior history of similar symptoms. She denies any abdominal trauma. No fevers or chills. No sweats. No other complaints. Home Medications Medication Instructions Recorded Confirmed Type fluoxetine 20 mg capsule 20 mg PO QAM 04/28/20 02/03/24 History fluoxetine 40 mg capsule 40 mg PO QAM 04/28/20 02/03/24 History fluticasone propionate 50 2 spray intranasal BID 04/28/20 02/03/24 History mcg/actuation nasal spray,suspension lisinopril 5 mg tablet 5 mg PO QAM 04/28/20 02/03/24 History lorazepam 0.5 mg tablet 0.5 mg PO TID PRN Anxiety 04/28/20 02/03/24 History montelukast 10 mg tablet 10 mg PO QAM 04/28/20 02/03/24 History omeprazole 20 mg capsule,delayed 20 mg PO DAILY Acid Reflux 04/28/20 02/03/24 History release ropinirole 0.5 mg tablet See Rx Instructions .Route .COMPLEX 04/28/20 02/03/24 History calcium carb-ergocalciferol (vit 1 tab PO BID 03/02/21 02/03/24 History D2) 600 mg calcium-200 unit tablet magnesium oxide 250 mg PO QAM 03/02/21 02/03/24 History potassium 95 mg tablet 90 mg PO QAM 03/02/21 02/03/24 History albuterol sulfate 90 mcg/actuation 2 puff inhalation Q4H PRN 02/03/24 02/03/24 History aerosol inhaler Shortness Of Breath Or Wheezing atomoxetine 40 mg capsule 40 mg PO DAILY 02/03/24 02/03/24 History azelastine 137 mcg (0.1 %) nasal 2 spray intranasal BID 02/03/24 02/03/24 History spray fexofenadine 180 mg tablet 180 mg PO DAILY 02/03/24 02/03/24 History gabapentin 800 mg tablet 800 mg PO QDD 02/03/24 02/03/24 History hydrochlorothiazide 12.5 mg capsule 12.5 mg PO DAILY 02/03/24 02/03/24 History levothyroxine 150 mcg tablet 150 mcg PO DAILY 02/03/24 02/03/24 History (Synthroid) Allergies Allergy/AdvReac Type Severity Reaction Status Date / Time amoxicillin Allergy Intermediate HIVES. Verified 02/04/24 10:07 ITCHING celecoxib Allergy Intermediate HIVES Verified 02/04/24 10:07 cetirizine Allergy Intermediate PSYCHIATRIC Verified 02/04/24 10:07 REACTION clavulanic acid Allergy Intermediate HIVES, Verified 02/04/24 10:07 ITCHING guaifenesin Allergy Intermediate PSYCHIATRIC Verified 02/04/24 10:07 REACTION levofloxacin Allergy Intermediate HIVES Verified 02/04/24 10:07 moxifloxacin Allergy Intermediate HIVES Verified 02/04/24 10:07 oxycodone Allergy Intermediate HIVES Verified 02/04/24 10:07 paroxetine Allergy Intermediate HIVES Verified 02/04/24 10:07 Sulfa (Sulfonamide Allergy Intermediate EDEMA,BLISTERS Verified 02/04/24 10:07 Antibiotics) in mouth adhesive Allergy Mild TAPE-REDNES Verified 02/04/24 10:07 S hydrocodone Allergy Mild "really Verified 02/04/24 10:07 itchy" lactose Allergy Mild LACTOSE Verified 02/04/24 10:07 INTOLERANCE Penicillins Allergy Unknown ALLERGIC Verified 02/04/24 10:07 PER TESTING pseudoephedrine Allergy Unknown PSYCHIATRIC Verified 02/04/24 10:07 REACTION acetaminophen AdvReac Mild Facial Verified 02/04/24 10:07 flushing Past Med/Surg History Problem List (Updated 02/05/24 @ 21:57 by David Parsons PA-C) Hypokalemia Sleep apnea cpap Hypothyroidism Essential hypertension Acute cholecystitis (Acute) Colon cancer screening Fibroid, uterine (Acute 06/19/14) Medical History Prediabetes Oral allergy syndrome ADHD (attention deficit hyperactivity disorder), combined type KAMALA (generalized anxiety disorder) Dyslipidemia GERD (gastroesophageal reflux disease) IBS (irritable bowel syndrome) 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 Depression Anxiety History of anesthesia reaction during colonoscopy in 2017 at [facility] pt had an esophageal spasm and procedure was aborted, pt had a colonoscopy at [facility] 2017 without any issues Surgical History Hx laparoscopic cholecystectomy (02/04/24) Laparoscopic Cholecystectomy (Not Applicable) - Theo Hernandez DO History of endometrial ablation History of elbow surgery right radial History of foot surgery left--bone spurs History of ankle surgery right release of achilles tendon History of Achilles tendon repair right Status post trigger finger release bilt thumbs History of repair of right rotator cuff x2 History of hysterectomy History of wisdom tooth extraction History of sinus surgery History of colonoscopy Family History Other Family history not known due to adoption Social History Smoking Status: Never smoker Second Hand Exposure: No; Do You Dip or Chew Tobacco: No; Hx Alcohol Use: No Hx Substance Use: No Preferred Language: Nepali Communication Ability: Effective Records Officer Required: No Beliefs That Will Affect Care: None Current Living Situation: Alone Other Information That Helps Us Care for You: No Feels Safe at Home: Yes Safety Concerns: Feels Safe At This Time Assistive Devices: None Review of Systems A total of 10 systems reviewed and were otherwise negative Physical Exam Vital Signs Vital Signs - 24 hr 02/03/24 07:24 Temperature 36.2 C L Temperature Source Temporal Artery Scan Pulse Rate 79 Respiratory Rate 18 Respiratory Effort / Characteristics Non-Labored Spontaneous Respiratory Depth Normal Blood Pressure 156/97 H Blood Pressure Mean 116 Pulse Oximetry 97 Oxygen Delivery Method Room Air Sepsis Recent Fever Within 48 Hours No Sepsis New/Unexplained Change in Mental Status N/A Sepsis Action Taken by Nursing No Action Required General: Well-developed, well-nourished, middle-aged female, in no acute distress. Obvious discomfort. Laying in the bed. Alert and oriented. Moderately obese. Skin: Warm and dry with good turgor. No rashes. No ecchymosis or erythema. Heart: Heart RRR. No MGR. Peripheral pulses are 2+. Lungs: Lungs are clear to auscultation. No crackles rhonchi or wheezing. Good air movement. The patient is able to take a deep breath. Abdomen: Abdomen was inspected, auscultated, and palpated. Obese. Bowel sounds present x 4 but infrequent. Soft, right upper quadrant tenderness to palpation. No hepato-splenomegaly. No masses noted. positive rebound over the right upper quadrant, negative Osborn sign. No pain over McBurney's point. No CVA tenderness. musculoskeletal: Gross motor function of the upper and lower extremities is intact and unremarkable. She has focal discomfort with palpation over the right rhomboid musculature. No pain with palpation over the intercostal muscles posteriorly or rotator cuff musculature over the scapula. She has full motion of the shoulder. Neurologic: Gross sensation is intact across the upper and lower extremities by soft touch. Course Administered Medications Atomoxetine HCl (Atomoxetine Hcl 40 Mg Capsule) 40 mg PO DAILY [facility] Stop: 03/04/24 12:59 Last Admin: 02/05/24 10:09 Dose: 40 mg Documented By: JUAN CARLOS Admin: 02/04/24 16:30 Dose: 40 mg Documented By: Admin: 02/03/24 13:46 Dose: 40 mg Documented By: JALEESA Azelastine HCl (Azelastine Hcl 0.1% Nasal 200 Sprays/27,400 Mcg Btl) 2 sprays NA BID MERAIR Stop: 03/04/24 20:59 Last Admin: 02/05/24 20:31 Dose: 2 sprays Documented By: Admin: 02/05/24 10:12 Dose: 2 sprays Documented By: JUAN CARLOS Admin: 02/04/24 20:44 Dose: 2 sprays Documented By: Admin: 02/04/24 16:25 Dose: Not Given Documented By: Admin: 02/03/24 20:29 Dose: 2 sprays Documented By: SOPHIE Calcium/Vitamin D (Calcium 600mg + Vit D 400 Iu Tab) 1 tab PO BID MERARI Stop: 03/04/24 20:59 Last Admin: 02/05/24 20:31 Dose: 1 tab Documented By: Admin: 02/05/24 10:09 Dose: 1 tab Documented By: JUAN CARLOS Admin: 02/04/24 20:43 Dose: 1 tab Documented By: Admin: 02/04/24 16:25 Dose: Not Given Documented By: Admin: 02/03/24 20:30 Dose: 1 tab Documented By: SOPHIE Fexofenadine HCl (Fexofenadine Hcl 180 Mg Tab) 180 mg PO DAILY [facility] Stop: 03/04/24 13:14 Last Admin: 02/05/24 10:11 Dose: 180 mg Documented By: JUAN CARLOS Admin: 02/04/24 16:30 Dose: 180 mg Documented By: Admin: 02/03/24 13:46 Dose: 180 mg Documented By: JALEESA Fluoxetine HCl (Fluoxetine Hcl 20 Mg Cap) 60 mg PO QAM MERARI Stop: 03/04/24 12:59 Last Admin: 02/05/24 10:10 Dose: 60 mg Documented By: JUAN CARLOS Admin: 02/04/24 16:29 Dose: 60 mg Documented By: Admin: 02/03/24 13:46 Dose: 60 mg Documented By: JALEESA Fluticasone Propionate (Fluticasone Propionate Na Spr 16 Gm Btl) 2 sprays NA BID MERARI Stop: 03/04/24 20:59 Last Admin: 02/05/24 20:31 Dose: 2 sprays Documented By: Admin: 02/05/24 10:11 Dose: 2 sprays Documented By: JUAN CARLOS Admin: 02/04/24 20:44 Dose: 2 sprays Documented By: Admin: 02/04/24 16:25 Dose: Not Given Documented By: Admin: 02/03/24 20:28 Dose: 2 sprays Documented By: SOPHIE Gabapentin (Gabapentin 800 Mg Tab) 800 mg PO DAILY@1700 [facility] Stop: 03/04/24 16:59 Last Admin: 02/05/24 16:38 Dose: 800 mg Documented By: JUAN CARLOS Admin: 02/04/24 16:29 Dose: 800 mg Documented By: Admin: 02/03/24 16:04 Dose: 800 mg Documented By: JALEESA Metronidazole (Flagyl) 500 mg in 100 mls @ 100 mls/hr IV Q8H MERARI; Protocol Stop: 02/13/24 13:29 Last Admin: 02/05/24 20:32 Dose: 100 mls/hr Documented By: Infusion: 02/05/24 15:39 Dose: Infused Documented By: JUAN CARLOS Admin: 02/05/24 14:02 Dose: 100 mls/hr Documented By: JUAN CARLOS Infusion: 02/05/24 06:17 Dose: Infused Documented By: Admin: 02/05/24 05:15 Dose: 100 mls/hr Documented By: Infusion: 02/04/24 22:14 Dose: Infused Documented By: Admin: 02/04/24 20:44 Dose: 100 mls/hr Documented By: Infusion: 02/04/24 16:24 Dose: Infused Documented By: Admin: 02/04/24 15:11 Dose: 100 mls/hr Documented By: Infusion: 02/04/24 07:40 Dose: Infused Documented By: Admin: 02/04/24 06:15 Dose: 100 mls/hr Documented By: Infusion: 02/03/24 21:51 Dose: Infused Documented By: Admin: 02/03/24 20:30 Dose: 100 mls/hr Documented By: Infusion: 02/03/24 15:28 Dose: Infused Documented By: Admin: 02/03/24 14:07 Dose: 100 mls/hr Documented By: JALEESA Cefuroxime Sodium 1,500 mg/ (Dextrose) 100 mls @ 200 mls/hr IV Q8H MERARI Stop: 02/13/24 13:59 Last Infusion: 02/05/24 16:40 Dose: Infused Documented By: JUAN CARLOS Admin: 02/05/24 15:38 Dose: 200 mls/hr Documented By: JUAN CARLOS Infusion: 02/05/24 07:00 Dose: Infused Documented By: JUAN CARLOS Admin: 02/05/24 06:17 Dose: 200 mls/hr Documented By: Infusion: 02/04/24 23:08 Dose: Infused Documented By: Admin: 02/04/24 22:20 Dose: 200 mls/hr Documented By: Infusion: 02/04/24 16:54 Dose: Infused Documented By: Admin: 02/04/24 16:24 Dose: 200 mls/hr Documented By: Infusion: 02/04/24 08:42 Dose: Infused Documented By: Admin: 02/04/24 07:43 Dose: 200 mls/hr Documented By: Infusion: 02/03/24 22:26 Dose: Infused Documented By: Admin: 02/03/24 21:55 Dose: 200 mls/hr Documented By: Infusion: 02/03/24 16:00 Dose: Infused Documented By: Admin: 02/03/24 15:23 Dose: 200 mls/hr Documented By: JALEESA Ketorolac Tromethamine (Ketorolac Tromethamine 15 Mg/Ml Vial) 15 mg IV Q6H PRN PRN Reason: Mod-Sev Pain (Scale 4-10) Stop: 02/08/24 13:04 Last Admin: 02/05/24 11:12 Dose: 15 mg Documented By: JUAN CARLOS Admin: 02/05/24 05:16 Dose: 15 mg Documented By: Admin: 02/04/24 19:34 Dose: 15 mg Documented By: Admin: 02/03/24 16:02 Dose: 15 mg Documented By: JALEESA Levothyroxine Sodium (Levothyroxine Sodium 150 Mcg Tablet) [facility]: 03/05/24 06:29 Last Admin: 02/05/24 06:17 Dose: 150 mcg Documented By: Admin: 02/04/24 06:17 Dose: 150 mcg Documented By: SOPHIE [place]inopril (Lisinopril 5 Mg Tab) [facility] [place]: 03/05/24 08:59 Last Admin: 02/05/24 10:10 Dose: 5 mg Documented By: JUAN CARLOS Admin: 02/04/24 16:29 Dose: 5 mg Documented By: MILENA Magnesium Oxide (Magnesium Oxide 400 Mg Tab) [facility] [place] 03/05/24 08:59 Last Admin: 02/05/24 10:10 Dose: 400 mg Documented By: JUAN CARLOS Admin: 02/04/24 16:30 Dose: 400 mg Documented By: MILENA Montelukast Sodium (Montelukast Sodium 10 Mg Tablet) [facility] [place]: 03/04/24 12:59 Last Admin: 02/05/24 10:11 Dose: 10 mg Documented By: JUAN CARLOS Admin: 02/04/24 16:30 Dose: 10 mg Documented By: Admin: 02/03/24 13:46 Dose: 10 mg Documented By: JALEESA Pantoprazole Sodium (Pantoprazole 40 Mg Tab) 40 mg PO DAILY [facility] Stop: 03/04/24 12:59 Last Admin: 02/05/24 10:09 Dose: 40 mg Documented By: JUAN CARLOS Admin: 02/04/24 16:29 Dose: 40 mg Documented By: Admin: 02/03/24 13:45 Dose: 40 mg Documented By: JALEESA Ropinirole HCl (Ropinirole Hcl 0.25 Mg Tablet) 0.25 mg PO DAILY@1500 [facility] Stop: 03/04/24 14:59 Last Admin: 02/05/24 15:40 Dose: 0.25 mg Documented By: JUAN CARLOS Admin: 02/04/24 16:29 Dose: 0.25 mg Documented By: Admin: 02/03/24 15:23 Dose: 0.25 mg Documented By: JALEESA Ropinirole HCl (Ropinirole Hcl 0.25 Mg Tablet) 0.5 mg PO DAILY@2000 [facility] Stop: 03/04/24 19:59 Last Admin: 02/05/24 19:31 Dose: 0.5 mg Documented By: Admin: 02/04/24 19:35 Dose: 0.5 mg Documented By: Admin: 02/03/24 19:42 Dose: 0.5 mg Documented By: SOPHIE Tramadol HCl (Tramadol Hcl 50 Mg Tablet) 50 mg PO Q4H PRN PRN Reason: Moderate Pain (Scale 4, 5, 6) Stop: 03/05/24 14:51 Last Admin: 02/05/24 16:39 Dose: 50 mg Documented By: JUAN CARLOS Discontinued Medications Bupivacaine HCl/Epinephrine Bitart (Bupivacaine/Epinephrine 0.5% Mpf 1:200,000 30 Ml Vial) Confirm Administered Dose 30 ml .ROUTE .STK-MED ONE Stop: 02/04/24 10:53 Last Admin: 02/04/24 13:23 Dose: 30 ml Documented By: MEHREEN Hydromorphone HCl (Hydromorphone Inj 2 Mg/Ml Syr/Vial) 0.5 mg IV Q5M PRN PRN Reason: PACU Use Only-Pain Stop: 02/04/24 18:40 Last Admin: 02/04/24 14:06 Dose: 0.5 mg Documented By: Admin: 02/04/24 13:57 Dose: 0.5 mg Documented By: Admin: 02/04/24 13:51 Dose: 0.5 mg Documented By: Admin: 02/04/24 13:43 Dose: 0.5 mg Documented By: ANDRZEJ Hydromorphone HCl (Hydromorphone Inj 2 Mg/Ml Syr/Vial) 2 mg IV NOW STA Stop: 02/04/24 14:12 Last Admin: 02/04/24 14:16 Dose: Not Given Documented By: ANDRZEJ Hydromorphone HCl (Hydromorphone Inj 2 Mg/Ml Syr/Vial) Confirm Administered Dose 2 mg .ROUTE .STK-MED ONE Stop: 02/04/24 14:14 Last Increment: 02/04/24 14:19 Dose: 0.5 mg Documented By: ANDRZEJ Increment: 02/04/24 14:14 Dose: 0.5 mg Documented By: ANDRZEJ Sodium Chloride (Nss) 1,000 mls @ 999 mls/hr IV .Q1H1M STA Stop: 02/03/24 08:50 Last Infusion: 02/03/24 12:10 Dose: Infused Documented By: Admin: 02/03/24 08:27 Dose: 999 mls/hr Documented By: JACKIE Sodium Chloride (Nss) 1,000 mls @ 80 mls/hr IV .[id number] MERARI Stop: 02/05/24 02:59 Last Infusion: 02/05/24 03:38 Dose: Infused Documented By: Admin: 02/04/24 15:11 Dose: 80 mls/hr Documented By: Infusion: 02/04/24 12:19 Dose: Infused Documented By: Infusion: 02/04/24 10:35 Dose: 0 mls/hr Documented By: Admin: 02/04/24 02:22 Dose: 80 mls/hr Documented By: Infusion: 02/04/24 02:07 Dose: Infused Documented By: Admin: 02/03/24 13:37 Dose: 80 mls/hr Documented By: JALEESA Magnesium Sulfate/Dextrose (Magnesium Sulfate / D5w) 1 gm in 100 mls @ 50 mls/hr IV ONE ONE Stop: 02/04/24 04:54 Last Infusion: 02/04/24 06:10 Dose: Infused Documented By: Admin: 02/04/24 04:08 Dose: 50 mls/hr Documented By: SOPHIE Lactated Ringer's (Lr) 1,000 mls @ 15 mls/hr IV .Q24H MERARI Stop: 03/05/24 10:44 Last Infusion: 02/04/24 10:57 Dose: Infused Documented By: Admin: 02/04/24 10:35 Dose: 15 mls/hr Documented By: WINTER Ketorolac Tromethamine (Ketorolac Tromethamine 15 Mg/Ml Vial) 10 mg IV NOW ONE Stop: 02/03/24 08:21 Last Admin: 02/03/24 08:25 Dose: 10 mg Documented By: JACKIE Potassium Chloride (Potassium Chloride Crtab 20 Meq Tabcr) 40 meq PO NOW STA Stop: 02/04/24 02:56 Last Admin: 02/04/24 04:08 Dose: 40 meq Documented By: SOPHIE Medical Decision Making Differential Diagnosis Acute cholecystitis, hepatitis, pancreatitis, bowel obstruction, gastritis, lower lobe pneumonia, muscle strain Medical Records Attestation: I reviewed the patient's medical records. Home Medications Current Medication List: was personally reviewed by me Laboratory Data CBC and chemistry panel were obtained today. CBC shows a normal white count of 8.59. Normal H&H. potassium is mildly low at 3.3. Electrolytes are otherwise unremarkable. Renal function is normal. LFTs, bilirubin, and lipase are also normal. 02/05/24 07:07 02/05/24 07:07 Lab Results 02/03/24 Range/Units 07:50 WBC 8.59 (4.8-10.8) K/ul RBC 4.37 (4.20-5.40) M/uL Hgb 13.2 (12.0-16.0) g/dl Hct 39.2 (37.0-47.0) % MCV 89.7 (80.0-100.0) fL MCH 30.2 (25.0-34.0) pg MCHC 33.7 (32.0-36.0) g/dL RDW Std Deviation 37.4 (36.4-46.3) fL RDW Coeff of David 11.4 L (11.5-14.5) % Plt Count 267 (130-400) K/uL MPV 12.0 (9.4-12.4) fL Immature Gran % (Auto) 0.5 % Neut % (Auto) 66.0 % Lymph % (Auto) 18.2 % [place] % (Auto) 8.1 % Eos % (Auto) 6.6 % Baso % (Auto) 0.6 % Neut # (Auto) 5.67 (1.40-6.50) K/uL Lymph # (Auto) 1.56 (1.20-3.40) K/uL [place] # (Auto) 0.70 H (0.11-0.59) K/uL Eos # (Auto) 0.57 H (0.00-0.50) K/uL Baso # (Auto) 0.05 (0.00-0.20) K/uL Immature Gran # (Auto) 0.04 (0.01-0.20) K/uL Sodium 138 (136-145) mmol/L Potassium 3.3 L (3.5-5.1) mmol/L Chloride 100 (98-107) mmol/L Carbon Dioxide 28 (21-32) mmol/L Anion Gap 10 (3-11) BUN 9 (6-23) mg/dl Creatinine 0.95 (0.6-1.2) mg/dl Est Cr Clr Drug Dosing 90.4 ml/min Est GFR ( Amer) 76.5 ml/min Est GFR (Non-Af Amer) 66.0 ml/min BUN/Creatinine Ratio 9.5 L (10-20) Glucose 105 H (70-99(Fasting)) mg/dl Calcium 9.4 (8.6-10.3) mg/dl Total Bilirubin 0.7 (0.2-1.0) mg/dl AST 14 (13-39) U/L ALT 17 (7-52) U/L Alkaline Phosphatase 100 (34-104) U/L Total Protein 7.5 (6.0-8.3) gm/dl Albumin 4.2 (3.4-5.0) gm/dl Globulin 3.3 (2.5-4.0) gm/dl Albumin/Globulin Ratio 1.3 (0.9-2) Lipase 16 (11-82) U/L Imaging Data My Impression: Gallbladder ultrasound obtained today was interpreted by me and read by radiology. It is positive for acute cholecystitis, with cholelithiasis and a sonographic Osborn's sign positive. Blood Pressure Blood Pressure Findings: Elevated blood pressure Blood Pressure Disposition: elevated BP felt to be situational MDM Narrative The patient was evaluated in room C5. Conservative care measures were discussed. IV was established. Labs were obtained. Urine was ordered but not obtained. She was offered pain medication and nausea medication. The patient initially declined. She later stated that she would try some Toradol. She was noted to have an allergy to Celebrex, but this is due to the sulfa component. She was given Toradol 10 mg IV with minimal improvement of her pain. Chest x-ray was obtained today and was interpreted by me and read by radiology. There is no acute process occurring at this time. Limited abdominal ultrasound of the gallbladder was obtained. This was positive for acute cholecystitis. Pericholecystic fluid was present along with a sonographic Osborn sign. She was placed on a quality assurance monitor body and remained in sinus rhythm with a rate in the 70s during her stay. No ectopy was noted. The patient was educated regarding today's findings. Admission was recommended with surgical intervention. The patient is in agreement. Consultation was obtained from Dr. Echevarria. He recommended waiting until the following day to have the procedure performed. Medical consultation was made to the hospitalist team. They admitted the patient in anticipation of surgery tomorrow. Please see that dictation for final management. Care plan was discussed with Dr. Reeves. The patient remained stable while in the ED. Impression & Plan Acute cholecystitis Admission with anticipation of OR intervention tomorrow. Hospitalist service is involved. Discharge Plan Visit Data Chief Complaint: Abdominal Pain Stated Complaint: ABD PAIN INTO BACK ED Provider: Naun Reeves ED Midlevel Provider: David Parsons Discharge Problem: Acute cholecystitis Patient Disposition: Admitted As Inpatient Discharge Instructions Interventions: ED Discharge Assessment Last Done: 02/03/24 12:17
[2024-02-03] MEDS: SODIUM CHLORIDE 0.9% 1,000 ML IV STA (08:27)
[2024-02-03 08:32] LABS: Albumin Globulin Ratio 1.3 (0.9-2); Albumin Level 4.2 gm/dl (3.4-5.0); BUN Creatinine Ratio 9.5 (10-20); Bilirubin,Total 0.7 mg/dl (0.2-1.0); Calcium 9.4 mg/dl (8.6-10.3); Creatinine Clr Calc Pharmacy 90.4 ml/min; Est GFR (African American) 76.5 ml/min; Globulin 3.3 gm/dl (2.5-4.0); Potassium 3.3 mmol/L (3.5-5.1); Total Protein 7.5 gm/dl (6.0-8.3)
--- NOTE | 2024-02-03 09:13 | Ultrasound Report ---
US gallbladder CLINICAL HISTORY: RUQ abd pain TECHNIQUE: Multiple real-time sonographic images of the right upper quadrant were obtained. Comparison: None available at the time of this dictation. FINDINGS: The liver is diffusely echogenic in appearance with poor ultrasound penetration, with normal contour, which is consistent with fatty infiltration. No focal mass lesions are seen. No intrahepatic duct al dilatation is seen. Cholelithiasis is seen. The wall measures 3 mm. Pericholecystic fluid is seen . A sonographic Osborn's sign was elicited by the rollout manager. The common duct measures 0.6 cm in d iameter at the level of the hepatic artery. The visualized portions of the pancreas appear normal. The right kidney shows normal echogenicity, cortical thickness and renal contour. The right kidney sh ows no evidence of hydronephrosis or mass. No ascites or free fluid is seen in Harrison's pouch. IMPRESSION: Findings are compatible with acute cholecystitis. ACT 112: Negative or not required by law. Electronically signed by: Fareed Rivera M.D. 02/03/2024 9:11 AM
--- NOTE | 2024-02-03 09:20 | XRay Report ---
XR chest 2V PA/lateral CLINICAL HISTORY: RUQ abd pain radiates to R scapula TECHNIQUE: 2 views of the chest were obtained. Comparison: None available at the time of this dictation. FINDINGS: No lines and tubes are seen. The cardiomediastinal silhouette is normal. The lungs are clear. No evid ence of pleural effusion or pneumothorax. IMPRESSION: No acute chest disease. ACT 112: Negative or not required by law. Electronically signed by: Fareed Rivera M.D. 02/03/2024 9:18 AM
--- NOTE | 2024-02-03 09:49 | Surgery Consultation ---
Date of Consultation February 03, 2024 Assessment & Plan (1) Acute cholecystitis: Her labs and ultrasound images and results were personally reviewed and interpreted by myself She is without leukocytosis or elevated LFTs, however her physical exam and ultrasound are concerning for acute cholecystitis N.p.o./IV fluids and start IV antibiotics Will plan on a laparoscopic cholecystectomy, possible open tomorrow History of Present Illness Reason for Consultation: Acute cholecystitis History of Present Illness This is a 58-year-old female who presented to the ER this morning with sharp epigastric and right upper quadrant abdominal pain without radiation that has been off and on for the last 9 to 10 days. She was recently in [place] visiting a friend over a week ago and developed this pain previously described. It did improve however came back 3 days ago. There are no alleviating or aggravating factors. She denies any nausea or vomiting. She denies any jaundice, scleral icterus, tea colored urine, acholic stools. She has a previous history of an open total abdominal hysterectomy in 2017. Allergies Allergy/AdvReac Type Severity Reaction Status Date / Time amoxicillin Allergy Intermediate HIVES. Verified 02/03/24 07:51 ITCHING celecoxib Allergy Intermediate HIVES Verified 02/03/24 07:51 cetirizine Allergy Intermediate PSYCHIATRIC Verified 02/03/24 07:51 REACTION clavulanic acid Allergy Intermediate HIVES, Verified 02/03/24 07:51 ITCHING guaifenesin Allergy Intermediate PSYCHIATRIC Verified 02/03/24 07:51 REACTION levofloxacin Allergy Intermediate HIVES Verified 02/03/24 07:51 moxifloxacin Allergy Intermediate HIVES Verified 02/03/24 07:51 oxycodone Allergy Intermediate HIVES Verified 02/03/24 07:51 paroxetine Allergy Intermediate HIVES Verified 02/03/24 07:51 Sulfa (Sulfonamide Allergy Intermediate EDEMA,BLISTERS Verified 02/03/24 07:51 Antibiotics) in mouth adhesive Allergy Mild TAPE-REDNES Verified 02/03/24 07:51 S hydrocodone Allergy Mild "really Verified 02/03/24 07:51 itchy" lactose Allergy Mild LACTOSE Verified 02/03/24 07:51 INTOLERANCE Penicillins Allergy Unknown ALLERGIC Verified 02/03/24 07:51 PER TESTING pseudoephedrine Allergy Unknown PSYCHIATRIC Verified 02/03/24 07:51 REACTION acetaminophen AdvReac Mild Facial Verified 02/03/24 07:51 flushing Home Medications Medication Instructions Recorded Confirmed Type buspirone 10 mg tablet 10 mg PO QAM 04/28/20 03/07/21 History fluoxetine 20 mg capsule 20 mg PO QAM 04/28/20 03/07/21 History fluoxetine 40 mg capsule 40 mg PO QAM 04/28/20 03/07/21 History fluticasone propionate 50 2 spray intranasal QAM 04/28/20 03/07/21 History mcg/actuation nasal spray,suspension levothyroxine 175 mcg tablet 175 mcg PO 6XWK 04/28/20 03/07/21 History (Synthroid) lisinopril 5 mg tablet 5 mg PO QAM 04/28/20 03/07/21 History lorazepam 0.5 mg tablet 0.5 mg PO TID PRN Anxiety 04/28/20 03/02/21 History montelukast 10 mg tablet 10 mg PO QAM 04/28/20 03/02/21 History omeprazole 20 mg capsule,delayed 20 mg PO DAILY PRN Acid Reflux 04/28/20 03/02/21 History release ropinirole 0.5 mg tablet 1 mg PO QPM 04/28/20 03/02/21 History calcium carb-ergocalciferol (vit 1 tab PO QAM 03/02/21 03/07/21 History D2) 600 mg calcium-200 unit tablet levothyroxine 175 mcg tablet 87.5 mcg PO WK 03/02/21 03/07/21 History (Synthroid) magnesium oxide 250 mg PO QAM 03/02/21 03/02/21 History potassium 95 mg tablet 90 mg PO QAM 03/02/21 03/02/21 History Patient History Medical History GERD (gastroesophageal reflux disease) IBS (irritable bowel syndrome) Wes's disease Hypothyroidism Hearing loss of both ears Depression Anxiety History of anesthesia reaction during colonoscopy in 2017 at [facility] pt had an esophageal spasm and procedure was aborted, pt had a colonoscopy at [facility] 2018 without any issues Sleep apnea cpap Surgical History History of endometrial ablation History of elbow surgery right radial History of foot surgery left--bone spurs History of ankle surgery right release of achilles tendon History of Achilles tendon repair right Status post trigger finger release bilt thumbs History of repair of right rotator cuff x2 History of hysterectomy History of wisdom tooth extraction History of sinus surgery History of colonoscopy Family History Other Family history not known due to adoption Social History Smoking Status: Never smoker Second Hand Exposure: No; Do You Dip or Chew Tobacco: No; Hx Alcohol Use: Yes Hx Substance Use: No Preferred Language: Iraqi Communication Ability: Effective 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 Beliefs That Will Affect Care: None Current Living Situation: Alone Feels Safe at Home: Yes Assistive Devices: Contacts, CPAP and Glasses Review of Systems Constitutional: no fever and no chills Eyes: no blind spots and no dry eyes no scleral icterus Ear, Nose, Mouth, Throat: no ear pain and no hearing loss Respiratory: no cough and no dyspnea Cardiovascular: no chest pain and no dyspnea on exertion Gastrointestinal: + abdominal pain; no nausea, no vomiting , no constipation and no diarrhea/loose stools Genitourinary: no dysuria and no difficulty urinating Musculoskeletal: no back pain and no neck pain Integumentary: no acne, no skin ulcer and no erythema Neurologic: no gait abnormality and no headache(s) Psychiatric: no behavioral changes and no depression Hematologic / Lymphatic: no easy bleeding and no easy bruising Physical Exam Constitutional: WD/WN, vitals as above Eyes: PERRL, conjunctivae normal, anicteric sclerae ENMT: external ear and nose normal, oropharynx normal Neck: trachea midline, no thyromegaly Respiratory: normal respiratory effort, lungs clear to auscultation Cardiovascular: RRR, no murmur, no edema Gastrointestinal (Abdomen): Inspection/Auscultation: abdomen normal to inspection; abdomen not distended Percussion/Palpation: + abdomen tender (RUQ), + guarding and abdomen soft; no hernia Positive Osborn's Musculoskeletal: no cyanosis or clubbing, extremities motor strength 5/5 Skin: no rashes, warm and dry Neurologic: PERRL, EOMI, accommodation nl, no face palsy, no dysarthria Psychiatric: A+Ox3, euthymic affect Results & Data Vital Signs (Past 12 Hours) Vital Signs Temp Pulse Pulse Resp BP BP Pulse Ox 02/03/24 09:09 73 18 127/75 98 02/03/24 07:24 36.2 C L 79 18 156/97 H 97 O2 Del Method 02/03/24 09:09 Room Air 02/03/24 07:24 Room Air Diagnostic Findings US gallbladder CLINICAL HISTORY: RUQ abd pain TECHNIQUE: Multiple real-time sonographic images of the right upper quadrant were obtained. Comparison: None available at the time of this dictation. FINDINGS: The liver is diffusely echogenic in appearance with poor ultrasound penetration, with normal contour, which is consistent with fatty infiltration. No focal mass lesions are seen. No intrahepatic ductal dilatation is seen. Cholelithiasis is seen. The wall measures 3 mm. Pericholecystic fluid is seen. A sonographic Osborn's sign was elicited by the weaving professor. The common duct measures 0.6 cm in diameter at the level of the hepatic artery. The visualized portions of the pancreas appear normal. The right kidney shows normal echogenicity, cortical thickness and renal contour. The right kidney shows no evidence of hydronephrosis or mass. No ascites or free fluid is seen in Harrison's pouch. IMPRESSION: Findings are compatible with acute cholecystitis. PG Care Time/CCT Total # of Minutes Spent Total Time Spent with Patient: Total time spent is greater than 50% in coordination of care (as documented) at patient's floor/unit and/or counseling patient: Coding Level of Care Code 53301 OFFICE CONSULT LVL M Diagnoses Acute cholecystitis K81.0
--- NOTE | 2024-02-03 10:23 | History & Physical Report ---
Date of Service February 03, 2024 Assessment & Plan (1) Acute cholecystitis: Plan: This is a 58 y/o female with HTN, FARHANA on CPAP, hypothyroidism, lactose intolerance, depression/anxiety, ADHD and other history as outlined below who presents to the ED with RUQ pain that has been worsening. Symptoms started after a fatty meal nine days ago and have waxed and waned since then, now worsening. Work-up in the ED shows US findings c/w acute cholecystitis, afebrile, no l eukocytosis or elevated LFTs. - Admit to med surg - Surgery consulted by the ED - plan for OR tomorrow - Empiric antibiotic coverage - cefuroxime/metronidazole - NPO except meds for now - Labs in the AM - CBC, BMP, LFTs - Toradol for pain - multiple allergies noted including reactions to acetaminophen, celecoxib, hydrocodone, and oxycodone. Tolerated the Toradol given in the ED. (2) Sleep apnea: Plan: Chronic, stable - intermittently using CPAP CPAP at HS while admitted, settings pulled from review of outpatient sleep medicine note (3) Hypothyroidism: Plan: Chronic, stable Continue Synthroid (4) Essential hypertension: Plan: Chronic, stable Holding HCTZ while NPO, continue lisinopril Plan Pt seen and reviewed with collaborating physician, Dr. Medina. Plan of care discussed and as outlined above. Code Status: Full code DVT Prophylaxis: SCDs in anticipation of OR tomorrow Admit to med surg for OR tomorrow Anupama Sauer PA-C History of Present Illness Chief Complaint: abdominal pain x 6 days Primary Care Provider: Yamini Alamo MD This is a 58 y/o female with HTN, FARHANA on CPAP, hypothyroidism, lactose intolerance, depression/anxiety, ADHD and other history as outlined below who presents to the ED with RUQ pain that has been worsening. This pain started nine days ago when she was in [place]. She had a heavy meal with a cream sauce for lunch, took Lactaid b/c of known lactose intolerance. Initially felt okay but that evening woke from sleep with severe RUQ pain described as "like someone stabbing me" with radiation to right scapula and thoracic area. She had associ ated nausea, chills, sweats. She was not evaluated while in [place]. Since then, the pain has continued to wax and wane, has never gone away completely. She has been taking ibuprofen 400 mg BID to keep the pain tolerable. Yesterday, she again had chill and sweats with temp of 99.6F (on ibuprofen). She denies vomiting or diarrhea. She has some substernal discomfort the first night of pain but since then denies chest pain, palpitations, dyspnea. Pt was seen outpatient for the pain and was scheduled to have a RUQ US tomorrow. However, after the pain kept her up last night, she decided to come to the ED for evaluation. She also notes some intermittent RUQ discomfort for the last several months but always seemed to be mild and resolve without intervention. Allergies Allergy/AdvReac Type Severity Reaction Status Date / Time amoxicillin Allergy Intermediate HIVES. Verified 02/03/24 07:51 ITCHING celecoxib Allergy Intermediate HIVES Verified 02/03/24 07:51 cetirizine Allergy Intermediate PSYCHIATRIC Verified 02/03/24 07:51 REACTION clavulanic acid Allergy Intermediate HIVES, Verified 02/03/24 07:51 ITCHING guaifenesin Allergy Intermediate PSYCHIATRIC Verified 02/03/24 07:51 REACTION levofloxacin Allergy Intermediate HIVES Verified 02/03/24 07:51 moxifloxacin Allergy Intermediate HIVES Verified 02/03/24 07:51 oxycodone Allergy Intermediate HIVES Verified 02/03/24 07:51 paroxetine Allergy Intermediate HIVES Verified 02/03/24 07:51 Sulfa (Sulfonamide Allergy Intermediate EDEMA,BLISTERS Verified 02/03/24 07:51 Antibiotics) in mouth adhesive Allergy Mild TAPE-REDNES Verified 02/03/24 07:51 S hydrocodone Allergy Mild "really Verified 02/03/24 07:51 itchy" lactose Allergy Mild LACTOSE Verified 02/03/24 07:51 INTOLERANCE Penicillins Allergy Unknown ALLERGIC Verified 02/03/24 07:51 PER TESTING pseudoephedrine Allergy Unknown PSYCHIATRIC Verified 02/03/24 07:51 REACTION acetaminophen AdvReac Mild Facial Verified 02/03/24 07:51 flushing Home Medications Medication Instructions Recorded Confirmed Type fluoxetine 20 mg capsule 20 mg PO QAM 04/28/20 02/03/24 History fluoxetine 40 mg capsule 40 mg PO QAM 04/28/20 02/03/24 History fluticasone propionate 50 2 spray intranasal BID 04/28/20 02/03/24 History mcg/actuation nasal spray,suspension lisinopril 5 mg tablet 5 mg PO QAM 04/28/20 02/03/24 History lorazepam 0.5 mg tablet 0.5 mg PO TID PRN Anxiety 04/28/20 02/03/24 History montelukast 10 mg tablet 10 mg PO QAM 04/28/20 02/03/24 History omeprazole 20 mg capsule,delayed 20 mg PO DAILY Acid Reflux 04/28/20 02/03/24 History release ropinirole 0.5 mg tablet See Rx Instructions .Route .COMPLEX 04/28/20 02/03/24 History calcium carb-ergocalciferol (vit 1 tab PO BID 03/02/21 02/03/24 History D2) 600 mg calcium-200 unit tablet magnesium oxide 250 mg PO QAM 03/02/21 02/03/24 History potassium 95 mg tablet 90 mg PO QAM 03/02/21 02/03/24 History albuterol sulfate 90 mcg/actuation 2 puff inhalation Q4H PRN 02/03/24 02/03/24 History aerosol inhaler Shortness Of Breath Or Wheezing atomoxetine 40 mg capsule 40 mg PO DAILY 02/03/24 02/03/24 History azelastine 137 mcg (0.1 %) nasal 2 spray intranasal BID 02/03/24 02/03/24 History spray aerosol fexofenadine 180 mg tablet 180 mg PO DAILY 02/03/24 02/03/24 History gabapentin 800 mg tablet 800 mg PO QDD 02/03/24 02/03/24 History hydrochlorothiazide 12.5 mg capsule 12.5 mg PO DAILY 02/03/24 02/03/24 History levothyroxine 150 mcg tablet 150 mcg PO DAILY 02/03/24 02/03/24 History (Synthroid) Past Med/Surg History Problem List (Updated 02/03/24 @ 13:22 by Shari Sauer PA-C) Sleep apnea cpap Hypothyroidism Essential hypertension Acute cholecystitis Colon cancer screening Fibroid, uterine (Acute 06/19/14) Medical History (Updated 02/03/24 @ 13:22 by Shari Sauer PA-C) Prediabetes Oral allergy syndrome ADHD (attention deficit hyperactivity disorder), combined type KAMALA (generalized anxiety disorder) Dyslipidemia GERD (gastroesophageal reflux disease) IBS (irritable bowel syndrome) 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 pt had an esophageal spasm and procedure was aborted, pt had a colonoscopy at [facility] 2018 without any issues Surgical History History of endometrial ablation History of elbow surgery right radial History of foot surgery left--bone spurs History of ankle surgery right release of achilles tendon History of Achilles tendon repair right Status post trigger finger release bilt thumbs History of repair of right rotator cuff x2 History of hysterectomy History of wisdom tooth extraction History of sinus surgery History of colonoscopy Family History Other Family history not known due to adoption Social History Smoking Status: Never smoker Second Hand Exposure: No; Do You Dip or Chew Tobacco: No; Hx Alcohol Use: No Hx Substance Use: No Preferred Language: Irish Communication Ability: Effective 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 Beliefs That Will Affect Care: None Current Living Situation: Alone Other Information That Helps Us Care for You: No Feels Safe at Home: Yes Safety Concerns: Feels Safe At This Time Assistive Devices: Contacts, CPAP and Glasses Review of Systems Review of Systems: All systems reviewed & are unremarkable except as noted in Subjective Physical Exam Physical Exam: General: awake, alert, NAD HEENT: no scleral icterus, moist oral mucosa Neck: trachea midline Heart: RRR Lungs: CTA bilaterally on the anterior Abdomen: soft, +BS, +RUQ tenderness, no guarding or rebound Extremities: no pedal edema; distal pulses intact and equal Skin: warm, dry, no jaundice Neurologic: Ox3, no confusion, no dysarthria, moving all extremities Results & Data Results & Data Vital Signs (Past 12 Hours) Vital Signs Temp Pulse Pulse Resp BP BP Pulse Ox 02/03/24 09:09 73 18 127/75 98 02/03/24 07:24 36.2 C L 79 18 156/97 H 97 O2 Del Method 02/03/24 09:09 Room Air 02/03/24 07:24 Room Air Laboratory Results Lab Results 02/03/24 Range/Units 07:50 WBC 8.59 (4.8-10.8) K/ul RBC 4.37 (4.20-5.40) M/uL Hgb 13.2 (12.0-16.0) g/dl Hct 39.2 (37.0-47.0) % MCV 89.7 (80.0-100.0) fL MCH 30.2 (25.0-34.0) pg MCHC 33.7 (32.0-36.0) g/dL RDW Std Deviation 37.4 (36.4-46.3) fL RDW Coeff of David 11.4 L (11.5-14.5) % Plt Count 267 (130-400) K/uL MPV 12.0 (9.4-12.4) fL Immature Gran % (Auto) 0.5 % Neut % (Auto) 66.0 % Lymph % (Auto) 18.2 % [place] % (Auto) 8.1 % Eos % (Auto) 6.6 % Baso % (Auto) 0.6 % Neut # (Auto) 5.67 (1.40-6.50) K/uL Lymph # (Auto) 1.56 (1.20-3.40) K/uL [place] # (Auto) 0.70 H (0.11-0.59) K/uL Eos # (Auto) 0.57 H (0.00-0.50) K/uL Baso # (Auto) 0.05 (0.00-0.20) K/uL Immature Gran # (Auto) 0.04 (0.01-0.20) K/uL Sodium 138 (136-145) mmol/L Potassium 3.3 L (3.5-5.1) mmol/L Chloride 100 (98-107) mmol/L Carbon Dioxide 28 (21-32) mmol/L Anion Gap 10 (3-11) BUN 9 (6-23) mg/dl Creatinine 0.95 (0.6-1.2) mg/dl Est Cr Clr Drug Dosing 90.4 ml/min Est GFR ( Amer) 76.5 ml/min Est GFR (Non-Af Amer) 66.0 ml/min BUN/Creatinine Ratio 9.5 L (10-20) Glucose 105 H (70-99(Fasting)) mg/dl Calcium 9.4 (8.6-10.3) mg/dl Total Bilirubin 0.7 (0.2-1.0) mg/dl AST 14 (13-39) U/L ALT 17 (7-52) U/L Alkaline Phosphatase 100 (34-104) U/L Total Protein 7.5 (6.0-8.3) gm/dl Albumin 4.2 (3.4-5.0) gm/dl Globulin 3.3 (2.5-4.0) gm/dl Albumin/Globulin Ratio 1.3 (0.9-2) Lipase 16 (11-82) U/L Diagnostic Findings Chest X-Ray 02/03/24 07:50 XR chest 2V PA/lateral CLINICAL HISTORY: RUQ abd pain radiates to R scapula TECHNIQUE: 2 views of the chest were obtained. Comparison: None available at the time of this dictation. FINDINGS: No lines and tubes are seen. The cardiomediastinal silhouette is normal. The lungs are clear. No evidence of pleural effusion or pneumothorax. IMPRESSION: No acute chest disease. ACT 112: Negative or not required by law. Electronically signed by: Fareed Rivera M.D. 02/03/2024 9:18 AM Gallbladder Ultrasound 02/03/24 07:50 US gallbladder CLINICAL HISTORY: RUQ abd pain TECHNIQUE: Multiple real-time sonographic images of the right upper quadrant were obtained. Comparison: None available at the time of this dictation. FINDINGS: The liver is diffusely echogenic in appearance with poor ultrasound penetration, with normal contour, which is consistent with fatty infiltration. No focal mass lesions are seen. No intrahepatic ductal dilatation is seen. Cholelithiasis is seen. The wall measures 3 mm. Pericholecystic fluid is seen. A sonographic Osborn's sign was elicited by the drapery hanger. The common duct measures 0.6 cm in diameter at the level of the hepatic artery. The visualized portions of the pancreas appear normal. The right kidney shows normal echogenicity, cortical thickness and renal contour. The right kidney shows no evidence of hydronephrosis or mass. No ascites or free fluid is seen in Harrison's pouch. IMPRESSION: Findings are compatible with acute cholecystitis. ACT 112: Negative or not required by law. Electronically signed by: Fareed Rivera M.D. 02/03/2024 9:11 AM Medications Administered Discontinued Medications Sodium Chloride (Nss) 1,000 mls @ 999 mls/hr IV .Q1H1M STA Stop: 02/03/24 08:50 Last Admin: 02/03/24 08:27 Dose: 999 mls/hr Documented By: JACKIE Ketorolac Tromethamine (Ketorolac Tromethamine 15 Mg/Ml Vial) 10 mg IV NOW ONE Stop: 02/03/24 08:21 Last Admin: 02/03/24 08:25 Dose: 10 mg Documented By: JACKIE Code Status & VTE Plan VTE Prophylaxis Plan VTE Prophylaxis will be ordered: Yes Supervising Physician Co-Signing Physician Notes Attending addendum The patient was seen and examined in emergency room She has been complaining of abdominal discomfort and right upper quadrant pain for the last 1 week Pain, nausea and vomiting got worse today Denies any fever and chills Noted to have acute cholecystitis and ultrasound without any evidence of white count and abnormal LFTs On examination Lying in bed without any acute distress Hemodynamically stable and afebrile Chest-clear to auscultate bilaterally Heart-S1, S2 regular Abdomen-mildly distended, tender right upper quadrant, no guarding and no rigidity, Osborn symptoms reported Extremities-trace edema bilaterally 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 after midnight today Agree with and take the full responsibility of the assessment and plan as outlined above by DHARA Lopez Dr (2) Sleep apnea Sleep apnea type: obstructive Qualified Code(s): G47.33 - Obstructive sleep apnea (adult) (pediatric) (3) Hypothyroidism Hypothyroidism type: acquired Qualified Code(s): E03.9 - Hypothyroidism, un specified
[2024-02-03 12:20] LABS: Appearance Urine Clear (Clear); Bilirubin Urine Negative (Negative); Blood Urine Negative (Negative); Color Urine Yellow; Glucose Urine UA Negative (Negative); Ketones Urine Trace (Negative); Leukocyte Esterase Urine Negative (Negative); Nitrite Urine Negative (Negative); Protein Urine Negative (Negative); Specific Gravity Urine 1.013 (1.000-1.030); Urobilinogen Urine Negative (Negative); pH Urine 6.5 (4.5-7.5)
[2024-02-03] MEDS ORDERED: ONDANSETRON INJ 2 MG/ML 2 ML VIAL IV PRN (12:46)
[2024-02-03] MEDS ORDERED: FLUoxetine HCL 20 MG CAP PO SCH (13:00)
[2024-02-03] MEDS: SODIUM CHLORIDE 0.9% 1,000 ML IV SCH (13:37)
[2024-02-03] MEDS: PANTOprazole 40 MG TAB PO SCH (13:45)
[2024-02-03] MEDS: ATOMOXETINE HCL 40 MG CAPSULE PO SCH (13:46)
[2024-02-03] MEDS: FEXOFENADINE HCL 180 MG TAB PO SCH (13:46)
[2024-02-03] MEDS: MONTELUKAST SODIUM 10 MG TABLET PO SCH (13:46)
[2024-02-03] MEDS: FLUoxetine HCL 20 MG CAP PO SCH (13:46)
[2024-02-03] MEDS ORDERED: cefUROXime 1,000 MG in DEXTROSE 5% 50 ML IV SCH (14:00)
[2024-02-03] MEDS: metroNIDAZOLE 500 MG/100 ML BAG IV SCH (14:07)
[2024-02-03] MEDS: CEFUROXIME IV SCH (15:23)
[2024-02-03] MEDS: DEXTROSE 5% IV SCH (15:23)
[2024-02-03] MEDS: MINI B IV SCH (15:23)
[2024-02-03] MEDS: rOPINIRole HCL 0.25 MG TABLET PO SCH ×2 (15:23→19:42)
[2024-02-03] MEDS: KETOROLAC TROMETHAMINE 15 MG/ML VIAL IV PRN (16:02)
[2024-02-03] MEDS: GABAPENTIN 800 MG TAB PO SCH (16:04)
[2024-02-03] MEDS: FLUTICASONE PROPIONATE NA SPR 16 GM BTL SCH (20:28)
[2024-02-03] MEDS: AZELASTINE HCL 0.1% NASAL 200 SPRAYS/27,400 MCG BTL SCH (20:29)
[2024-02-03] MEDS: CALCIUM 600MG + VIT D 400 IU TAB PO SCH (20:30)
[2024-02-04 02:28] LABS: Basophils # (auto) 0.04 K/uL (0.00-0.20); Basophils % (auto) 0.7 %; Eosinophils # (auto) 0.53 K/uL (0.00-0.50); Eosinophils % (auto) 9.1 %; Hematocrit (blood only) 35.5 % (37.0-47.0); Hemoglobin 11.9 g/dl (12.0-16.0); Immature Granulocytes # (auto) 0.03 K/uL (0.01-0.20); Immature Granulocytes % (auto) 0.5 %; Lymphocytes # (auto) 1.47 K/uL (1.20-3.40); Lymphocytes % (auto) 25.2 %; Mean Corpuscular Hemoglobin 30.1 pg (25.0-34.0); Mean Corpuscular Hgb Conc 33.5 g/dL (32.0-36.0); Mean Corpuscular Volume 89.6 fL (80.0-100.0); Mean Platelet Volume 11.5 fL (9.4-12.4); Monocytes # (auto) 0.62 K/uL (0.11-0.59); Monocytes % (auto) 10.6 %; Neutrophils # (auto) 3.14 K/uL (1.40-6.50); Neutrophils % (auto) 53.9 %; Platelet Count 231 K/uL (130-400); RDW Coefficient of Variation 11.3 % (11.5-14.5); Red Blood Count 3.96 M/uL (4.20-5.40); White Blood Count 5.83 K/ul (4.8-10.8)
[2024-02-04 02:46] LABS: Albumin Level 3.6 gm/dl (3.4-5.0); BUN Creatinine Ratio 10.1 (10-20); Bilirubin Direct 0.2 mg/dl (0-0.2); Bilirubin,Total 0.7 mg/dl (0.2-1.0); Calcium 8.6 mg/dl (8.6-10.3); Creatinine Clr Calc Pharmacy 87.1 ml/min; Est GFR (African American) 72.8 ml/min; Est GFR (Non-African American) 62.8 ml/min; Potassium 3.3 mmol/L (3.5-5.1); Total Protein 6.5 gm/dl (6.0-8.3)
[2024-02-04 03:14] LABS: Partial Thromboplastin Time 27 Seconds (21-31)
[2024-02-04] MEDS: POTASSIUM CHLORIDE CRTAB 20 MEQ TABCR PO STA (04:08)
[2024-02-04] MEDS: MAGNESIUM SULFATE / D5W 1 GM/100 ML BAG IV ONE (04:08)
[2024-02-04] MEDS: LEVOTHYROXINE SODIUM 150 MCG TABLET PO SCH (06:17)
--- NOTE | 2024-02-04 08:51 | Hospitalist Progress Note ---
Date of Service February 04, 2024 Assessment & Plan (1) Acute cholecystitis: Plan: Mara Sanchez is a 58 y/o F with PMHx of HTN, FARHANA on CPAP, hypothyroidism, lactose intolerance, depression/anxiety, ADHD and medical problems listed below who presented with worsening RUQ pain and was found to have acute cholecystitis. Pt afebrile, no leukocytosis or elevated LFTS on admission. Gallbladder US in ED was consistent with acute cholecystitis. Pt reporting good pain control today (02/03), will continue w/ PRN IV Toradol. Will continue empiric ABX coverage with IV metronidazole, cefuroxime for now. Pt undergoing laparoscopic (possible open) cholecystectomy today w/ Dr. Hernandez. Pre-Op Hgb 11.9, will repeat CBC tomorrow AM and follow trend; LFTs WNL today (02/03). (2) Hypokalemia: Plan: Potassium 3.3 on admission; received 40mEq of oral potassium today ~4AM (02/03). Will repeat BMP in the AM; monitor and replete potassium PRN. (3) Sleep apnea: Plan: Chronic, stable - intermittently using CPAP. CPAP at HS while admitted, settings pulled from review of outpatient sleep medicine per admitting provider. (4) Hypothyroidism: Plan: Chronic, stable; can continue SOFTWARE SUPPORT ENGINEER levothyroxine. (5) Essential hypertension: Plan: Chronic, stable; holding HCTZ while NPO, continue SOFTWARE SUPPORT ENGINEER lisinopril. DVT Prophylaxis: SCDs - For now Code Status: FULL CODE PCP: Yamini Alamo MD Disposition: Patient undergoing laparoscopic (possible open) cholecystectomy today. Unable to clearly indicate anticipated discharge date at this time; will reassess tomorrow. OF NOTE: Patient reports multiple allergies to pain medication including acetaminophen, celecoxib, hydrocodone, and oxycodone. Patient seen in collaboration with Dr. Ha. Please see addendum. I spent a total of 35 minutes coordinating, documenting, and providing care for this patient excluding time spent in the performance of separately billed services. This included personally reviewing all current laboratories and imaging studies, medical reconciliation, outpatient chart review and discussion with specialists. This chart was completed in part utilizing Speech Voice Recognition Software. Grammatical errors, random word insertions, pronoun errors, and incomplete sentences are an occasional consequence of this system due to software limitations, ambient noise, and hardware issues. Any formal questions or concerns about the content, text, or information contained within the body of this dictation should be directly addressed to the provider for clarification. Admission and Anticipated Discharge Date Admission Date: February 03, 2024 Supervising Physician Co-Signing Physician Notes Patient seen and examined post op S/p Laparoscopic cholecystectomy this morning She reports surgical site pain is well controlled No other complaints at this time RUQ drain insitu. Continue IV cefuroxime and metronidazole Pain control Continue liquid diet for now Monitor electrolytes Agree with findings and plans as detailed by Advanced Provider and take full responsibility Subjective Patient seen and examined in room N388-2. Patient not reporting any pain at this time, comfortable. Mentions she is comfortable, able to move around without issue. Aware of the plan moving forward, agreeable to cholecystectomy today. Denies any fevers, chills, chest pain, SOB or urinary/bowel habit changes. Review of Systems Review of Systems: At least ten systems reviewed and negative, except as noted in the HPI. Physical Exam Physical Exam: General: WD/WN, vitals as above, NAD, sitting up in bed, pleasant, conversing appropriately. A+Ox3, euthymic affect. HEENT: Normocephalic, atraumatic. Conjunctivae normal, anicteric sclerae. External ear and nose normal, oropharynx normal. Respiratory: Normal respiratory effort, lungs clear to auscultation, no wheeze, rales, rhonchi. No accessory muscle use. Cardiovascular: Regular rate, rhythm, no murmur, normal peripheral pulses, no BLE edema. Vessels: No JVD. Abdomen/GI: Normal bowel sounds, soft, mild tenderness to RUQ, no hepatosplenomegaly. Extremities/Musculoskeletal: No cyanosis or clubbing, extremities motor strength intact, moves all extremities. Neurologic: PERRL, EOMI, accommodation nl, no face palsy, no dysarthria, CN's II-XI not formally tested but appear grossly intact bilaterally. Skin: No rashes, normal color, warm/dry. Results & Data Results & Data Vital Signs (Past 12 Hours) Vital Signs Temp Pulse Resp BP Pulse Ox O2 Del Method 02/04/24 06:55 36.6 C 65 16 123/80 97 Room Air Laboratory Results Short CBC 02/04/24 Range/Units 02:05 WBC 5.83 (4.8-10.8) K/ul Hgb 11.9 L (12.0-16.0) g/dl Hct 35.5 L (37.0-47.0) % Plt Count 231 (130-400) K/uL BMP 02/04/24 02:04 Sodium 138 Potassium 3.3 L Chloride 104 Carbon Dioxide 26 BUN 10 Creatinine 0.99 Glucose 103 H Calcium 8.6 Liver Function 02/04/24 Range/Units 02:04 Total Bilirubin 0.7 (0.2-1.0) mg/dl Direct Bilirubin 0.2 (0-0.2) mg/dl AST 13 (13-39) U/L ALT 15 (7-52) U/L Alkaline Phosphatase 86 (34-104) U/L Albumin 3.6 (3.4-5.0) gm/dl Diagnostic Findings Chest X-Ray 02/03/24 07:50 XR chest 2V PA/lateral CLINICAL HISTORY: RUQ abd pain radiates to R scapula TECHNIQUE: 2 views of the chest were obtained. Comparison: None available at the time of this dictation. FINDINGS: No lines and tubes are seen. The cardiomediastinal silhouette is normal. The lungs are clear. No evidence of pleural effusion or pneumothorax. IMPRESSION: No acute chest disease. ACT 112: Negative or not required by law. Electronically signed by: Fareed Rivera M.D. 02/03/2024 9:18 AM Gallbladder Ultrasound 02/03/24 07:50 US gallbladder CLINICAL HISTORY: RUQ abd pain TECHNIQUE: Multiple real-time sonographic images of the right upper quadrant were obtained. Comparison: None available at the time of this dictation. FINDINGS: The liver is diffusely echogenic in appearance with poor ultrasound penetration, with normal contour, which is consistent with fatty infiltration. No focal mass lesions are seen. No intrahepatic ductal dilatation is seen. Cholelithiasis is seen. The wall measures 3 mm. Pericholecystic fluid is seen. A sonographic Osborn's sign was elicited by the atomic physics professor. The common duct measures 0.6 cm in diameter at the level of the hepatic artery. The visualized portions of the pancreas appear normal. The right kidney shows normal echogenicity, cortical thickness and renal contour. The right kidney shows no evidence of hydronephrosis or mass. No ascites or free fluid is seen in Harrison's pouch. IMPRESSION: Findings are compatible with acute cholecystitis. ACT 112: Negative or not required by law. Electronically signed by: Fareed Rivera M.D. 02/03/2024 9:11 AM Medications Administered Atomoxetine HCl (Atomoxetine Hcl 40 Mg Capsule) 40 mg PO DAILY MERARI Stop: 03/04/24 12:59 Last Admin: 02/03/24 13:46 Dose: 40 mg Documented By: JALEESA Azelastine HCl (Azelastine Hcl 0.1% Nasal 200 Sprays/27,400 Mcg Btl) 2 sprays NA BID MERARI Stop: 03/04/24 20:59 Last Admin: 02/03/24 20:29 Dose: 2 sprays Documented By: SOPHIE Calcium/Vitamin D (Calcium 600mg + Vit D 400 Iu Tab) 1 tab PO BID MERARI Stop: 03/04/24 20:59 Last Admin: 02/03/24 20:30 Dose: 1 tab Documented By: SOHPIE Fexofenadine HCl (Fexofenadine Hcl 180 Mg Tab) 180 mg PO DAILY MERARI Stop: 03/04/24 13:14 Last Admin: 02/03/24 13:46 Dose: 180 mg Documented By: JALEESA Fluoxetine HCl (Fluoxetine Hcl 20 Mg Cap) 60 mg PO QAM MERARI Stop: 03/04/24 12:59 Last Admin: 02/03/24 13:46 Dose: 60 mg Documented By: JALEESA Fluticasone Propionate (Fluticasone Propionate Na Spr 16 Gm Btl) 2 sprays NA BID MERARI Stop: 03/04/24 20:59 Last Admin: 02/03/24 20:28 Dose: 2 sprays Documented By: SOPHIE Gabapentin (Gabapentin 800 Mg Tab) 800 mg PO DAILY@1700 MERARI Stop: 03/04/24 16:59 Last Admin: 02/03/24 16:04 Dose: 800 mg Documented By: JALEESA Sodium Chloride (Nss) 1,000 mls @ 80 mls/hr IV .[id number] MERARI Stop: 02/05/24 02:59 Last Infusion: 02/04/24 12:19 Dose: Infused Documented By: Infusion: 02/04/24 10:35 Dose: 0 mls/hr Documented By: Admin: 02/04/24 02:22 Dose: 80 mls/hr Documented By: Infusion: 02/04/24 02:07 Dose: Infused Documented By: Admin: 02/03/24 13:37 Dose: 80 mls/hr Documented By: JALEESA Metronidazole (Flagyl) 500 mg in 100 mls @ 100 mls/hr IV Q8H MERARI; Protocol Stop: 02/13/24 13:29 Last Infusion: 02/04/24 07:40 Dose: Infused Documented By: Admin: 02/04/24 06:15 Dose: 100 mls/hr Documented By: Infusion: 02/03/24 21:51 Dose: Infused Documented By: Admin: 02/03/24 20:30 Dose: 100 mls/hr Documented By: Infusion: 02/03/24 15:28 Dose: Infused Documented By: Admin: 02/03/24 14:07 Dose: 100 mls/hr Documented By: JALEESA Cefuroxime Sodium 1,500 mg/ (Dextrose) 100 mls @ 200 mls/hr IV Q8H MERARI Stop: 02/13/24 13:59 Last Infusion: 02/04/24 08:42 Dose: Infused Documented By: Admin: 02/04/24 07:43 Dose: 200 mls/hr Documented By: Infusion: 02/03/24 22:26 Dose: Infused Documented By: Admin: 02/03/24 21:55 Dose: 200 mls/hr Documented By: Infusion: 02/03/24 16:00 Dose: Infused Documented By: Admin: 02/03/24 15:23 Dose: 200 mls/hr Documented By: JALEESA Lactated Ringer's (Lr) 1,000 mls @ 15 mls/hr IV .Q24H MERARI Stop: 03/05/24 10:44 Last Infusion: 02/04/24 10:57 Dose: Infused Documented By: Admin: 02/04/24 10:35 Dose: 15 mls/hr Documented By: WINTER Ketorolac Tromethamine (Ketorolac Tromethamine 15 Mg/Ml Vial) 15 mg IV Q6H PRN PRN Reason: Mod-Sev Pain (Scale 4-10) Stop: 02/08/24 13:04 Last Admin: 02/03/24 16:02 Dose: 15 mg Documented By: JALEESA Levothyroxine Sodium (Levothyroxine Sodium 150 Mcg Tablet) 150 mcg PO DAILYBB [facility] Stop: 03/05/24 06:29 Last Admin: 02/04/24 06:17 Dose: 150 mcg Documented By: SOPHIE Montelukast Sodium (Montelukast Sodium 10 Mg Tablet) 10 mg PO QAM MERARI Stop: 03/04/24 12:59 Last Admin: 02/03/24 13:46 Dose: 10 mg Documented By: JALEESA Pantoprazole Sodium (Pantoprazole 40 Mg Tab) 40 mg PO DAILY MERARI Stop: 03/04/24 12:59 Last Admin: 02/03/24 13:45 Dose: 40 mg Documented By: JALEESA Ropinirole HCl (Ropinirole Hcl 0.25 Mg Tablet) 0.25 mg PO DAILY@1500 [facility] Stop: 03/04/24 14:59 Last Admin: 02/03/24 15:23 Dose: 0.25 mg Documented By: JALEESA Ropinirole HCl (Ropinirole Hcl 0.25 Mg Tablet) 0.5 mg PO DAILY@2000 [facility] Stop: 03/04/24 19:59 Last Admin: 02/03/24 19:42 Dose: 0.5 mg Documented By: SOPHIE Discontinued Medications Sodium Chloride (Nss) 1,000 mls @ 999 mls/hr IV .Q1H1M STA Stop: 02/03/24 08:50 Last Infusion: 02/03/24 12:10 Dose: Infused Documented By: Admin: 02/03/24 08:27 Dose: 999 mls/hr Documented By: JACKIE Magnesium Sulfate/Dextrose (Magnesium Sulfate / D5w) 1 gm in 100 mls @ 50 mls/hr IV ONE ONE Stop: 02/04/24 04:54 Last Infusion: 02/04/24 06:10 Dose: Infused Documented By: Admin: 02/04/24 04:08 Dose: 50 mls/hr Documented By: SOPHIE Ketorolac Tromethamine (Ketorolac Tromethamine 15 Mg/Ml Vial) 10 mg IV NOW ONE Stop: 02/03/24 08:21 Last Admin: 02/03/24 08:25 Dose: 10 mg Documented By: JACKIE Potassium Chloride (Potassium Chloride Crtab 20 Meq Tabcr) 40 meq PO NOW STA Stop: 02/04/24 02:56 Last Admin: 02/04/24 04:08 Dose: 40 meq Documented By: SOPHIE (3) Sleep apnea Sleep apnea type: obstructive Qualified Code(s): G47.33 - Obstructive sleep a pnea (adult) (pediatric) (4) Hypothyroidism Hypothyroidism type: acquired Qualified Code(s): E03.9 - Hypothyroidism, unspecified
[2024-02-04] MEDS ORDERED: NON-FORMULARY MEDICATION (Potassium 95 mg Tablet) PO SCH (09:00)
--- NOTE | 2024-02-04 09:02 | Anesthesiology Consultation ---
Date of Service February 04, 2024 Assessment & Plan Chart Review Chart Review: Acceptable Risk for Surgery and Patient NOT seen in Pre Admission Testing Consults Requested none ASA ASA3 Proposed Anesthesia Anesthesia Type: General History Surgery Operation Date: 02/04/24 09:50 Proposed Procedures p Laparoscopic Cholecystectomy Possible Open with Cholangiogram - Theo Hernandez, DO Height/Weight Height: 5 ft 11 in Weight: 116.6 kg Allergies Allergy/AdvReac Type Severity Reaction Status Date / Time amoxicillin Allergy Intermediate HIVES. Verified 02/03/24 07:51 ITCHING celecoxib Allergy Intermediate HIVES Verified 02/03/24 07:51 cetirizine Allergy Intermediate PSYCHIATRIC Verified 02/03/24 07:51 REACTION clavulanic acid Allergy Intermediate HIVES, Verified 02/03/24 07:51 ITCHING guaifenesin Allergy Intermediate PSYCHIATRIC Verified 02/03/24 07:51 REACTION levofloxacin Allergy Intermediate HIVES Verified 02/03/24 07:51 moxifloxacin Allergy Intermediate HIVES Verified 02/03/24 07:51 oxycodone Allergy Intermediate HIVES Verified 02/03/24 07:51 paroxetine Allergy Intermediate HIVES Verified 02/03/24 07:51 Sulfa (Sulfonamide Allergy Intermediate EDEMA,BLISTERS Verified 02/03/24 07:51 Antibiotics) in mouth adhesive Allergy Mild TAPE-REDNES Verified 02/03/24 07:51 S hydrocodone Allergy Mild "really Verified 02/03/24 07:51 itchy" lactose Allergy Mild LACTOSE Verified 02/03/24 07:51 INTOLERANCE Penicillins Allergy Unknown ALLERGIC Verified 02/03/24 07:51 PER TESTING pseudoephedrine Allergy Unknown PSYCHIATRIC Verified 02/03/24 07:51 REACTION acetaminophen AdvReac Mild Facial Verified 02/03/24 07:51 flushing Medications Home Medications Medication Instructions Recorded Confirmed Last Taken fluoxetine 20 mg capsule 20 mg PO QAM 04/28/20 02/03/24 02/02/24 fluoxetine 40 mg capsule 40 mg PO QAM 04/28/20 02/03/24 02/02/24 fluticasone propionate 50 2 spray intranasal BID 04/28/20 02/03/24 02/02/24 mcg/actuation nasal spray,suspension lisinopril 5 mg tablet 5 mg PO QAM 04/28/20 02/03/24 02/02/24 lorazepam 0.5 mg tablet 0.5 mg PO TID PRN Anxiety 04/28/20 02/03/24 Unknown montelukast 10 mg tablet 10 mg PO QAM 04/28/20 02/03/24 02/02/24 omeprazole 20 mg capsule,delayed 20 mg PO DAILY Acid Reflux 04/28/20 02/03/24 02/02/24 release ropinirole 0.5 mg tablet See Rx Instructions .Route .COMPLEX 04/28/20 02/03/24 02/02/24 calcium carb-ergocalciferol (vit 1 tab PO BID 03/02/21 02/03/24 02/02/24 D2) 600 mg calcium-200 unit tablet magnesium oxide 250 mg PO QAM 03/02/21 02/03/24 Unknown potassium 95 mg tablet 90 mg PO QAM 03/02/21 02/03/24 Unknown albuterol sulfate 90 mcg/actuation 2 puff inhalation Q4H PRN 02/03/24 02/03/24 Unknown aerosol inhaler Shortness Of Breath Or Wheezing atomoxetine 40 mg capsule 40 mg PO DAILY 02/03/24 02/03/24 02/02/24 azelastine 137 mcg (0.1 %) nasal 2 spray intranasal BID 02/03/24 02/03/24 02/02/24 spray aerosol fexofenadine 180 mg tablet 180 mg PO DAILY 02/03/24 02/03/24 02/02/24 gabapentin 800 mg tablet 800 mg PO QDD 02/03/24 02/03/24 02/02/24 hydrochlorothiazide 12.5 mg capsule 12.5 mg PO DAILY 02/03/24 02/03/24 02/02/24 levothyroxine 150 mcg tablet 150 mcg PO DAILY 02/03/24 02/03/24 02/02/24 (Synthroid) Active Medications Generic Name Dose Route Start Last Admin Trade Name Freq PRN Reason Stop Dose Admin Atomoxetine HCl 40 mg 02/03/24 13:00 02/03/24 13:46 Atomoxetine Hcl 40 Mg Capsule PO 03/04/24 12:59 40 mg DAILY MERARI Administration Azelastine HCl 2 sprays 02/03/24 21:00 02/03/24 20:29 Azelastine Hcl 0.1% Nasal 200 Sprays/27,400 Mcg Btl NA 03/04/24 20:59 2 sprays BID MERARI Administration Calcium/Vitamin D 1 tab 02/03/24 21:00 02/03/24 20:30 Calcium 600mg + Vit D 400 Iu Tab PO 03/04/24 20:59 1 tab BID MERARI Administration Fexofenadine HCl 180 mg 02/03/24 13:15 02/03/24 13:46 Fexofenadine Hcl 180 Mg Tab PO 03/04/24 13:14 180 mg DAILY MERARI Administration Fluoxetine HCl 60 mg 02/03/24 13:00 02/03/24 13:46 Fluoxetine Hcl 20 Mg Cap PO 03/04/24 12:59 60 mg QAM MERARI Administration Fluticasone Propionate 2 sprays 02/03/24 21:00 02/03/24 20:28 Fluticasone Propionate Na Spr 16 Gm Btl NA 03/04/24 20:59 2 sprays BID MERARI Administration Gabapentin 800 mg 02/03/24 17:00 02/03/24 16:04 Gabapentin 800 Mg Tab PO 03/04/24 16:59 800 mg DAILY@1700 MERARI Administration Sodium Chloride 1,000 mls @ 80 mls/hr 02/03/24 13:30 02/04/24 02:22 Nss IV 02/05/24 02:59 80 mls/hr .[id number] MERARI Administration Metronidazole 500 mg in 100 mls @ 100 mls/hr 02/03/24 13:30 02/04/24 07:40 Flagyl IV 02/13/24 13:29 Infused Q8H MERARI Infusion Protocol Cefuroxime Sodium 1,500 mg/ 100 mls @ 200 mls/hr 02/03/24 14:00 02/04/24 08:42 Dextrose IV 02/13/24 13:59 Infused Q8H MERARI Infusion Ketorolac Tromethamine 15 mg 02/03/24 13:05 02/03/24 16:02 Ketorolac Tromethamine 15 Mg/Ml Vial IV 02/08/24 13:04 15 mg Q6H PRN Administration Mod-Sev Pain (Scale 4-10) Levothyroxine Sodium 150 mcg 02/04/24 06:30 02/04/24 06:17 Levothyroxine Sodium 150 Mcg Tablet PO 03/05/24 06:29 150 mcg DAILYBB MERARI Administration Montelukast Sodium 10 mg 02/03/24 13:00 02/03/24 13:46 Montelukast Sodium 10 Mg Tablet PO 03/04/24 12:59 10 mg QAM MERARI Administration Pantoprazole Sodium 40 mg 02/03/24 13:00 02/03/24 13:45 Pantoprazole 40 Mg Tab PO 03/04/24 12:59 40 mg DAILY MERARI Administration Ropinirole HCl 0.25 mg 02/03/24 15:00 02/03/24 15:23 Ropinirole Hcl 0.25 Mg Tablet PO 03/04/24 14:59 0.25 mg DAILY@1500 MERARI Administration Ropinirole HCl 0.5 mg 02/03/24 20:00 02/03/24 19:42 Ropinirole Hcl 0.25 Mg Tablet PO 03/04/24 19:59 0.5 mg DAILY@2000 MERARI Administration Past Medical History Medical History Prediabetes Oral allergy syndrome ADHD (attention deficit hyperactivity disorder), combined type KAMALA (generalized anxiety disorder) Dyslipidemia GERD (gastroesophageal reflux disease) IBS (irritable bowel syndrome) 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 Depression Anxiety History of anesthesia reaction during colonoscopy in 2017 at [facility] pt had an esophageal spasm and procedure was aborted, pt had a colonoscopy at [facility] 2018 without any issues obese hypothyroidism Exercise / Class Metabolic Activity II 4-5 Yardwork/Stairs/Walk up hill Past Family History Family History Other Family history not known due to adoption Past Surgical History Surgical History History of endometrial ablation History of elbow surgery right radial History of foot surgery left--bone spurs History of ankle surgery right release of achilles tendon History of Achilles tendon repair right Status post trigger finger release bilt thumbs History of repair of right rotator cuff x2 History of hysterectomy History of wisdom tooth extraction History of sinus surgery History of colonoscopy Past Anesthesia History No Hx of Anesthesia Complications and No Family Hx of Anesthesia Complications History of PONV No Hx of PONV and No Hx of Motion Sickness Social History Smoking Status: Never smoker Do You Dip or Chew Tobacco: No Hx Alcohol Use: No alcohol intake frequency: holidays/special occasions only Hx Substance Use: No substance use type: does not use Physical Exam Vital Signs Last Vital Signs Temp 36.6 C 02/04/24 06:55 Pulse 65 02/04/24 06:55 Resp 16 02/04/24 06:55 BP 123/80 02/04/24 06:55 Pulse Ox 97 02/04/24 06:55 O2 Del Method Room Air 02/04/24 06:55 Testing Laboratory Results 02/04/24 02:05 02/04/24 02:04 PT 11.0 Seconds (9.0-12.0) 02/04/24 02:04 INR 1.0 (0.9-1.1) 02/04/24 02:04 APTT 27 Seconds (21-31) 02/04/24 02:04 Urine Color Yellow 02/03/24 12:12 Urine Appearance Clear (Clear) 02/03/24 12:12 Urine pH 6.5 (4.5-7.5) 02/03/24 12:12 Ur Specific [place] 1.013 (1.000-1.030) 02/03/24 12:12 Urine Protein Negative (Negative) 02/03/24 12:12 Urine Glucose (UA) Negative (Negative) 02/03/24 12:12 Urine Ketones Trace (Negative) H 02/03/24 12:12 Urine Nitrite Negative (Negative) 02/03/24 12:12 Ur Leukocyte Esterase Negative (Negative) 02/03/24 12:12 Chest X-Ray Date: 02/03/24 Findings: + NAD
[2024-02-04] MEDS ORDERED: PROPOFOL IV EMULSION 10 MG/ML 20 ML VIAL IV ONE (10:19)
[2024-02-04] MEDS ORDERED: DEXAMETHASONE SOD INJ 4 MG/ML VIAL ONE (10:19)
[2024-02-04] MEDS ORDERED: LIDOCAINE 2% 2 ML VIAL/AMP(20MG/ML) INFIL ONE (10:19)
[2024-02-04] MEDS ORDERED: ONDANSETRON INJ 2 MG/ML 2 ML VIAL ONE (10:19)
[2024-02-04] MEDS ORDERED: KETOROLAC 30 MG/ML VIAL ONE (10:19)
[2024-02-04] MEDS ORDERED: ROCURONIUM BROMIDE 10 MG/ML 5 ML VIAL IV ONE ×2 (10:19→11:45)
[2024-02-04] MEDS ORDERED: KETAMINE HCL 10MG/ML SYR ONE (10:20)
[2024-02-04] MEDS ORDERED: MIDAZOLAM HCL 1 MG/ML 2ML VIAL ONE (10:20)
[2024-02-04] MEDS ORDERED: fentaNYL citrate PF 100 MCG/2 ML VIAL ONE ×2 (10:20→12:29)
[2024-02-04] MEDS ORDERED: SUGAMMADEX SODIUM 200 MG/2 ML VIAL IV ONE (10:20)
--- NOTE | 2024-02-04 10:32 | History & Physical Bridge Note ---
Date of Service February 04, 2024 History & Physical Bridge Note I have examined the patient, reviewed the History & Physical and in the interval since the performance of the History & Physical I have noted the following changes of clinical significance: no changes noted pt seen/chart reviewed. discussed options/risks ( bleeding/infection/injury to a bile duct or other organ, blood clots etc....) questions answered. pt agreeable.
[2024-02-04] MEDS: LACTATED RINGER'S 1,000 ML IV SCH (10:35)
[2024-02-04] MEDS ORDERED: ONDANSETRON INJ 2 MG/ML 2 ML VIAL IV PRN (10:40)
[2024-02-04] MEDS ORDERED: ATROPINE SULFATE 0.1 MG/ML 10ML SYR IV PRN (10:40)
[2024-02-04] MEDS: BUPIVACAINE/EPINEPHRINE 0.5% MPF 1:200,000 30 ML VIAL ONE (13:23)
--- NOTE | 2024-02-04 13:30 | Operative Report ---
PG Post Operative Report Pre & Post Diagnosis Operation Date: 02/04/24 09:50 Pre-Op Diagnosis: acute cholecystitis Post-Op Diagnosis: acute cholecystitis I identified the patient and participated in the time-out.: Yes Procedure Operation Date: 02/04/24 09:50 Actual Procedures p Laparoscopic Cholecystectomy (Not Applicable) - Theo Hernandez DO Surgeon Theo Hernandez DO Project Construction Manager marky Perez Estimated Blood Loss 50 Findings Consistent with Post-Op Diagnosis Specimens gallbladder Description of Procedure After informed consent was obtained the patient was taken to the operating room and placed in the supine position. After successful intubation the abdomen was sterilely prepped and draped in usual fashion. A periumbilical incision was made with an 11 blade scalpel and carried down through the soft tissue using electrocautery. The anterior rectus fascia was opened using electrocautery and 2 #0 Vicryl stay sutures were placed. The peritoneum was elevated with hemostats and incised under direct vision using Metzenbaum scissors. A finger sweep was performed and a 12 mm Mccormick trocar was placed. The abdomen was insufflated to 18 mmHg. The laparoscope was inserted and the abdomen was examined in 360. The gallbladder was extremely inflammed. Otherwise, no other gross abnormalities were identified. A subxiphoid 5 mm port and 2 right upper quadrant 5 mm ports were placed under direct vision. The patient was placed in a reverse Trendelenburg position and slightly airplaned to the left. Initially the gallbladder was too inflamed to be able to grasp it. The gallbladder needle and 20 cc syringe was used to aspirate about 80 cc of purulent bile. Once this was accomplished, the gallbladder was grasped and elevated superiorly and laterally. A [place] dissector was used to take down adhesions around the neck of the gallbladder. The transverse colon itself was extremely adhesed to the gallbladder secondary to inflammation. I had to tediously take this down using primarily blunt dissection. The dissection was extremely difficult. The cystic duct was identified and skeletonized. It was very foreshortened. It was clipped twice proximally and transected using a laparoscopic scissor. It was not long enough for me to place a distal clip on the gallbladder. In similar fashion the cystic artery was identified and skeletonized clipped and divided. There were 2 other small venous vessels attached to the gallbladder that were clipped and divided as well. The gallbladder was removed from the gallbladder fossa with electrocautery. It was placed into an Endo Catch bag. I had to dramatically extend both the skin incision as well as the fascial incision to be able to remove the enlarged gallbladder. Thorough irrigation was performed. At the end of the procedure there was adequate hemostasis and no evidence of any bile leaks. I placed a 10 flat Valerio-Sewell drain into the right upper quadrant and brought through one of the right upper quadrant trocar sites. It was secured to the skin using 0 Vicryl. A final look around the abdomen showed no other abnormalities. The trochars were all removed and the abdomen was desufflated. The fascia of the camera port was closed using 0 Vicryl in simple interrupted fashion. All the wounds were irrigated and closed using 4-0 Mon ocryl. Marcaine was injected around them for postoperative analgesia and skin glue used as a dressing. The patient was awakened, extubated and transferred to recovery in stable condition. My physician's kitchen assistant was present throughout the entire case... helped with prepping the patient. With exposure for trocar placement, as well as retracted the gallbladder throughout the case and also assisted with wound closure and dressing placement. I attest to the content of the Intraoperative Record and any orders documented therein. Any exceptions are noted below.
[2024-02-04] MEDS: HYDROmorphone INJ 2 MG/ML SYR/VIAL IV PRN (13:43)
[2024-02-04] MEDS: HYDROmorphone INJ 2 MG/ML SYR/VIAL ONE (14:14)
[2024-02-04] MEDS: HYDROmorphone INJ 2 MG/ML SYR/VIAL IV STA (14:16)
--- NOTE | 2024-02-04 14:30 | Anesthesiology Progress Note ---
Date of Service February 04, 2024 Anesthesia Post Procedure Vital Signs Vital Signs: Temp Pulse Pulse Resp BP Pulse Ox O2 Del Method 02/04/24 14:25 85 15 132/81 98 Nasal Cannula 02/04/24 14:15 89 16 138/84 95 Nasal Cannula 02/04/24 14:05 82 16 139/85 94 Nasal Cannula 02/04/24 13:55 80 17 129/82 96 Nasal Cannula 02/04/24 13:45 80 12 129/82 98 Nasal Cannula 02/04/24 13:38 36.5 C 80 18 140/81 97 Nasal Cannula 02/04/24 10:09 36.9 C 71 18 140/87 97 Room Air 02/04/24 06:55 36.6 C 65 16 123/80 97 Room Air 02/03/24 19:20 36.7 C 64 16 144/79 H 94 Room Air 02/03/24 15:58 37.1 C 68 16 124/82 97 Room Air O2 Flow Rate 02/04/24 14:25 3 02/04/24 14:15 2 02/04/24 14:05 2 02/04/24 13:55 2 02/04/24 13:45 2 02/04/24 13:38 2 02/04/24 10:09 02/04/24 06:55 02/03/24 19:20 02/03/24 15:58 Pain Intensity Right Upper Abdomen: Pain Intensity: 3 Abdomen: Pain Intensity: 5 Transfer of Care Handoff Completed per policy Notes Mental Status: alert / awake / arousable and participated in evaluation Nausea / Vomiting: adequately controlled Pain: adequately controlled Airway Patency, RR, SpO2: stable & adequate BP & HR: stable & adequate Hydration State: stable & adequate Anesthetic Complications: no major complications apparent and Pt Satisfied with anesthetic care
[2024-02-04] MEDS ORDERED: HYDROmorphone INJ 0.5 MG/0.5 ML SYR IV PRN (14:52)
[2024-02-04] MEDS ORDERED: HYDROmorphone INJ 1 MG/ML SYRINGE IV PRN (14:52)
[2024-02-04] MEDS: lisinopril 5 MG TAB PO SCH (16:29)
[2024-02-04] MEDS: MAGNESIUM OXIDE 400 MG TAB PO SCH (16:30)
--- NOTE | 2024-02-05 08:05 | Hospitalist Progress Note ---
Date of Service February 05, 2024 Assessment & Plan (1) Acute cholecystitis: Plan: Mara Sanchez is a 58 y/o F with PMHx of HTN, FARHANA on CPAP, hypothyroidism, lactose intolerance, depression/anxiety, ADHD and medical problems listed below who presented with worsening RUQ pain and was found to have acute cholecystitis. Pt afebrile, no leukocytosis or elevated LFTS on admission. Gallbladder US in ED was consistent with acute cholecystitis. Pt is now post-op day #1 s/p laparoscopic cholecystectomy w/ Dr. Hernandez yesterday (02/03). Pt reporting good pain control this morning, will continue w/ PRN IV Toradol. Will continue empiric ABX coverage with IV metronidazole, cefuroxime for now. Pre-Op Hgb 11.9, post-op Hgb 11.0 (02/04) - will repeat CBC in AM and trend. AST only slightly bumped at 41 today (02/04), will repeat CMP in AM and monitor. (2) Hypokalemia: Plan: Potassium 3.3 on admission; received 40mEq of oral potassium yesterday (02/03). Potassium improved to 4.1 today (02/04); repeat CMP in AM - monitor and replete potassium PRN. (3) Sleep apnea: Plan: Chronic, stable - intermittently using CPAP. CPAP at HS while admitted, settings pulled from review of outpatient sleep medicine per admitting provider. (4) Hypothyroidism: Plan: Chronic, stable; can continue [employer] levothyroxine. (5) Essential hypertension: Plan: SBP holding steady in the 110s-120s. HCTZ was held while pt was NPO prior to surgery. --> Will continue to hold HCTZ until her diet normalizes since BP has been WNL. Can continue [employer] lisinopril. DVT Prophylaxis: SCDs - For now Code Status: FULL CODE PCP: Yamini Alamo MD Disposition: Patient underwent laparoscopic cholecystectomy yesterday (02/03). ? Possible discharge tomorrow - will collaborate with surgical team and CM to establish a timeframe moving forward. OF NOTE: Patient reports multiple allergies to pain medication including acetaminophen, celecoxib, hydrocodone, and oxycodone. Patient seen in collaboration with Dr. Ha. Please see addendum. I spent a total of 35 minutes coordinating, documenting, and providing care for this patient excluding time spent in the performance of separately billed services. This included personally reviewing all current laboratories and imaging studies, medical reconciliation, outpatient chart review and discussion with specialists. This chart was completed in part utilizing Speech Voice Recognition Software. Grammatical errors, random word insertions, pronoun errors, and incomplete sentences are an occasional consequence of this system due to software limitations, ambient noise, and hardware issues. Any formal questions or concerns about the content, text, or information contained within the body of this dictation should be directly addressed to the provider for clarification. Admission and Anticipated Discharge Date Admission Date: February 03, 2024 Supervising Physician Co-Signing Physician Notes Patient seen and examined post op S/p Laparoscopic cholecystectomy POD 1 Surgical site pain is well controlled. Yet to have a BM RUQ drain insitu. Continue IV cefuroxime and metronidazole Pain control Advance diet Agree with findings and plans as detailed by Advanced Provider and take full responsibility Subjective Patient seen and examined in room N388-2. Patient is now s/p laparoscopic cholecystectomy. Patient states she's feeling quite well overall. Was not experiencing any pain throughout our conversation. She is having some abdominal bloating, but denies any abdominal pain. Explained the expectation of bloating associated with laparoscopic procedures. Denies any SOB, chest pain or lightheadedness/dizziness. She ate breakfast this morning without any issue. Had a bowel movement yesterday, but none yet today. She has been ambulating without difficulty. Notes good urine production without any pain or issues. Review of Systems Review of Systems: At least ten systems reviewed and negative, except as noted in the HPI. Physical Exam Physical Exam: General: WD/WN, vitals as above, NAD, sitting up in bed, pleasant, conversing appropriately. A+Ox3, euthymic affect. HEENT: Normocephalic, atraumatic. Conjunctivae normal, anicteric sclerae. External ear and nose normal, oropharynx normal. Respiratory: Normal respiratory effort, lungs clear to auscultation, no wheeze, rales, rhonchi. No accessory muscle use. Cardiovascular: Regular rate, rhythm, no murmur, normal peripheral pulses, no BLE edema. Vessels: No JVD. Abdomen/GI: Surgical sites without drainage or surrounding erythema. KARLOS drain intact, producing sanguinous fluid. Extremities/Musculoskeletal: No cyanosis or clubbing, extremities motor strength intact, moves all extremities. Neurologic: PERRL, EOMI, accommodation nl, no face palsy, no dysarthria, CN's II-XI not formally tested but appear grossly intact bilaterally. Skin: No rashes, normal color, warm/dry. Bandaging intact around drain insertion site, no seeping or drainage noted. Results & Data Results & Data Vital Signs (Past 12 Hours) Vital Signs Temp Pulse Resp BP Pulse Ox O2 Del Method 02/05/24 06:18 36.4 C L 72 16 122/84 96 Room Air 02/05/24 02:42 36.3 C L 73 16 115/73 94 Room Air 02/04/24 22:08 36.5 C 73 16 109/70 93 Room Air Laboratory Results Short CBC 02/05/24 Range/Units 07:07 WBC 12.30 H (4.8-10.8) K/ul Hgb 11.0 L (12.0-16.0) g/dl Hct 33.7 L (37.0-47.0) % Plt Count 263 (130-400) K/uL BMP 02/05/24 07:07 Sodium 139 Potassium 4.1 D Chloride 104 Carbon Dioxide 28 BUN 12 Creatinine 0.92 Glucose 110 H Calcium 8.8 Liver Function 02/05/24 Range/Units 07:07 Total Bilirubin 0.4 (0.2-1.0) mg/dl AST 41 H (13-39) U/L ALT 42 (7-52) U/L Alkaline Phosphatase 98 (34-104) U/L Albumin 3.5 (3.4-5.0) gm/dl Diagnostic Findings Chest X-Ray 02/03/24 07:50 XR chest 2V PA/lateral CLINICAL HISTORY: RUQ abd pain radiates to R scapula TECHNIQUE: 2 views of the chest were obtained. Comparison: None available at the time of this dictation. FINDINGS: No lines and tubes are seen. The cardiomediastinal silhouette is normal. The lungs are clear. No evidence of pleural effusion or pneumothorax. IMPRESSION: No acute chest disease. ACT 112: Negative or not required by law. Electronically signed by: Fareed Rivera M.D. 02/03/2024 9:18 AM Gallbladder Ultrasound 02/03/24 07:50 US gallbladder CLINICAL HISTORY: RUQ abd pain TECHNIQUE: Multiple real-time sonographic images of the right upper quadrant were obtained. Comparison: None available at the time of this dictation. FINDINGS: The liver is diffusely echogenic in appearance with poor ultrasound penetration, with normal contour, which is consistent with fatty infiltration. No focal mass lesions are seen. No intrahepatic ductal dilatation is seen. Cholelithiasis is seen. The wall measures 3 mm. Pericholecystic fluid is seen. A sonographic Osborn's sign was elicited by the ride operator. The common duct measures 0.6 cm in diameter at the level of the hepatic artery. The visualized portions of the pancreas appear normal. The right kidney shows normal echogenicity, cortical thickness and renal contour. The right kidney shows no evidence of hydronephrosis or mass. No ascites or free fluid is seen in Harrison's pouch. IMPRESSION: Findings are compatible with acute cholecystitis. ACT 112: Negative or not required by law. Electronically signed by: Fareed Rivera M.D. 02/03/2024 9:11 AM Medications Administered Atomoxetine HCl (Atomoxetine Hcl 40 Mg Capsule) 40 mg PO DAILY [facility] Stop: 03/04/24 12:59 Last Admin: 02/05/24 10:09 Dose: 40 mg Documented By: JUAN CARLOS Admin: 02/04/24 16:30 Dose: 40 mg Documented By: Admin: 02/03/24 13:46 Dose: 40 mg Documented By: JALEESA Azelastine HCl (Azelastine Hcl 0.1% Nasal 200 Sprays/27,400 Mcg Btl) 2 sprays NA BID MERARI Stop: 03/04/24 20:59 Last Admin: 02/05/24 10:12 Dose: 2 sprays Documented By: JUAN CARLOS Admin: 02/04/24 20:44 Dose: 2 sprays Documented By: Admin: 02/04/24 16:25 Dose: Not Given Documented By: Admin: 02/03/24 20:29 Dose: 2 sprays Documented By: SOPHIE Calcium/Vitamin D (Calcium 600mg + Vit D 400 Iu Tab) 1 tab PO BID MERARI Stop: 03/04/24 20:59 Last Admin: 02/05/24 10:09 Dose: 1 tab Documented By: JUAN CARLOS Admin: 02/04/24 20:43 Dose: 1 tab Documented By: Admin: 02/04/24 16:25 Dose: Not Given Documented By: Admin: 02/03/24 20:30 Dose: 1 tab Documented By: SOPHIE Fexofenadine HCl (Fexofenadine Hcl 180 Mg Tab) 180 mg PO DAILY [facility] Stop: 03/04/24 13:14 Last Admin: 02/05/24 10:11 Dose: 180 mg Documented By: JUAN CARLOS Admin: 02/04/24 16:30 Dose: 180 mg Documented By: Admin: 02/03/24 13:46 Dose: 180 mg Documented By: JALEESA Fluoxetine HCl (Fluoxetine Hcl 20 Mg Cap) 60 mg PO QAM MERARI Stop: 03/04/24 12:59 Last Admin: 02/05/24 10:10 Dose: 60 mg Documented By: JUAN CARLOS Admin: 02/04/24 16:29 Dose: 60 mg Documented By: Admin: 02/03/24 13:46 Dose: 60 mg Documented By: JALEESA Fluticasone Propionate (Fluticasone Propionate Na Spr 16 Gm Btl) 2 sprays NA BID MERARI Stop: 03/04/24 20:59 Last Admin: 02/05/24 10:11 Dose: 2 sprays Documented By: JUAN CARLOS Admin: 02/04/24 20:44 Dose: 2 sprays Documented By: Admin: 02/04/24 16:25 Dose: Not Given Documented By: Admin: 02/03/24 20:28 Dose: 2 sprays Documented By: SOPHIE Gabapentin (Gabapentin 800 Mg Tab) 800 mg PO DAILY@1700 MERARI Stop: 03/04/24 16:59 Last Admin: 02/04/24 16:29 Dose: 800 mg Documented By: Admin: 02/03/24 16:04 Dose: 800 mg Documented By: JALEESA Metronidazole (Flagyl) 500 mg in 100 mls @ 100 mls/hr IV Q8H MERARI; Protocol Stop: 02/13/24 13:29 Last Infusion: 02/05/24 06:17 Dose: Infused Documented By: Admin: 02/05/24 05:15 Dose: 100 mls/hr Documented By: Infusion: 02/04/24 22:14 Dose: Infused Documented By: Admin: 02/04/24 20:44 Dose: 100 mls/hr Documented By: Infusion: 02/04/24 16:24 Dose: Infused Documented By: Admin: 02/04/24 15:11 Dose: 100 mls/hr Documented By: Infusion: 02/04/24 07:40 Dose: Infused Documented By: Admin: 02/04/24 06:15 Dose: 100 mls/hr Documented By: Infusion: 02/03/24 21:51 Dose: Infused Documented By: Admin: 02/03/24 20:30 Dose: 100 mls/hr Documented By: Infusion: 02/03/24 15:28 Dose: Infused Documented By: Admin: 02/03/24 14:07 Dose: 100 mls/hr Documented By: JALEESA Cefuroxime Sodium 1,500 mg/ (Dextrose) 100 mls @ 200 mls/hr IV Q8H [facility] Stop: 02/13/24 13:59 Last Infusion: 02/05/24 07:00 Dose: Infused Documented By: JUAN CARLOS Admin: 02/05/24 06:17 Dose: 200 mls/hr Documented By: Infusion: 02/04/24 23:08 Dose: Infused Documented By: Admin: 02/04/24 22:20 Dose: 200 mls/hr Documented By: Infusion: 02/04/24 16:54 Dose: Infused Documented By: Admin: 02/04/24 16:24 Dose: 200 mls/hr Documented By: Infusion: 02/04/24 08:42 Dose: Infused Documented By: Admin: 02/04/24 07:43 Dose: 200 mls/hr Documented By: Infusion: 02/03/24 22:26 Dose: Infused Documented By: Admin: 02/03/24 21:55 Dose: 200 mls/hr Documented By: Infusion: 02/03/24 16:00 Dose: Infused Documented By: Admin: 02/03/24 15:23 Dose: 200 mls/hr Documented By: ANGI Ketorolac Tromethamine (Ketorolac Tromethamine 15 Mg/Ml Vial) 15 mg IV Q6H PRN PRN Reason: Mod-Sev Pain (Scale 4-10) Stop: 02/08/24 13:04 Last Admin: 02/05/24 05:16 Dose: 15 mg Documented By: Admin: 02/04/24 19:34 Dose: 15 mg Documented By: Admin: 02/03/24 16:02 Dose: 15 mg Documented By: JALEESA Levothyroxine Sodium (Levothyroxine Sodium 150 Mcg Tablet) 150 mcg PO DAILYBB [facility] Stop: 03/05/24 06:29 Last Admin: 02/05/24 06:17 Dose: 150 mcg Documented By: Admin: 02/04/24 06:17 Dose: 150 mcg Documented By: SOPHIE Lisinopril (Lisinopril 5 Mg Tab) [facility] Stop: 03/05/24 08:59 Last Admin: 02/05/24 10:10 Dose: 5 mg Documented By: JUAN CARLOS Admin: 02/04/24 16:29 Dose: 5 mg Documented By: MILENA Magnesium Oxide (Magnesium Oxide 400 Mg Tab) [facility] Stop: 03/05/24 08:59 Last Admin: 02/05/24 10:10 Dose: 400 mg Documented By: JUAN CARLOS Admin: 02/04/24 16:30 Dose: 400 mg Documented By: MILENA Montelukast Sodium (Montelukast Sodium 10 Mg Tablet) [facility] [place] Stop: 03/04/24 12:59 Last Admin: 02/05/24 10:11 Dose: 10 mg Documented By: JUAN CARLOS Admin: 02/04/24 16:30 Dose: 10 mg Documented By: Admin: 02/03/24 13:46 Dose: 10 mg Documented By: JALEESA Pantoprazole Sodium (Pantoprazole 40 Mg Tab) 40 mg PO DAILY [facility] Stop: 03/04/24 12:59 Last Admin: 02/05/24 10:09 Dose: 40 mg Documented By: JUAN CARLOS Admin: 02/04/24 16:29 Dose: 40 mg Documented By: Admin: 02/03/24 13:45 Dose: 40 mg Documented By: JALEESA Ropinirole HCl (Ropinirole Hcl 0.25 Mg Tablet) 0.25 mg PO DAILY@1500 [facility] Stop: 03/04/24 14:59 Last Admin: 02/04/24 16:29 Dose: 0.25 mg Documented By: Admin: 02/03/24 15:23 Dose: 0.25 mg Documented By: JALESEA Ropinirole HCl (Ropinirole Hcl 0.25 Mg Tablet) 0.5 mg PO DAILY@2000 [facility] Stop: 03/04/24 19:59 Last Admin: 02/04/24 19:35 Dose: 0.5 mg Documented By: Admin: 02/03/24 19:42 Dose: 0.5 mg Documented By: SOPHIE Discontinued Medications Bupivacaine HCl/Epinephrine Bitart (Bupivacaine/Epinephrine 0.5% Mpf 1:200,000 30 Ml Vial) Confirm Administered Dose 30 ml .ROUTE .STK-MED ONE Stop: 02/04/24 10:53 Last Admin: 02/04/24 13:23 Dose: 30 ml Documented By: MEHREEN Hydromorphone HCl (Hydromorphone Inj 2 Mg/Ml Syr/Vial) 0.5 mg IV Q5M PRN PRN Reason: PACU Use Only-Pain Stop: 02/04/24 18:40 Last Admin: 02/04/24 14:06 Dose: 0.5 mg Documented By: Admin: 02/04/24 13:57 Dose: 0.5 mg Documented By: Admin: 02/04/24 13:51 Dose: 0.5 mg Documented By: Admin: 02/04/24 13:43 Dose: 0.5 mg Documented By: ANDRZEJ Hydromorphone HCl (Hydromorphone Inj 2 Mg/Ml Syr/Vial) 2 mg IV NOW STA Stop: 02/04/24 14:12 Last Admin: 02/04/24 14:16 Dose: Not Given Documented By: ANDRZEJ Hydromorphone HCl (Hydromorphone Inj 2 Mg/Ml Syr/Vial) Confirm Administered Dose 2 mg .ROUTE .STK-MED ONE Stop: 02/04/24 14:14 Last Increment: 02/04/24 14:19 Dose: 0.5 mg Documented By: ANDRZEJ Increment: 02/04/24 14:14 Dose: 0.5 mg Documented By: ANDRZEJ Sodium Chloride (Nss) 1,000 mls @ 999 mls/hr IV .Q1H1M STA Stop: 02/03/24 08:50 Last Infusion: 02/03/24 12:10 Dose: Infused Documented By: Admin: 02/03/24 08:27 Dose: 999 mls/hr Documented By: JACKIE Sodium Chloride (Nss) 1,000 mls @ 80 mls/hr IV .[id number] MERARI Stop: 02/05/24 02:59 Last Infusion: 02/05/24 03:38 Dose: Infused Documented By: Admin: 02/04/24 15:11 Dose: 80 mls/hr Documented By: Infusion: 02/04/24 12:19 Dose: Infused Documented By: Infusion: 02/04/24 10:35 Dose: 0 mls/hr Documented By: Admin: 02/04/24 02:22 Dose: 80 mls/hr Documented By: Infusion: 02/04/24 02:07 Dose: Infused Documented By: Admin: 02/03/24 13:37 Dose: 80 mls/hr Documented By: JAELESA Magnesium Sulfate/Dextrose (Magnesium Sulfate / D5w) 1 gm in 100 mls @ 50 mls/hr IV ONE ONE Stop: 02/04/24 04:54 Last Infusion: 02/04/24 06:10 Dose: Infused Documented By: Admin: 02/04/24 04:08 Dose: 50 mls/hr Documented By: SOPHIE Lactated Ringer's (Lr) 1,000 mls @ 15 mls/hr IV .Q24H MERARI Stop: 03/05/24 10:44 Last Infusion: 02/04/24 10:57 Dose: Infused Documented By: Admin: 02/04/24 10:35 Dose: 15 mls/hr Documented By: WINTER Ketorolac Tromethamine (Ketorolac Tromethamine 15 Mg/Ml Vial) 10 mg IV NOW ONE Stop: 02/03/24 08:21 Last Admin: 02/03/24 08:25 Dose: 10 mg Documented By: JACKIE Potassium Chloride (Potassium Chloride Crtab 20 Meq Tabcr) 40 meq PO NOW STA Stop: 02/04/24 02:56 Last Admin: 02/04/24 04:08 Dose: 40 meq Documented By: SOPHIE (3) Sleep apnea Sleep apnea type: obstructive Qualified Code(s): G47.33 - Obstructive sleep a pnea (adult) (pediatric) (4) Hypothyroidism Hypothyroidism type: acquired Qualified Code(s): E03.9 - Hypothyroidism, unspecified
[2024-02-05 08:07] LABS: Hematocrit (blood only) 33.7 % (37.0-47.0); Mean Corpuscular Hemoglobin 29.8 pg (25.0-34.0); Mean Corpuscular Hgb Conc 32.6 g/dL (32.0-36.0); Mean Corpuscular Volume 91.3 fL (80.0-100.0); Platelet Count 263 K/uL (130-400); RDW Coefficient of Variation 11.4 % (11.5-14.5); RDW Standard Deviation 38.3 fL (36.4-46.3); Red Blood Count 3.69 M/uL (4.20-5.40)
[2024-02-05 08:36] LABS: Albumin Globulin Ratio 1.3 (0.9-2); Albumin Level 3.5 gm/dl (3.4-5.0); Bilirubin,Total 0.4 mg/dl (0.2-1.0); Calcium 8.8 mg/dl (8.6-10.3); Creatinine Clr Calc Pharmacy 93.8 ml/min; Est GFR (African American) 79.6 ml/min; Est GFR (Non-African American) 68.6 ml/min; Globulin 2.8 gm/dl (2.5-4.0); Potassium 4.1 mmol/L (3.5-5.1); Total Protein 6.3 gm/dl (6.0-8.3)
--- NOTE | 2024-02-05 10:25 | Surgery Progress Note ---
Date of Service February 05, 2024 Assessment & Plan (1) Acute cholecystitis: Plan: POD#1 lap jose WBC 12, Hbg 11, LFTs are okay Abdominal pain manageable KARLOS drain serosang, leave in place for now Will advance diet as tolerates Continue IV abx while in house, may stay another night per pt as above. feeling much better than yesterday. leonardo diet. KARLOS serous. recommend she stay one more night....d/c tomorrow if no issues. Admission and Anticipated Discharge Date Admission Date: February 03, 2024 Subjective Patient reports feeling much better than when she was initially admitted. Still with some abdominal pain, but much better in comparison. Tolerating clears, could eat some more. No nausea Physical Exam Physical Exam: awake/alert, no distress Respiratory: normal respiratory effort Gastrointestinal (Abdomen): Inspection/Auscultation: + abdomen distended (mild) and + abdominal surgical incision (c/d/i with skin glue, some umbilical ecchymosis) Percussion/Palpation: + abdomen tender (expected missy incisional discomfort to palpation) and abdomen soft KARLOS drain serosang Results & Data Vital Signs (Past 12 Hours) Vital Signs Temp Pulse Pulse Resp BP BP Pulse Ox 02/05/24 07:40 98.1 F 72 18 116/76 96 02/05/24 06:18 97.5 F L 72 16 122/84 96 02/05/24 02:42 97.3 F L 73 16 115/73 94 O2 Del Method 02/05/24 07:40 Room Air 02/05/24 06:18 Room Air 02/05/24 02:42 Room Air PG Care Time/CCT Total # of Minutes Spent Total Time Spent with Patient: Total time spent is greater than 50% in coordination of care (as documented) at patient's floor/unit and/or counseling patient: Coding Level of Care Code 09872 Post Operative Follow-Up Diagnoses Acute cholecystitis K81.0
[2024-02-05] MEDS: traMADol HCL 50 MG TABLET PO PRN (16:39)
[2024-02-06] MEDS: LORazepam 0.5 MG TAB PO PRN (02:55)
[2024-02-06 06:27] LABS: Basophils # (auto) 0.06 K/uL (0.00-0.20); Basophils % (auto) 0.7 %; Eosinophils # (auto) 0.42 K/uL (0.00-0.50); Eosinophils % (auto) 4.6 %; Hematocrit (blood only) 33.5 % (37.0-47.0); Immature Granulocytes # (auto) 0.08 K/uL (0.01-0.20); Immature Granulocytes % (auto) 0.9 %; Lymphocytes # (auto) 1.94 K/uL (1.20-3.40); Lymphocytes % (auto) 21.4 %; Mean Corpuscular Hemoglobin 30.1 pg (25.0-34.0); Mean Corpuscular Hgb Conc 32.8 g/dL (32.0-36.0); Mean Corpuscular Volume 91.5 fL (80.0-100.0); Mean Platelet Volume 11.7 fL (9.4-12.4); Monocytes % (auto) 7.7 %; Neutrophils # (auto) 5.88 K/uL (1.40-6.50); Neutrophils % (auto) 64.7 %; Platelet Count 239 K/uL (130-400); RDW Coefficient of Variation 11.6 % (11.5-14.5); RDW Standard Deviation 38.9 fL (36.4-46.3); Red Blood Count 3.66 M/uL (4.20-5.40); White Blood Count 9.08 K/ul (4.8-10.8)
[2024-02-06 06:41] LABS: Albumin Globulin Ratio 1.3 (0.9-2); Albumin Level 3.5 gm/dl (3.4-5.0); BUN Creatinine Ratio 11.1 (10-20); Bilirubin,Total 0.3 mg/dl (0.2-1.0); Calcium 8.6 mg/dl (8.6-10.3); Creatinine Clr Calc Pharmacy 87.1 ml/min; Est GFR (African American) 72.8 ml/min; Est GFR (Non-African American) 62.8 ml/min; Globulin 2.7 gm/dl (2.5-4.0); Total Protein 6.2 gm/dl (6.0-8.3)
[2024-02-06 08:08] VITALS: BP 118/80; PULSE 66; RESP 14; TEMP 98.8; O2SAT 94
--- NOTE | 2024-02-06 08:24 | Surgery Progress Note ---
Date of Service February 06, 2024 Assessment & Plan (1) Acute cholecystitis: Plan: POD#2 lap jose WBC 9, LFTs ok. vitals stable pain controlled. diet tolerated KARLOS drain output remains serosang, will remove prior to dispo ?some irritation to surrounding umbilical skin, does not appear infected in nature. incisions are c/d/i without infxn Stable for discharge to home today, instructions reviewed, f/u in office with dr. marrufo in 2 weeks doing well. ok for d/c. f/u in 1-2 weeks. instructions discussed Admission and Anticipated Discharge Date Admission Date: February 03, 2024 Subjective Patient reports feeling well. Post op pain is present, but it is tolerable. She is eating a diet without issues. no n/v Physical Exam Physical Exam: awake/alert, no distress Respiratory: normal respiratory effort Gastrointestinal (Abdomen): Inspection/Auscultation: + abdomen distended (mild) and + abdominal surgical incision (dermabond on incisions c/d/i) Percussion/Palpation: + abdomen tender (missy incisional discomfort to palpation) and abdomen soft KARLOS Drain with serosang output. umbilical region of prior ecchymosis with some superficial skin redness Results & Data Vital Signs (Past 12 Hours) Vital Signs Temp Pulse Pulse Resp BP Pulse Ox O2 Del Method 02/06/24 08:06 98.8 F 66 67 14 118/80 94 Room Air 02/06/24 06:51 97.7 F 65 15 119/79 97 Room Air PG Care Time/CCT Total # of Minutes Spent Total Time Spent with Patient: Total time spent is greater than 50% in coordination of care (as documented) at patient's floor/unit and/or counseling patient: Coding Level of Care Code 43198 Post Operative Follow-Up Diagnoses Acute cholecystitis K81.0
[2024-02-06] MEDS: FLUCONAZOLE 50 MG TAB PO ONE (10:21)
--- NOTE | 2024-02-06 12:00 | Discharge Summary ---
Date of Service February 06, 2024 Admission HPI Per Admitting Provider This is a 58 y/o female with HTN, FARHANA on CPAP, hypothyroidism, lactose intolerance, depression/anxiety, ADHD and other history as outlined below who presents to the ED with RUQ pain that has been worsening. This pain started nine days ago when she was in [place]. She had a heavy meal with a cream sauce for lunch, took Lactaid b/c of known lactose intolerance. Initially felt okay but that evening woke from sleep with severe RUQ pain described as "like someone stabbing me" with radiation to right scapula and thoracic area. She had associated nausea, chills, sweats. She was not evaluated while in [place]. Since then, the pain has continued to wax and wane, has never gone away completely. She has been taking ibuprofen 400 mg BID to keep the pain tolerable. Yesterday, she again had chill and sweats with temp of 99.6F (on ibuprofen). She denies vomiting or diarrhea. She has some substernal discomfort the first night of pain but since then denies chest pain, palpitations, dyspnea. Pt was seen outpatient for the pain and was scheduled to have a RUQ US tomorrow. However, after the pain kept her up last night, she decided to come to the ED for evaluation. She also notes some intermittent RUQ discomfort for the last several months but always seemed to be mild and resolve without intervention. Admission Exam Per Admitting Provider Physical Exam: General: awake, alert, NAD HEENT: no scleral icterus, moist oral mucosa Neck: trachea midline Heart: RRR Lungs: CTA bilaterally on the anterior Abdomen: soft, +BS, +RUQ tenderness, no guarding or rebound Extremities: no pedal edema; distal pulses intact and equal Skin: warm, dry, no jaundice Neurologic: Ox3, no confusion, no dysarthria, moving all extremities Principal Diagnosis Acute cholecystitis Discharge Exam General: awake, alert, no apparent distress, white female, BMI 35.6 Head: Normocephalic, atraumatic ENT: PERRL, EOMI, no pharyngeal exudate, mucous membranes moist Chest: Clear to auscultation, on room air, no adventitious breath sounds Cardiac: Regular rate and rhythm, no murmur, no JVD, normal peripheral pulses, good capillary refill Abdominal: +laparoscopic incisions closed, healing, no surrounding erythema, NABS x 4 quadrants, soft, nondistended, nontender to palpation, no rebound or guarding Extremities: Normal inspection, no peripheral edema or erythema, calfs nontender to palpation Psych: Normal mood and affect Neuro: AAO x 3, strength intact bilaterally and rated 5/5, no motor deficits, speech is clear, no peripheral sensory deficits Discharge Data Allergies Allergy/AdvReac Type Severity Reaction Status Date / Time amoxicillin Allergy Intermediate HIVES. Verified 02/04/24 10:07 ITCHING celecoxib Allergy Intermediate HIVES Verified 02/04/24 10:07 cetirizine Allergy Intermediate PSYCHIATRIC Verified 02/04/24 10:07 REACTION clavulanic acid Allergy Intermediate HIVES, Verified 02/04/24 10:07 ITCHING guaifenesin Allergy Intermediate PSYCHIATRIC Verified 02/04/24 10:07 REACTION levofloxacin Allergy Intermediate HIVES Verified 02/04/24 10:07 moxifloxacin Allergy Intermediate HIVES Verified 02/04/24 10:07 oxycodone Allergy Intermediate HIVES Verified 02/04/24 10:07 paroxetine Allergy Intermediate HIVES Verified 02/04/24 10:07 Sulfa (Sulfonamide Allergy Intermediate EDEMA,BLISTERS Verified 02/04/24 10:07 Antibiotics) in mouth adhesive Allergy Mild TAPE-REDNES Verified 02/04/24 10:07 S hydrocodone Allergy Mild "really Verified 02/04/24 10:07 itchy" lactose Allergy Mild LACTOSE Verified 02/04/24 10:07 INTOLERANCE Penicillins Allergy Unknown ALLERGIC Verified 02/04/24 10:07 PER TESTING pseudoephedrine Allergy Unknown PSYCHIATRIC Verified 02/04/24 10:07 REACTION acetaminophen AdvReac Mild Facial Verified 02/04/24 10:07 flushing Consultations 02/03/24 09:30 ED Decision to Admit Stat 02/03/24 10:41 ED Decision to Admit Stat Procedures Performed Operation Date: 02/04/24 09:50 Actual Procedures p Laparoscopic Cholecystectomy (Not Applicable) - Theo Hernandez, Ordered Studies 02/03/24 07:50 US gallbladder Stat Hospital Course (1) Acute cholecystitis: Mara Sanchez is a 58 y/o F with PMHx of HTN, FARHANA on CPAP, hypothyroidism, lactose intolerance, depression/anxiety, ADHD and medical problems listed below who presented with worsening RUQ pain and was found to have acute cholecystitis. Pt afebrile, no leukocytosis or elevated LFTS on admission. Gallbladder US in ED was consistent with acute cholecystitis. Pt is now post-op day #2 s/p laparoscopic cholecystectomy w/ Dr. Hernandez 02/04/24 Pt reporting good pain control this morning, will continue w/ PRN IV Toradol. Recieved empiric ABX coverage with IV metronidazole, cefuroxime while inpatient - per surgery no need for antibiotics on discharge. Pre-Op Hgb 11.9, post-op Hgb 11.0 and stable- will repeat CBC in AM and trend. AST 41 today (02/04), 25 on day of dc (2) Hypokalemia: Potassium 3.3 on admission; received 40mEq of oral potassium yesterday (02/03). Resolved (3) Sleep apnea: Chronic, stable - intermittently using CPAP. CPAP at HS while admitted, settings pulled from review of outpatient sleep medicine per admitting provider. (4) Hypothyroidism: Chronic, stable; can continue [employer] levothyroxine. (5) Essential hypertension: SBP holding steady in the 110s-120s. HCTZ was held while pt was NPO prior to surgery. --> May resume HCTZ on dc Can continue [employer] lisinopril DVT Prophylaxis: SCDs Total Time Total Time Spent Total Time Spent (In Minutes): 35 Discharge Plan Discharge Items Patient Disposition: Home - Self-Care Reason For Visit: acute cholecystitis Discharge Diagnosis: laparoscopic cholecystectomy Condition on Discharge: Good Activity: Per Instructions section Lifting: Gradually increase as tolerated and No more than 10 pounds Bathing Comment: you can shower tomorrow. No pool or bath for 2 weeks Exercise/Sports: Wait until after follow-up appointment Driving/Machine Use: no driving if taking narcotic pain medicaiton Weightbearing: Full weightbearing Non-emergency contact: Surgeon Call non-emergency contact if: you have any medication questions, your temperature is above 101.5, your wound has increased redness, your wound has increased drainage and your wound pain has increased Follow-up/Referrals: Theo Hernandez DO [Surgeon] - 02/25/24 2:00 pm () Yamini Alamo MD [Primary Care Provider] - (Date & Time 02/12/2024 1:00 PM Provider Yamini Alamo MD Department General Internal Medicine [facility] ) Diet: Regular Addtl Attending Provider Instructions: You were admitted to [facility] due to severe abdominal pain and diagnosed with acute cholecystitis (acute gallbladder attack). During your stay here you were treated with supportive care, medications including IV antibiotics, pain medications, and your gallbladder was removed by laparoscopic surgery on 02/04/24. Imaging studies which were completed include Gallbladder ultrasound, and were abnormal showing acute cholecystitis. Medications: Continue taking you medications as prescribed. You received oral fluconazole for concern of tinea infection x umbilical region, follow up with PCP office in a week time; possible antifungal ointment vs PO antifungal therapy depending on how nearby surgical sites are healing. Appointments: Follow up with PCP within 1 week, an appointment has been requested for you. Follow up with general surgery, Dr. Hernandez within 2 weeks. Per Surgeon: You have surgical glue called dermabond on your surgical site incisions. You may shower with this on. This will tend to come off within a couple of weeks. Do not pick at it. You may keep a dry dressing over the area where your drain was removed with either dry gauze/tape or a bandaid. Change daily and as needed until the wound site has healed Pending Studies at Discharge: No Stand-Alone Forms: My [facility] [employer], Smoking Cessation Medications and DC Order Prescriptions: New tramadol 50 mg tablet 50 mg PO Q6H PRN (Reason: pain, for initial therapy, max 6 tabs/day) Qty: 15 0RF Continued omeprazole 20 mg capsule,delayed release(DR/EC) 20 mg PO DAILY montelukast 10 mg tablet 10 mg PO QAM lisinopril 5 mg tablet 5 mg PO QAM fluoxetine 20 mg capsule 20 mg PO QAM Patient Comments: takes with 40mg to equal 60mg Rx Instructions: with 40 mg to make 60 mg fluticasone propionate 50 mcg/actuation spray,suspension 2 spray INTRANASAL BID fluoxetine 40 mg capsule 40 mg PO QAM Rx Instructions: with 20 mg to make 60 mg lorazepam 0.5 mg tablet 0.5 mg PO TID PRN (Reason: Anxiety) ropinirole 0.5 mg tablet See Rx Instructions .ROUTE .COMPLEX Rx Instructions: take 1 tab po daily at 5 pm, 2 tab po daily at 9 pm potassium 95 mg Tablet 90 mg PO QAM calcium carbonate-vitamin D2 600 mg calcium- 200 unit Tablet 1 tab PO BID magnesium oxide 250 mg magnesium Tablet 250 mg PO QAM gabapentin 800 mg tablet 800 mg PO QDD Rx Instructions: takes at 5 pm azelastine 137 mcg (0.1 %) aerosol,spray 2 spray INTRANASAL BID albuterol sulfate 90 mcg/actuation HFA aerosol inhaler 2 puff INHALATION Q4H PRN (Reason: Shortness Of Breath Or Wheezing) atomoxetine 40 mg capsule 40 mg PO DAILY levothyroxine [Synthroid] 150 mcg tablet 150 mcg PO DAILY fexofenadine 180 mg Tablet 180 mg PO DAILY hydrochlorothiazide 12.5 mg capsule 12.5 mg PO DAILY Discharge Orders: Discharge Order (Routine); Ordered 02/06/24 Ordered By: Kellen Chapman Admission Data Admit Date/Time: 02/03/24 10:21 Attending Provider: Vanessa Guzman Admit Provider: Kareem Medina Primary Care Provider: Yamini Alamo Other Providers: Leonardo Echevarria; Kareem Medina Other Interventions: Discharge Summary Assessment (RN) Last Done: 02/06/24 12:17 Supervising Physician Co-Signing Physician Notes Patient seen and examined post op S/p Laparoscopic cholecystectomy POD 2 Surgical site pain is well controlled. Moved BM, tolerating diet, doing well. Continue IV cefuroxime and metronidazole --> atb dc'd w/ Sx recs. Pain under control. Agree with findings and plans as detailed by Advanced Provider and take full responsibility
== END 2024-02-06 12:18 | disposition home or self-care (01) | DRG 419 ==
LOC: ED 07:22 → SUATTDRO 10:21 → 3N 10:21

== ENCOUNTER 2024-02-17 22:22 | Observation (INO) ==
--- OUTSIDE RECORDS SUMMARY | 2024-02-17 22:29 | External Medical Summary | Summary of Care ---
Author Name Unknown Organization [facility] Address [address] [place] [address] Phone [phone] Care Team Providers Care Flap Curer Name Role Phone Yamini Alamo MD Primary Care Provider [phone] Reason for Visit * Reason Onset Date Comments Pre Cert/Prior Auth 02/07/2024 Synthroid Encounter Details Date Type Department Care Team (Late st Contact Info) Description 02/07/2024 Telephone General Internal Medicine [facility] [address] [facility] [place] [address] Yamini Alamo MD [address] [place] [address] Pre Cert/Prior Auth (Synthroid/) Allergies Active Allergy Reactions Criticality Noted Date [...] as of this encounter (statuses as of 02/12/2024) Medications Medication Sig Dispensed Refills Start Date [...] the morning. 90 Tablet 3 06/12/2023 Active Montelukast Sodium 10 MG Oral Tablet (Singulair) Take 1 Tablet by mouth in the morning. 90 Tablet 3 08/14/2023 Active hydroCHLOROthiazide 12.5 MG Oral Capsule (Hydrodiuril)Indicat [...] to breakfast. 90 Capsule 3 12/11/2023 Active Calcium 500 MG Oral TabletIndications:Vi tamin D deficiency Take 1 Tablet by mouth in the morning and 1 Tablet before bedtime. With food.. 12/17/2023 Active Vitamin B-12 1000 MCG Oral Tablet (Cyanocobalamin)Marla cations:Vitamin B12 deficiency Take 1 Tablet by mouth in the morning. 12/17/2023 Active LORazepam 0.5 MG Oral Tablet (Ativan)Indications: KAMALA (generalized anxiety disorder) Take 1 Tablet by [...] 12/26/2023 Active Gabapentin 800 MG Oral Tablet (Neurontin)Indicatio ns:RLS (restless legs syndrome) TAKE 1 TABLET AT 5 P.M. FOR RESTLESS LEG SYNDROME 90 Tablet 3 01/23/2024 Active Vitamin D3 1.25 MG (87360 UT) Oral CapsuleIndications:V itamin D deficiency Take 1 Capsule by mouth once a week. 12 Capsule 02/05/2024 Active Levothyroxine Sodium 150 MCG Oral Tablet (Synthroid) Take 1 Tablet by mouth in the morning. (at least 30 min prior to breakfast or other meds) brand name necessary Synthroid. 90 Tablet 3 02/05/2024 Active Ibuprofen 200 MG Oral Tablet (Advil) Take 1 Tablet by mouth every 4 hours as needed for Pain, Mild. Active documented as of this encounter (statuses as of 02/12/2024) Active Problems Problem Noted Date Diagnosed Date [...] as of this encounter (statuses as of 02/12/2024) Resolved Problems Problem Noted Date Diagnosed Date Resolved Date Closed fracture of fifth met atarsal bone of left foot, sequela 05/14/2017 05/14/2017 documented as of this encounter (statuses as of 02/12/2024) Immunizations Name Administration Dates Next Due COVID-19 [...] yrs 05/17/2023,01/02/2023,11/09 Pneumococcal Conjugate Vacci ne, 20-valent ([id number]) 12/17/2023 Seasonal Influenza, PF, 6 M & [...] file Travel History Travel Start Travel End [place] 01/20/2024 01/30/2024 [place] 01/07/2024 01/20/2024 documented as of this encounter Miscellaneous Notes * Telephone Encounter - Marcin Ortiz CPhT - 02/12/2024 8:33 AM EDT Submitted information in previous note via CMM (Blue: [id number] ).. Awaiting payer response. We will follow-up with insurance starting 02/12. Per [facility] request, if no decision is received from insurance by 02/14, we will route back to the [facility] after clarifying with the pharmacy that the claim is still not processing. Thank you, Tyron Ortiz ([facility]) Cocktail Waitress III [facility] 02/12/2024, 8:33 AM * Telephone Encounter - Shari Shore [facility] - 02/11/2024 12:16 PM EDT Please submit PA. Include the following documentation: 12/17/23 OV note 01/02/23 OV note Please copy and paste the following information into PA form: Continuation of therapy She has been taking Synthroid for about 25 years at this time. What other drugs is there medical record documentation of therapeutic failure on, intolerance to, or contraindication to for this condition? levothyroxine Jack as urgent: No Diagnosis/ICD-10 Code(s): E03.9 If instantaneous decision is not received after submitting prior auth, please continue to follow upon this and route back to the [facility] pool if no decision is made by the insurance by 02/14, after clarifying with the pharmacy that the claim is still not processing. If PA is denied, please also route back to [facility] pool. Thanks, Shari Shore, PharmD Clinical Pharmacist [facility] ([facility]) [phone] 02/11/2024 12:16 PM * Telephone Encounter - Marcin Ortiz CPhT - 02/11/2024 11:21 AM EDT This is a new PA request. Upon review of this prior authorization request, I verified this request is appropriate. This is prescribed by a department for which [facility] is authorized to review prior authorizations This is not a duplicate encounter regarding the same prior authorization The patient is planning to use insurance The insurance information listed in previous note is correct and the plan that is requiring prior authorization The insurance does not cover either brand or generic forms of this script as written without prior authorization The insurance does not cover any NDCs of this script without prior authorization RX Estimate tool confirms this script needs prior authorization Per note below PT and Doc want Synthroid Of note, there is nothing currently pending in Center for this request. Please advise how to proceed. Thank you, Tyron Ortiz ([facility]) Cocktail Waitress III [facility] 02/11/2024, 11:21 AM * Telephone Encounter - Carola Serrano PHARM Tech - 02/07/2024 1:45 PM EDT Pharmacy calling to inform doctor that the patient's insurance will not pay for this medication without a completed prior authorization. Did confirm this information with the pharmacy. Pt's current insurance information is as follows: Patient name: Mara Sanchez ID number: [id number] BIN number: [id number] PCN number: [id number] Group number: [id number] Subscriber name: Mara Sanchez Primary or Secondary Insurance:Primary Medication: synthroid 150 mcg tablet Reason for Request: not covered but pt wants brand and doctor wrote for brand Pharmacy and phone number: [facility] Rx plan and phone number: [employer] [phone] Is this a new medication for the patient? Yes What alternative medications does the pharmacy have in stock?: Thank you, Carola Serrano [facility] Cocktail Waitress II [facility] 02/07/2024, 1:46 PM documented in this encounter Plan of Treatment Upcoming Encounters Date Type Department Care Team (Late st [facility] Info) Description 02/12/2024 1:00 PM EDT Office Visit General Internal Medicine [facility] [place] [address] Yamini Alamo MD [address] [place], [place] [address] 06/17/2024 10:30 AM EST Office [facility] [place] [address] [place] [address] Cee Umanzor PA-C [address] [place] [address] 06/17/2024 1:30 PM EST Hospital Encounter ENDO [facility], Endoscopy Room [facility] [address] [place] [phone] Nerissa Camp MD [address] [place] [address] 06/17/2024 1:30 PM EST - 06/17/2024 2:00 PM EST Surgery ENDO [facility], Endoscopy Room [facility] [address] [place] [phone] Nerissa Camp MD [address] [place] [address] COLONOSCOPY FLEXIBLE PROXIMAL DIAGNOSTIC 06/24/2024 10:20 AM EST Office Visit General Internal Medicine [facility] [place] [address] [place] [address] Yamini Alamo MD [address] [facility] [place] [address] 08/21/2024 4:30 PM EST Office Visit Sleep Disorders Ctr [facility] [place] [address] [place] [phone] Dary Wall CRNP [address] [place] [address] 03/02/2025 10:15 AM EDT Office Visit Ophthalmology, [facility] [address] [place] [address] MeghnaOleksandr merritt Janak, [address] [place] [address] Scheduled Procedures Name Priority Associated Diagnoses Date/Ti [...] filedocumented as of this encounter Care Teams Flap Curer Relationship Specialty Start Date End Date Yamini Alamo MD [address] [place] [address] PCP - General 02/04/10 documented as of this encounter
--- OUTSIDE RECORDS SUMMARY | 2024-02-17 22:29 | External Medical Summary | Summary of Care ---
Author Name Unknown Organization [facility] Address [address] [place] [address] Phone [phone] Care Team Providers Care Nurse Epidemiologist Name Role Phone Yamini Alamo MD Primary Care Provider Reason for Visit * Reason Comments eRx-Medication Refill Encounter Details Date Type Department Care Team (Late st Contact Info) Description 12/24/2023 Telephone Sleep Disorders Ctr [facility] [address] [place] [phone] Domo Allen CRNP [address] [place] [address] eRx-Medication Refill Allergies Active Allergy Reactions Criticality Noted Date [...] as of this encounter (statuses as of 02/07/2024) Medications Medication Sig Dispensed Refills Start Date [...] the morning. 90 Tablet 3 3 Active Montelukast Sodium 10 MG Oral Tablet (Singulair) Take 1 Tablet by mouth in the morning. 90 Tablet 3 4 Active hydroCHLOROthiazi de 12.5 MG Oral [...] to breakfast. 90 Capsule 3 4 Active Calcium 500 MG Oral TabletIndications :Vitamin D deficiency Take 1 Tablet by mouth in the morning and 1 Tablet before bedtime. With food.. 4 Active Vitamin B-12 1000 MCG Oral Tablet (Cyanocobalamin)I ndications:Vitami n B12 deficiency Take 1 Tablet by mouth in the morning. 4 Active LORazepam 0.5 MG Oral Tablet (Ativan)Indicatio ns:KAMALA (generalized anxiety disorder) Take 1 Tablet by [...] LEG SYNDROME 270 Tablet 3 4 Active rOPINIRole HCl 0.5 MG Oral Tablet (Requip)Indicatio ns:RLS (restless legs syndrome) TAKE 1 TABLET AT 5 P.M. AND TAKE 1 TABLET AT 9 P.M. CAN DOSE 1 ADDITIONAL TABLET NEEDED FOR RESTLESS LEG SYNDROME 270 Tablet 3 3 12/26/19 24 Discontinued Benzonatate 100 MG Oral Capsule (Haritha Jarquin)Indication s:Acute cough Take 1-2 capsules up to 3 times a day Do not cut, crush, or chew. 50 Capsule 1 3 02/02/20 24 Discontinued([facility] [place] preference/disc ontinuation) rOPINIRole HCl 0.5 MG Oral Tablet (Requip)Indicatio ns:RLS (restless legs syndrome) TAKE 1 TABLET AT 5 P.M. AND TAKE 1 TABLET AT 9 P.M. CAN DOSE 1 ADDITIONAL TABLET NEEDED FOR RESTLESS LEG SYNDROME 30 Tablet 3 12/26/19 24 Discontinued Levothyroxine Sodium 150 MCG Oral Tablet (Synthroid) Take 1 Tablet by mouth in the morning. (at least 30 min prior to breakfast or other meds) brand name Synthroid. 90 Tablet 3 4 02/05/20 24 Discontinued(Re fill) Gabapentin 800 MG Oral Tablet (Neurontin)Indica tions:RLS (restless legs syndrome) Take 1 tablet by mouth at 5pm for RLS 90 Tablet 4 01/23/20 24 Discontinued Vitamin D3 1.25 MG (11056 UT) Oral CapsuleIndication s:Vitamin D deficiency Take 1 Capsule by mouth once a week. 12 Capsule 4 02/04/20 24 Discontinued(Re fill) documented as of this encounter (statuses as of 02/07/2024) Active Problems Problem Noted Date Diagnosed Date [...] as of this encounter (statuses as of 02/07/2024) Resolved Problems Problem Noted Date Diagnosed Date Resolved Date Closed fracture of fifth met atarsal bone of left foot, sequela 05/14/2017 05/14/2017 documented as of this encounter (statuses as of 02/07/2024) Immunizations Name Administration Dates Next Due COVID-19 mRNA, LNP-s, No Pre serve, 2-Dose Series (Moderna) 11/01/2020,10/04/2020 COVID-19, MRNA-LNP, 23-24, P F, 30 MCG/0.3 mL, 12 YRS AND ABOVE, IM (Single Digits-Comirnaty) 06/22/2023 COVID-19, mRNA, LNP-s, PF, B ooster, 100mcg/0.5mg (Moderna) 01/16/2022,06/02/2021 Covid-19, Mrna, Lnp-s, Pf, B ivalent, 30 Mcg, IM, 12 yrs and above (ProZyme) 05/05/2022 Hepatitis B, 20+ yrs 05/17/2023,01/02/2023,11/09 Pneumococcal Conjugate Vacci ne, 20-valent ([id number]) 12/17/2023 Seasonal Influenza, PF, 6 M & [...] file Travel History Travel Start Travel End [place] 01/20/2024 01/30/2024 [place] 01/07/2024 01/20/2024 documented as of this encounter Miscellaneous Notes * Telephone Encounter - Jarad Ríos OSA - 02/07/2024 2:55 PM EDT 08/21 appt pool carson/ Mae * Telephone Encounter - Jarad Ríos OSA - 12/27/2023 12:43 PM EDT LMcell asking pt to return call to schedule appt - on recall list. * Telephone Encounter - Domo Allen CRNP - 12/26/2023 5:45 PM EDT Signed Prescriptions: Disp Refills rOPINIRole HCl 0.5 MG Oral Tablet (Requip) 270 Ta*3 Sig: TAKE 1 TABLET AT 5 P.M. AND TAKE 1 TABLET AT 9 P.M. CAN DOSE 1 ADDITIONAL TABLET NEEDED FOR RESTLESS LEG SYNDROME Authorizing Provider: DOMO ALLEN * Telephone Encounter - Domo Allen CRNP - 12/26/2023 5:45 PM EDT Schedule yearly follow-up due 07/2024. Last seen by Dr. Sue. documented in this encounter Plan of Treatment Upcoming Encounters Date Type Department Care Team (Late st Contact Info) Description 02/12/2024 1:00 PM EDT Office Visit General Internal Medicine [facility] [place] [address] [facility] [place] [address] Yamini Alamo MD [address] [facility] [place] [address] 06/17/2024 10:30 AM EST Office Visit Allergy/Immunology [facility] [place] [address] [facility] [place] [address] Cee Umanzor PA-C [address] [facility] [place] [address] 06/17/2024 1:30 PM EST Hospital Encounter ENDO OSS[facility], Endoscopy Room [facility] [address] [place] [phone] Nerissa Camp MD [address] [place] [address] 06/17/2024 1:30 PM EST - 06/17/2024 2:00 PM EST Surgery ENDO OSS[facility], Endoscopy Room [facility] [address] [place] [phone] Nerissa Camp MD [address] [place] [address] COLONOSCOPY FLEXIBLE PROXIMAL DIAGNOSTIC 06/24/2024 10:20 AM EST [facility] [address] [place] [address] Yamini Alamo MD [address] [facility] [address] 08/21/2024 4:30 PM EST Office Visit Sleep Disorders Ctr [facility] [address] [place] [phone] Domo Allen CRNP [address] [place] [address] 03/02/2025 10:15 AM EDT Office Visit Ophthalmology, [facility] [address] [place] [address] Oleksandr Price DO [address] [place] [address] Scheduled Procedures Name Priority Associated Diagnoses Date/Ti [...] 04/21/2021, Additional history exists Mammogram 05/29/2024 05/29/2023, 10/2021, 04/25/2021, Additional history exists GFR 12/10/2024 12/11/2023, 0 12/2022, 06/08/2022, Additional history exists HbA1c 12/10/2024 12/11/2023, 060 12/2022, 06/02/2015 TSH 12/10/2024 12/11/2023, 0 12/2022, 06/08/2022, Additional history exists DTaP,Tdap,and Td [...] polyps documented in this encounter Care Teams Nurse Epidemiologist Relationship Specialty Start Date End Date Yamini Alamo MD [address] [facility] [place] [address] PCP - General 02/04/10 documented as of this encounter
--- OUTSIDE RECORDS SUMMARY | 2024-02-17 22:29 | External Medical Summary | Summary of Care ---
Author Name Unknown Organization [facility] Address [address] [place] [address] Phone [phone] Care Team Providers Care Gas Appliance Installer Name Role Phone Yamini Alamo MD Primary Care Provider [phone] Reason for Visit * Reason Onset Date Comments Hospital Follow-Up 02/07/2024 JAMILAH Encounter Details Date Type Department Care Team (Late st Contact Info) Description 02/07/2024 Telephone General Internal Medicine [facility] [address] [facility] [address] Yamini Alamo MD [address] [place] [address] Hospital Follow-Up (JAMILAH) Allergies Active Allergy Reactions Criticality Noted Date [...] 3 01/23/2024 Active Vitamin D3 1.25 MG (18389 UT) Oral CapsuleIndications:V itamin D deficiency Take [...] yrs 05/17/2023,01/02/2023,11/09 Pneumococcal Conjugate Vacci ne, 20-valent ([id number]) 12/17/2023 Seasonal Influenza, PF, 6 M & [...] file Travel History Travel Start Travel End [place] 01/20/2024 01/30/2024 [place] 01/07/2024 01/20/2024 documented as of this encounter Miscellaneous Notes * Telephone Encounter - Janneth Dasilva RN - 02/07/2024 2:16 PM EDT Transitions of Care Note Reason for Referral:Recent Admission Phone visit for follow up: JAMILAH Admitted to: [facility], Date: 02/03/2024 Discharged to: Home, Date: 02/06/2024 Diagnosis driving hospitalization: Acute cholecystitis Source/Contact: Patient SUBJECTIVE Consent: Verbal consent for review of hospital discharge: Yes REVIEW OF SYSTEMS Patient/Other Reports: Current patient/caregiver problems or concerns: Patient states that she is doing really well. Patient states that she is using Advil to control pain. Denies N/V/D. CV: Denies problems Pulmonary: Denies problems Chills/Sweats/Fever:Denies chills/sweats Denies fever Appetite:Denies problems such as nausea, vomiting, burning, decreased appetite Current diet: soft, bland Bowel: denies problems date of last BM: 02/06/2024 Bladder: denies problems Wound (If applicable): Site-abdomen, Drainage-denies, Odor-denies, and Color- redness at incision atumbilicus is less red than when in the hospital Pain:Location- abdomen Intensity- 2 (Scale 0-10) Advil-decreases pain Current pain management effective: Yes Sleep:Denies problems FUNCTIONAL STATUS: ADL'S: Needs Assistance With:N/A as pt is independent IADL'S: Needs Assistance With:N/A as pt is independent Cognitive and Mental Health: denies problems, alert and oriented x 3, and able to communicate, understand instructions, process information. MEDICATION RECONCILIATION Medications: Discharge med list reviewed with patient or caregiver Reviewed and updated all prescription and OTC medications in Epic Reports all medications taken as prescribed. Denies side effects ASSESSMENT Medication Risk Assessment: No risks identified Did patient fail outpatient treatment? No Discharge instructions available for review? Yes PLAN Symptom Monitoring Interventions:Member/caregiver education - signs and symptoms to contact PrimaryCare (DO NOT DELETE-Three larkin symptoms patient is to report to PCP) 1. Fever/chills 2. Pain that is not controlled with current medications 3. N/V/D Radiology SupervisorTax Compliance Representative of Care interventions/Action Plan: Medication reconciliation and 5 - 7 day follow-up with PCP in place - Date: 02/12/2024 Educated on role of JAMILAH completed with patient/caregiver. Educated patient/caregiver on patient right to have input on JAMILAH plan of care. Verification of Home Health/DME if indicated: YES CPAP Identified Care Gaps: Yes Care Gaps closed this call: Appointment made or confirmed, Medication adherence, Medication optimization, Plan of care optimization, and Post discharge appointment Re-evaluation of Plan of Care and progress towards goals achievement: Patient education this visit: Verbal, see above Plan to follow-up as previously scheduled, instructed to call Primary Care Provider with change in symptoms or as needed before next follow-up, discharge needs met, verbalizes understanding and agrees with plan. Janneth Dasilva, RN documented in this encounter Plan of Treatment Upcoming Encounters Date Type Department Care Team (Late st Contact Info) Description 02/12/2024 1:00 PM EDT Office Visit General Internal Medicine [facility] [place] [address] [facility] [place] [address] Yamini Alamo MD [address] [facility] [place] [address] 06/17/2024 10:30 AM EST Office Visit Allergy/Immunology [facility] [place] [address] [facility] [place] [address] Cee Umanzor PA-C [address] [facility] [place] [address] 06/17/2024 1:30 PM EST Hospital Encounter ENDO OSSC, Endoscopy Room [facility] [address] [place] [phone] Nerissa Camp MD [address] [place] [address] 06/17/2024 1:30 PM EST - 06/17/2024 2:00 PM EST Surgery ENDO O[facility], Endoscopy Room [facility] [address] [place] [phone] Nerissa Camp MD [address] [place] [address] COLONOSCOPY FLEXIBLE PROXIMAL DIAGNOSTIC 06/24/2024 10:20 AM EST Office Visit General Internal Medicine [facility] [address] [facility] [place] [address] Yamini Alamo MD [address] [facility] [place] [address] 03/02/2025 10:15 AM EDT Office Visit Ophthalmology, [facility] [address] [place] [address] Oleksandr Price DO [address] [place] [address] Scheduled Procedures Name Priority Associated Diagnoses Date/Ti [...] 12/11/2023, 06/0 12/2022, 06/02/2015 TSH 12/10/2024 12/11/2023, 060 12/2022, 06/08/2022, Additional history exists DTaP,Tdap,and Td Vaccines (3 - Td or Tdap) 06/01/2025 06/01/2015, 05/08/2005 Albumin/Creatinine Ratio 01/02/2026 01/02/2023 Lipid Panel 12/10/2028 12/11/2023, 0612/2022, 06/08/2022, Additional history exists Zoster Vaccines Completed [...] filedocumented as of this encounter Care Teams Gas Appliance Installer Relationship Specialty Start Date End Date Yamini Alamo MD [address] [facility] [place] [address] PCP - General 02/04/10 documented as of this encounter
--- OUTSIDE RECORDS SUMMARY | 2024-02-17 22:29 | External Medical Summary | Summary of Care ---
Author Name Unknown Organization [facility] Address [address] [place] [address] Phone [phone] Care Team Providers Care Tool Builder Name Role Phone Yamini Alamo MD Primary Care Provider [phone] Reason for Visit * Reason Onset Date Comments Pre Cert/Prior Auth 02/07/2024 Synthroid Encounter Details Date Type Department Care Team (Late st Contact Info) Description 02/07/2024 Telephone General Internal Medicine [facility] [address] Yamini Alamo MD 200 [place] [address] Pre Cert/Prior Auth (Synthroid/) Allergies Active Allergy [...] as of this encounter (statuses as of 02/13/2024) Medications Medication Sig Dispensed Refills Start Date [...] 3 01/23/2024 Active Vitamin D3 1.25 MG (88838 UT) Oral CapsuleIndications:V itamin D deficiency Take [...] as of this encounter (statuses as of 02/13/2024) Active Problems Problem Noted Date Diagnosed Date [...] as of this encounter (statuses as of 02/13/2024) Resolved Problems Problem Noted Date Diagnosed Date Resolved Date Closed fracture of fifth met atarsal bone of left foot, sequela 05/14/2017 05/14/2017 documented as of this encounter (statuses as of 02/13/2024) Immunizations Name Administration Dates Next Due COVID-19 [...] yrs 05/17/2023,01/02/2023,11/09 Pneumococcal Conjugate Vacci ne, 20-valent ([id number]) 12/17/2023 Seasonal Influenza, PF, 6 M & [...] file Travel History Travel Start Travel End [place] 01/20/2024 01/30/2024 [place] 01/07/2024 01/20/2024 documented as of this encounter Miscellaneous Notes * Telephone Encounter - Marcin Ortiz CPhT - 02/13/2024 9:44 AM EDT Patient made aware of approval and to contact their mail order pharmacy. Left voicemail Thank you, Tyron Ortiz ([facility]) Electric Razor Mechanic III [facility] 02/13/2024, 9:44 AM * Telephone Encounter - Yamini Alamo MD - 02/13/2024 9:37 AM EDT Noted Thanks * Telephone Encounter - Marcin Ortiz CPhT - 02/13/2024 8:33 AM EDT Checked status of prior authorization for Synthroid 150MCG tablets through CM. Patient and pharmacy notified of approval. Approved until(if applicable): 02/09/25 Will follow up with patient shortly Thank you, Tyron Ortiz ([facility]) Electric Razor Mechanic III [facility] 02/13/2024, 8:33 AM * Telephone Encounter - Haven Guo MED ASSIST - 02/12/2024 10:19 AM EDT Prior auth required. Would you like to offer substitute or have prior auth completed? * Telephone Encounter - Marcin Ortiz CPhT - 02/12/2024 8:33 AM EDT Submitted information in previous note via CMM (Blue: [id number] ).. Awaiting payer response. We will follow-up with insurance starting 02/12. Per [facility] request, if no decision is received from insurance by 02/14, we will route back to the [facility] after clarifying with the pharmacy that the claim is still not processing. Thank you, Tyron Ortiz ([facility]) Electric Razor Mechanic III [facility] 02/12/2024, 8:33 AM * Telephone Encounter - Shari Shore [facility] - 02/11/2024 12:16 PM EDT Please submit [...] upon this and route back to the [facility] pool if no decision is made by the insurance by 02/14, after clarifying with the pharmacy that the claim is still not processing. If PA is denied, please also route back to [facility] pool. Thanks, Shari Shore, PharmD Clinical Pharmacist [facility] ([facility]) [phone] 02/11/2024 12:16 PM * Telephone Encounter - Marcin Ortiz CPhT - 02/11/2024 11:21 AM EDT This is a new [place] request. Upon review of this prior authorization request, I verified this request is appropriate. This is prescribed by a department for which [facility] is authorized to review prior authorizations This [...] note, there is nothing currently pending in [facility] for this request. Please advise how to proceed. Thank you, Tyron Ortiz (peanut sorter) Electric Razor Mechanic III [facility] 02/11/2024, 11:21 AM * Telephone Encounter - Carola Serrano PHARM Tech - 02/07/2024 1:45 PM EDT Pharmacy calling to inform doctor that the patient's insurance will not pay for this medication without a completed prior authorization. Did confirm this information with the pharmacy. Pt's current insurance information is as follows: Patient name: Mara Sanchez ID number: [id number] BIN number: [id number] PCN number: [id number] Group number: [id number] Subscriber name: Mara Sanchez Primary or Secondary Insurance:Primary Medication: synthroid 150 mcg tablet Reason for Request: not covered but pt wants brand and doctor wrote for brand Pharmacy and phone number: [email or web address] Rx plan and phone number: Ahaali [phone] Is this a new medication for the patient? Yes What alternative medications does the pharmacy have in stock?: Thank you, Carola Serrano [facility] Electric Razor Mechanic II [facility] 02/07/2024, 1:46 PM documented in this encounter Plan of Treatment Upcoming Encounters Date Type Department Care Team (Late st Contact Info) Description 06/17/2024 10:30 AM EST Office Visit Allergy/Immunology [place] [facility] [address] [place] [address] Cee Umanzor PA-C [address] [place] [address] 06/17/2024 1:30 PM EST Hospital Encounter ENDO [facility], Endoscopy Room [facility] [address] [place] [address] [place] [phone] Nerissa Camp MD [address] [place] [address] 06/17/2024 1:30 PM EST - 06/17/2024 2:00 PM EST Surgery ENDO [facility], Endoscopy Room [facility] [address] [place] [phone] Nerissa Camp MD [address] [place] [address] COLONOSCOPY FLEXIBLE PROXIMAL DIAGNOSTIC 06/24/2024 10:20 AM EST Office Visit General Internal Medicine [facility] [address] [facility] [place] [address] Yamini Alamo MD [address] [facility] [place] [address] 08/21/2024 4:30 PM EST Office Visit Sleep Disorders Ctr [facility] [address] [place] [phone] Dary Wall CRNP [address] [place] [address] 03/02/2025 10:15 AM EDT Office Visit Ophthalmology, [facility] [address] [place] [address] Oleksandr Price DO [address] [place] [address] Scheduled Procedures Name Priority Associated Diagnoses Date/Ti [...] filedocumented as of this encounter Care Teams Tool Builder Relationship Specialty Start Date End Date Yamini Alamo MD [address] [place], [place] [address] PCP - General 02/04/10 documented as of this encounter
--- OUTSIDE RECORDS SUMMARY | 2024-02-17 22:29 | External Medical Summary | Summary of Care ---
Author Name Unknown Organization [facility] Address [address] [place] [address] Phone [phone] Care Team Providers Care Assistant Manager Of Operations Name Role Phone Yamini Alamo MD Primary Care Provider [phone] Reason for Visit * Reason Onset Date Comments Pre Cert/Prior Auth 02/07/2024 Synthroid Encounter Details Date Type Department Care Team (Late st Contact Info) Description 02/07/2024 Telephone General Internal Medicine [facility] [address] Yamini Alamo MD 200 [facility] [place] [address] Pre Cert/Prior Auth (Synthroid/) Allergies Active Allergy [...] 3 01/23/2024 Active Vitamin D3 1.25 MG (75433 UT) Oral CapsuleIndications:V itamin D deficiency Take [...] yrs 05/17/2023,01/02/2023,11/09 Pneumococcal Conjugate Vacci ne, 20-valent ([id number]) 12/17/2023 Seasonal Influenza, PF, 6 M & [...] file Travel History Travel Start Travel End [place] 01/20/2024 01/30/2024 [place] 01/07/2024 01/20/2024 documented as of this encounter Miscellaneous Notes * Telephone Encounter - Haven Guo, MED ASSIST - 02/12/2024 10:19 AM EDT Prior auth required. Would you like to offer substitute or have prior auth completed? * Telephone Encounter - Marcin Ortiz CPhT - 02/12/2024 8:33 AM EDT Submitted information in previous note via CMM (Blue: [id number] ).. Awaiting payer response. We will follow-up with insurance starting 02/12. Per [facility] request, if no decision is received from insurance by 02/14, we will route back to the [facility] after clarifying with the pharmacy that the claim is still not processing. Thank you, Tyron Ortiz ([facility]) Premium Auditor III [facility] ([facility]) 02/12/2024, 8:33 AM * Telephone Encounter - Shari Shore [facility] - 02/11/2024 12:16 PM EDT [...] this and route back to the [facility] pool if no decision is made by the insurance by 02/14, after clarifying with the pharmacy that the claim is still not processing. If PA is denied, please also route back to [facility] pool. Thanks, Shari Shore, PharmD Clinical Pharmacist [facility] ([facility]) [phone] 02/11/2024 12:16 PM * Telephone Encounter - Marcin Ortiz CPhT - 02/11/2024 11:21 AM EDT This is a new PA request. Upon review of this prior authorization request, I verified this request is appropriate. This is prescribed by a department for which [facility] is authorized to review prior [...] note, there is nothing currently pending in [facility] for this request. Please advise how to proceed. Thank you, Tyron Ortiz ([facility]) Premium Auditor III [facility] ([facility]) 02/11/2024, 11:21 AM * Telephone Encounter - Carola Serrano PHARM Tech - 02/07/2024 1:45 PM EDT Pharmacy calling to inform doctor that the patient's insurance will not pay for this medication without a completed prior authorization. Did confirm this information with the pharmacy. Pt's current insurance information is as follows: Patient name: Mara Sanchez ID number: [id number] BIN number: [id number] PCN number: [id number] Group number: [id number] Subscriber name: Mara Sanchez Primary or Secondary Insurance:Primary Medication: synthroid 150 mcg tablet Reason for Request: not covered but pt wants brand and doctor wrote for brand Pharmacy and phone number: [facility] Rx plan and phone number: [employer] [phone] Is this a new medication for the patient? Yes What alternative medications does the pharmacy have in stock?: Thank you, Carola Serrano [facility] Premium Auditor II [facility] ([facility]) 02/07/2024, 1:46 PM documented in this encounter Plan of Treatment Upcoming Encounters Date Type Department Care Team (Late st Contact Info) Description 02/12/2024 1:00 PM EDT Office Visit General Internal Medicine [facility] [address] [place] [address] Yamini Alamo MD [address] [place] [address] 06/17/2024 10:30 AM EST Office Visit Allergy/Immunology [facility] [place] [address] [place] [address] Cee Umanzor PA-C 200 [facility] [place] [address] 06/17/2024 1:30 PM EST Hospital Encounter ENDO OSS[facility], Endoscopy Room O[facility] [address] [place] [phone] Nerissa Camp MD [address] [place] [address] 06/17/2024 1:30 PM EST - 06/17/2024 2:00 PM EST Surgery ENDO [facility], Endoscopy Room [facility] [address] [place] [phone] Nerissa Camp MD [address] [place] [address] COLONOSCOPY FLEXIBLE PROXIMAL DIAGNOSTIC 06/24/2024 10:20 AM EST Office Visit General Internal Medicine [facility] [place] [address] [place] [address] [address] Yamini Alamo MD [address] [place] [address] [address] 08/21/2024 4:30 PM EST Office Visit [facility] [place] [address] [place] [address] Dary Wall CRNP [address] [place] [address] 03/02/2025 10:15 AM EDT Office Visit Ophthalmology, [facility] [address] [place] [address] Oleksandr Price DO [address] [place] [address] Scheduled Procedures Name Priority Associated Diagnoses Date/Ti me COLONOSCOPY FLEXIBLE PROXIMAL DIAGNOSTIC Recall History of colon polyps 06/17/2024 1:30 PM EST Health Maintenance Due Date Last Done Comments Cologuard 2010 Sigmoidoscopy 2010 Fecal Occult Blood Test 06/09/2011 06/09/2010 Depression Monitoring 10/06/2022 10/06/2021 Colonoscopy 03/07/2024 03/07/2021, 030 01/2018, 12/05/2016, Additional history exists Colorectal Cancer [...] filedocumented as of this encounter Care Teams Assistant Manager Of Operations Relationship Specialty Start Date End Date Yamini Alamo MD 200 [facility] [place] [address] PCP - General 02/04/10 documented as of this encounter
--- OUTSIDE RECORDS SUMMARY | 2024-02-17 22:29 | External Medical Summary | Summary of Care ---
Author Name Unknown Organization [facility] Address [address] [place] [address] Phone [phone] Care Team Providers Care Home Delivery Driver Name Role Phone Yamini Alamo MD Primary Care Provider [phone] Reason for Visit * Reason Onset Date Comments Pre Cert/Prior Auth 02/07/2024 Synthroid Encounter Details Date Type Department Care Team (Late st Contact Info) Description 02/07/2024 Telephone General Internal Medicine [facility] [address] Yamini Alamo MD 200 [place] [address] Pre Cert/Prior Auth (Synthroid/) Allergies Active Allergy [...] 3 01/23/2024 Active Vitamin D3 1.25 MG (50148 UT) Oral CapsuleIndications:V itamin D deficiency Take [...] yrs 05/17/2023,01/02/2023,11/09 Pneumococcal Conjugate Vacci ne, 20-valent ([id number]) 12/17/2023 Seasonal Influenza, PF, 6 M & [...] file Travel History Travel Start Travel End [place] 01/20/2024 01/30/2024 [place] 01/07/2024 01/20/2024 documented as of this encounter Miscellaneous Notes * Telephone Encounter - Marcin Ortiz CPhT - 02/13/2024 8:33 AM EDT Checked status of prior authorization for Synthroid 150MCG tablets through CMM. Patient and pharmacy notified of approval. Approved until(if applicable): 02/09/25 Will follow up with patient shortly Thank you, Tyron Ortiz ([facility]) Principal Account Clerk III [facility] ([facility]) 02/13/2024, 8:33 AM * Telephone Encounter - Haven Guo, [employer] - 02/12/2024 10:19 AM EDT Prior auth required. Would you like to offer substitute or have prior auth completed? * Telephone Encounter - Marcin Ortiz CPhT - 02/12/2024 8:33 AM EDT Submitted information in previous note via [facility] (Blue: [id number] ).. Awaiting payer response. We will follow-up with insurance starting 02/12. Per [facility] request, if no decision is received from insurance by 02/14, we will route back to the [facility] after clarifying with the pharmacy that the claim is still not processing. Thank you, Tyron Ortiz ([facility]) Principal Account Clerk III [facility] ([facility]) 02/12/2024, 8:33 AM * Telephone Encounter - Shari Shore [facility] - 02/11/2024 12:16 PM EDT Please submit [...] this and route back to the [facility] pool if no decision is made by the insurance by 02/14, after clarifying with the pharmacy that the claim is still not processing. If PA is denied, please also route back to [facility] pool. Thanks, Shari Shore PharmD Clinical Pharmacist [facility] ([facility]) [phone] 02/11/2024 12:16 PM * Telephone Encounter - Marcin Ortiz CPhT - 02/11/2024 11:21 AM EDT This is a new PA request. Upon review of this prior authorization request, I verified this request is appropriate. This is prescribed by a department for which [facility] is authorized to review prior [...] note, there is nothing currently pending in [facility] for this request. Please advise how to proceed. Thank you, Tyron Ortiz ([facility]) Principal Account Clerk III [facility] ([facility]) 02/11/2024, 11:21 AM * Telephone Encounter - Carola Serrano PHARM Tech - 02/07/2024 1:45 PM EDT Pharmacy calling to inform doctor that the patient's insurance will not pay for this medication without a completed prior authorization. Did confirm this information with the pharmacy. Pt's current insurance information is as follows: Patient name: Mara Sanchez ID number: [id number] BIN number: [id number] PCN number: [id number] Group number: [id number] Subscriber name: Mara Sanchez Primary or Secondary Insurance:Primary Medication: synthroid 150 mcg tablet Reason for Request: not covered but pt wants brand and doctor wrote for brand Pharmacy and phone number: [facility] Rx plan and phone number: Miguel A [employer]ge[employer] [phone] Is this a new medication for the patient? Yes What alternative medications does the pharmacy have in stock?: Thank you, Carola Serrano [facility] Principal Account Clerk II [facility] ([facility]) 02/07/2024, 1:46 PM documented in this encounter Plan of Treatment Upcoming Encounters Date Type Department Care Team (Late st Contact Info) Description 06/17/2024 10:30 AM EST Office Visit Allergy/Immunology [facility] [place] 200 [facility] [place] [address] Cee Umanzor PA-C 200 [facility] [place] [address] 06/17/2024 1:30 PM EST Hospital Encounter ENDO [facility], Endoscopy Room [facility] [address] [place] [phone] Nerissa Camp MD [address] [place] [address] 06/17/2024 1:30 PM EST - 06/17/2024 2:00 PM EST Surgery ENDO [facility], Endoscopy Room [facility] [address] [place] [phone] Nerissa Camp MD [address] [place] [address] COLONOSCOPY FLEXIBLE PROXIMAL DIAGNOSTIC 06/24/2024 10:20 AM EST Office Visit General Internal Medicine [facility] [place] 200 [facility] [place] [address] Yamini Alamo MD [address] [place] [address] 08/21/2024 4:30 PM EST Office Visit [facility] Disorders Ctr [facility] [address] [place] [phone] Dary Wall CRNP [address] [place] [address] 03/02/2025 10:15 AM EDT Office Visit Ophthalmology, Health system [address] [place] [address] Oleksandr Price DO [address] [place] [address] Scheduled Procedures Name Priority Associated Diagnoses Date/Ti [...] 12/11/2023, 0 12/2022, 06/02/2015 TSH 12/10/2024 12/11/2023, 0 12/2022, [...] filedocumented as of this encounter Care Teams Home Delivery Driver Relationship Specialty Start Date End Date Yamini Alamo MD 200 [facility] [place] [address] PCP - General 02/04/10 documented as of this encounter
--- OUTSIDE RECORDS SUMMARY | 2024-02-17 22:29 | External Medical Summary | Summary of Care ---
Author Name Unknown Organization [facility] Address [address] [place] [address] Phone [phone] Care Team Providers Care Manager Store Name Role Phone Yamini Alamo MD Primary Care Provider [phone] Reason for Visit * Reason Onset Date Comments Pre Cert/Prior Auth 02/07/2024 Synthroid Encounter Details Date Type Department Care Team (Late st Contact Info) Description 02/07/2024 Telephone General Internal Medicine [facility] [address] Yamini Alamo MD 200 [place] [address] Pre Cert/Prior Auth (Synthroid/) Allergies Active Allergy [...] 3 01/23/2024 Active Vitamin D3 1.25 MG (09347 UT) Oral CapsuleIndications:V itamin D deficiency Take [...] yrs 05/17/2023,01/02/2023,11/09 Pneumococcal Conjugate Vacci ne, 20-valent ([id number]) 12/17/2023 Seasonal Influenza, PF, 6 M & [...] file Travel History Travel Start Travel End [place] 01/20/2024 01/30/2024 [place] 01/07/2024 01/20/2024 documented as of this encounter [...] with patient shortly Thank you, Tyron Ortiz ([facility]) Science Liaison III [facility] ([facility]) 02/13/2024, 8:33 AM * Telephone Encounter - Haven Guo MED [employer] - 02/12/2024 10:19 AM EDT Prior auth required. Would you like to offer substitute or have prior auth completed? * Telephone Encounter - Marcin Ortiz CPhT - 02/12/2024 8:33 AM EDT Submitted information in previous note via CM (Blue: [id number] ).. Awaiting payer response. We will follow-up with insurance starting 02/12. Per [facility] request, if no decision is received from insurance by 02/14, we will route back to the [facility] after clarifying with the pharmacy that the claim is still not processing. Thank you, Tyron Ortiz ([facility]) Science Liaison III [facility] ([facility]) 02/12/2024, 8:33 AM * Telephone Encounter - Shari Shore [facility] - 02/11/2024 12:16 PM EDT Please [...] upon this and route back to the [facility] pool if no decision is made by the insurance by 02/14, after clarifying with the pharmacy that the claim is still not processing. If PA is denied, please also route back to [facility] pool. Thanks, Shari Shore PharmD Clinical Pharmacist [facility] ([facility]) [phone] 02/11/2024 12:16 PM * Telephone Encounter - Marcin Ortiz CPhT - 02/11/2024 11:21 AM EDT This is a new PA request. Upon review of this prior authorization request, I verified this request is appropriate. This is prescribed by a department for which [facility] is authorized to review prior authorizations [...] note, there is nothing currently pending in [facility] for this request. Please advise how to proceed. Thank you, Tyron Ortiz (microgr[employer] operator) Science Liaison III [facility] ([facility]) 02/11/2024, 11:21 AM * Telephone Encounter - Carola Serrano PHARM Tech - 02/07/2024 1:45 PM EDT Pharmacy calling to inform doctor that the patient's insurance will not pay for this medication without a completed prior authorization. Did confirm this information with the pharmacy. Pt's current insurance information is as follows: Patient name: Mara Sanchez ID number: [id number] BIN number: [id number] PCN number: [id number] Group number: [id number] Subscriber name: Mara Sanchez Primary or Secondary Insurance:Primary Medication: synthroid 150 mcg tablet Reason for Request: not covered but pt wants brand and doctor wrote for brand Pharmacy and phone number: [facility] Rx plan and phone number: [employer] [phone] Is this a new medication for the patient? Yes What alternative medications does the pharmacy have in stock?: Thank you, Carola Serrano [facility] Science Liaison II [facility] ([facility]) 02/07/2024, 1:46 PM documented in this encounter Plan of Treatment Upcoming Encounters Date Type Department Care Team (Late st Contact Info) Description 06/17/2024 10:30 AM EST Office Visit Allergy/Immunology [place] [address] [place] [address] Cee Umanzor PA-C 200 [facility] [place] [address] 06/17/2024 1:30 PM EST Hospital Encounter ENDO OSS[facility], Endoscopy Room OSS [address] [place] [phone] Nerissa Camp MD [address] [place] [address] 06/17/2024 1:30 PM EST - 06/17/2024 2:00 PM EST Surgery ENDO OSS[facility], Endoscopy Room OSS [address] [place] [phone] Nerissa Camp MD [address] [place] [address] COLONOSCOPY FLEXIBLE PROXIMAL DIAGNOSTIC 06/24/2024 10:20 AM EST Office Visit General Internal Medicine [facility] 200 [facility] [place] [address] Yamini Alamo MD 200 [facility] [place] [address] 08/21/2024 4:30 PM EST Office Visit [facility] Disorders Ctr [facility] [address] [place] [phone] Dary Wall CRNP [address] [place] [address] 03/02/2025 10:15 AM EDT Office Visit Ophthalmology, [facility] [address] [place] [address] Oleksandr Price DO [address] [place] [address] Scheduled Procedures Name Priority Associated Diagnoses Date/Ti [...] 04/25/2021, Additional history exists GFR 12/10/2024 12/11/2023, 12/2022, 06/08/2022, Additional history exists HbA1c 12/10/2024 [...] filedocumented as of this encounter Care Teams Manager Store Relationship Specialty Start Date End Date Yamini Alamo MD 200 [facility] [place] [address] PCP - General 02/04/10 documented as of this encounter
--- OUTSIDE RECORDS SUMMARY | 2024-02-17 22:29 | External Medical Summary | Summary of Care ---
Author Name Unknown Organization [facility] Address [address] [place] [address] Phone [phone] Care Team Providers Care Project Development Coordinator Name Role Phone Yamini Alamo MD Primary Care Provider [phone] Encounter Details Date Type Department Care Team (Late st Contact Info) Description 02/05/2024 Orders Only PATIENT PORTAL DO NOT DELETE THIS DEPT USED BY [place]LIE ALBERT [id number] Allergies Active Allergy Reactions Criticality Noted Date [...] as of this encounter (statuses as of 02/05/2024) Medications Medication Sig Dispensed Refills Start Date [...] 08/14/2023 Active hydroCHLOROthiazide 12.5 MG Oral Capsule (Hydrodiuril)Indica [...] 3 12/11/2023 Active Vitamin D3 1.25 MG (60704 UT) Oral CapsuleIndications: Vitamin D deficiency Take 1 Capsule by mouth once a week. 12 Capsule 12/17/2023 04/26/2024 Active Calcium 500 MG Oral TabletIndications:V itamin [...] 12/26/2023 Active Gabapentin 800 MG Oral Tablet (Neurontin)Indicati ons:RLS (restless legs syndrome) TAKE 1 TABLET AT 5 P.M. FOR RESTLESS LEG SYNDROME 90 Tablet 3 01/23/2024 Active documented as of this encounter (statuses as of 02/05/2024) Active Problems Problem Noted Date Diagnosed Date [...] as of this encounter (statuses as of 02/05/2024) Resolved Problems Problem Noted Date Diagnosed Date Resolved Date Closed fracture of fifth met atarsal bone of left foot, sequela 05/14/2017 05/14/2017 documented as of this encounter (statuses as of 02/05/2024) Immunizations Name Administration Dates Next Due COVID-19 mRNA, LNP-s, No Pre serve, 2-Dose Series (Moderna) 11/01/2020,10/04/2020 COVID-19, MRNA-LNP, 23-24, P F, 30 MCG/0.3 mL, 12 YRS AND ABOVE, IM ([email or web address]) 06/22/2023 COVID-19, mRNA, LNP-s, PF, B ooster, 100mcg/0.5mg (Moderna) 01/16/2022,06/02/2021 Covid-19, Mrna, Lnp-s, Pf, B ivalent, 30 Mcg, IM, 12 yrs and above (Pfizer) 05/05/2022 Hepatitis B, 20+ yrs 05/17/2023,01/02/2023,11/09 Pneumococcal Conjugate Vacci ne, 20-valent ([id number]) 12/17/2023 Seasonal Influenza, PF, 6 M & [...] file Travel History Travel Start Travel End [place] 01/20/2024 01/30/2024 [place] 01/07/2024 01/20/2024 documented as of this encounter Plan of Treatment Upcoming Encounters Date Type Department Care Team (Late st Contact Info) Description 06/17/2024 10:30 AM EST Office Visit Allergy/Immunology [place] [facility] [place] [address] [place] [address] Cee Umanzor PA-C [address] [place] [address] [address] 06/17/2024 1:30 PM EST Hospital Encounter ENDO [facility], Endoscopy Room [facility] [address] [place] [phone] Nerissa Camp MD [address] [place] [address] 06/17/2024 1:30 PM EST - 06/17/2024 2:00 PM EST Surgery ENDO [facility], Endoscopy Room [facility] [address] [place] [phone] Nerissa Camp MD [address] [place] [address] COLONOSCOPY FLEXIBLE PROXIMAL DIAGNOSTIC 06/24/2024 10:20 AM EST Office Visit General Internal Medicine [facility] 200 [facility] [place] [address] Yamini Alamo MD [address] [place] [address] 03/02/2025 10:15 AM EDT Office Visit Ophthalmology, [facility] [address] [place] [address] Oleksandr Price DO [address] [place] [address] Scheduled Procedures Name Priority Associated Diagnoses Date/Ti [...] Ratio 01/02/2026 01/02/2023 Lipid Panel 12/10/2028 12/11/2023, 0 12/2022, 06/08/2022, Additional history exists Zoster Vaccines [...] filedocumented as of this encounter Care Teams Project Development Coordinator Relationship Specialty Start Date End Date Yamini Alamo MD [address] [place] [address] PCP - General 02/04/10 documented as of this encounter
--- NOTE | 2024-02-17 22:35 | Emergency Department Note ---
History of Present Illness General Chief complaint: Abdominal Pain Time Seen by Provider: 02/17/24 22:24 History of Present Illness This 58-year-old female had a gallbladder removed 14 days ago presents ER complaining of subjective fever, chills upper abdominal pain for the past day steadily getting worse. Patient has vomiting, diarrhea, cough, congestion, flulike illness. Patient states she is doing better from the surgery but developed new symptoms yesterday. Home Medications Medication Instructions Recorded Confirmed Type fluoxetine 20 mg capsule 20 mg PO QAM 04/28/20 02/18/24 History fluoxetine 40 mg capsule 40 mg PO QAM 04/28/20 02/18/24 History fluticasone propionate 50 2 spray intranasal BID 04/28/20 02/18/24 History mcg/actuation nasal spray,suspension lisinopril 5 mg tablet 5 mg PO QAM 04/28/20 02/18/24 History lorazepam 0.5 mg tablet 0.5 mg PO TID PRN Anxiety 04/28/20 02/18/24 History montelukast 10 mg tablet 10 mg PO QAM 04/28/20 02/18/24 History omeprazole 20 mg capsule,delayed 20 mg PO DAILY Acid Reflux 04/28/20 02/18/24 History release ropinirole 0.5 mg tablet See Rx Instructions .Route .COMPLEX 04/28/20 02/18/24 History magnesium oxide 250 mg PO QAM 03/02/21 02/18/24 History albuterol sulfate 90 mcg/actuation 2 puff inhalation Q4H PRN 02/03/24 02/18/24 History aerosol inhaler Shortness Of Breath Or Wheezing atomoxetine 40 mg capsule 40 mg PO DAILY 02/03/24 02/18/24 History azelastine 137 mcg (0.1 %) nasal 2 spray intranasal BID 02/03/24 02/18/24 History spray fexofenadine 180 mg tablet 180 mg PO DAILY 02/03/24 02/18/24 History gabapentin 800 mg tablet 800 mg PO QDD 02/03/24 02/18/24 History hydrochlorothiazide 12.5 mg capsule 12.5 mg PO DAILY 02/03/24 02/18/24 History levothyroxine 150 mcg tablet 150 mcg PO DAILY 02/03/24 02/18/24 History (Synthroid) tramadol 50 mg tablet 50 mg PO Q6H PRN pain, for initial 02/06/24 02/18/24 Rx therapy, max 6 tabs/day #15 tabs calcium carbonate 600 mg-vitamin 1 tab PO BID 02/18/24 02/18/24 History D3 10 mcg (400 unit) tablet (Calcium 600 + D(3)) potassium citrate 99 mg capsule 99 mg PO QAM 02/18/24 02/18/24 History Allergies Allergy/AdvReac Type Severity Reaction Status Date / Time amoxicillin Allergy Intermediate HIVES. Verified 02/18/24 00:00 ITCHING celecoxib Allergy Intermediate HIVES Verified 02/18/24 00:00 clavulanic acid Allergy Intermediate HIVES, Verified 02/18/24 00:00 ITCHING hydrocodone Allergy Intermediate "really Verified 02/18/24 00:00 itchy" lactose Allergy Intermediate LACTOSE Verified 02/18/24 00:00 INTOLERANCE levofloxacin Allergy Intermediate HIVES Verified 02/18/24 00:00 moxifloxacin Allergy Intermediate HIVES Verified 02/18/24 00:00 oxycodone Allergy Intermediate HIVES Verified 02/18/24 00:00 paroxetine Allergy Intermediate HIVES Verified 02/18/24 00:00 Sulfa (Sulfonamide Allergy Intermediate EDEMA,BLISTERS Verified 02/18/24 00:00 Antibiotics) in mouth acetaminophen Allergy Mild Facial Verified 02/18/24 00:00 flushing adhesive Allergy Mild TAPE-REDNES Verified 02/18/24 00:00 S Penicillins Allergy Unknown ALLERGIC Verified 02/18/24 00:00 PER TESTING cetirizine AdvReac Intermediate PSYCHIATRIC Verified 02/18/24 00:00 REACTION guaifenesin AdvReac Intermediate PSYCHIATRIC Verified 02/18/24 00:00 REACTION pseudoephedrine AdvReac Intermediate PSYCHIATRIC Verified 02/18/24 00:00 REACTION Past Med/Surg History Problem List (Updated 02/18/24 @ 00:46 by Ivanna Martínez PA-C) Hx laparoscopic cholecystectomy (Acute) Acute abdominal pain (Acute) Elevated liver enzymes (Acute) Hypokalemia Sleep apnea cpap Hypothyroidism Essential hypertension Acute cholecystitis (Acute) Colon cancer screening Fibroid, uterine (Acute 06/19/14) Medical History Prediabetes Oral allergy syndrome ADHD (attention deficit hyperactivity disorder), combined type KAMALA (generalized anxiety disorder) Dyslipidemia GERD (gastroesophageal reflux disease) IBS (irritable bowel syndrome) 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 Depression Anxiety History of anesthesia reaction during colonoscopy in 2017 at [facility] pt had an esophageal spasm and procedure was aborted, pt had a colonoscopy at [facility] 2018 without any issues Surgical History Hx laparoscopic cholecystectomy (02/04/24) Laparoscopic Cholecystectomy (Not Applicable) - Theo Hernandez DO History of endometrial ablation History of elbow surgery right radial History of foot surgery left--bone spurs History of ankle surgery right release of achilles tendon History of Achilles tendon repair right Status post trigger finger release bilt thumbs History of repair of right rotator cuff x2 History of hysterectomy History of wisdom tooth extraction History of sinus surgery History of colonoscopy Family History Other Family history not known due to adoption Social History Smoking Status: Never smoker Second Hand Exposure: No; Do You Dip or Chew Tobacco: No; Hx Alcohol Use: No Hx Substance Use: No Preferred Language: Icelandic Communication Ability: Effective 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 Beliefs That Will Affect Care: None Current Living Situation: Alone Feels Safe at Home: Yes Assistive Devices: None Review of Systems A total of 10 systems reviewed and were otherwise negative Physical Exam Vital Signs Vital Signs - 24 hr 02/17/24 22:29 02/17/24 22:34 02/17/24 22:38 Temperature 36.7 C Temperature Source Oral Pulse Rate 77 77 Pulse Rate [Apical] 77 Pulse Rhythm Regular Regular Pulse Rhythm [Apical] Regular Pulse Strength Normal Pulse Strength [Apical] Normal Respiratory Rate 18 18 18 Respiratory Effort / Characteristics Non-Labored Spontaneous Non-Labored Spontaneous Respiratory Depth Normal Normal Respiratory Pattern Regular Regular Blood Pressure 161/95 H Blood Pressure [Left Arm] 161/95 H Blood Pressure Mean 117 Blood Pressure Mean [Left Arm] 117 Blood Pressure Position Sitting Blood Pressure Position [Left Arm] Lying Pulse Oximetry 98 98 100 Oxygen Delivery Method Room Air Room Air Room Air Sepsis Recent Fever Within 48 Hours No Sepsis New/Unexplained Change in Mental Status No Sepsis Action Taken by Nursing No Action Required VITALS: Vitals are noted on the nurse's note and reviewed by myself. Vital signs stable. GENERAL: Pleasant female, in no acute distress, nondiaphoretic, well-developed well-nourished. SKIN: Capillary reflex less than 2 seconds. HEENT: Normocephalic. PERRLA. EOMI. Nares patent. Mucous membranes moist. Neck is supple without nuchal rigidity. HEART: Regular rate and rhythm LUNGS: Clear to auscultation bilaterally without wheezes, rales or rhonchi. No retractions or accessory muscle use. ABDOMEN: Positive bowel sounds x 4. Normal tympanic percussion. Soft, tender right upper quadrant, without masses or organomegaly. Osborn sign negative. No guarding or rebound tenderness. no CVA tenderness, healing surgical scars without palpable abscess from recent cholecystectomy MUSCULOSKELETAL: No gross musculoskeletal defects. NEURO: Patient was alert and oriented to person place and time. No focal neurological deficits. Course Administered Medications Fentanyl Citrate (Fentanyl Citrate Pf 100 Mcg/2 Ml Vial) 50 mcg IV Q15M PRN PRN Reason: Pain Stop: 03/02/24 22:28 Last Admin: 02/18/24 00:37 Dose: 50 mcg Documented By: Admin: 02/17/24 22:36 Dose: 50 mcg Documented By: DULCE Discontinued Medications Sodium Chloride (Nss) 1,000 mls @ 999 mls/hr IV .Q1H1M STA Stop: 02/17/24 23:29 Last Infusion: 02/18/24 00:34 Dose: Infused Documented By: Admin: 02/17/24 22:44 Dose: 999 mls/hr Documented By: DULCE Ioversol (Optiray 320 125ml) 125 ml IV ONCE ONE Stop: 02/17/24 23:00 Last Admin: 02/17/24 22:59 Dose: 118 ml Documented By: DORINA Medical Decision Making Medical Records Attestation: I reviewed the patient's medical records. Home Medications Current Medication List: was personally reviewed by me Laboratory Data Attestation: I reviewed the patient's lab results. 02/17/24 22:28 02/17/24 22:28 Lab Results 02/17/24 02/17/24 02/17/24 Range/Units 22:28 22:28 22:32 WBC 6.69 (4.8-10.8) K/ul RBC 4.29 (4.20-5.40) M/uL Hgb 13.0 (12.0-16.0) g/dl POC Hgb 13.3 (12.0-16.0) g/dl Hct 38.1 (37.0-47.0) % POC Hct 39 (37-47) % MCV 88.8 (80.0-100.0) fL MCH 30.3 (25.0-34.0) pg MCHC 34.1 (32.0-36.0) g/dL RDW Std Deviation 38.5 (36.4-46.3) fL RDW Coeff of David 12.0 (11.5-14.5) % Plt Count 230 (130-400) K/uL MPV 12.4 (9.4-12.4) fL Immature Gran % (Auto) 0.7 % Neut % (Auto) 72.0 % Lymph % (Auto) 14.8 % Bates % (Auto) 7.3 % Eos % (Auto) 3.7 % Baso % (Auto) 1.5 % Neut # (Auto) 4.81 (1.40-6.50) K/uL Lymph # (Auto) 0.99 L (1.20-3.40) K/uL Bates # (Auto) 0.49 (0.11-0.59) K/uL Eos # (Auto) 0.25 (0.00-0.50) K/uL Baso # (Auto) 0.10 (0.00-0.20) K/uL Immature Gran # (Auto) 0.05 (0.01-0.20) K/uL POC Sodium 138 (135-144) mmol/L Sodium 137 (136-145) mmol/L POC Potassium 3.3 (3.3-5.0) mmol/L Potassium 3.3 L (3.5-5.1) mmol/L POC Chloride 100 L (101-112) mmol/L Chloride 99 (98-107) mmol/L Carbon Dioxide 21 (21-32) mmol/L POC Total CO2 21 L (24-31) mmol/L Anion Gap 17 H (3-11) POC Anion Gap 20.0 (16-25) mmol/L POC BUN 7 (7-18) mg/dl BUN 9 (6-23) mg/dl Creatinine 1.24 H (0.6-1.2) mg/dl POC Creatinine 1.3 (0.6-1.3) mg/dl Est Cr Clr Drug Dosing 69.0 ml/min Est GFR ( Amer) 55.4 ml/min Est GFR (Non-Af Amer) 47.8 ml/min BUN/Creatinine Ratio 7.3 L (10-20) Glucose 181 H (70-99(Fasting)) mg/dl POC Glucose (other) 184 H (70-99) mg/dl Calcium 9.9 (8.6-10.3) mg/dl POC Ioniz Calcium Meghna 1.04 L (1.12-1.32) mmol/l Total Bilirubin 4.2 H (0.2-1.0) mg/dl AST 309 H (13-39) U/L ALT 590 H (7-52) U/L Alkaline Phosphatase 364 H (34-104) U/L Troponin I High Sens 5.0 Cancelled (0-14) pg/ml Total Protein 7.3 (6.0-8.3) gm/dl Albumin 4.3 (3.4-5.0) gm/dl Globulin 3.0 (2.5-4.0) gm/dl Albumin/Globulin Ratio 1.4 (0.9-2) Lipase 25 (11-82) U/L Imaging Data Attestation: I personally reviewed and interpreted this imaging study as follows: Radiologist's Impression: Chest CTA 02/17/24 22:29 Exam(s): CTA CHEST IV Amt: 118 ml optiray 320 EXAM: CT Angiography Chest With Intravenous Contrast CLINICAL HISTORY: Reason for exam: PE, recent OR, fever. TECHNIQUE: Axial computed tomographic angiography images of the chest with intravenous contrast. CTDI is 27.74 mGy and DLP is 1450.66 mGy-cm. Automated exposure control was utilized for the study. A dose lowering technique was utilized adhering to the principles of ALARA. MIP reconstructed images were created and reviewed. COMPARISON: No relevant prior studies available. FINDINGS: Pulmonary arteries: Adequate pulmonary artery opacification. Enlarged main pulmonary artery suggesting pulmonary arterial hypertension. No pulmonary embolism. Aorta: No acute findings. No aortic aneurysm or dissection. Lungs: Unremarkable. No mass. No consolidation. Pleural space: Unremarkable. No significant effusion. No pneumothorax. Heart: Unremarkable. No cardiomegaly. No significant pericardial effusion. No evidence of RV dysfunction. Bones/joints: No acute fracture. No dislocation. Soft tissues: Unremarkable. Lymph nodes: Unremarkable. No adenopathy. IMPRESSION: 1. No pulmonary embolism. 2. Enlarged main pulmonary artery suggesting pulmonary arterial hypertension. Electronically signed by: J Carlos Lamb M.D. 02/18/24 00:38 AM Abdomen/Pelvis CT 02/17/24 22:30 Exam(s): CT ABDOMEN + PELVIS With Contrast IV Amt: 118 ml optiray 320 EXAM: CT Abdomen and Pelvis With Intravenous Contrast CLINICAL HISTORY: Reason for exam: upper abd pain, cholecystectomy 2 wks ago, fever. TECHNIQUE: Axial computed tomography images of the abdomen and pelvis with intravenous contrast. CTDI is 27.74 mGy and DLP is 1450.66 mGy-cm. Automated exposure control was utilized for the study. A dose lowering technique was utilized adhering to the principles of ALARA. CONTRAST: Patient received 118 ml optiray 320 of IV contrast COMPARISON: No relevant prior studies available. FINDINGS: Lung bases: Unremarkable. No mass. No consolidation. ABDOMEN: Liver: Unremarkable. No mass. Gallbladder and bile ducts: Cholecystectomy. Enlarged common bile duct measuring 8 mm, possibly reservoir effect. No calcified duct stone. Pancreas: Unremarkable. No mass. No ductal dilation. Spleen: Unremarkable. No splenomegaly. Adrenals: Unremarkable. No mass. Kidneys and ureters: Unremarkable. No solid mass. No hydronephrosis. Stomach and bowel: Unremarkable. No mucosal thickening. No bowel obstruction. PELVIS: Appendix: Normal appendix. Bladder: Unremarkable. No mass. Reproductive: Hysterectomy. ABDOMEN and PELVIS: Intraperitoneal space: Unremarkable. No free air, significant free fluid, or fluid collection. Bones/joints: No acute fracture. No dislocation. Soft tissues: Surgical scarring midline abdominal wall. Vasculature: Unremarkable. No abdominal aortic aneurysm. Lymph nodes: Unremarkable. No enlarged lymph nodes. IMPRESSION: Cholecystectomy. No collection of the gallbladder fossa. No significant free fluid to suggest bile leak. Electronically signed by: J Carlos Lamb M.D. 02/18/24 00:37 AM MDM Narrative Prior records/ancillary studies reviewed. Triage Nursing notes reviewed. Additional history obtained from nursing. The patient's history was concerning for abdominal pain. Differential diagnosis: Etiologies such as cardiac, pulmonary, appendicitis, diverticulitis, PUD, biliary pathology, UTI, pancreatitis, obstruction, mesenteric ischemia, aortic pathology, infections, inflammatory bowel disease, renal colic, as well as others were entertained. Physical examination findings: As above. ER treatment provided: An order was placed for continuous cardiac monitoring. The monitor shows a rate of 60-100 with a sinus rhythm per my Independent interpretation. IV fluids, fentanyl. EMS gave Zofran Cefuroxime, Flagyl On reassessment the patient felt better. Diagnostics interpreted by me: ECG: Ordered for upper abdominal pain EKG: Normal sinus, normal intervals, no acute ST-T wave changes. Impression normal sinus rhythm independently interpreted by myself The labs Independently Interpreted by myself revealed no worrisome leukocytosis, elevated LFTs and T. bili Imaging studies: CTs as above MRCP ordered for possible retained stone Consultation: A consultation was placed with the hospitalist. The case was discussed and diagnostics were reviewed. The patient was evaluated in the ER for further treatment. Exam and history seem consistent with abdominal pain with subjective fever and chills with elevated LFTs and T. bili concerning for possible retained stone or postsurgical complication. Patient was started on antibiotics. She had multiple drug allergies. I did review her prior medications. She tolerated cefuroxime and Flagyl without difficulties. Medicine was consulted and case discussed. She will be admitted to the medical service. By the evaluation outlined above emergent etiologies such as appendicitis, diverticulitis, UTI, pancreatitis, obstruction, mesenteric ischemia, aortic pathology, inflammatory bowel disease, renal colic, as well as others were deemed relatively unlikely. The pt informed about the findings as listed above. All questions were answered and pleased with the treatment. The chart was completed utilizing [employer] Speech voice recognition software. Grammatical errors, random word insertions, pronoun errors, and incomplete sentences are an occassional consequence of this system due to software limitations, ambient noise, and hardware issues. Any formal questions or concerns about the content, text, or information contained within the body of this dictation should be directly addressed to the physician geriatric assistant for clarification. Impression & Plan Elevated liver enzymes, Acute abdominal pain, Hx laparoscopic cholecystectomy Discharge Plan Visit Data Chief Complaint: Abdominal Pain ED Provider: Lupe Beard ED Midlevel Provider: Ivanna Martínez Discharge Problem: Elevated liver enzymes, Acute abdominal pain, Hx laparoscopic cholecystectomy Patient Disposition: Admitted As Inpatient Condition: Good Forms Stand Alone Forms: My [facility] [address] Prescriptions Prescriptions: No Action omeprazole 20 mg capsule,delayed release(DR/EC) 20 mg PO DAILY montelukast 10 mg tablet 10 mg PO QAM lisinopril 5 mg tablet 5 mg PO QAM fluoxetine 20 mg capsule 20 mg PO QAM Patient Comments: takes with 40mg to equal 60mg Rx Instructions: with 40 mg to make 60 mg fluticasone propionate 50 mcg/actuation spray,suspension 2 spray INTRANASAL BID fluoxetine 40 mg capsule 40 mg PO QAM Rx Instructions: with 20 mg to make 60 mg lorazepam 0.5 mg tablet 0.5 mg PO TID PRN (Reason: Anxiety) ropinirole 0.5 mg tablet See Rx Instructions .ROUTE .COMPLEX Rx Instructions: take 1 tab po daily at 5 pm, 2 tab po daily at 9 pm magnesium oxide 250 mg magnesium Tablet 250 mg PO QAM calcium carbonate-vitamin D3 [Calcium 600 + D(3)] 600 mg-10 mcg (400 unit) Tablet 1 tab PO BID potassium citrate 99 mg Capsule 99 mg PO QAM gabapentin 800 mg tablet 800 mg PO QDD Rx Instructions: takes at 5 pm azelastine 137 mcg (0.1 %) aerosol,spray 2 spray INTRANASAL BID albuterol sulfate 90 mcg/actuation HFA aerosol inhaler 2 puff INHALATION Q4H PRN (Reason: Shortness Of Breath Or Wheezing) atomoxetine 40 mg capsule 40 mg PO DAILY levothyroxine [Synthroid] 150 mcg tablet 150 mcg PO DAILY fexofenadine 180 mg Tablet 180 mg PO DAILY hydrochlorothiazide 12.5 mg capsule 12.5 mg PO DAILY tramadol 50 mg tablet 50 mg PO Q6H PRN (Reason: pain, for initial therapy, max 6 tabs/day) Qty: 15 0RF Referrals Referrals: Yamini Alamo MD [Primary Care Provider] -
[2024-02-17] MEDS: fentaNYL citrate PF 100 MCG/2 ML VIAL IV PRN (22:36)
[2024-02-17 22:44] LABS: iSTAT Creatinine 1.3 mg/dl (0.6-1.3); iSTAT Hemoglobin 13.3 g/dl (12.0-16.0); iSTAT Ionized Calcium 1.04 mmol/l (1.12-1.32); iSTAT Potassium 3.3 mmol/L (3.3-5.0)
[2024-02-17] MEDS: SODIUM CHLORIDE 0.9% 1,000 ML IV STA (22:44)
[2024-02-17 22:47] LABS: Basophils % (auto) 1.5 %; Eosinophils # (auto) 0.25 K/uL (0.00-0.50); Eosinophils % (auto) 3.7 %; Hematocrit (blood only) 38.1 % (37.0-47.0); Immature Granulocytes # (auto) 0.05 K/uL (0.01-0.20); Immature Granulocytes % (auto) 0.7 %; Lymphocytes # (auto) 0.99 K/uL (1.20-3.40); Lymphocytes % (auto) 14.8 %; Mean Corpuscular Hemoglobin 30.3 pg (25.0-34.0); Mean Corpuscular Hgb Conc 34.1 g/dL (32.0-36.0); Mean Corpuscular Volume 88.8 fL (80.0-100.0); Mean Platelet Volume 12.4 fL (9.4-12.4); Monocytes # (auto) 0.49 K/uL (0.11-0.59); Monocytes % (auto) 7.3 %; Neutrophils # (auto) 4.81 K/uL (1.40-6.50); Platelet Count 230 K/uL (130-400); RDW Standard Deviation 38.5 fL (36.4-46.3); Red Blood Count 4.29 M/uL (4.20-5.40); White Blood Count 6.69 K/ul (4.8-10.8)
[2024-02-17] MEDS: OPTIRAY 320 125ml IV ONE (22:59)
[2024-02-17 23:02] LABS: BUN Creatinine Ratio 7.3 (10-20); Calcium 9.9 mg/dl (8.6-10.3); Est GFR (African American) 55.4 ml/min; Est GFR (Non-African American) 47.8 ml/min; Potassium 3.3 mmol/L (3.5-5.1)
[2024-02-17 23:55] LABS: Albumin Globulin Ratio 1.4 (0.9-2); Albumin Level 4.3 gm/dl (3.4-5.0); Bilirubin,Total 4.2 mg/dl (0.2-1.0); Total Protein 7.3 gm/dl (6.0-8.3)
--- NOTE | 2024-02-18 00:38 | CT Scan Report ---
Exam(s): CT ABDOMEN + PELVIS With Contrast IV Amt: 118 ml optiray 320 EXAM: CT Abdomen and Pelvis With Intravenous Contrast CLINICAL HISTORY: Reason for exam: upper abd pain, cholecystectomy 2 wks ago, fever. TECHNIQUE: Axial computed tomography images of the abdomen and pelvis with intravenous contrast. CTDI is 27.74 mGy and DLP is 1450.66 mGy-cm. Automated exposure control was utilized for the study. A dose lowering technique was utilized adhering to the principles of ALARA. CONTRAST: Patient received 118 ml optiray 320 of IV contrast COMPARISON: No relevant prior studies available. FINDINGS: Lung bases: Unremarkable. No mass. No consolidation. ABDOMEN: Liver: Unremarkable. No mass. Gallbladder and bile ducts: Cholecystectomy. Enlarged common bile duct measuring 8 mm, possibly reservoir effect. No calcified duct stone. Pancreas: Unremarkable. No mass. No ductal dilation. Spleen: Unremarkable. No splenomegaly. Adrenals: Unremarkable. No mass. Kidneys and ureters: Unremarkable. No solid mass. No hydronephrosis. Stomach and bowel: Unremarkable. No mucosal thickening. No bowel obstruction. PELVIS: Appendix: Normal appendix. Bladder: Unremarkable. No mass. Reproductive: Hysterectomy. ABDOMEN and PELVIS: Intraperitoneal space: Unremarkable. No free air, significant free fluid, or fluid collection. Bones/joints: No acute fracture. No dislocation. Soft tissues: Surgical scarring midline abdominal wall. Vasculature: Unremarkable. No abdominal aortic aneurysm. Lymph nodes: Unremarkable. No enlarged lymph nodes. IMPRESSION: Cholecystectomy. No collection of the gallbladder fossa. No significant free fluid to suggest bile leak. Electronically signed by: J Carlos Lamb M.D. 02/18/24 00:37 AM
--- NOTE | 2024-02-18 00:39 | CT Scan Report ---
Exam(s): CTA CHEST IV Amt: 118 ml optiray 320 EXAM: CT Angiography Chest With Intravenous Contrast CLINICAL HISTORY: Reason for exam: PE, recent OR, fever. TECHNIQUE: Axial computed tomographic angiography images of the chest with intravenous contrast. CTDI is 27.74 mGy and DLP is 1450.66 mGy-cm. Automated exposure control was utilized for the study. A dose lowering technique was utilized adhering to the principles of ALARA. MIP reconstructed images were created and reviewed. COMPARISON: No relevant prior studies available. FINDINGS: Pulmonary arteries: Adequate pulmonary artery opacification. Enlarged main pulmonary artery suggesting pulmonary arterial hypertension. No pulmonary embolism. Aorta: No acute findings. No aortic aneurysm or dissection. Lungs: Unremarkable. No mass. No consolidation. Pleural space: Unremarkable. No significant effusion. No pneumothorax. Heart: Unremarkable. No cardiomegaly. No significant pericardial effusion. No evidence of RV dysfunction. Bones/joints: No acute fracture. No dislocation. Soft tissues: Unremarkable. Lymph nodes: Unremarkable. No adenopathy. IMPRESSION: 1. No pulmonary embolism. 2. Enlarged main pulmonary artery suggesting pulmonary arterial hypertension. Electronically signed by: J Carlos Lamb M.D. 02/18/24 00:38 AM
[2024-02-18 01:48] LABS: Appearance Urine Clear (Clear); Bacteria Urine Automated None Seen (None Seen); Bilirubin Urine Negative (Negative); Blood Urine Negative (Negative); Cast Urine Automated 0-2 /lpf (0-2); Color Urine Dark Yellow; Epithelial Cell Urine Auto 0-2 /hpf (0-2); Glucose Urine UA Negative (Negative); Ketones Urine 1+ (Negative); Leukocyte Esterase Urine Trace (Negative); Nitrite Urine Negative (Negative); Protein Urine Negative (Negative); RBC Urine Automated 0-2 /hpf (0-2); Specific Gravity Urine 1.042 (1.000-1.030); Urobilinogen Urine Negative (Negative); WBC Urine Automated 0-5 /hpf (0-5); pH Urine 8.5 (4.5-7.5)
[2024-02-18] MEDS: MINI B IV STA (02:12)
[2024-02-18] MEDS: CEFUROXIME IV STA (02:12)
[2024-02-18] MEDS: metroNIDAZOLE 500 MG/100 ML BAG IV STA (02:12)
[2024-02-18] MEDS: DEXTROSE 5% IV STA (02:12)
--- NOTE | 2024-02-18 02:26 | History & Physical Report ---
Date of Service February 18, 2024 Assessment & Plan (1) Elevated liver enzymes: Plan: 58-year-old female with past medical history significant for acquired hypothyroidism, mixed dyslipidemia, prediabetes, moderate obstructive sleep apnea, chronic pansinusitis, history of laryngospasm, hypertension, restless leg syndrome, depression, general anxiety disorder, ADHD who recently had cholecystectomy comes with abdominal pain and also found to have elevated LFTs. Patient recently was admitted for acute cholecystitis and had cholecystectomy on 02/04/24 and was discharged on 02/06/24. Patient states since discharge was doing okay. But since last couple of days she developed abdominal pain in right upper quadrant region ,initially was on and off but then it got persistent severe in nature .The pain is also going to lower chest. Associate with nausea. Yesterday she had low-grade temperature. And she was profusely sweating. As she was not getting better came to the ER. Because of not eating much she got dehydrated and had some headaches. Vision is okay. No runny nose or sore throat. No cough. When the pain is severe she gets short of breath. Somewhat constipated. Denies any blood in the stools. Micturating okay. Developed some itchy rash around the neck since today afternoon. Currently hemodynamics are okay. Right upper quadrant abdominal pain Elevated LFTs Recent cholecystectomy Total bilirubin 4.2 AST 309 ALT [address] abdomen pelvis no collections of the gallbladder fossa. No significant free fluid to suggest bile leak MRCP-1. Cholecystectomy. 2. Mild common bile duct enlargement, presumed reservoir effect. No evidence of choledocholithiasis. CTA chest no PE. Enlarged main pulm artery suggesting pulm hypertension Will keep her n.p.o., IV fluids, IV Dilaudid as needed Empiric IV antibiotics Rocephin and Flagyl as patient allergy to penicillin Surgery and GI consult in a.m. Repeat labs in am Obstructive sleep apnea CPAP nightly Hypokalemia Replace Will follow labs Hypothyroidism On Synthyroid Hypertension Will hold lisinopril hydrochlorothiazide for now IV hydralazine as needed Will monitor Prediabetes Will follow HbA1c levels Restless leg syndrome On ropinirole Depression . Anxiety disorder ADHD Continue home medications f/u repeat ekg. if qt still prolonged will hold fluoxetine Prolonged QTc Avoid QT prolonging drugs Will follow repeat EKG DVT prophylaxis SCDs for now Disposition Med/telemetry Full code. History of Present Illness Chief Complaint: Abdominal pain Primary Care Provider: Yamini Alamo MD 58-year-old female with past medical history significant for acquired hypothyroi dism, mixed dyslipidemia, prediabetes, moderate obstructive sleep apnea, chronic pansinusitis, history of laryngospasm, hypertension, restless leg syndrome, depression, general anxiety disorder, ADHD who recently had cholecystectomy comes with abdominal pain and also found to have elevated LFTs. Patient recently was admitted for acute cholecystitis and had cholecystectomy on 02/04/24 and was discharged on 02/06/24. Patient states since discharge was doing okay. But since last couple of days she developed abdominal pain in right upper quadrant region ,initially was on and off but then it got persistent severe in nature .The pain is also going to lower chest. Associate with nausea. Yesterday she had low-grade temperature. And she was profusely sweating. As she was not getting better came to the ER. Because of not eating much she got dehydrated and had some headaches. Vision is okay. No runny nose or sore throat. No cough. When the pain is severe she gets short of breath. Somewhat constipated. Denies any blood in the stools. Micturating okay. Developed some itchy rash around the neck since today afternoon. Currently hemodynamics are okay. Past medical history. As mentioned above Past surgical history. Colonoscopy. Dental surgery. Hysteroscopy with biopsy. Polypectomy. Laparoscopic cholecystectomy. Nasal endoscopy. Partial hysterectomy. Puncture drainage left breast cyst. Repair of nasal septum. Repair of ruptured Achilles tendon. Repair of ruptured rotator cuff. Left retinal treatment. Social history. No smoking. No alcohol use. No drug use. Family history. Patient was adopted. Allergies Allergy/AdvReac Type Severity Reaction Status Date / Time amoxicillin Allergy Intermediate HIVES. Verified 02/18/24 00:00 ITCHING celecoxib Allergy Intermediate HIVES Verified 02/18/24 00:00 clavulanic acid Allergy Intermediate HIVES, Verified 02/18/24 00:00 ITCHING hydrocodone Allergy Intermediate "really Verified 02/18/24 00:00 itchy" lactose Allergy Intermediate LACTOSE Verified 02/18/24 00:00 INTOLERANCE levofloxacin Allergy Intermediate HIVES Verified 02/18/24 00:00 moxifloxacin Allergy Intermediate HIVES Verified 02/18/24 00:00 oxycodone Allergy Intermediate HIVES Verified 02/18/24 00:00 paroxetine Allergy Intermediate HIVES Verified 02/18/24 00:00 Sulfa (Sulfonamide Allergy Intermediate EDEMA,BLISTERS Verified 02/18/24 00:00 Antibiotics) in mouth acetaminophen Allergy Mild Facial Verified 02/18/24 00:00 flushing adhesive Allergy Mild TAPE-REDNES Verified 02/18/24 00:00 S Penicillins Allergy Unknown ALLERGIC Verified 02/18/24 00:00 PER TESTING cetirizine AdvReac Intermediate PSYCHIATRIC Verified 02/18/24 00:00 REACTION guaifenesin AdvReac Intermediate PSYCHIATRIC Verified 02/18/24 00:00 REACTION pseudoephedrine AdvReac Intermediate PSYCHIATRIC Verified 02/18/24 00:00 REACTION Home Medications Medication Instructions Recorded Confirmed Type fluoxetine 20 mg capsule 20 mg PO QAM 04/28/20 02/18/24 History fluoxetine 40 mg capsule 40 mg PO QAM 04/28/20 02/18/24 History fluticasone propionate 50 2 spray intranasal BID 04/28/20 02/18/24 History mcg/actuation nasal spray,suspension lisinopril 5 mg tablet 5 mg PO QAM 04/28/20 02/18/24 History lorazepam 0.5 mg tablet 0.5 mg PO TID PRN Anxiety 04/28/20 02/18/24 History montelukast 10 mg tablet 10 mg PO QAM 04/28/20 02/18/24 History omeprazole 20 mg capsule,delayed 20 mg PO DAILY Acid Reflux 04/28/20 02/18/24 History release ropinirole 0.5 mg tablet See Rx Instructions .Route .COMPLEX 04/28/20 02/18/24 History magnesium oxide 250 mg PO QAM 03/02/21 02/18/24 History albuterol sulfate 90 mcg/actuation 2 puff inhalation Q4H PRN 02/03/24 02/18/24 History aerosol inhaler Shortness Of Breath Or Wheezing atomoxetine 40 mg capsule 40 mg PO DAILY 02/03/24 02/18/24 History azelastine 137 mcg (0.1 %) nasal 2 spray intranasal BID 02/03/24 02/18/24 History spray fexofenadine 180 mg tablet 180 mg PO DAILY 02/03/24 02/18/24 History gabapentin 800 mg tablet 800 mg PO QDD 02/03/24 02/18/24 History hydrochlorothiazide 12.5 mg capsule 12.5 mg PO DAILY 02/03/24 02/18/24 History levothyroxine 150 mcg tablet 150 mcg PO DAILY 02/03/24 02/18/24 History (Synthroid) tramadol 50 mg tablet 50 mg PO Q6H PRN pain, for initial 02/06/24 02/18/24 Rx therapy, max 6 tabs/day #15 tabs calcium carbonate 600 mg-vitamin 1 tab PO BID 02/18/24 02/18/24 History D3 10 mcg (400 unit) tablet (Calcium 600 + D(3)) potassium citrate 99 mg capsule 99 mg PO QAM 02/18/24 02/18/24 History Past Med/Surg History Problem List (Updated 02/18/24 @ 00:46 by Ivanna Martínez PA-C) Hx laparoscopic cholecystectomy (Acute) Acute abdominal pain (Acute) Elevated liver enzymes (Acute) Hypokalemia Sleep apnea cpap Hypothyroidism Essential hypertension Acute cholecystitis (Acute) Colon cancer screening Fibroid, uterine (Acute 06/19/14) Medical History Prediabetes Oral allergy syndrome ADHD (attention deficit hyperactivity disorder), combined type KAMALA (generalized anxiety disorder) Dyslipidemia GERD (gastroesophageal reflux disease) IBS (irritable bowel syndrome) 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 Depression Anxiety History of anesthesia reaction during colonoscopy in 2017 at [facility] pt had an esophageal spasm and procedure was aborted, pt had a colonoscopy at [facility] 2017 without any issues Surgical History Hx laparoscopic cholecystectomy (02/04/24) Laparoscopic Cholecystectomy (Not Applicable) - Theo Hernandez, History of endometrial ablation History of elbow surgery right radial History of foot surgery left--bone spurs History of ankle surgery right release of achilles tendon History of Achilles tendon repair right Status post trigger finger release bilt thumbs History of repair of right rotator cuff x2 History of hysterectomy History of wisdom tooth extraction History of sinus surgery History of colonoscopy Family History Other Family history not known due to adoption Social History Smoking Status: Never smoker Second Hand Exposure: No; Do You Dip or Chew Tobacco: No; Hx Alcohol Use: Yes Alcohol type: wine Hx Substance Use: No Preferred Language: Cymro Communication Ability: Effective Clipper Counters Required: No Beliefs That Will Affect Care: None Current Living Situation: Alone Feels Safe at Home: Yes Safety Concerns: Feels Safe At This Time Assistive Devices: Glasses and Hearing Aid - Bilateral Review of Systems Review of Systems: All systems reviewed & are unremarkable except as noted in HPI & below Physical Exam Physical Exam: General- Not in distress Head- atraumatic Eyes- PERRL. ENT- oropharynx clear Neck- supple, no JVD. Lungs- clear to auscultation no wheezing or crackles. Heart- regular rhythm; no murmur, no gallop. Abdomen- normal bowel sounds, soft, tenderness in RUG, recent laparoscopic sites no drainage seen Extremities- no pretibial edema, no erythema seen Neuro- alert, oriented PERRL, no facial palsy; no dysarthria; moves extremities Results & Data Results & Data Vital Signs (Past 12 Hours) Vital Signs Temp Pulse Pulse Resp BP BP Pulse Ox 02/18/24 01:00 79 17 97 02/18/24 01:00 179/113 H 02/18/24 01:00 179/113 H 02/18/24 01:00 179/113 H 02/18/24 00:51 77 22 98 02/18/24 00:36 80 24 97 02/18/24 00:31 177/122 H 02/18/24 00:31 177/122 H 02/18/24 00:21 82 21 96 02/18/24 00:12 83 22 95 02/17/24 23:54 82 19 97 02/17/24 23:42 79 20 96 02/17/24 23:36 79 23 96 02/17/24 23:21 79 20 95 02/17/24 23:18 80 19 97 02/17/24 22:38 36.7 C 77 18 161/95 H 100 02/17/24 22:34 77 18 98 02/17/24 22:29 76 02/17/24 22:29 77 18 161/95 H 98 O2 Del Method 02/18/24 01:00 Room Air 02/18/24 01:00 02/18/24 01:00 02/18/24 01:00 02/18/24 00:51 02/18/24 00:36 02/18/24 00:31 02/18/24 00:31 02/18/24 00:21 02/18/24 00:12 02/17/24 23:54 02/17/24 23:42 02/17/24 23:36 02/17/24 23:21 02/17/24 23:18 02/17/24 22:38 Room Air 02/17/24 22:34 Room Air 02/17/24 22:29 02/17/24 22:29 Room Air Diagnostic Findings Laboratory Results WBC 6.69 K/ul (4.8-10.8) 02/17/24 22: RBC 4.29 M/uL (4.20-5.40) 02/17/24 22:28 Hgb 13.0 g/dl (12.0-16.0) 02/17/24 22: POC Hgb 13.3 g/dl (12.0-16.0) 02/17/24 22:32 Hct 38.1 % (37.0-47.0) 02/17/24 22: POC Hct 39 % (37-47) 02/17/24 22:32 MCV 88.8 fL (80.0-100.0) 02/17/24 22: MCH 30.3 pg (25.0-34.0) 02/17/24 22: MCHC 34.1 g/dL (32.0-36.0) 02/17/24 22: RDW Std Deviation 38.5 fL (36.4-46.3) 02/17/24 22: RDW Coeff of David 12.0 % (11.5-14.5) 02/17/24 22: Plt Count 230 K/uL (130-400) 02/17/24 22: MPV 12.4 fL (9.4-12.4) 02/17/24 22: Immature Gran % (Auto) 0.7 % 02/17/24 22: Neut % (Auto) 72.0 % 02/17/24 22: Lymph % (Auto) 14.8 % 02/17/24 22: [place] % (Auto) 7.3 % 02/17/24 22: Eos % (Auto) 3.7 % 02/17/24 22: Baso % (Auto) 1.5 % 02/17/24 22: Neut # (Auto) 4.81 K/uL (1.40-6.50) 02/17/24 22: Lymph # (Auto) 0.99 K/uL (1.20-3.40) L 02/17/24 22: [place] # (Auto) 0.49 K/uL (0.11-0.59) 02/17/24 22: Eos # (Auto) 0.25 K/uL (0.00-0.50) 02/17/24 22: Baso # (Auto) 0.10 K/uL (0.00-0.20) 02/17/24 22: Immature Gran # (Auto) 0.05 K/uL (0.01-0.20) 02/17/24 22:28 POC Sodium 138 mmol/L (135-144) 02/17/24 22:32 Sodium 137 mmol/L (136-145) 02/17/24 22:28 POC Potassium 3.3 mmol/L (3.3-5.0) 02/17/24 22:32 Potassium 3.3 mmol/L (3.5-5.1) L 02/17/24 22:28 POC Chloride 100 mmol/L (101-112) L 02/17/24 22:32 Chloride 99 mmol/L (98-107) 02/17/24 22:28 Carbon Dioxide 21 mmol/L (21-32) 02/17/24 22:28 POC Total CO2 21 mmol/L (24-31) L 02/17/24 22:32 Anion Gap 17 (3-11) H 02/17/24 22:28 POC Anion Gap 20.0 mmol/L (16-25) 02/17/24 22:32 POC BUN 7 mg/dl (7-18) 02/17/24 22:32 BUN 9 mg/dl (6-23) 02/17/24 22:28 Creatinine 1.24 mg/dl (0.6-1.2) H 02/17/24 22:28 POC Creatinine 1.3 mg/dl (0.6-1.3) 07/21/24 22:32 Est Cr Clr Drug Dosing 69.0 ml/min 02/17/24 22:28 Est GFR ( Amer) 55.4 ml/min 02/17/24 22: Est GFR (Non-Af Amer) 47.8 ml/min 02/17/24 22: BUN/Creatinine Ratio 7.3 (10-20) L 02/17/24 22:28 Glucose 181 mg/dl (70-99(Fasting)) H 02/17/24 22:28 POC Glucose (other) 184 mg/dl (70-99) H 02/17/24 22:32 Calcium 9.9 mg/dl (8.6-10.3) 02/17/24 22: POC Ioniz Calcium Meghna 1.04 mmol/l (1.12-1.32) L 02/17/24 22:32 Total Bilirubin 4.2 mg/dl (0.2-1.0) H 02/17/24 22:28 AST 309 U/L (13-39) H 02/17/24 22: ALT 590 U/L (7-52) H 02/17/24 22:28 Alkaline Phosphatase 364 U/L (34-104) H 02/17/24 22:28 Troponin I High Sens 5.0 pg/ml (0-14) 02/17/24 22: Troponin I High Sens Cancelled 02/17/24 22:28 Total Protein 7.3 gm/dl (6.0-8.3) 02/17/24 22: Albumin 4.3 gm/dl (3.4-5.0) 02/17/24 22: Globulin 3.0 gm/dl (2.5-4.0) 02/17/24 22: Albumin/Globulin Ratio 1.4 (0.9-2) 02/17/24 22: Lipase 25 U/L (11-82) 02/17/24 22: Urine Color Dark Yellow 02/18/24 01:17 Urine Appearance Clear (Clear) 02/18/24 01:17 Urine pH 8.5 (4.5-7.5) H 02/18/24 01:17 Ur Specific [place] 1.042 (1.000-1.030) H 02/18/24 01:17 Urine Protein Negative (Negative) 02/18/24 01:17 Urine Glucose (UA) Negative (Negative) 02/18/24 01:17 Urine Ketones 1+ (Negative) H 02/18/24 01:17 Urine Blood Negative (Negative) 02/18/24 01:17 Urine Nitrite Negative (Negative) 02/18/24 01:17 Urine Bilirubin Negative (Negative) 02/18/24 01:17 Urine Urobilinogen Negative (Negative) 02/18/24 01:17 Ur Leukocyte Esterase Trace (Negative) H 02/18/24 01:17 Urine WBC (Auto) 0-5 /hpf (0-5) 02/18/24 01:17 Urine RBC (Auto) 0-2 /hpf (0-2) 02/18/24 01:17 U Hyaline Cast (Auto) 0-2 /lpf (0-2) 02/18/24 01:17 U Epithel Cells (Auto) 0-2 /hpf (0-2) 02/18/24 01:17 Urine Bacteria (Auto) None Seen (None Seen) 02/18/24 01:17 Impressions Chest CTA 02/17/24 22:29 Exam(s): CTA CHEST IV Amt: 118 ml optiray 320 EXAM: CT Angiography Chest With Intravenous Contrast CLINICAL HISTORY: Reason for exam: PE, recent OR, fever. TECHNIQUE: Axial computed tomographic angiography images of the chest with intravenous contrast. CTDI is 27.74 mGy and DLP is 1450.66 mGy-cm. Automated exposure control was utilized for the study. A dose lowering technique was utilized adhering to the principles of ALARA. MIP reconstructed images were created and reviewed. COMPARISON: No relevant prior studies available. FINDINGS: Pulmonary arteries: Adequate pulmonary artery opacification. Enlarged main pulmonary artery suggesting pulmonary arterial hypertension. No pulmonary embolism. Aorta: No acute findings. No aortic aneurysm or dissection. Lungs: Unremarkable. No mass. No consolidation. Pleural space: Unremarkable. No significant effusion. No pneumothorax. Heart: Unremarkable. No cardiomegaly. No significant pericardial effusion. No evidence of RV dysfunction. Bones/joints: No acute fracture. No dislocation. Soft tissues: Unremarkable. Lymph nodes: Unremarkable. No adenopathy. IMPRESSION: 1. No pulmonary embolism. 2. Enlarged main pulmonary artery suggesting pulmonary arterial hypertension. Electronically signed by: J Carlos Lamb M.D. 02/18/24 00:38 AM Abdomen/Pelvis CT 02/17/24 22:30 Exam(s): CT ABDOMEN + PELVIS With Contrast IV Amt: 118 ml optiray 320 EXAM: CT Abdomen and Pelvis With Intravenous Contrast CLINICAL HISTORY: Reason for exam: upper abd pain, cholecystectomy 2 wks ago, fever. TECHNIQUE: Axial computed tomography images of the abdomen and pelvis with intravenous contrast. CTDI is 27.74 mGy and DLP is 1450.66 mGy-cm. Automated exposure control was utilized for the study. A dose lowering technique was utilized adhering to the principles of ALARA. CONTRAST: Patient received 118 ml optiray 320 of IV contrast COMPARISON: No relevant prior studies available. FINDINGS: Lung bases: Unremarkable. No mass. No consolidation. ABDOMEN: Liver: Unremarkable. No mass. Gallbladder and bile ducts: Cholecystectomy. Enlarged common bile duct measuring 8 mm, possibly reservoir effect. No calcified duct stone. Pancreas: Unremarkable. No mass. No ductal dilation. Spleen: Unremarkable. No splenomegaly. Adrenals: Unremarkable. No mass. Kidneys and ureters: Unremarkable. No solid mass. No hydronephrosis. Stomach and bowel: Unremarkable. No mucosal thickening. No bowel obstruction. PELVIS: Appendix: Normal appendix. Bladder: Unremarkable. No mass. Reproductive: Hysterectomy. ABDOMEN and PELVIS: Intraperitoneal space: Unremarkable. No free air, significant free fluid, or fluid collection. Bones/joints: No acute fracture. No dislocation. Soft tissues: Surgical scarring midline abdominal wall. Vasculature: Unremarkable. No abdominal aortic aneurysm. Lymph nodes: Unremarkable. No enlarged lymph nodes. IMPRESSION: Cholecystectomy. No collection of the gallbladder fossa. No significant free fluid to suggest bile leak. Electronically signed by: J Carlos Lamb M.D. 02/18/24 00:37 AM ECG Additional Comments: EG. Normal sinus rhythm with rate 77. Nonspecific T wave abnormality. QTc 502. Code Status & VTE Plan VTE Prophylaxis Plan VTE Prophylaxis will be ordered: Yes
--- NOTE | 2024-02-18 02:41 | Magnetic Resonance Report ---
Exam(s): MRI MRCP EXAM: MR Abdomen Without Intravenous Contrast, MRCP Protocol CLINICAL HISTORY: Reason for exam: Recent cholecystectomy, question retained stone. TECHNIQUE: Multiplanar magnetic resonance images of the abdomen without intravenous contrast using MRCP protocol. COMPARISON: CT abdomen and pelvis 02/17/24 FINDINGS: Lung bases appear clear. No focal hepatic lesion is identified. The gallbladder is surgically absent. There is no visible fluid collection at the gallbladder fossa. Common bile duct is mildly enlarged measuring 8 mm. There is no evidence of choledocholithiasis. Spleen, pancreas, and adrenal glands are unremarkable. Kidneys are similar in size and contour. There is no hydronephrosis. There is no aortic aneurysm. Bowel gas pattern is nonobstructive. Skeleton appears unremarkable. IMPRESSION: 1. Cholecystectomy. 2. Mild common bile duct enlargement, presumed reservoir effect. No evidence of choledocholithiasis. Electronically signed by: J Carlos Lamb M.D. 02/18/24 02:40 AM
[2024-02-18] MEDS: diphenhydrAMINE 50 MG/ML VIAL IV STA (02:51)
[2024-02-18] MEDS ORDERED: PROMETHAZINE HCL 12.5 MG in SODIUM CHLORIDE 0.9% 50 ML IV PRN (03:07)
[2024-02-18] MEDS ORDERED: NITROGLYCERIN SL 0.4 MG/TAB TAB SL PRN (03:07)
[2024-02-18] MEDS ORDERED: LORazepam 0.5 MG TAB PO PRN (03:07)
[2024-02-18] MEDS ORDERED: ALBUTEROL HFA 8 GM INHALER INH PRN (03:07)
[2024-02-18] MEDS: SODIUM CHLORIDE 0.9% 1,000 ML IV SCH (03:20)
[2024-02-18] MEDS: POTASSIUM CHLORIDE / WTR 10 MEQ/100 ML PLCT IV SCH (03:21)
[2024-02-18] MEDS: HYDROmorphone INJ 0.5 MG/0.5 ML SYR IV PRN (03:24)
[2024-02-18] MEDS: LEVOTHYROXINE SODIUM 150 MCG TABLET PO SCH (05:07)
[2024-02-18 06:23] LABS: Basophils # (auto) 0.05 K/uL (0.00-0.20); Basophils % (auto) 0.6 %; Eosinophils # (auto) 0.02 K/uL (0.00-0.50); Eosinophils % (auto) 0.2 %; Hematocrit (blood only) 37.4 % (37.0-47.0); Hemoglobin 12.6 g/dl (12.0-16.0); Immature Granulocytes # (auto) 0.05 K/uL (0.01-0.20); Immature Granulocytes % (auto) 0.6 %; Lymphocytes # (auto) 0.57 K/uL (1.20-3.40); Lymphocytes % (auto) 6.4 %; Mean Corpuscular Hemoglobin 30.1 pg (25.0-34.0); Mean Corpuscular Hgb Conc 33.7 g/dL (32.0-36.0); Mean Corpuscular Volume 89.5 fL (80.0-100.0); Mean Platelet Volume 12.6 fL (9.4-12.4); Monocytes # (auto) 0.45 K/uL (0.11-0.59); Neutrophils % (auto) 87.2 %; Platelet Count 216 K/uL (130-400); RDW Coefficient of Variation 11.9 % (11.5-14.5); RDW Standard Deviation 38.7 fL (36.4-46.3); Red Blood Count 4.18 M/uL (4.20-5.40); White Blood Count 8.94 K/ul (4.8-10.8)
[2024-02-18 06:49] LABS: Albumin Level 4.2 gm/dl (3.4-5.0); BUN Creatinine Ratio 6.7 (10-20); Bilirubin Direct 2.6 mg/dl (0-0.2); Bilirubin,Total 4.3 mg/dl (0.2-1.0); Calcium 9.5 mg/dl (8.6-10.3); Creatinine Clr Calc Pharmacy 81.5 ml/min; Est GFR (African American) 68.6 ml/min; Est GFR (Non-African American) 59.2 ml/min; Potassium 4.2 mmol/L (3.5-5.1); Total Protein 7.1 gm/dl (6.0-8.3)
[2024-02-18 07:46] LABS: Estimated Average Glucose 123 mg/dl; Hemoglobin A1C 5.9 % (4.5-5.6)
[2024-02-18] MEDS: FLUoxetine HCL 20 MG CAP PO SCH (07:59)
[2024-02-18] MEDS: MONTELUKAST SODIUM 10 MG TABLET PO SCH (07:59)
[2024-02-18] MEDS: MAGNESIUM OXIDE 400 MG TAB PO SCH (07:59)
[2024-02-18] MEDS: PANTOprazole 40 MG TAB PO SCH (07:59)
[2024-02-18] MEDS: FEXOFENADINE HCL 180 MG TAB PO SCH (07:59)
[2024-02-18] MEDS: cefTRIAXone SODIUM 2,000 MG/50 ML BAG IV SCH (08:00)
[2024-02-18] MEDS: ATOMOXETINE HCL 40 MG CAPSULE PO SCH (08:00)
[2024-02-18] MEDS: AZELASTINE HCL 0.1% NASAL 200 SPRAYS/27,400 MCG BTL SCH (08:00)
[2024-02-18] MEDS: FLUTICASONE PROPIONATE NA SPR 16 GM BTL SCH (08:00)
[2024-02-18] MEDS ORDERED: hydrALAZINE HCL 20 MG/ML VIAL IV PRN (08:15)
--- NOTE | 2024-02-18 08:54 | Surgery Consultation ---
<Statement entered by Donn Watson DO - 02/18/24 19:16> I have discussed this case with the surgical PA and I agree with the plan. Date of Consultation February 18, 2024 Assessment & Plan (1) Acute abdominal pain: MRCP showing dilation of CBD CT abd/pelvis negative for bile leak No wbc elevation , post operative port sites without signs of infection VSS Keep NPO (2) Elevated liver enzymes: Consult GI, likely needs EUS/ERCP and transfer to a tertiary center T Bili elevating from yesterday at 4.3 (4.2) Discussed with patient History of Present Illness Reason for Consultation: post op lap jose 02/04/24 , abd pain elevated LFT Attending Physician: Maciej Carrillo MD History of Present Illness Patient is a pleasant 58 yo female that recently underwent a laparoscopic cholecystectomy with Dr. Hernandez on 02/04/24, that presented to the [facility] ER on 02/17/24 with severe RUQ pain stabbing in nature. She reports that she was doing well post operatively without n/v, fever chills , abdominal pain however she had her first heavy meal since surgery on last 02/14/24 had her first episode of stabbing RUQ with some associated nausea without vomiting which shortly dissipated. However she had another episode of stabbing abdominal pain on Sunday and again on Sunday with the episode on Sunday being persistent which is what prompted her coming into the ER. A cbc was drawn 02/17/24 which is not showing any elevation in WBC, however did show that she has elevated LFT with a t.bili at 4.2 , ast 309, alt 590, alkal. phosphatase 364. A MRCP was completed and is reading no evidence of choledocholithiasis, with mild CBD enlargement. A CT scan of abd/pelvis shows no evidence of a bile leak. Allergies Allergy/AdvReac Type Severity Reaction Status Date / Time amoxicillin Allergy Intermediate HIVES. Verified 02/18/24 00:00 ITCHING celecoxib Allergy Intermediate HIVES Verified 02/18/24 00:00 clavulanic acid Allergy Intermediate HIVES, Verified 02/18/24 00:00 ITCHING hydrocodone Allergy Intermediate "really Verified 02/18/24 00:00 itchy" lactose Allergy Intermediate LACTOSE Verified 02/18/24 00:00 INTOLERANCE levofloxacin Allergy Intermediate HIVES Verified 02/18/24 00:00 moxifloxacin Allergy Intermediate HIVES Verified 02/18/24 00:00 oxycodone Allergy Intermediate HIVES Verified 02/18/24 00:00 paroxetine Allergy Intermediate HIVES Verified 02/18/24 00:00 Sulfa (Sulfonamide Allergy Intermediate EDEMA,BLISTERS Verified 02/18/24 00:00 Antibiotics) in mouth acetaminophen Allergy Mild Facial Verified 02/18/24 00:00 flushing adhesive Allergy Mild TAPE-REDNES Verified 02/18/24 00:00 S Penicillins Allergy Unknown ALLERGIC Verified 02/18/24 00:00 PER TESTING cetirizine AdvReac Intermediate PSYCHIATRIC Verified 02/18/24 00:00 REACTION guaifenesin AdvReac Intermediate PSYCHIATRIC Verified 02/18/24 00:00 REACTION pseudoephedrine AdvReac Intermediate PSYCHIATRIC Verified 02/18/24 00:00 REACTION Home Medications Medication Instructions Recorded Confirmed Type fluoxetine 20 mg capsule 20 mg PO QAM 04/28/20 02/18/24 History fluoxetine 40 mg capsule 40 mg PO QAM 04/28/20 02/18/24 History fluticasone propionate 50 2 spray intranasal BID 04/28/20 02/18/24 History mcg/actuation nasal spray,suspension lisinopril 5 mg tablet 5 mg PO QAM 04/28/20 02/18/24 History lorazepam 0.5 mg tablet 0.5 mg PO TID PRN Anxiety 04/28/20 02/18/24 History montelukast 10 mg tablet 10 mg PO QAM 04/28/20 02/18/24 History omeprazole 20 mg capsule,delayed 20 mg PO DAILY Acid Reflux 04/28/20 02/18/24 History release ropinirole 0.5 mg tablet See Rx Instructions .Route .COMPLEX 04/28/20 02/18/24 History magnesium oxide 250 mg PO QAM 03/02/21 02/18/24 History albuterol sulfate 90 mcg/actuation 2 puff inhalation Q4H PRN 02/03/24 02/18/24 History aerosol inhaler Shortness Of Breath Or Wheezing atomoxetine 40 mg capsule 40 mg PO DAILY 02/03/24 02/18/24 History azelastine 137 mcg (0.1 %) nasal 2 spray intranasal BID 02/03/24 02/18/24 History spray fexofenadine 180 mg tablet 180 mg PO DAILY 02/03/24 02/18/24 History gabapentin 800 mg tablet 800 mg PO QDD 02/03/24 02/18/24 History hydrochlorothiazide 12.5 mg capsule 12.5 mg PO DAILY 02/03/24 02/18/24 History levothyroxine 150 mcg tablet 150 mcg PO DAILY 02/03/24 02/18/24 History (Synthroid) tramadol 50 mg tablet 50 mg PO Q6H PRN pain, for initial 02/06/24 02/18/24 Rx therapy, max 6 tabs/day #15 tabs calcium carbonate 600 mg-vitamin 1 tab PO BID 02/18/24 02/18/24 History D3 10 mcg (400 unit) tablet (Calcium 600 + D(3)) potassium citrate 99 mg capsule 99 mg PO QAM 02/18/24 02/18/24 History Patient History Medical History Prediabetes Oral allergy syndrome ADHD (attention deficit hyperactivity disorder), combined type KAMALA (generalized anxiety disorder) Dyslipidemia GERD (gastroesophageal reflux disease) IBS (irritable bowel syndrome) 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 Depression Anxiety History of anesthesia reaction during colonoscopy in 2017 at [facility] pt had an esophageal spasm and procedure was aborted, pt had a colonoscopy at [facility] 2017 without any issues Surgical History Hx laparoscopic cholecystectomy (02/04/24) Laparoscopic Cholecystectomy (Not Applicable) - Theo Hernandez, History of endometrial ablation History of elbow surgery right radial History of foot surgery left--bone spurs History of ankle surgery right release of achilles tendon History of Achilles tendon repair right Status post trigger finger release bilt thumbs History of repair of right rotator cuff x2 History of hysterectomy History of wisdom tooth extraction History of sinus surgery History of colonoscopy Family History Other Family history not known due to adoption Social History Smoking Status: Never smoker Second Hand Exposure: No; Do You Dip or Chew Tobacco: No; Hx Alcohol Use: Yes Alcohol type: wine Hx Substance Use: No Preferred Language: Honduran Communication Ability: Effective 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 Beliefs That Will Affect Care: None Current Living Situation: Alone Feels Safe at Home: Yes Safety Concerns: Feels Safe At This Time Assistive Devices: Glasses and Hearing Aid - Bilateral Review of Systems Constitutional: no fever and no chills Respiratory: no dyspnea Cardiovascular: no chest pain Gastrointestinal: + abdominal pain and + nausea; no vomiti ng Musculoskeletal: no muscle weakness Integumentary: + wounds (post operative surgical site s ) Physical Exam Constitutional: cooperative and comfortable; no acute distress Respiratory: normal respiratory effort and able to speak in complete sentences; no respiratory distress Cardiovascular: Rate/Rhythm: regular rate Gastrointestinal (Abdomen): Inspection/Auscultation: + abdominal surgical scar and + abdominal surgical incision (umbilical site with small scabs no drainage, no s/s infection ); abdomen not distended Percussion/Palpation: + abdomen tender and abdomen soft Musculoskeletal: no cyanosis or clubbing, extremities motor strength 5/5 Skin: no jaundice Results & Data Vital Signs (Past 12 Hours) Vital Signs Temp Pulse Pulse Resp BP BP Pulse Ox 02/18/24 07:45 98.8 F 16 154/96 H 97 02/18/24 04:00 91 H 02/18/24 03:28 02/18/24 03:08 97.9 F 87 16 165/102 H 96 02/18/24 02:30 86 16 168/95 H 90 02/18/24 02:27 85 15 172/92 H 92 02/18/24 02:18 88 17 96 02/18/24 02:14 186/108 H 02/18/24 01:00 79 17 97 02/18/24 01:00 179/113 H 02/18/24 01:00 179/113 H 02/18/24 01:00 179/113 H 02/18/24 00:51 77 22 98 02/18/24 00:36 80 24 97 02/18/24 00:31 177/122 H 02/18/24 00:31 177/122 H 02/18/24 00:21 82 21 96 02/18/24 00:12 83 22 95 02/17/24 23:54 82 19 97 02/17/24 23:42 79 20 96 02/17/24 23:36 79 23 96 02/17/24 23:21 79 20 95 02/17/24 23:18 80 19 97 02/17/24 22:38 98.1 F 77 18 161/95 H 100 02/17/24 22:34 77 18 98 02/17/24 22:29 76 02/17/24 22:29 77 18 161/95 H 98 O2 Del Method O2 Flow Rate 02/18/24 07:45 Nasal Cannula 1.5 02/18/24 04:00 02/18/24 03:28 Room Air 02/18/24 03:08 Room Air 02/18/24 02:30 Room Air 02/18/24 02:27 Room Air 02/18/24 02:18 02/18/24 02:14 02/18/24 01:00 Room Air 02/18/24 01:00 02/18/24 01:00 02/18/24 01:00 02/18/24 00:51 02/18/24 00:36 02/18/24 00:31 02/18/24 00:31 02/18/24 00:21 02/18/24 00:12 02/17/24 23:54 02/17/24 23:42 02/17/24 23:36 02/17/24 23:21 02/17/24 23:18 02/17/24 22:38 Room Air 02/17/24 22:34 Room Air 02/17/24 22:29 02/17/24 22:29 Room Air [phone] Scan Report Patient: OLIVERIO GONZALEZ Admit Date: 02/17/24 MR#: [id number] Address1: [facility] [address] Acct ID:[id number] Address2: Date: 1965 [facility] Zip: [place] [address] Age: 58 Location: ED Sex: F Room/Bed: Att Phy: Diagnosis: ABDOMINAL PAIN Annalise Phy: Yamini Alamo MD Service Date: 02/17/24 Fam Phy: Interpreting Phy: J Carlos Lamb MDAdmit Phy: Ordering Phy: Ivanna Martínez PA-C cc: ~ Exam(s): CT ABDOMEN + PELVIS With Contrast IV Amt: 118 ml optiray 320 EXAM: CT Abdomen and Pelvis With Intravenous Contrast CLINICAL HISTORY: Reason for exam: upper abd pain, cholecystectomy 2 wks ago, fever. TECHNIQUE: Axial computed tomography images of the abdomen and pelvis with intravenous contrast. CTDI is 27.74 mGy and DLP is 1450.66 mGy-cm. Automated exposure control was utilized for the study. A dose lowering technique was utilized adhering to the principles of ALARA. CONTRAST: Patient received 118 ml optiray 320 of IV contrast COMPARISON: No relevant prior studies available. FINDINGS: Lung bases: Unremarkable. No mass. No consolidation. ABDOMEN: Liver: Unremarkable. No mass. Gallbladder and bile ducts: Cholecystectomy. Enlarged common bile duct measuring 8 mm, possibly reservoir effect. No calcified duct stone. Pancreas: Unremarkable. No mass. No ductal dilation. Spleen: Unremarkable. No splenomegaly. Adrenals: Unremarkable. No mass. Kidneys and ureters: Unremarkable. No solid mass. No hydronephrosis. Stomach and bowel: Unremarkable. No mucosal thickening. No bowel obstruction. PELVIS: Appendix: Normal appendix. Bladder: Unremarkable. No mass. Reproductive: Hysterectomy. ABDOMEN and PELVIS: Intraperitoneal space: Unremarkable. No free air, significant free fluid, or fluid collection. Bones/joints: No acute fracture. No dislocation. Soft tissues: Surgical scarring midline abdominal wall. Vasculature: Unremarkable. No abdominal aortic aneurysm. Lymph nodes: Unremarkable. No enlarged lymph nodes. IMPRESSION: Cholecystectomy. No collection of the gallbladder fossa. No significant free fluid to suggest bile leak. Electronically signed by: J Carlos Lamb M.D. 02/18/24 00:37 AM Dictated: 02/18/24 0037 Transcribed: 02/18/24 003 [phone] Magnetic Resonance Report Patient: OLIVERIO GONZALEZ Admit Date: 02/17/24 MR#: [id number] Address1: [facility] [address] Acct ID:[id number] Address2: Date: 1965 [facility] Zip: [place] [address] Age: 58 Location: ED Sex: F Room/Bed: Att Phy: Diagnosis: ABDOMINAL PAIN Annalise Phy: Yamini Alamo MD Service Date: 02/18/24 Fam Phy: Interpreting Phy: J Carlos Lamb MDAdmit Phy: Ordering Phy: Ivanna Martínez, DHARA cc: ~ Exam(s): MRI MRCP EXAM: MR Abdomen Without Intravenous Contrast, MRCP Protocol CLINICAL HISTORY: Reason for exam: Recent cholecystectomy, question retained stone. TECHNIQUE: Multiplanar magnetic resonance images of the abdomen without intravenous contrast using MRCP protocol. COMPARISON: CT abdomen and pelvis 02/17/24 FINDINGS: Lung bases appear clear. No focal hepatic lesion is identified. The gallbladder is surgically absent. There is no visible fluid collection at the gallbladder fossa. Common bile duct is mildly enlarged measuring 8 mm. There is no evidence of choledocholithiasis. Spleen, pancreas, and adrenal glands are unremarkable. Kidneys are similar in size and contour. There is no hydronephrosis. There is no aortic aneurysm. Bowel gas pattern is nonobstructive. Skeleton appears unremarkable. IMPRESSION: 1. Cholecystectomy. 2. Mild common bile duct enlargement, presumed reservoir effect. No evidence of choledocholithiasis. Electronically signed by: J Carlos Lamb M.D. 02/18/24 02:40 AM Dictated: 02/18/24 024 Transcribed: 02/18/24239 Results CMP Results: Na 136 mmol/L (136-145) 02/18/24 K 4.2 mmol/L (3.5-5.1) 02/18/24 Cl 101 mmol/L (98-107) 02/18/24 CO2 25 mmol/L (21-32) 02/18/24 Anion Gap 10 (3-11) 02/18/24 BUN 7 mg/dl (6-23) 02/18/24 Creatinine 1.04 mg/dl (0.6-1.2) 02/18/24 Estimated GFR ( Amer) 68.6 ml/min 02/18/24 Estimated GFR (Non-Af Amer) 59.2 ml/min 02/18/24 BUN/Creatinine Ratio 6.7 (10-20) L 02/18/24 Glu 145 mg/dl (70-99(Fasting)) H 02/18/24 Ca 9.5 mg/dl (8.6-10.3) 02/18/24 Total Bilirubin 4.3 mg/dl (0.2-1.0) H 02/18/24 Direct Bilirubin 2.6 mg/dl (0-0.2) H 02/18/24 AST 275 U/L (13-39) H 02/18/24 ALT 546 U/L (7-52) H 02/18/24 Alkaline Phosphatase 350 U/L (34-104) H 02/18/24 TP 7.1 gm/dl (6.0-8.3) 02/18/24 Albumin 4.2 gm/dl (3.4-5.0) 02/18/24 Globulin 3.0 gm/dl (2.5-4.0) 02/17/24 Albumin/Globulin Ratio 1.4 (0.9-2) 02/17/24 Results CBC w Diff Results: RBC 4.18 M/uL (4.20-5.40) L 02/18/24 WBC 8.94 K/ul (4.8-10.8) 02/18/24 Hgb 12.6 g/dl (12.0-16.0) 02/18/24 Hct 37.4 % (37.0-47.0) 02/18/24 MCV 89.5 fL (80.0-100.0) 02/18/24 MCH 30.1 pg (25.0-34.0) 02/18/24 MCHC 33.7 g/dL (32.0-36.0) 02/18/24 RDW Standard Deviation 38.7 fL (36.4-46.3) 02/18/24 RDW Coefficient of Variation 11.9 % (11.5-14.5) 02/18/24 Plt Count 216 K/uL (130-400) 02/18/24 MPV 12.6 fL (9.4-12.4) H 02/18/24 Neutrophils (%) (Auto) 87.2 % 02/18/24 Lymphocytes (%) (Auto) 6.4 % 02/18/24 Monocytes # (Auto) 0.45 K/uL (0.11-0.59) 02/18/24 Eosinophils # (Auto) 0.02 K/uL (0.00-0.50) 02/18/24 Immature Granulocyte % (Auto) 0.6 % 02/18/24 Neutrophils # (Auto) 7.80 K/uL (1.40-6.50) H 02/18/24 Lymphocytes # (Auto) 0.57 K/uL (1.20-3.40) L 02/18/24 Monocytes # (Auto) 0.45 K/uL (0.11-0.59) 02/18/24 Eosinophils # (Auto) 0.02 K/uL (0.00-0.50) 02/18/24 Basophils # (Auto) 0.05 K/uL (0.00-0.20) 02/18/24 Immature Granulocyte # (Auto) 0.05 K/uL (0.01-0.20) 4 PG Care Time/CCT Total # of Minutes Spent Total Time Spent with Patient: Total time spent is greater than 50% in coordination of care (as documented) at patient's floor/unit and/or counseling patient: Coding Level of Care Code 74312 INT INP/OBS CARE 1/40MIN Diagnoses Acute abdominal pain R10.9 Elevated liver enzymes R74.8
[2024-02-18] MEDS ORDERED: FLUoxetine HCL 20 MG CAP PO SCH (09:00)
[2024-02-18] MEDS ORDERED: NON-FORMULARY MEDICATION (Potassium Citrate 99 mg Capsule) PO SCH (09:00)
[2024-02-18] MEDS: metroNIDAZOLE 500 MG/100 ML BAG IV SCH (09:19)
--- NOTE | 2024-02-18 10:20 | Gastrointestinal Consultation ---
Date of Consultation February 18, 2024 Assessment & Plan (1) Elevated liver enzymes: -Continue IV antibiotics per general surgery/primary team -Continue to monitor LFTs; acute hep panel pending -No clear choledocholithiasis on imaging, however given persistent RUQ pain post cholecystectomy and elevated LFTs, agree with general surgery to consider transfer to a center with ERCP capabilities Supervising Physician Co-Signing Physician Notes I saw the patient directly and examined the patient. I agree with the note and plan as addressed by the SUPERVISOR OF RESEARCH. I have added comments below: 58 yo female with PMH significant for hypothyroidism, HLD, prediabetes, FARHANA, HTN, RLS, depression, KAMALA, & ADHD who had a recent cholecystectomy on 02/04/24. She returned to the ED on 02/17/24 with RUQ pain. She notes she had been doing well until she developed gradual RUQ pain and a subjective fever. She notes associated nausea and sweating. Lfts elevated with TB > 4, Elevated ast and alt to 590, MRCP with dilated ducts to 8 mm but no obvious stone. Patient still with abdominal pain and requiring meds. Suggest transfer to get evaluation for ERCP as duct will need to be cleared. patient agrees with note and plan. History of Present Illness Reason for Consultation: Elevated LFT, recent cholecystectomy Attending Physician: Maciej Carrillo MD History of Present Illness Patient is a 58 yo female with PMH significant for hypothyroidism, HLD, prediabetes, FARHANA, HTN, RLS, depression, KAMALA, & ADHD who had a recent cholecystectomy on 02/04/24. She returned to the ED on 02/17/24 with RUQ pain. She notes she had been doing well until she developed gradual RUQ pain and a subje ctive fever. She notes associated nausea and sweating. She had not been eating prior to arrival. Upon arrival she had a CT scan with a 8 mm CBD felt to possibly be reservoir effect. No clear indication of stone on CT, so an MRCP was obtained. MRCP again showed no clear evidence of choledocho but a mild CBD dilation of 8 mm felt to be possibly reservoir effect. Her RUQ pain has persisted and her LFTs are noted to be abnormal. Upon admission she was found to have a T bili of 4.2 and this is now 4.3. D bili is currently 2.6. AST 2775, ALT 546, AP 350. These values have decreased slightly since admission. She is on IV Ceftriaxone & Flagyl. General surgery has seen patient and advised transfer to a facility that does biliary procedures (ERCP). Current BP 154/96, T 37.1. HR 83. Allergies Allergy/AdvReac Type Severity Reaction Status Date / Time amoxicillin Allergy Intermediate HIVES. Verified 02/18/24 00:00 ITCHING celecoxib Allergy Intermediate HIVES Verified 02/18/24 00:00 clavulanic acid Allergy Intermediate HIVES, Verified 02/18/24 00:00 ITCHING hydrocodone Allergy Intermediate "really Verified 02/18/24 00:00 itchy" lactose Allergy Intermediate LACTOSE Verified 02/18/24 00:00 INTOLERANCE levofloxacin Allergy Intermediate HIVES Verified 02/18/24 00:00 moxifloxacin Allergy Intermediate HIVES Verified 02/18/24 00:00 oxycodone Allergy Intermediate HIVES Verified 02/18/24 00:00 paroxetine Allergy Intermediate HIVES Verified 02/18/24 00:00 Sulfa (Sulfonamide Allergy Intermediate EDEMA,BLISTERS Verified 02/18/24 00:00 Antibiotics) in mouth acetaminophen Allergy Mild Facial Verified 02/18/24 00:00 flushing adhesive Allergy Mild TAPE-REDNES Verified 02/18/24 00:00 S Penicillins Allergy Unknown ALLERGIC Verified 02/18/24 00:00 PER TESTING cetirizine AdvReac Intermediate PSYCHIATRIC Verified 02/18/24 00:00 REACTION guaifenesin AdvReac Intermediate PSYCHIATRIC Verified 02/18/24 00:00 REACTION pseudoephedrine AdvReac Intermediate PSYCHIATRIC Verified 02/18/24 00:00 REACTION Home Medications Medication Instructions Recorded Confirmed Type fluoxetine 20 mg capsule 20 mg PO QAM 04/28/20 02/18/24 History fluoxetine 40 mg capsule 40 mg PO QAM 04/28/20 02/18/24 History fluticasone propionate 50 2 spray intranasal BID 04/28/20 02/18/24 History mcg/actuation nasal spray,suspension lisinopril 5 mg tablet 5 mg PO QAM 04/28/20 02/18/24 History lorazepam 0.5 mg tablet 0.5 mg PO TID PRN Anxiety 04/28/20 02/18/24 History montelukast 10 mg tablet 10 mg PO QAM 04/28/20 02/18/24 History omeprazole 20 mg capsule,delayed 20 mg PO DAILY Acid Reflux 04/28/20 02/18/24 History release ropinirole 0.5 mg tablet See Rx Instructions .Route .COMPLEX 04/28/20 02/18/24 History magnesium oxide 250 mg PO QAM 03/02/21 02/18/24 History albuterol sulfate 90 mcg/actuation 2 puff inhalation Q4H PRN 02/03/24 02/18/24 History aerosol inhaler Shortness Of Breath Or Wheezing atomoxetine 40 mg capsule 40 mg PO DAILY 02/03/24 02/18/24 History azelastine 137 mcg (0.1 %) nasal 2 spray intranasal BID 02/03/24 02/18/24 History spray fexofenadine 180 mg tablet 180 mg PO DAILY 02/03/24 02/18/24 History gabapentin 800 mg tablet 800 mg PO QDD 02/03/24 02/18/24 History hydrochlorothiazide 12.5 mg capsule 12.5 mg PO DAILY 02/03/24 02/18/24 History levothyroxine 150 mcg tablet 150 mcg PO DAILY 02/03/24 02/18/24 History (Synthroid) tramadol 50 mg tablet 50 mg PO Q6H PRN pain, for initial 02/06/24 02/18/24 Rx therapy, max 6 tabs/day #15 tabs calcium carbonate 600 mg-vitamin 1 tab PO BID 02/18/24 02/18/24 History D3 10 mcg (400 unit) tablet (Calcium 600 + D(3)) potassium citrate 99 mg capsule 99 mg PO QAM 02/18/24 02/18/24 History Patient History Medical History Prediabetes Oral allergy syndrome ADHD (attention deficit hyperactivity disorder), combined type KAMALA (generalized anxiety disorder) Dyslipidemia GERD (gastroesophageal reflux disease) IBS (irritable bowel syndrome) 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 Depression Anxiety History of anesthesia reaction during colonoscopy in 2017 at [place] pt had an esophageal spasm and procedure was aborted, pt had a colonoscopy at [facility] 2017 without any issues Surgical History Hx laparoscopic cholecystectomy (02/04/24) Laparoscopic Cholecystectomy (Not Applicable) - Theo Hernandez DO History of endometrial ablation History of elbow surgery right radial History of foot surgery left--bone spurs History of ankle surgery right release of achilles tendon History of Achilles tendon repair right Status post trigger finger release bilt thumbs History of repair of right rotator cuff x2 History of hysterectomy History of wisdom tooth extraction History of sinus surgery History of colonoscopy Family History Other Family history not known due to adoption Social History Smoking Status: Never smoker Second Hand Exposure: No; Do You Dip or Chew Tobacco: No; Hx Alcohol Use: Yes Alcohol type: wine Hx Substance Use: No Preferred Language: Comoran Communication Ability: Effective Steam Trap Man Required: No Beliefs That Will Affect Care: None Current Living Situation: Alone Feels Safe at Home: Yes Safety Concerns: Feels Safe At This Time Assistive Devices: Glasses and Hearing Aid - Bilateral Review of Systems Constitutional: no fever and no chills Respiratory: no cough and no dyspnea Cardiovascular: no chest pain Gastrointestinal: + abdominal pain Integumentary: no yellowing of the skin Hematologic / Lymphatic: no unexplained weight loss Physical Exam Constitutional: well developed Respiratory: normal respiratory effort Gastrointestinal (Abdomen): normal bowel sounds, soft, nontender, no hepatosplenomegaly Psychiatric: Orientation: alert and oriented x 3 Results & Data Vital Signs (Past 12 Hours) Vital Signs Temp Pulse Pulse Resp BP BP Pulse Ox 02/18/24 07:45 37.1 C 16 154/96 H 97 02/18/24 04:00 91 H 02/18/24 03:28 02/18/24 03:08 36.6 C 87 16 165/102 H 96 02/18/24 02:30 86 16 168/95 H 90 02/18/24 02:27 85 15 172/92 H 92 02/18/24 02:18 88 17 96 02/18/24 02:14 186/108 H 02/18/24 01:00 79 17 97 02/18/24 01:00 179/113 H 02/18/24 01:00 179/113 H 02/18/24 01:00 179/113 H 02/18/24 00:51 77 22 98 02/18/24 00:36 80 24 97 02/18/24 00:31 177/122 H 02/18/24 00:31 177/122 H 02/18/24 00:21 82 21 96 02/18/24 00:12 83 22 95 02/17/24 23:54 82 19 97 02/17/24 23:42 79 20 96 02/17/24 23:36 79 23 96 02/17/24 23:21 79 20 95 02/17/24 23:18 80 19 97 02/17/24 22:38 36.7 C 77 18 161/95 H 100 02/17/24 22:34 77 18 98 02/17/24 22:29 76 02/17/24 22:29 77 18 161/95 H 98 O2 Del Method O2 Flow Rate 02/18/24 07:45 Nasal Cannula 1.5 02/18/24 04:00 02/18/24 03:28 Room Air 02/18/24 03:08 Room Air 02/18/24 02:30 Room Air 02/18/24 02:27 Room Air 02/18/24 02:18 02/18/24 02:14 02/18/24 01:00 Room Air 02/18/24 01:00 02/18/24 01:00 02/18/24 01:00 02/18/24 00:51 02/18/24 00:36 02/18/24 00:31 02/18/24 00:31 02/18/24 00:21 02/18/24 00:12 02/17/24 23:54 02/17/24 23:42 02/17/24 23:36 02/17/24 23:21 02/17/24 23:18 02/17/24 22:38 Room Air 02/17/24 22:34 Room Air 02/17/24 22:29 02/17/24 22:29 Room Air Laboratory Results Laboratory Results - last 48 hr 02/17/24 02/17/24 02/17/24 22:28 22:28 22:32 WBC 6.69 RBC 4.29 Hgb 13.0 POC Hgb 13.3 Hct 38.1 POC Hct 39 MCV 88.8 MCH 30.3 MCHC 34.1 RDW Std Deviation 38.5 RDW Coeff of David 12.0 Plt Count 230 MPV 12.4 Immature Gran % (Auto) 0.7 Neut % (Auto) 72.0 Lymph % (Auto) 14.8 Walsh % (Auto) 7.3 Eos % (Auto) 3.7 Baso % (Auto) 1.5 Neut # (Auto) 4.81 Lymph # (Auto) 0.99 L Walsh # (Auto) 0.49 Eos # (Auto) 0.25 Baso # (Auto) 0.10 Immature Gran # (Auto) 0.05 POC Sodium 138 Sodium 137 POC Potassium 3.3 Potassium 3.3 L POC Chloride 100 L Chloride 99 Carbon Dioxide 21 POC Total CO2 21 L Anion Gap 17 H POC Anion Gap 20.0 POC BUN 7 BUN 9 Creatinine 1.24 H POC Creatinine 1.3 Est Cr Clr Drug Dosing 69.0 Est GFR ( Amer) 55.4 Est GFR (Non-Af Amer) 47.8 BUN/Creatinine Ratio 7.3 L Glucose 181 H POC Glucose (other) 184 H Estimat Average Glucose Hemoglobin A1c Lactate Calcium 9.9 POC Ioniz Calcium Meghna 1.04 L Magnesium Total Bilirubin 4.2 H Direct Bilirubin AST 309 H ALT 590 H Alkaline Phosphatase 364 H Troponin I High Sens 5.0 Cancelled Total Protein 7.3 Albumin 4.3 Globulin 3.0 Albumin/Globulin Ratio 1.4 Lipase 25 Urine Color Urine Appearance Urine pH Ur Specific [place] Urine Protein Urine Glucose (UA) Urine Ketones Urine Blood Urine Nitrite Urine Bilirubin Urine Urobilinogen Ur Leukocyte Esterase Urine WBC (Auto) Urine RBC (Auto) U Hyaline Cast (Auto) U Epithel Cells (Auto) Urine Bacteria (Auto) Hep Bs Antigen Hepatitis C Antibody 02/18/24 02/18/24 02/18/24 01:17 05:57 11:04 WBC 8.94 RBC 4.18 L Hgb 12.6 POC Hgb Hct 37.4 POC Hct MCV 89.5 MCH 30.1 MCHC 33.7 RDW Std Deviation 38.7 RDW Coeff of David 11.9 Plt Count 216 MPV 12.6 H Immature Gran % (Auto) 0.6 Neut % (Auto) 87.2 Lymph % (Auto) 6.4 Walsh % (Auto) 5.0 Eos % (Auto) 0.2 Baso % (Auto) 0.6 Neut # (Auto) 7.80 H Lymph # (Auto) 0.57 L Walsh # (Auto) 0.45 Eos # (Auto) 0.02 Baso # (Auto) 0.05 Immature Gran # (Auto) 0.05 POC Sodium Sodium 136 POC Potassium Potassium 4.2 D POC Chloride Chloride 101 Carbon Dioxide 25 POC Total CO2 Anion Gap 10 POC Anion Gap POC BUN BUN 7 Creatinine 1.04 POC Creatinine Est Cr Clr Drug Dosing 81.5 Est GFR ( Amer) 68.6 Est GFR (Non-Af Amer) 59.2 BUN/Creatinine Ratio 6.7 L Glucose 145 H POC Glucose (other) Estimat Average Glucose 123 Hemoglobin A1c 5.9 H Lactate 0.9 Calcium 9.5 POC Ioniz Calcium Meghna Magnesium 2.0 Total Bilirubin 4.3 H Direct Bilirubin 2.6 H AST 275 H ALT 546 H Alkaline Phosphatase 350 H Troponin I High Sens Total Protein 7.1 Albumin 4.2 Globulin Albumin/Globulin Ratio Lipase Urine Color Dark Yellow Urine Appearance Clear Urine pH 8.5 H Ur Specific [place] 1.042 H Urine Protein Negative Urine Glucose (UA) Negative Urine Ketones 1+ H Urine Blood Negative Urine Nitrite Negative Urine Bilirubin Negative Urine Urobilinogen Negative Ur Leukocyte Esterase Trace H Urine WBC (Auto) 0-5 Urine RBC (Auto) 0-2 U Hyaline Cast (Auto) 0-2 U Epithel Cells (Auto) 0-2 Urine Bacteria (Auto) None Seen Hep Bs Antigen Negative Hepatitis C Antibody Negative PG Care Time/CCT Total # of Minutes Spent Total Time Spent with Patient: Total time spent is greater than 50% in coordination of care (as documented) at patient's floor/unit and/or counseling patient: [place] [address] IN/OBS CONSULT LVL 4,60M Patient Type New History Detailed Exam Detailed Medical Decision Making Moderate Complexity Diagnoses Elevated liver enzymes R74.8
[2024-02-18 12:35] LABS: HepB Surface Ag with confirm Negative (Negative)
[2024-02-18 12:39] LABS: HepC Ab Rflx HepCQuant RNA Negative (Negative)
--- NOTE | 2024-02-18 13:09 | Communication Note ---
Date of Service: February 18, 2024 Patient seen and examined at bedside She is lying in the bed comfortably; not in distress She was seen by GI and surgery; both recommend transfer to tertiary care center for ERCP. Discussed with GI at [facility]; patient will require ERCP. discussed with hospitalist who accepted the patient. On physical examination; Constitutional: Alert oriented x 3; not in distress. Chest- no wheeze, rales, rhonchi. Normal insp/exp effort, no accessory muscle use Cardiovascular: RRR, no murmur, no edema Vessels: no JVD or carotid bruit Chest: normal inspection of chest Abdomen: Soft, mild tenderness in right upper quadrant region. Bowel sound present. Musculoskeletal: no cyanosis or clubbing, extremities motor strength 5/5 Skin: no rashes, warm and dry normal turgor Neurologic: PERRL, EOMI, accommodation nl, no face palsy, no dysarthria CN's II- XI intact bilaterally and moves all extremities Psychiatric: A+Ox3, euthymic affect
--- NOTE | 2024-02-18 13:16 | Discharge Summary ---
Date of Service February 18, 2024 Admission HPI Per Admitting Provider 58-year-old female with past medical history significant for acquired hypothyroidism, mixed dyslipidemia, prediabetes, moderate obstructive sleep apnea, chronic pansinusitis, history of laryngospasm, hypertension, restless leg syndrome, depression, general anxiety disorder, ADHD who recently had cholecystectomy comes with abdominal pain and also found to have elevated LFTs. Patient recently was admitted for acute cholecystitis and had cholecystectomy on 02/04/24 and was discharged on 02/06/24. Patient states since discharge was doing okay. But since last couple of days she developed abdominal pain in right upper quadrant region ,initially was on and off but then it got persistent severe in nature .The pain is also going to lower chest. Associate with nausea. Yesterday she had low-grade temperature. And she was profusely sweating. As she was not getting better came to the ER. Because of not eating much she got dehydrated and had some headaches. Vision is okay. No runny nose or sore throat. No cough. When the pain is severe she gets short of breath. Somewhat constipated. Denies any blood in the stools. Micturating okay. Developed some itchy rash around the neck since today afternoon. Currently hemodynamics are okay. Past medical history. As mentioned above Past surgical history. Colonoscopy. Dental surgery. Hysteroscopy with biopsy. Polypectomy. Laparoscopic cholecystectomy. Nasal endoscopy. Partial hysterectomy. Puncture drainage left breast cyst. Repair of nasal septum. Repair of ruptured Achilles tendon. Repair of ruptured rotator cuff. Left retinal treatment. Social history. No smoking. No alcohol use. No drug use. Family history. Patient was adopted. Admission Exam Per Admitting Provider General- Not in distress Head- atraumatic Eyes- PERRL. ENT- oropharynx clear Neck- supple, no JVD. Lungs- clear to auscultation no wheezing or crackles. Heart- regular rhythm; no murmur, no gallop. Abdomen- normal bowel sounds, soft, tenderness in RUG, recent laparoscopic sites no drainage seen Extremities- no pretibial edema, no erythema seen Neuro- alert, oriented PERRL, no facial palsy; no dysarthria; moves extremities Principal Diagnosis Elevated liver enzymes Discharge Exam Constitutional: WD/WN, vitals as above, NAD, sitting up in bed, pleasant, conversing easily Respiratory: normal respiratory effort, lungs clear to auscultation, no wheeze, rales, rhonchi. Normal insp/exp effort, no accessory muscle use Cardiovascular: RRR, no murmur, no edema Vessels: no JVD or carotid bruit Chest: normal inspection of chest Abdomen: mild tenderness in RUQ Musculoskeletal: no cyanosis or clubbing, extremities motor strength 5/5 Skin: no rashes, warm and dry normal turgor Neurologic: PERRL, EOMI, accommodation nl, no face palsy, no dysarthria CN's II- XI intact bilaterally and moves all extremities Psychiatric: A+Ox3, euthymic affect Discharge Data Allergies Allergy/AdvReac Type Severity Reaction Status Date / Time amoxicillin Allergy Intermediate HIVES. Verified 02/18/24 00:00 ITCHING celecoxib Allergy Intermediate HIVES Verified 02/18/24 00:00 clavulanic acid Allergy Intermediate HIVES, Verified 02/18/24 00:00 ITCHING hydrocodone Allergy Intermediate "really Verified 02/18/24 00:00 itchy" lactose Allergy Intermediate LACTOSE Verified 02/18/24 00:00 INTOLERANCE levofloxacin Allergy Intermediate HIVES Verified 02/18/24 00:00 moxifloxacin Allergy Intermediate HIVES Verified 02/18/24 00:00 oxycodone Allergy Intermediate HIVES Verified 02/18/24 00:00 paroxetine Allergy Intermediate HIVES Verified 02/18/24 00:00 Sulfa (Sulfonamide Allergy Intermediate EDEMA,BLISTERS Verified 02/18/24 00:00 Antibiotics) in mouth acetaminophen Allergy Mild Facial Verified 02/18/24 00:00 flushing adhesive Allergy Mild TAPE-REDNES Verified 02/18/24 00:00 S Penicillins Allergy Unknown ALLERGIC Verified 02/18/24 00:00 PER TESTING cetirizine AdvReac Intermediate PSYCHIATRIC Verified 02/18/24 00:00 REACTION guaifenesin AdvReac Intermediate PSYCHIATRIC Verified 02/18/24 00:00 REACTION pseudoephedrine AdvReac Intermediate PSYCHIATRIC Verified 02/18/24 00:00 REACTION Consultations 02/18/24 00:46 ED Decision to Admit Stat 02/18/24 08:00 Consult Gastroenterology Routine Consult General Surgery Routine Ordered Studies 02/17/24 22:29 CT angio chest PE protocol Stat 02/17/24 22:30 CT abd pelvis IV con only Stat 02/18/24 00:46 MR MRCP Stat Hospital Course (1) Elevated liver enzymes: 58-year-old female with past medical history significant for acquired hypothyroidism, mixed dyslipidemia, prediabetes, moderate obstructive sleep apnea, chronic pansinusitis, history of laryngospasm, hypertension, restless leg syndrome, depression, general anxiety disorder, ADHD who recently had cholecystectomy February 04, 2024 comes with abdominal pain. Patient was recently hospitalized for acute cholecystitis for which she underwent laparoscopic cholecystectomy on February 03 and was discharged home on February 06, 2024. Patient reported that she was doing well after the surgery at home. However, she started to experience abdominal pain, nausea and low-grade fever for last 4 days. On presentation to the ED, she was normotensive, afebrile, saturating well in room air. Total bilirubin was elevated to 4.3, [id number], [id number] and ALP of 364. CT abdomen pelvis did not show any collection in the gallbladder fossa, no significant free fluid to suggest bile leak. MRCP showed mild CBD enlargement; no evidence of choledocholithiasis. Patient was admitted to medical floor; started on CXT and Flagyl, iv fluids and pain control. GI and surgery were consulted for comanagement. Both services recommended ERCP. Discussion was done with the [facility] and hospitalist; patient accepted for transfer. Please note the above document was generated using voice recognition software. It may contain grammatical, syntax or spelling errors. Any formal questions or concerns about the content, text or information contained within the body of this dictation should be directly addressed to the provider for clarification Total Time Total Time Spent Total Time Spent (In Minutes): 65 Total Time Includes: Examination of the Patient, Discharge Planning, Medication Reconciliation, Communication With Other Providers and Other Discharge Plan Discharge Items Patient Disposition: Transfer Acute Care Hospital Reason For Visit: ABDOMINAL PAIN, ELEVATED LFT Discharge Diagnosis: Elevated liver enzymes Abdominal pain Condition on Discharge: Good Activity: Resume your previous activity Non-emergency contact: Primary Care Provider Call non-emergency contact if: you have any medication questions and your symptoms worsen Follow-up/Referrals: Yamini Almao MD [Primary Care Provider] - Diet: Regular Addtl Attending Provider Instructions: Please follow-up with your primary care doctor after discharge from the hospital. Addtl Diagrammer Provider Instructions: Date of Service: February 18, 2024 Current Inpatient Medications Albuterol (Albuterol Hfa 8 Gm Inhaler) 2 puffs INH Q4H PRN PRN Reason: Shortness Of Breath Or Wheezin Stop: 03/19/24 03:06 Atomoxetine HCl (Atomoxetine Hcl 40 Mg Capsule) 40 mg PO DAILY [facility] Stop: 03/19/24 08:59 Last Admin: 02/18/24 08:00 Dose: 40 mg Azelastine HCl (Azelastine Hcl 0.1% Nasal 200 Sprays/27,400 Mcg Btl) 2 sprays NA BID [facility] Stop: 03/19/24 08:59 Last Admin: 02/18/24 08:00 Dose: 2 sprays Fexofenadine HCl (Fexofenadine Hcl 180 Mg Tab) 180 mg PO DAILY [facility] Stop: 03/19/24 08:59 Last Admin: 02/18/24 07:59 Dose: 180 mg Fluoxetine HCl (Fluoxetine Hcl 20 Mg Cap) 60 mg PO QAM [facility] Stop: 03/19/24 08:59 Last Admin: 02/18/24 07:59 Dose: 60 mg Fluticasone Propionate (Fluticasone Propionate Na Spr 16 Gm Btl) 2 sprays NA BID [facility] Stop: 03/19/24 08:59 Last Admin: 02/18/24 08:00 Dose: 2 sprays Gabapentin (Gabapentin 800 Mg Tab) 800 mg PO DAILY@1700 [facility] Stop: 03/19/24 16:59 Hydralazine HCl (Hydralazine Hcl 20 Mg/Ml Vial) 5 mg IV Q6H PRN PRN Reason: Hypertension Stop: 03/19/24 08:14 Hydromorphone HCl (Hydromorphone Inj 0.5 Mg/0.5 Ml Syr) 0.5 mg IV Q4H PRN PRN Reason: Severe Pain (Scale 7, 8, 9,10) Stop: 03/03/24 03:06 Last Admin: 02/18/24 09:28 Dose: 0.5 mg Sodium Chloride (Nss) 1,000 mls @ 100 mls/hr IV .Q10H [facility] Stop: 03/19/24 03:06 Last Admin: 02/18/24 12:56 Dose: 100 mls/hr Ceftriaxone Sodium (Rocephin) 2,000 mg in 50 mls @ 100 mls/hr IV Q24H [facility] Stop: 02/28/24 08:59 Last Infusion: 02/18/24 09:34 Dose: Infused Metronidazole (Flagyl) 500 mg in 100 mls @ 100 mls/hr IV Q8H [facility]; Protocol Stop: 02/28/24 08:59 Last Infusion: 02/18/24 10:22 Dose: Infused Promethazine HCl 12.5 mg/ (Sodium Chloride) 50.5 mls @ 202 mls/hr IV Q6H PRN PRN Reason: Nausea And Vomiting Stop: 03/19/24 03:06 Levothyroxine Sodium (Levothyroxine Sodium 150 Mcg Tablet) 150 mcg PO DAILYBB [facility] Stop: 03/19/24 06:29 Last Admin: 02/18/24 05:07 Dose: 150 mcg Lorazepam (Lorazepam 0.5 Mg Tab) 0.5 mg PO TID PRN PRN Reason: Anxiety Stop: 03/19/24 03:06 Magnesium Oxide (Magnesium Oxide 400 Mg Tab) [facility] [place] Stop: 03/19/24 08:59 Last Admin: 02/18/24 07:59 Dose: 400 mg Montelukast Sodium (Montelukast Sodium 10 Mg Tablet) 10 mg PO QAM [facility] Stop: 03/19/24 08:59 Last Admin: 02/18/24 07:59 Dose: 10 mg Nitroglycerin (Nitroglycerin Sl 0.4 Mg/Tab Tab) 0.4 mg SL Q5M PRN PRN Reason: Chest Pain Stop: 03/19/24 03:06 Pantoprazole Sodium (Pantoprazole 40 Mg Tab) 40 mg PO DAILY [facility] Stop: 03/19/24 08:59 Last Admin: 02/18/24 07:59 Dose: 40 mg Ropinirole HCl (Ropinirole Hcl 0.25 Mg Tablet) 0.5 mg PO DAILY@1700 [facility] Stop: 03/19/24 16:59 Ropinirole HCl (Ropinirole Hcl 1 Mg Tablet) 1 mg PO PM [facility] Stop: 03/19/24 20:59 Pending Studies at Discharge: No Stand-Alone Forms: [employer], Smoking Cessation Skilled Items Patient informed of condition?: Yes DNR: No Discharge Level of Care: Other Communicable Disease: No Discharge Prognosis: Stable Lines: Peripheral IV Urinary Catheter: No Medications and DC Order Prescriptions: Continued omeprazole 20 mg capsule,delayed release(DR/EC) 20 mg PO DAILY montelukast 10 mg tablet 10 mg PO QAM lisinopril 5 mg tablet 5 mg PO QAM fluoxetine 20 mg capsule 20 mg PO QAM Patient Comments: takes with 40mg to equal 60mg Rx Instructions: with 40 mg to make 60 mg fluticasone propionate 50 mcg/actuation spray,suspension 2 spray INTRANASAL BID fluoxetine 40 mg capsule 40 mg PO QAM Rx Instructions: with 20 mg to make 60 mg lorazepam 0.5 mg tablet 0.5 mg PO TID PRN (Reason: Anxiety) ropinirole 0.5 mg tablet See Rx Instructions .ROUTE .COMPLEX Rx Instructions: take 1 tab po daily at 5 pm, 2 tab po daily at 9 pm magnesium oxide 250 mg magnesium Tablet 250 mg PO QAM calcium carbonate-vitamin D3 [Calcium 600 + D(3)] 600 mg-10 mcg (400 unit) Tablet 1 tab PO BID potassium citrate 99 mg Capsule 99 mg PO QAM gabapentin 800 mg tablet 800 mg PO QDD Rx Instructions: takes at 5 pm azelastine 137 mcg (0.1 %) aerosol,spray 2 spray INTRANASAL BID albuterol sulfate 90 mcg/actuation HFA aerosol inhaler 2 puff INHALATION Q4H PRN (Reason: Shortness Of Breath Or Wheezing) atomoxetine 40 mg capsule 40 mg PO DAILY levothyroxine [Synthroid] 150 mcg tablet 150 mcg PO DAILY fexofenadine 180 mg Tablet 180 mg PO DAILY hydrochlorothiazide 12.5 mg capsule 12.5 mg PO DAILY tramadol 50 mg tablet 50 mg PO Q6H PRN (Reason: pain, for initial therapy, max 6 tabs/day) Qty: 15 0RF Discharge Orders: Discharge Order (Routine); Ordered 02/18/24 Ordered By: Maciej Carrillo Admission Data Admit Date/Time: 02/18/24 02:17 Attending Provider: Maciej Carrillo Admit Provider: Ramana Valdovinos Primary Care Provider: Yamini Alamo Other Providers: Juan Pearson; Ramana Valdovinos; Onel Valiente Other Interventions: Discharge Summary Assessment (RN) Last Done: 02/18/24 13:19
[2024-02-18] MEDS ORDERED: GABAPENTIN 800 MG TAB PO SCH (17:00)
[2024-02-18] MEDS ORDERED: rOPINIRole HCL 0.25 MG TABLET PO SCH (17:00)
[2024-02-18] MEDS ORDERED: rOPINIRole HCL 1 MG TABLET PO SCH (21:00)
--- NOTE | 2024-02-19 06:52 | Electrocardiogram Report ---
Test Reason : Blood Pressure : / mmHG Vent. Rate : 077 BPM Atrial Rate : 077 BPM P-R Int : 158 ms QRS Dur : 094 ms QT Int : 444 ms P-R-T Axes : 029 026 053 degrees QTc Int : 502 ms Normal sinus rhythm Nonspecific T wave abnormality Abnormal ECG No previous ECGs available Confirmed by Thanh Buckner ([id number]) on 02/19/2024 6:51:58 AM Referred By: REFERRED SELF Confirmed By:Thanh Buckner
--- NOTE | 2024-02-19 07:01 | Electrocardiogram Report ---
Test Reason : Blood Pressure : / mmHG Vent. Rate : 087 BPM Atrial Rate : 087 BPM P-R Int : 160 ms QRS Dur : 090 ms QT Int : 380 ms P-R-T Axes : 036 033 060 degrees QTc Int : 458 ms Normal sinus rhythm Nonspecific T wave abnormality Abnormal ECG When compared with ECG of 17-FEB-2024 22:34, (unconfirmed) No significant change was found Confirmed by Thanh Buckner ([id number]) on 02/19/2024 7:01:12 AM Referred By: REFERRED SELF Confirmed By:Thanh Buckner
[2024-02-20 13:32] LABS: Hepatitis A Antibody IgM NON-REACTIVE (NON-REACTIVE); Hepatitis B Core Antibody IgM NON-REACTIVE (NON-REACTIVE)
== END 2024-02-18 14:01 | disposition short-term general hospital (02) | DRG 446 ==
LOC: ED 22:22 → SUATTDRO 02-18 02:17 → INTOOBSV 02-18 02:17 → 2N 02-18 02:17